=== PATIENT | male | born 1965 | race Caucasian/White ===

== ENCOUNTER → 2020-06-17 10:00 | Outpatient (BNVA) | payer OTHER, SELFPAY | PROVIDERS: PCP Internal Medicine; Referring Provider Internal Medicine; Visit Provider Dietitian, Registered | DX: Z76.89 Persons encountering health services in other specified circumstances (principal) ==

== ENCOUNTER → 2020-06-25 09:22 | Outpatient (BNVA) | payer OTHER, SELFPAY | PROVIDERS: PCP Internal Medicine; Referring Provider Internal Medicine; Visit Provider Internal Medicine Endocrinology, Diabetes & Metabolism | DX: E11.21 Type 2 diabetes mellitus with diabetic nephropathy (principal); E11.42 Type 2 diabetes mellitus with diabetic polyneuropathy; Z79.4 Long term (current) use of insulin; D64.9 Anemia, unspecified; E55.9 Vitamin D deficiency, unspecified; E78.5 Hyperlipidemia, unspecified; I10 Essential (primary) hypertension; M85.89 Other specified disorders of bone density and structure, multiple sites; E29.1 Testicular hypofunction; E66.01 Morbid (severe) obesity due to excess calories; Z68.43 Body mass index [BMI] 50.0-59.9, adult | CPT/HCPCS: 82947; 99214 ==

== ENCOUNTER → 2020-07-29 11:14 | Outpatient (BNVA) | payer OTHER, SELFPAY | PROVIDERS: PCP Internal Medicine; Referring Provider Internal Medicine; Visit Provider Dietitian, Registered | DX: Z76.89 Persons encountering health services in other specified circumstances (principal) ==

== ENCOUNTER 2020-07-29 12:23 | Outpatient (REF) | payer OTHER, SELFPAY ==
[2020-07-29 13:40] LABS: MANUAL DIFF FLAG NO
[2020-07-29 13:46] LABS: Basophils Percent Auto 0.3 % (0-2); Eosinophils Absolute Auto 0.1 X10*3/uL (0.0-0.4); Eosinophils Percent Auto 1.7 % (0-4); Hematocrit 42.3 % (42-52); Imm Gran Abs Auto 0.01 X10*3/uL (0.00-0.03); Imm Gran Pct Auto 0.2 % (0.0-0.4); Lymphocytes Absolute Auto 2.1 X10*3/uL (1.2-4.9); Lymphocytes Percent Auto 35.3 % (20-40); Mean Corpuscular HGB Conc 30.7 g/dl (31.0-36.0); Mean Corpuscular Hemoglobin 26.5 pg (27.0-33.0); Mean Corpuscular Volume 86.3 fL (80-98); Mean Platelet Volume 9.5 fL (9.4-12.4); Monocytes Absolute Auto 0.3 X10*3/uL (0.1-1.2); Monocytes Percent Auto 4.5 % (2-11); Neutrophils Absolute Auto 3.5 X10*3/uL (2.0-8.3); Platelet Count 211 X10*3/uL (160-400); Red Cell Distribution Width 15.8 % (11.0-16.0); White Blood Count 6.1 X10*3/uL (4.8-10.8)
[2020-07-29 14:03] LABS: Estimated Average Glucose 186 mg/dL; Hemoglobin A1c % 8.1 %
[2020-07-29 14:15] LABS: Anion Gap 11 (12-20); Blood Urea Nitrogen 15 mg/dL (9-16); Calcium 9.1 mg/dL (8.4-10.2); Carbon Dioxide 33 mmol/L (22-29); Chloride 99 mmol/L (96-108); Cholesterol 187 mg/dL; Estimated Glomerular Filt Rate > 60; Glucose Fasting 108 mg/dL (60-99); HDL Cholesterol 32 mg/dL; LDL Cholesterol Calculated 131 mg/dl; Potassium 3.8 mmol/l (3.3-5.1); Sodium 139 mmol/L (135-145); Triglycerides 124 mg/dL
[2020-07-29 14:55] LABS: Vitamin B12 692 pg/mL (200-900)
[2020-07-29 17:17] LABS: Alanine Aminotransferase 20 U/L (0-40); Albumin Level 4.3 g/dL (3.5-5.0); Alkaline Phosphatase 77 U/L (39-117); Anion Gap 12 (12-20); Aspartate Amino Transferase 17 U/L (5-37); Bilirubin Total 0.6 mg/dL (0.0-1.0); Blood Urea Nitrogen 15 mg/dL (9-16); Calcium 8.9 mg/dL (8.4-10.2); Carbon Dioxide 32 mmol/L (22-29); Chloride 99 mmol/L (96-108); Estimated Glomerular Filt Rate > 60; Glucose Random 105 mg/dL (60-115); Potassium 3.8 mmol/l (3.3-5.1); Sodium 139 mmol/L (135-145); Total Protein 7.6 g/dL (6.5-8.0)
== END 2020-07-29 12:24 | disposition home or self-care (01) ==
LOC: HO.10HDL 12:23
PROVIDERS: Absent Provider Internal Medicine Endocrinology, Diabetes & Metabolism; Visit Provider Nurse Practitioner Family
DX: E11.29 Type 2 diabetes mellitus with other diabetic kidney complication (principal); E11.42 Type 2 diabetes mellitus with diabetic polyneuropathy; E11.21 Type 2 diabetes mellitus with diabetic nephropathy; E66.01 Morbid (severe) obesity due to excess calories; Z68.43 Body mass index [BMI] 50.0-59.9, adult
CPT/HCPCS: 36415; 80048; 80053; 80061; 82607; 83036; 85025

== ENCOUNTER → 2020-09-21 09:30 | Outpatient (BNVA) | payer OTHER, SELFPAY | PROVIDERS: PCP Internal Medicine; Visit Provider Dietitian, Registered | DX: Z76.89 Persons encountering health services in other specified circumstances (principal) ==

== ENCOUNTER 2020-09-23 09:40 | Outpatient (REF) | payer OTHER, SELFPAY ==
--- NOTE | 2020-09-23 09:46 | CT_ITS ---
EXAMINATION: CT CHEST WITHOUT CONTRAST CLINICAL INFORMATION: Lung nodule COMPARISON: August 30, 2019. December 01, 2011. TECHNIQUE: Multidetector volumetric CT imaging of the chest was done. Axial MIP volume rendering provided. Sagittal and coronal reformatted images were obtained. This CT examination was performed using dose optimization techniques as appropriate, variously including the following: *Automated exposure control *Adjustment of mA and/or kV according to patient size (this includes techniques or standardized protocols for targeted exams where dose is matched to indication/reason for exam; i.e. extremities or head) *Use of iterative reconstruction technique DLP: 362 mGy-cm FINDINGS: LUNGS: The central airways are patent. There is some central bronchial wall thickening seen most prominent in the lower lobes. There is some dependent groundglass disease seen which may be related to atelectasis. No bronchiectasis is seen. Within the right middle lobe on image 196 of 558 there is a 5 mm noncalcified nodule along the minor fissure which may represent intrafissural lymph node. This is essentially stable dating back to study of December 01, 2011. There is a 7 mm right middle lobe. Vascular noncalcified density seen on image 226 of 558. This is stable dating back to study of December 01, 2011. MEDIASTINUM: Heart normal size. Mild calcified coronary artery plaque is present. No pericardial effusion. No mediastinal or hilar lymphadenopathy appreciated. There are prominent aortopulmonic window lymph nodes but which are not pathologically enlarged. No thoracic aortic aneurysm. PLEURA: There is no pleural effusion. No pleural mass or thickening. AXILLA: No lymphadenopathy. UPPER ABDOMEN: Unremarkable. OSSEOUS STRUCTURES: No suspicious destructive bony lesions identified. CT/CT chest wo con IMPRESSION: Stable right middle lobe nodules dating back to December 01, 2011. Dependent groundglass opacity as well as some scattered regions of groundglass opacity likely related to atelectasis. No new suspicious nodules appreciated.
== END 2020-09-23 09:41 | disposition home or self-care (01) ==
LOC: HO.CT 09:40
PROVIDERS: Visit Provider Internal Medicine Pulmonary Disease
DX: R91.1 Solitary pulmonary nodule (principal)
CPT/HCPCS: 71250

== ENCOUNTER → 2020-09-28 10:52 | Outpatient (BNVA) | payer OTHER, SELFPAY | PROVIDERS: PCP Internal Medicine; Visit Provider Internal Medicine Endocrinology, Diabetes & Metabolism | DX: E11.29 Type 2 diabetes mellitus with other diabetic kidney complication (principal); E11.42 Type 2 diabetes mellitus with diabetic polyneuropathy; E11.21 Type 2 diabetes mellitus with diabetic nephropathy; Z79.4 Long term (current) use of insulin; E66.01 Morbid (severe) obesity due to excess calories; Z68.43 Body mass index [BMI] 50.0-59.9, adult; E55.9 Vitamin D deficiency, unspecified; E78.5 Hyperlipidemia, unspecified; I10 Essential (primary) hypertension; M85.89 Other specified disorders of bone density and structure, multiple sites; E29.1 Testicular hypofunction | CPT/HCPCS: 82947; 99212 ==

== ENCOUNTER 2020-09-28 11:41 | Outpatient (REF) | payer OTHER, SELFPAY | END 2020-09-28 11:42 | disposition home or self-care (01) | LOC: HO.LAB 11:41 | PROVIDERS: Visit Provider Internal Medicine | DX: Z20.822 Contact with and (suspected) exposure to COVID-19 (principal) | CPT/HCPCS: 36415; C9803; U0003 ==

== ENCOUNTER → 2020-11-03 10:45 | Outpatient (BNVA) | payer OTHER, SELFPAY | PROVIDERS: PCP Internal Medicine; Visit Provider Internal Medicine Pulmonary Disease | DX: G47.33 Obstructive sleep apnea (adult) (pediatric) (principal); R06.00 Dyspnea, unspecified; E66.01 Morbid (severe) obesity due to excess calories; Z68.43 Body mass index [BMI] 50.0-59.9, adult | CPT/HCPCS: 99212 ==

== ENCOUNTER → 2020-12-25 08:15 | Outpatient (REF) | payer OTHER, SELFPAY ==
--- NOTE | 2020-12-25 08:22 | CA_ITS ---
Transthoracic Echocardiogram Patient (Last, First, Middle): Pedro Cohen, Gender: Male Date of : 1965 Age: 55 Procedure Date: 12/25/2020 Procedure Type: Transthoracic Echocardiogram Location: OP Height: 180.34 cm Weight: 110.22 kg BSA: 2.29 m2 Heart Rate: bpm BP: 136 / 90 mmHg Dirt Supervisor: TRIP Referring MD: Daron Harrington MD Symptoms: R06.00 - Dyspnea, unspecified Study Quality: Technically Difficult/contrast Conclusions: - Normal left ventricular size and systolic function. - There is moderately increased left ventricular wall thickness. - E/E prime ratio is between 8 and 15 consistent with indeterminate filling pressures. - Mild to moderately dilated left atrium. Findings Procedure Information Contrast agent, definity, is being given per protocol without apparent complications. Left Ventricle Normal left ventricular size and systolic function. There is moderately increased left ventricular wall thickness. The visually estimated ejection fraction is between 60-65%. Abnormal diastolic function is noted. Spectral Doppler is indicative of a pseudonormal filling pattern. E/E prime ratio is between 8 and 15 consistent with indeterminate filling pressures. Right Ventricle Normal right ventricular cavity size and systolic function. Atria Mild to moderately dilated left atrium. The right atrium is normal in size. Aortic Valve Normal aortic valve structure and function. There is no aortic valve stenosis. There is no aortic valve regurgitation. Mitral Valve Normal mitral valve structure and function. There is no mitral valve regurgitation. There is no mitral valve stenosis. Pulmonic Valve The pulmonic valve is likely normal. Tricuspid Valve Normal tricuspid valve structure and function. There is trace tricuspid valve regurgitation. Indeterminate right atrial pressure. RVSP = 20 mm Hg + right atrial pressure. Great Vessels There is mild dilatation of the ascending aorta. The visualized portions of the pulmonary artery and branches are normal. Venous The inferior vena cava was not well visualized. Pericardium/Pleural There is no evidence of pericardial effusion. Prior Study Comparison No prior study available for comparison. Measurements 2D Linear Measurements IVSd: 1.48 0.6-0.9/0.6-1.0 cm LVIDd: 5.46 3.9-5.3/4.2-5.9 cm LVIDd Index: 2.38 2.4-3.2/2.2-3.1 cm/m2 LVIDs: 3.37 2.0-3.6 cm LVPWd: 1.40 0.7-1.1 cm Ao Root: 3.60 2.1-3.5 cm LA Diam: 4.40 2.7-3.8/3.0-4.0 cm LAIDs Index: 1.92 1.5-2.3 cm/m2 LV Mass: 434.02 67-162/88-224 g LV Mass Index: 189.53 43-95/49-115 g/m2 LVOT Diam: 2.30 3.0+(-)1.3 cm 2D Systolic Function EF 4C: 68.80 >55% EF 2C: 66.50 >55% EF BiP: 67.80 >55% Mitral Valve MV Pk E: 0.76 MV PK A: 0.72 MV Decel Time: 289.00 E/A: 1.10 E'Lateral: 10.50 E'Medial: 6.87 E/E' Med: 11.00 E/E' Lat: 7.20 PHT: 85.00 MVA PHT: 2.59 Decel [place]: 2.62 Aortic Valve AoV Pk Bj: 1.66 AoV Mn Bj: 1.19 AoV VTI: 0.36 AoV Pk Grad: 11.00 Aov Mn Grad: 6.00 NEVIN Cont.VTI: 2.51 LVOT LVOT Pk Bj: 1.02 LVOT Mn Bj: 0.65 LVOT VTI: 0.22 LVOT Pk Grad: 4.00 LVOT Mn Grad: 2.00 LVOT Diam: 2.30 LVOT Area: 4.15 Diastolic Function MV Pk E: 0.76 MV Pk A: 0.72 E/A: 1.10 E'Medial: 6.87 E/E' Med: 11.00 E' Laterial: 10.50 E/E' Lat: 7.20 Tricuspid Valve TR Pk Bj: 1.76 TR Pk Grad: 12.00 RA Press: 8.00 Great Vessels Aorta Ao Root-2D: 3.60 2.0-3.7 cm Ao Asc: 3.60 2.1-3.4 cm Ao Arch: 2.90 Updated in Other Vendor System with Status of Final Anton Arndt MD electronically signed on 12/26/2020 10:27:39 PM with status of Final
== END ==
LOC: HO.CARD 08:15
PROVIDERS: Visit Provider Internal Medicine Pulmonary Disease
DX: R06.00 Dyspnea, unspecified (principal)
CPT/HCPCS: 93306; Q9957

== ENCOUNTER → 2021-01-07 10:12 | Outpatient (BNVA) | payer OTHER, SELFPAY | PROVIDERS: PCP Internal Medicine; Visit Provider Internal Medicine Pulmonary Disease | DX: E11.29 Type 2 diabetes mellitus with other diabetic kidney complication (principal); E11.21 Type 2 diabetes mellitus with diabetic nephropathy; E11.42 Type 2 diabetes mellitus with diabetic polyneuropathy; Z79.4 Long term (current) use of insulin; E55.9 Vitamin D deficiency, unspecified; E78.5 Hyperlipidemia, unspecified; I10 Essential (primary) hypertension; M85.89 Other specified disorders of bone density and structure, multiple sites; E29.1 Testicular hypofunction; E66.01 Morbid (severe) obesity due to excess calories; Z68.43 Body mass index [BMI] 50.0-59.9, adult; R06.00 Dyspnea, unspecified; G47.33 Obstructive sleep apnea (adult) (pediatric) | CPT/HCPCS: 82947; 99212 ==

== ENCOUNTER → 2021-02-26 10:38 | Outpatient (BNVA) | payer OTHER, SELFPAY | PROVIDERS: PCP Internal Medicine; Referring Provider Internal Medicine; Visit Provider Internal Medicine Cardiovascular Disease | DX: I51.89 Other ill-defined heart diseases (principal); R06.00 Dyspnea, unspecified; I10 Essential (primary) hypertension | CPT/HCPCS: 93005; 99202 ==

== ENCOUNTER → 2021-03-26 09:02 | Outpatient (BNVA) | payer OTHER, SELFPAY | PROVIDERS: PCP Internal Medicine; Visit Provider Internal Medicine Endocrinology, Diabetes & Metabolism | DX: E11.29 Type 2 diabetes mellitus with other diabetic kidney complication (principal); E11.21 Type 2 diabetes mellitus with diabetic nephropathy; E11.42 Type 2 diabetes mellitus with diabetic polyneuropathy; E55.9 Vitamin D deficiency, unspecified; E78.5 Hyperlipidemia, unspecified; E29.1 Testicular hypofunction; E66.01 Morbid (severe) obesity due to excess calories; I10 Essential (primary) hypertension; M85.89 Other specified disorders of bone density and structure, multiple sites; Z79.4 Long term (current) use of insulin; Z68.43 Body mass index [BMI] 50.0-59.9, adult | CPT/HCPCS: 82947; 99212 ==

== ENCOUNTER → 2021-04-19 08:58 | Outpatient (BNVA) | payer OTHER, SELFPAY | PROVIDERS: PCP Internal Medicine; Visit Provider Internal Medicine Cardiovascular Disease | DX: I51.89 Other ill-defined heart diseases (principal); I10 Essential (primary) hypertension; R06.00 Dyspnea, unspecified | CPT/HCPCS: 99212 ==

== ENCOUNTER → 2021-06-23 10:32 | Outpatient (REF) | payer OTHER, SELFPAY ==
--- NOTE | 2021-06-23 10:37 | ECG_ITS ---
Test Reason : HTN Blood Pressure : / mmHG Vent. Rate : 075 BPM Atrial Rate : 075 BPM P-R Int : 180 ms QRS Dur : 160 ms QT Int : 446 ms P-R-T Axes : 072 -16 -16 degrees QTc Int : 498 ms Normal sinus rhythm Right bundle branch block Abnormal ECG When compared with ECG of 30-MAY-2015 22:56, Right bundle branch block is now Present Referred By: Consuelo Gallardo Electronically Signed By:ABBE CHANG MD
[2021-06-23 10:45] LABS: MANUAL DIFF FLAG NO
[2021-06-23 11:18] LABS: Basophils Percent Auto 0.1 % (0-2); Eosinophils Absolute Auto 0.1 X10*3/uL (0.0-0.4); Eosinophils Percent Auto 1.1 % (0-4); Hematocrit 39.9 % (42-52); Hemoglobin 12.8 g/dl (14.0-18.0); Imm Gran Abs Auto 0.02 X10*3/uL (0.00-0.03); Imm Gran Pct Auto 0.3 % (0.0-0.4); Lymphocytes Absolute Auto 2.4 X10*3/uL (1.2-4.9); Lymphocytes Percent Auto 31.9 % (20-40); Mean Corpuscular HGB Conc 32.1 g/dl (31.0-36.0); Mean Corpuscular Hemoglobin 28.3 pg (27.0-33.0); Mean Corpuscular Volume 88.3 fL (80-98); Mean Platelet Volume 9.6 fL (9.4-12.4); Monocytes Absolute Auto 0.4 X10*3/uL (0.1-1.2); Monocytes Percent Auto 4.9 % (2-11); Neutrophils Absolute Auto 4.7 X10*3/uL (2.0-8.3); Neutrophils Percent Auto 61.7 % (45-73); Platelet Count 206 X10*3/uL (160-400); Red Blood Count 4.52 X10*6/uL (4.60-5.80); Red Cell Distribution Width 14.5 % (11.0-16.0); White Blood Count 7.6 X10*3/uL (4.8-10.8)
[2021-06-23 12:27] LABS: Thyroid Stimulating Hormone 1.17 uIU/mL (0.32-4.0)
[2021-06-23 12:31] LABS: Alanine Aminotransferase 17 U/L (0-40); Albumin Level 4.3 g/dL (3.5-5.0); Alkaline Phosphatase 68 U/L (39-117); Anion Gap 14 (12-20); Aspartate Amino Transferase 15 U/L (5-37); Bilirubin Total 0.5 mg/dL (0.0-1.0); Blood Urea Nitrogen 24 mg/dL (9-16); Calcium 9.7 mg/dL (8.4-10.2); Carbon Dioxide 31 mmol/L (22-29); Chloride 101 mmol/L (96-108); Cholesterol 196 mg/dL; Estimated Glomerular Filt Rate > 60; Glucose Fasting 87 mg/dL (60-99); HDL Cholesterol 33 mg/dL; Iron 53 mcg/dL (45-160); LDL Cholesterol Calculated 130 mg/dl; Percent Iron Saturation 13 % (15-50); Potassium 3.6 mmol/L (3.3-5.1); Sodium 142 mmol/L (135-145); Total Iron Binding Capacity 400 mcg/dL (228-428); Total Protein 7.8 g/dL (6.5-8.0); Triglycerides 168 mg/dL; Unsaturated Iron Binding 347 ug/dL
[2021-06-23 14:45] LABS: Creatinine Urine 150.99 mg/dL; Microalbum/Creatinine Ratio Ur 57.6 ug/mg cr
[2021-06-28 12:47] LABS: Vitamin D 25-OH, D2 <4 ng/mL; Vitamin D 25-OH, D3 38 ng/mL; Vitamin D 25-OH, Total 38 ng/mL (30-100)
== END ==
LOC: HO.CARD 10:32
PROVIDERS: PCP Internal Medicine; Visit Provider Internal Medicine
DX: I10 Essential (primary) hypertension (principal); E78.5 Hyperlipidemia, unspecified; E11.9 Type 2 diabetes mellitus without complications; D64.9 Anemia, unspecified; E66.01 Morbid (severe) obesity due to excess calories; E55.9 Vitamin D deficiency, unspecified
CPT/HCPCS: 36415; 80053; 80061; 82043; 82306; 83540; 84443; 85025; 93005

== ENCOUNTER → 2021-07-30 08:59 | Outpatient (BNVA) | payer OTHER, SELFPAY | PROVIDERS: PCP Internal Medicine; Visit Provider Nurse Practitioner Gerontology | DX: E11.42 Type 2 diabetes mellitus with diabetic polyneuropathy (principal); E11.65 Type 2 diabetes mellitus with hyperglycemia; E55.9 Vitamin D deficiency, unspecified; E78.5 Hyperlipidemia, unspecified; E29.1 Testicular hypofunction; I10 Essential (primary) hypertension; M85.89 Other specified disorders of bone density and structure, multiple sites; E66.01 Morbid (severe) obesity due to excess calories; Z68.42 Body mass index [BMI] 45.0-49.9, adult; Z79.4 Long term (current) use of insulin | CPT/HCPCS: 82947; 99212 ==

== ENCOUNTER → 2021-08-02 10:57 | Outpatient (BNVA) | payer OTHER, SELFPAY | PROVIDERS: PCP Internal Medicine; Referring Provider Internal Medicine; Visit Provider Internal Medicine Cardiovascular Disease | DX: I10 Essential (primary) hypertension (principal); R60.9 Edema, unspecified | CPT/HCPCS: 99212 ==

== ENCOUNTER → 2021-10-06 10:34 | Outpatient (BNVA) | payer OTHER, SELFPAY | PROVIDERS: PCP Internal Medicine; Visit Provider Internal Medicine Pulmonary Disease | DX: G47.33 Obstructive sleep apnea (adult) (pediatric) (principal); J45.30 Mild persistent asthma, uncomplicated | CPT/HCPCS: 99212 ==

== ENCOUNTER → 2021-10-28 10:30 | Outpatient (BNVA) | payer OTHER, SELFPAY | PROVIDERS: PCP Internal Medicine; Referring Provider Internal Medicine; Visit Provider Internal Medicine Cardiovascular Disease | DX: R07.9 Chest pain, unspecified (principal) | CPT/HCPCS: 99212 ==

== ENCOUNTER 2021-11-10 11:39 | Outpatient (REF) | payer OTHER, SELFPAY ==
--- NOTE | ~2021-11-10 | XR_ITS ---
EXAMINATION: XR TIBIA AND FIBULA, RIGHT CLINICAL INFORMATION: Pain right leg. COMPARISON: None TECHNIQUE: AP and lateral views of the right tibia and fibula were obtained. FINDINGS: There is moderate lateral malleolar soft tissue swelling with multiple small bone fragments likely old injury. There is no acute fracture seen. The ankle mortise and subtalar joints are normal. Small retrocalcaneal and calcaneal heel spurs are noted The entire tibia and fibula are normal. There are scattered vascular calcifications. Suspect mild calf edema. XR/XR tibia fibula RT 2V IMPRESSION: Moderate lateral malleolar soft tissue swelling without acute fracture. There are small bone fragment seen along the tip of distal fibula likely old injury. The entire tibia and fibula visualized and otherwise unremarkable. There is mild calf edema.
[2021-11-10 11:58] LABS: MANUAL DIFF FLAG NO
[2021-11-10 12:09] LABS: Basophils Percent Auto 0.3 % (0-2); Eosinophils Absolute Auto 0.1 X10*3/uL (0.0-0.4); Eosinophils Percent Auto 1.1 % (0-4); Hematocrit 40.1 % (42.0-52.0); Hemoglobin 12.7 g/dl (14.0-18.0); Imm Gran Abs Auto 0.01 X10*3/uL (0.00-0.03); Imm Gran Pct Auto 0.2 % (0.0-0.4); Lymphocytes Absolute Auto 2.5 X10*3/uL (1.2-4.9); Lymphocytes Percent Auto 39.5 % (20-40); Mean Corpuscular HGB Conc 31.7 g/dl (31.0-36.0); Mean Corpuscular Hemoglobin 27.4 pg (27.0-33.0); Mean Corpuscular Volume 86.4 fL (80.0-98.0); Mean Platelet Volume 9.2 fL (9.4-12.4); Monocytes Absolute Auto 0.3 X10*3/uL (0.1-1.2); Monocytes Percent Auto 4.5 % (2-11); Neutrophils Absolute Auto 3.5 x10*3/uL (2.0-8.3); Neutrophils Percent Auto 54.4 % (45-73); Platelet Count 188 X10*3/uL (160-400); Red Blood Count 4.64 X10*6/uL (4.60-5.80); Red Cell Distribution Width 15.1 % (11.0-16.0); White Blood Count 6.4 X10*3/uL (4.8-10.8)
[2021-11-10 12:42] LABS: Alanine Aminotransferase 13 U/L (0-40); Albumin Level 4.1 g/dL (3.5-5.0); Alkaline Phosphatase 65 U/L (39-117); Anion Gap 11 (12-20); Aspartate Amino Transferase 14 U/L (5-37); Bilirubin Total 0.6 mg/dL (0.0-1.0); Blood Urea Nitrogen 18 mg/dL (9-16); Calcium 9.6 mg/dL (8.4-10.2); Carbon Dioxide 33 mmol/L (22-29); Chloride 103 mmol/L (96-108); Cholesterol 198 mg/dL; Estimated Glomerular Filt Rate > 60; Glucose Random 78 mg/dL (60-115); HDL Cholesterol 38 mg/dL; LDL Cholesterol Calculated 135 mg/dl; Potassium 4.3 mmol/L (3.3-5.1); Sodium 143 mmol/L (135-145); Total Protein 7.5 g/dL (6.5-8.0); Triglycerides 129 mg/dL
[2021-11-10 14:06] LABS: Creatinine Urine 93.13 mg/dL; Microalbum/Creatinine Ratio Ur 69.7 ug/mg cr
[2021-11-14 15:32] LABS: Vitamin D 25-OH, D2 <4 ng/mL; Vitamin D 25-OH, D3 28 ng/mL; Vitamin D 25-OH, Total 28 ng/mL (30-100)
== END 2021-11-10 11:40 | disposition home or self-care (01) ==
LOC: HO.XRAY 11:39
PROVIDERS: PCP Internal Medicine; Visit Provider Internal Medicine
DX: M79.604 Pain in right leg (principal); E78.5 Hyperlipidemia, unspecified; E11.42 Type 2 diabetes mellitus with diabetic polyneuropathy; D64.9 Anemia, unspecified; E55.9 Vitamin D deficiency, unspecified; Z23 Encounter for immunization
CPT/HCPCS: 36415; 73590; 80053; 80061; 82043; 82306; 85025; 86787

== ENCOUNTER → 2021-11-15 09:53 | Outpatient (BNVA) | payer OTHER, SELFPAY | PROVIDERS: PCP Internal Medicine; Visit Provider Nurse Practitioner Gerontology | DX: E11.65 Type 2 diabetes mellitus with hyperglycemia (principal); E11.42 Type 2 diabetes mellitus with diabetic polyneuropathy; E11.21 Type 2 diabetes mellitus with diabetic nephropathy; E78.5 Hyperlipidemia, unspecified; E29.1 Testicular hypofunction; E55.9 Vitamin D deficiency, unspecified; E66.01 Morbid (severe) obesity due to excess calories; I10 Essential (primary) hypertension; M85.89 Other specified disorders of bone density and structure, multiple sites; Z79.4 Long term (current) use of insulin; Z68.42 Body mass index [BMI] 45.0-49.9, adult | CPT/HCPCS: 82947; 99212 ==

== ENCOUNTER → 2021-12-01 08:45 | Outpatient (REF) | payer OTHER, SELFPAY ==
--- NOTE | ~2021-12-01 | NM_ITS ---
EXERCISE MYOCARDIAL PERFUSION STUDY INDICATION: Shortness of breath, chest pain, assess for coronary disease and ischemia TECHNIQUE: The patient was brought in for an exercise perfusion study on 12/01/2021. Patient performed exercise as per Viktor protocol and was injected 45 mCi of sestamibi once target heart rate was achieved. Images were obtained using the SPECT gamma camera interlaced with the gating device. Images were obtained in supine position. Resting perfusion study was performed on 12/02/2021. Patient was administered 45 mCi of sestamibi intravenously at rest. Images were then obtained in supine position. Total DLP 189mGy-cm. Images were processed with the software and compared side to side in short axis, horizontal long axis and vertical long axis views. Findings: Raw acquisition was reviewed. The stress perfusion study showed slightly reduced tracer uptake in the distal part of anteroseptal and inferolateral edgar. There is also minimally reduced tracer uptake in the basal inferior wall. With CT attenuation correction, there is no significant changes. The gated study shows normal LV systolic function with calculated LVEF of 57%. LV cavity is normal in size. The gated study shows normal wall thickening and contraction of segments. Resting study shows no significant perfusion abnormality. Gating at rest reveals normal wall motion with ejection fraction at 64%. The findings are consistent with mild reversible defects in the distal part of anterior septum, inferolateral wall; basal inferior wall; however likely artifactual. AR/NM cardiolite stress test Impression: 1. Myocardial perfusion imaging study shows no clear evidence of any ischemia or infarction. Mild reversible defect seen in the distal part of anterior septum, inferolateral wall as well as basal inferior wall are likely artifactual as the contractility is normal. 2. Gated LVEF is 57% during stress and 64% during rest. 3. Transient ischemic dilatation not present. EKG component of the test reported normal.
--- NOTE | 2021-12-01 08:48 | CA_ITS ---
Acquisition Time: 2021-12-01 09:14:14 Total Exercise Time: 00:05:31 Test Indications: SOB Medications: SEE CHART Protocol: VIKTOR Max HR: 162 BPM 98% of Pred: 165 BPM Max BP: 178/072 mmHG Max Work Load: 5.7 METS Exercise stress test with exercise 5 min 31 sec of Viktor protocol ( stage 2 slowed to 2.0 then 1.8 MPH due to fatigue and foot pain), without anginal symptoms, without noted arrythmia, with normotensive response to exercise, with significant artifact during stage 2 of exercise and early recovery, with nondiagnostic EKG for ischemia due to baseline ST/ T wave abnormalities. Nuclear images pending. Test reviewed eleazar Arndt. Referred By: Anton Arndt Overread By: SHERIDAN EMERSON
== END ==
LOC: HO.CARD 08:45
PROVIDERS: PCP Internal Medicine; Visit Provider Internal Medicine Cardiovascular Disease
DX: R07.9 Chest pain, unspecified (principal)
CPT/HCPCS: 78452; 93017; A9500; J0280; J2785

== ENCOUNTER → 2021-12-09 13:57 | Outpatient (BNVA) | payer OTHER, SELFPAY | PROVIDERS: PCP Internal Medicine; Referring Provider Internal Medicine; Visit Provider Nurse Practitioner Family | DX: R07.9 Chest pain, unspecified (principal); I10 Essential (primary) hypertension; E11.29 Type 2 diabetes mellitus with other diabetic kidney complication; E66.01 Morbid (severe) obesity due to excess calories; Z68.41 Body mass index [BMI] 40.0-44.9, adult; Z79.4 Long term (current) use of insulin; Z79.84 Long term (current) use of oral hypoglycemic drugs | CPT/HCPCS: 99212 ==

== ENCOUNTER 2022-02-16 12:33 | Outpatient (REF) | payer OTHER, SELFPAY ==
[2022-02-16 14:38] LABS: Anion Gap 13 (12-20); Blood Urea Nitrogen 22 mg/dL (9-16); Calcium 9.1 mg/dL (8.4-10.2); Carbon Dioxide 29 mmol/L (22-29); Chloride 104 mmol/L (96-108); Estimated Glomerular Filt Rate > 60; Glucose Random 191 mg/dL (60-115); Potassium 3.8 mmol/L (3.3-5.1); Sodium 142 mmol/L (135-145)
== END 2022-02-16 12:34 | disposition home or self-care (01) ==
LOC: HO.LAB 12:33
PROVIDERS: Nurse Practitioner Family; PCP Internal Medicine; Visit Provider Internal Medicine
DX: I10 Essential (primary) hypertension (principal)
CPT/HCPCS: 36415; 80048

== ENCOUNTER → 2022-04-04 11:24 | Outpatient (BNVA) | payer OTHER, SELFPAY | PROVIDERS: PCP Internal Medicine; Referring Provider Internal Medicine; Visit Provider Internal Medicine Cardiovascular Disease | DX: R07.9 Chest pain, unspecified (principal); I10 Essential (primary) hypertension; R40.20 Unspecified coma; Z79.899 Other long term (current) drug therapy | CPT/HCPCS: 93005; 99212 ==

== ENCOUNTER 2022-04-28 12:35 | Outpatient (REF) | payer OTHER, SELFPAY ==
--- NOTE | 2022-04-28 12:39 | EEG_ITS ---
This is a 16-channel EEG with an EKG lead. The patient is reported awake during the tracing. Background EEG rhythm at times is 10-12 hertz, 5-30 microvolt posteriorly and lower amplitude fast anteriorly. The patient transitioned into light sleep with no significant abnormality. Some lead and muscle artifacts are noted. Photic stimulation does not produce any significant abnormality. Hyperventilation is not performed. Cardiac lead does not reveal any significant abnormality. No sharp wave spikes or paroxysmal tendency noted. IMPRESSION: No significant abnormality noted on this EEG. MD SENTHIL Brunson/JADYN / [id number]
== END 2022-04-28 12:36 | disposition home or self-care (01) ==
LOC: HO.NEURO 12:35
PROVIDERS: Visit Provider Internal Medicine Cardiovascular Disease
DX: R40.20 Unspecified coma (principal)
CPT/HCPCS: 95816

== ENCOUNTER → 2022-05-02 10:44 | Outpatient (REF) | payer OTHER, SELFPAY ==
--- NOTE | 2022-05-02 10:48 | HM_ITS ---
REQUESTING PROVIDER: Dr. Arndt. REASON FOR TEST: Syncope and collapse. INTERPRETATION: Patient hooked up to cardiac event monitor from 05/03/2022 to 05/29/2022 for a total period of 28 days. FINDINGS: Baseline rhythm was normal sinus rhythm with heart rate varying from 61 beats per minute to 103 beats per minute. Rare isolated PVCs noted. Underlying IVCD noted. The patient reported multiple symptoms of dizziness and chest pain, which are correlated with sinus rhythm. There were no arrhythmias noted. CONCLUSION: Event monitor is remarkable. 1. Baseline normal sinus rhythm. 2. Rare isolated PVCs. 3. Patient reported symptoms correlated with sinus rhythm. Derick Boswell MD NRS/MODL / [id number]
[2022-05-02 12:19] LABS: Alanine Aminotransferase 19 U/L (0-40); Albumin Level 4.2 g/dL (3.5-5.0); Alkaline Phosphatase 69 U/L (39-117); Anion Gap 15 (12-20); Aspartate Amino Transferase 14 U/L (5-37); Bilirubin Total 0.6 mg/dL (0.0-1.0); Blood Urea Nitrogen 25 mg/dL (9-16); Calcium 9.7 mg/dL (8.4-10.2); Carbon Dioxide 28 mmol/L (22-29); Chloride 102 mmol/L (96-108); Cholesterol 226 mg/dL; Estimated Glomerular Filt Rate > 60; Glucose Fasting 135 mg/dL (60-99); HDL Cholesterol 40 mg/dL; LDL Cholesterol Calculated 158 mg/dl; Potassium 4.4 mmol/L (3.3-5.1); Sodium 141 mmol/L (135-145); Total Protein 7.6 g/dL (6.5-8.0); Triglycerides 143 mg/dL
[2022-05-02 12:24] LABS: Vitamin D 25-OH Total 26.9 ng/mL (>30)
[2022-05-02 14:36] LABS: Creatinine Urine 273.45 mg/dL; Microalbum/Creatinine Ratio Ur 25.9 ug/mg cr
== END ==
LOC: HO.CARD 10:44
PROVIDERS: Absent Provider Internal Medicine; PCP Internal Medicine; Visit Provider Internal Medicine Cardiovascular Disease
DX: R40.20 Unspecified coma (principal); E11.9 Type 2 diabetes mellitus without complications; E78.5 Hyperlipidemia, unspecified; E55.9 Vitamin D deficiency, unspecified; Z79.4 Long term (current) use of insulin
CPT/HCPCS: 36415; 80053; 80061; 82043; 82306; 93270

== ENCOUNTER → 2022-05-09 10:35 | Outpatient (BNVA) | payer OTHER, SELFPAY | PROVIDERS: PCP Internal Medicine; Visit Provider Internal Medicine Pulmonary Disease | DX: G47.33 Obstructive sleep apnea (adult) (pediatric) (principal); J45.30 Mild persistent asthma, uncomplicated | CPT/HCPCS: 99212 ==

== ENCOUNTER 2022-06-29 12:31 | Outpatient (REF) | payer OTHER, SELFPAY ==
[2022-06-29 14:42] LABS: Hematocrit 38.1 % (42.0-52.0); Hemoglobin 12.4 g/dl (14.0-18.0); Mean Corpuscular HGB Conc 32.5 g/dl (31.0-36.0); Mean Corpuscular Hemoglobin 28.2 pg (27.0-33.0); Mean Corpuscular Volume 86.8 fL (80.0-98.0); Platelet Count 200 X10*3/uL (160-400); Red Blood Count 4.39 X10*6/uL (4.60-5.80); Red Cell Distribution Width 13.8 % (11.0-16.0); White Blood Count 6.4 X10*3/uL (4.8-10.8)
[2022-06-29 15:18] LABS: Alanine Aminotransferase 19 U/L (0-40); Albumin Level 4.2 g/dL (3.5-5.0); Alkaline Phosphatase 68 U/L (39-117); Anion Gap 16 (12-20); Aspartate Amino Transferase 17 U/L (5-37); Bilirubin Total 0.7 mg/dL (0.0-1.0); Blood Urea Nitrogen 16 mg/dL (9-16); Calcium 9.4 mg/dL (8.4-10.2); Carbon Dioxide 27 mmol/L (22-29); Chloride 103 mmol/L (96-108); Estimated Glomerular Filt Rate > 60; Glucose Random 90 mg/dL (60-115); Potassium 4.2 mmol/L (3.3-5.1); Sodium 142 mmol/L (135-145); Total Protein 7.5 g/dL (6.5-8.0)
== END 2022-06-29 12:32 | disposition home or self-care (01) ==
LOC: HO.LAB 12:31
PROVIDERS: Visit Provider Nurse Practitioner Family
DX: Z13.9 Encounter for screening, unspecified (principal); M54.50 Low back pain, unspecified
CPT/HCPCS: 36415; 80053; 85027; 87086

== ENCOUNTER → 2022-06-29 12:51 | Outpatient (REF) | payer OTHER, SELFPAY ==
--- NOTE | ~2022-06-29 | XR_ITS ---
EXAMINATION: XR ABDOMEN KUB CLINICAL INDICATION: Left flank pain. COMPARISON: CT abdomen/pelvis 05/30/2015. TECHNIQUE: AP view of the abdomen. FINDINGS: Evaluation is limited secondary to patient body habitus. There is a nonobstructive bowel gas pattern with moderate colonic stool burden. Suspect hepatosplenomegaly. Right upper quadrant cholecystectomy clips are noted. XR/XR KUB IMPRESSION: 1. Nonobstructive bowel gas pattern. Moderate colonic stool burden. 2. Suspect hepatosplenomegaly.
== END ==
LOC: HO.SL 12:51
PROVIDERS: Absent Provider Nurse Practitioner Family; PCP Internal Medicine; Visit Provider Internal Medicine Pulmonary Disease
DX: G47.33 Obstructive sleep apnea (adult) (pediatric) (principal); M54.50 Low back pain, unspecified
CPT/HCPCS: 74018; 95806

== ENCOUNTER → 2022-06-30 08:44 | Outpatient (BNVA) | payer OTHER, SELFPAY | PROVIDERS: PCP Internal Medicine; Visit Provider Internal Medicine Endocrinology, Diabetes & Metabolism | DX: E11.29 Type 2 diabetes mellitus with other diabetic kidney complication (principal); Z79.4 Long term (current) use of insulin | CPT/HCPCS: 82947; 83036; 99212 ==

== ENCOUNTER → 2022-07-11 11:05 | Outpatient (BNVA) | payer OTHER, SELFPAY | PROVIDERS: PCP Internal Medicine; Visit Provider Internal Medicine Pulmonary Disease | DX: G47.33 Obstructive sleep apnea (adult) (pediatric) (principal); J45.30 Mild persistent asthma, uncomplicated | CPT/HCPCS: 99212 ==

== ENCOUNTER 2022-07-22 13:29 | Outpatient (REF) | payer OTHER, SELFPAY ==
[2022-07-22 14:54] LABS: Anion Gap 15 (12-20); Blood Urea Nitrogen 20 mg/dL (9-16); Calcium 9.5 mg/dL (8.4-10.2); Carbon Dioxide 28 mmol/L (22-29); Chloride 102 mmol/L (96-108); Estimated Glomerular Filt Rate > 60; Glucose Random 164 mg/dL (60-115); Potassium 4.2 mmol/L (3.3-5.1); Sodium 141 mmol/L (135-145)
== END 2022-07-22 13:30 | disposition home or self-care (01) ==
LOC: HO.LAB 13:29
PROVIDERS: Visit Provider Internal Medicine Pulmonary Disease
DX: R07.9 Chest pain, unspecified (principal); G47.33 Obstructive sleep apnea (adult) (pediatric); J45.30 Mild persistent asthma, uncomplicated; R91.8 Other nonspecific abnormal finding of lung field; E66.01 Morbid (severe) obesity due to excess calories; Z68.41 Body mass index [BMI] 40.0-44.9, adult
CPT/HCPCS: 36415; 80048; 99212

== ENCOUNTER 2022-07-26 15:23 | Outpatient (REF) | payer OTHER, SELFPAY ==
--- NOTE | ~2022-07-26 | XR_ITS ---
EXAMINATION: XR CHEST 2 VIEWS CLINICAL INFORMATION: Chest pain. COMPARISON: CT chest dated 08/02/2022; chest radiographs dated 05/30/2015. TECHNIQUE: Frontal and lateral views of the chest were obtained. FINDINGS: The heart, great vessels, pulmonary vasculature and mediastinum are normal. Lung volumes are somewhat diminished, generalized crowding of bronchovascular and pulmonary parenchymal markings. The lungs show no focal infiltrate, effusion or pneumothorax. There is no acute osseous abnormality. XR/XR chest 2V IMPRESSION: No active cardiopulmonary disease. Lung volumes are diminished.
== END 2022-07-26 15:24 | disposition home or self-care (01) ==
LOC: HO.CT 15:23
PROVIDERS: Absent Provider Internal Medicine; PCP Internal Medicine; Visit Provider Internal Medicine Pulmonary Disease
DX: R07.9 Chest pain, unspecified (principal)
CPT/HCPCS: 71046

== ENCOUNTER 2022-08-02 08:18 | Outpatient (REF) | payer OTHER, SELFPAY ==
--- NOTE | ~2022-08-02 | CT_ITS ---
EXAMINATION: CT CHEST WITH CONTRAST CLINICAL INFORMATION: Chest pain COMPARISON: Previous chest CT September 2020 TECHNIQUE: Multidetector volumetric CT imaging of the chest was obtained after the administration of 65 mL of Omnipaque 350 intravenous contrast without immediate adverse reactions. Axial MIP volume rendering provided. Sagittal and coronal reformatted images were obtained. This CT examination was performed using dose optimization techniques as appropriate, variously including the following: *Automated exposure control *Adjustment of mA and/or kV according to patient size (this includes techniques or standardized protocols for targeted exams where dose is matched to indication/reason for exam; i.e. extremities or head) *Use of iterative reconstruction technique DLP: 314 mGy-cm FINDINGS: ELECTROPLATER: Low lung volumes LUNGS: The lung volumes are low. There is heterogeneous mosaic attenuation in the lungs probably representing areas of air-trapping. No evidence of pneumonia. MEDIASTINUM: Slightly enlarged heart. Mild coronary artery calcification. No pericardial effusion. Normal Caliber thoracic aorta. Shotty mediastinal lymphadenopathy. No enlarged hilar or mediastinal lymph nodes. PLEURA: There is no pleural effusion. No pleural mass or thickening. AXILLA: No lymphadenopathy. UPPER ABDOMEN: Probable enlarged fatty liver. The gallbladder has been removed. OSSEOUS STRUCTURES: Degenerative changes of the spine. CT/CT chest w IV con IMPRESSION: Low lung volumes. Heterogeneous attenuation in the lungs probably representing hypoventilatory changes or areas of air-trapping. Fleischner guidelines were followed.
[2022-08-02] MEDS: iohexoL 350 MG/ML 100 ML INFUS..BTL IV (08:53)
== END 2022-08-02 08:19 | disposition home or self-care (01) ==
LOC: HO.CT 08:18
PROVIDERS: PCP Internal Medicine; Visit Provider Internal Medicine Pulmonary Disease
DX: R07.9 Chest pain, unspecified (principal)
CPT/HCPCS: 71260; Q9967

== ENCOUNTER 2022-08-29 09:06 | Outpatient (REF) | payer OTHER, SELFPAY ==
[2022-08-29 10:26] LABS: Microalbum/Creatinine Ratio Ur 38.3 ug/mg cr
[2022-08-29 11:04] LABS: Alanine Aminotransferase 16 U/L (0-40); Albumin Level 4.1 g/dL (3.5-5.0); Alkaline Phosphatase 68 U/L (39-117); Anion Gap 13 (12-20); Aspartate Amino Transferase 13 U/L (5-37); Bilirubin Total 0.5 mg/dL (0.0-1.0); Blood Urea Nitrogen 24 mg/dL (9-16); Calcium 9.4 mg/dL (8.4-10.2); Carbon Dioxide 27 mmol/L (22-29); Chloride 105 mmol/L (96-108); Cholesterol 192 mg/dL; Estimated Glomerular Filt Rate > 60; Glucose Fasting 113 mg/dL (60-99); HDL Cholesterol 32 mg/dL; LDL Cholesterol Calculated 136 mg/dl; Potassium 4.2 mmol/L (3.3-5.1); Sodium 141 mmol/L (135-145); Total Protein 7.1 g/dL (6.5-8.0); Triglycerides 121 mg/dL; Vitamin D 25-OH Total 27.1 ng/mL (>30)
== END 2022-08-29 09:07 | disposition home or self-care (01) ==
LOC: HO.LAB 09:06
PROVIDERS: PCP Internal Medicine; Visit Provider Internal Medicine
DX: M54.12 Radiculopathy, cervical region (principal); E78.5 Hyperlipidemia, unspecified; E55.9 Vitamin D deficiency, unspecified; E11.9 Type 2 diabetes mellitus without complications; Z79.4 Long term (current) use of insulin
CPT/HCPCS: 36415; 72040; 80053; 80061; 82043; 82306

== ENCOUNTER 2022-10-25 11:38 | Outpatient (REF) | payer OTHER, SELFPAY ==
[2022-10-25 15:30] LABS: Iron 62 mcg/dL (45-160); Percent Iron Saturation 19 % (15-50); Total Iron Binding Capacity 328 mcg/dL (228-428); Unsaturated Iron Binding 266 ug/dL
[2022-10-25 15:43] LABS: Ferritin 108 ng/mL (20-250)
== END 2022-10-25 11:39 | disposition home or self-care (01) ==
LOC: HO.LAB 11:38
PROVIDERS: PCP Internal Medicine; Visit Provider Internal Medicine
DX: R13.10 Dysphagia, unspecified (principal); D64.9 Anemia, unspecified; Z86.010 Personal history of colon polyps
CPT/HCPCS: 36415; 82728; 83540; 99202

== ENCOUNTER 2022-12-08 09:58 | Outpatient (REF) | payer OTHER, SELFPAY ==
--- NOTE | ~2022-12-08 | FL_ITS ---
EXAMINATION: FL BARIUM SWALLOW CLINICAL INFORMATION: Dysphagia. Previous history of gastric lap band which was removed. COMPARISON: None available. TECHNIQUE: Barium swallow examination is performed using fluoroscopic evaluation in addition to multiple fluoroscopic spot views. The patient is imaged both upright and prone and using both thick and thin sulfate along with effervescent granules. Fluoroscopy time: 1.4 minutes DAP: 106.201 mGy. Total: 18.377 Gy-cm2. Images: 33. FINDINGS: On oral administration of thick barium in upright view, there is normal propagation of bolus from the oral cavity through the pharynx and esophagus and into the stomach without any evidence of obstruction, narrowing or stricture. No extrinsic compression seen. On administration of thick barium in AP and lateral views, of similar findings are seen. On oral administration of barium-coated turkey, there is normal propagation of bolus from the oral cavity through the pharynx and esophagus and into the stomach. No obstruction seen. FL/FL barium swallow IMPRESSION: Normal barium swallow with thick barium and barium-coated turkey in upright view.
== END 2022-12-08 09:59 | disposition home or self-care (01) ==
LOC: HO.XRAY 09:58
PROVIDERS: PCP Internal Medicine; Visit Provider Internal Medicine
DX: R13.10 Dysphagia, unspecified (principal)
CPT/HCPCS: 74220

== ENCOUNTER 2023-02-23 11:20 | Day surgery (SDC) | payer OTHER, SELFPAY ==
--- NOTE | 2023-02-22 12:01 | HO.ANESPROP2 ---
HPI - Anesthesia Eval Consult details Narrative: 58yo M for Upper Endoscopy with Balloon Dilitation, Colonoscopy 2021 cardiac w/u. Stress suboptimal. Cardiac CTA suboptimal but mild disease PMFSH Active Problems Active Problems: All Active Problems (Updated 12/28/22 @ 10:58 by Consuelo Gallardo MD) Personal history of colonic polyps (Acute) Anemia (Acute) Dysphagia (Acute) Diabetes mellitus (Acute) Physical exam (Acute) Cervical radiculopathy (Acute) Loss of consciousness (Acute) Hyperlipidemia LDL goal <70 (Acute) Abnormal nuclear stress test (Acute) Chronic GERD (Acute) Abdominal pain (Acute) Epigastric pain (Acute) Type 2 diabetes mellitus, with long-term current use of insulin (Acute) Right leg pain (Acute) Immunization due (Acute) Chest pain (Acute) Peripheral edema (Acute) Obesity due to excess calories (Acute) Diabetes type 2, uncontrolled (Acute) Morbid obesity due to excess calories (Acute) Asthma (Acute) Diastolic dysfunction (Acute) Dyspnea on exertion (Acute) Microalbuminuria (Acute) Left shoulder pain (Acute) Lower back pain (Acute) Diabetic polyneuropathy associated with type 2 diabetes mellitus (Acute) Anemia (Acute) ELO (obstructive sleep apnea) (Acute) Diabetic nephropathy associated with type 2 diabetes mellitus (Acute) Klinefelter syndrome (Acute) Vitamin D deficiency (Acute) Dyslipidemia (Acute) Hypertension (Acute) Osteopenia (Acute) Hypogonadism male (Acute) Type 2 diabetes mellitus with other diabetic kidney complication (Acute) Past Medical History Medical History (Updated 12/28/22 @ 10:58 by Consuelo Gallardo MD) Abdominal pain Anemia Asthma Chronic GERD Diabetes type 2, uncontrolled Diabetic nephropathy associated with type 2 diabetes mellitus Diabetic polyneuropathy associated with type 2 diabetes mellitus Dyslipidemia Epigastric pain Hypertension Hypogonadism male Immunization due Klinefelter syndrome Left shoulder pain [facility] (current) use of insulin Lower back pain Microalbuminuria Morbid obesity due to excess calories Obesity due to excess calories ELO (obstructive sleep apnea) Osteopenia Right leg pain Type 2 diabetes mellitus, with long-term current use of insulin Vitamin D deficiency Family History Family History Father No problems noted. Mother Diabetes Osteoporosis Surgical History Surgical History History of removal of laparoscopic gastric banding device Hx of cholecystectomy Hx of colonoscopy Hx of esophagogastroduodenoscopy Hx of foot surgery Hx of laparoscopic gastric banding Social History Social History Household Members: None Housing: Apartment Alcohol intake: former Patient Tobacco Use Status: Former Tobacco user Tobacco use type: Cigarette e-Cigarette/Vaping Use: Never Used Second Hand Smoke Exposure: No service: No Current occupational status: disabled Cognitive needs: No Hearing needs: No Vision needs: Yes (glasses ) Meds Allergies Allergy/AdvReac Type Severity Reaction Status Date / Time aspirin [Aspirin] Allergy Severe RASH,THROAT Verified 02/23/23 10:17 CLOSES, Swollen throat Peanut Butter Allergy Severe Anaphylaxis Verified 02/23/23 10:17 dicyclomine [From BENTYL] Allergy Intermediate PALPITATION Verified 02/23/23 10:17 S insulin lispro Allergy Intermediate dizziness Verified 02/23/23 10:17 [Admelog SoloStar U-100 Insulin] methylprednisolone Allergy Intermediate SWELLING Verified 02/23/23 10:17 [METHYLPREDNISOLONE] furosemide AdvReac Severe Headache Verified 02/23/23 10:17 nuts Allergy Severe swelling Uncoded 12/28/22 10:45 Exam Exam Date and Time: February 22, 2023 1201 Pertinent Lab Results Pertinent Lab Results: Laboratory Tests 06/29/22 08/29/22 13:26 09:17 WBC 6.4 Hgb 12.4 L Hct 38.1 L Plt Count 200 Sodium 141 Potassium 4.2 Chloride 105 Carbon Dioxide 27 BUN 24 H Creatinine 0.80 Narrative Narrative: Holter 04/2022 CONCLUSION:? Event monitor is remarkable. 1. Baseline normal sinus rhythm. 2. Rare isolated PVCs. 3. Patient reported symptoms correlated with sinus rhythm. EEG 2021 (after syncopal episode vs seizure) IMPRESSION:? No significant abnormality noted on this EEG. Assessment and Plan Assessment Anesthesia Assessment: Chart Reviewed
[2023-02-23 12:56] VITALS: BMI 40.4
[2023-02-23] MEDS: Lactated Ringers 1,000 ML 100 ML IVCONT (13:05)
[2023-02-23 13:08] LABS: Glucose, Whole Blood 107 mg/dL (60-115)
--- NOTE | 2023-02-23 13:21 | MHC.SHP ---
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 Lower back pain Microalbuminuria Morbid obesity due to excess calories Obesity due to excess calories ELO (obstructive sleep apnea) Osteopenia Right leg pain Type 2 diabetes mellitus, with long-term current use of insulin Vitamin D deficiency Surgical History History of removal of laparoscopic gastric banding device Hx of cholecystectomy Hx of colonoscopy Hx of esophagogastroduodenoscopy Hx of foot surgery Hx of laparoscopic gastric banding Relevant Social History: None Present Medications: see Short Stay Collaborative assessment Allergies: Allergies Allergy/AdvReac Type Severity Reaction Status Date / Time aspirin [Aspirin] Allergy Severe RASH,THROAT Verified 02/23/23 10:17 CLOSES, Swollen throat Peanut Butter Allergy Severe Anaphylaxis Verified 02/23/23 10:17 dicyclomine [From BENTYL] Allergy Intermediate PALPITATION Verified 02/23/23 10:17 S insulin lispro Allergy Intermediate dizziness Verified 02/23/23 10:17 [Admelog SoloStar U-100 Insulin] methylprednisolone Allergy Intermediate SWELLING Verified 02/23/23 10:17 [METHYLPREDNISOLONE] furosemide AdvReac Severe Headache Verified 02/23/23 10:17 nuts Allergy Severe swelling Uncoded 12/28/22 10:45 Review of Systems Review of Systems Comment: Ten point ROS negative Exam Exam Comment: Gen appear: No acute distress HEENT: no icterus Chest: No overt resp distress Abd: soft, nontender, nondistended Psych: Stable affect, answering questions appropriately Neuro: A/Ox3 noted to move all extremities spontaneously Ext: no peripheral edema Plan Diagnosis/Plan: Unchanged I have reviewed the history and physical and performed a pertinent physical examination on my patient. No changes have occurred unless specified. Time Spent With Patient Time: Total time managing care of this patient today ____ minutes.
[2023-02-23 13:44] VITALS: BP 167/54; PULSE 65; RESP 18; TEMP 36.6; O2SAT 96
--- NOTE | 2023-02-23 15:07 | P.OP_ITS ---
Operative Note Operative Note Date of Service: 02/23/23 Narrative: Procedure:?Esophagogastroduodenoscopy and colonoscopy Endoscopist:?Gloria Verduzco MD Indication:?Dysphagia, hx of polyps ?? Anesthesia Provider:?Dr Cailin Sanchez Anesthesia Type:?MAC Instrument:?Olympus GIF-H190, PCF-190L EGD Procedure:?? The procedure, indications, preparation and potential complications were reviewed with the patient, who indicated understanding and gave written informed consent to proceed. A physical exam was performed. The endoscope was introduced through the mouth, and advanced to the second part of duodenum. The mucosa was carefully examined on slow withdrawal of the endoscope. The patient tolerated the procedure well. There were no immediate complications.? EGD Findings:? * Esophagus:? Normal mucosa noted in the entire esophagus. The Z line was at 40 cm.? No obvious narrowing or stenosis was noted with gastroscope. * Stomach:? Normal gastric mucosa. ? * Duodenum:? Normal mucosa was noted in the duodenum to the extent examined. Additional intervention:? Soft tip Savary wire was advanced through the biopsy channel in left in the antrum.? The gastroscope was then backed out.? A Savary Douglas bougie was advanced over the wire and the esophagus was intimately dilated to 19 mm.? On relook, a small tear with heme was noted at 18 cm post dilation confirming successful dilation. Colonoscopy Procedure:? The patient was then turned for the colonoscopy. A digital rectal exam was performed which was abnormal for external hemorrhoids.? A distal attachment cap was affixed to the tip of the scope and the colonoscope was then inserted through the anus and advanced through the colon and advanced to the cecum at 100 cm.? Appendiceal orifice and ileocecal valve were identified.? Mucosa was carefully examined under high definition white light as the instrument was slowly withdrawn in a retrograde panoramic fashion. Retroflexion was performed in rectum. The procedure was difficult due to redundant colon. There were no immediate obvious complications. The quality of the prep was BBPS: 2+2+2 = adequate Withdrawal time 14 minutes. Limitations: No limitations.? Findings: Mucosa: Copious liquid stool was noted in the colon which was extensively flushed and suctioned. Normal mucosa to cecum Protruding lesions: * Large internal hemorrhoids without stigmata of recent bleeding. Impression: 1. Upper esophageal sphincter (dilation) 2. Normal stomach 3. Normal duodenum 4. Fair prep 5. Normal colon 6. Internal and external hemorrhoids Recommendations:?? * Repeat EGD with dilation as needed for return of symptoms. * Repeat colonoscopy in 5 years due to prep. * Anemia is NON-iron deficiency i.e argues against occult GI losses. Recommend hematology evaluation. Findings were reviewed with the patient.
[2023-02-23 15:15] VITALS: BP 149/88; PULSE 76; RESP 16; TEMP 36.2; O2SAT 98
[2023-02-23 15:30] VITALS: BP 151/86; PULSE 71; RESP 16; TEMP 36.9; O2SAT 99
== END 2023-02-23 15:53 | disposition home or self-care (01) ==
PROVIDERS: PCP Internal Medicine; Visit Provider Internal Medicine
PROC: (CPT 45378; principal; 2023-02-23 13:40)
PROC: 0DJD8ZZ Inspection of Lower Intestinal Tract, Via Natural or Artificial Opening Endoscopic (ICD-10-PCS; CPT 45378; 2023-02-23 13:40)
DX: Z12.11 Encounter for screening for malignant neoplasm of colon (principal); D64.9 Anemia, unspecified; K64.8 Other hemorrhoids; K64.4 Residual hemorrhoidal skin tags; Q43.8 Other specified congenital malformations of intestine; R13.10 Dysphagia, unspecified; Z86.010 Personal history of colon polyps; G47.33 Obstructive sleep apnea (adult) (pediatric); E66.01 Morbid (severe) obesity due to excess calories; Z68.41 Body mass index [BMI] 40.0-44.9, adult; J45.909 Unspecified asthma, uncomplicated; R91.8 Other nonspecific abnormal finding of lung field; I50.30 Unspecified diastolic (congestive) heart failure; Q98.4 Klinefelter syndrome, unspecified; I10 Essential (primary) hypertension; E78.5 Hyperlipidemia, unspecified; J45.30 Mild persistent asthma, uncomplicated; E55.9 Vitamin D deficiency, unspecified; E11.21 Type 2 diabetes mellitus with diabetic nephropathy; E11.42 Type 2 diabetes mellitus with diabetic polyneuropathy; Z79.4 Long term (current) use of insulin; Z99.89 Dependence on other enabling machines and devices; Z79.84 Long term (current) use of oral hypoglycemic drugs; Z79.899 Other long term (current) drug therapy; Z88.8 Allergy status to other drugs, medicaments and biological substances; Z91.018 Allergy to other foods; Z91.010 Allergy to peanuts; Z98.84 Bariatric surgery status; Z90.49 Acquired absence of other specified parts of digestive tract; Z87.891 Personal history of nicotine dependence
CPT/HCPCS: 45378; 43248; 82947; 99212; C1769

== ENCOUNTER → 2023-03-15 09:03 | Outpatient (BNVA) | payer OTHER, SELFPAY | PROVIDERS: PCP Internal Medicine; Visit Provider Internal Medicine | DX: D64.9 Anemia, unspecified (principal); E11.65 Type 2 diabetes mellitus with hyperglycemia; E11.42 Type 2 diabetes mellitus with diabetic polyneuropathy; E66.9 Obesity, unspecified; E78.5 Hyperlipidemia, unspecified; Q98.4 Klinefelter syndrome, unspecified; Z68.41 Body mass index [BMI] 40.0-44.9, adult; Z86.010 Personal history of colon polyps; Z98.84 Bariatric surgery status; Z79.4 Long term (current) use of insulin | CPT/HCPCS: 99212 ==

== ENCOUNTER 2023-04-05 12:54 | Outpatient (REF) | payer OTHER, SELFPAY ==
[2023-04-05 13:06] LABS: MANUAL DIFF FLAG NO
[2023-04-05 14:26] LABS: Basophils Percent Auto 0.5 % (0-2); Eosinophils Absolute Auto 0.1 X10*3/uL (0.0-0.4); Eosinophils Percent Auto 1.3 % (0-4); Hematocrit 38.3 % (42.0-52.0); Hemoglobin 12.4 g/dl (14.0-18.0); Imm Gran Abs Auto 0.01 X10*3/uL (0.00-0.03); Imm Gran Pct Auto 0.2 % (0.0-0.4); Lymphocytes Absolute Auto 2.6 X10*3/uL (1.2-4.9); Lymphocytes Percent Auto 41.6 % (20-40); Mean Corpuscular HGB Conc 32.4 g/dl (31.0-36.0); Mean Corpuscular Hemoglobin 27.7 pg (27.0-33.0); Mean Corpuscular Volume 85.5 fL (80.0-98.0); Mean Platelet Volume 9.9 fL (9.4-12.4); Monocytes Absolute Auto 0.3 X10*3/uL (0.1-1.2); Monocytes Percent Auto 5.2 % (2-11); Neutrophils Absolute Auto 3.2 x10*3/uL (2.0-8.3); Neutrophils Percent Auto 51.2 % (45-73); Platelet Count 207 X10*3/uL (160-400); Red Blood Count 4.48 X10*6/uL (4.60-5.80); Red Cell Distribution Width 14.2 % (11.0-16.0); White Blood Count 6.2 X10*3/uL (4.8-10.8)
[2023-04-05 15:19] LABS: Alanine Aminotransferase 16 U/L (0-40); Albumin Level 4.1 g/dL (3.5-5.0); Alkaline Phosphatase 64 U/L (39-117); Anion Gap 11 (12-20); Aspartate Amino Transferase 11 U/L (5-37); Bilirubin Total 0.5 mg/dL (0.0-1.0); Blood Urea Nitrogen 18 mg/dL (9-16); Calcium 9.7 mg/dL (8.4-10.2); Carbon Dioxide 32 mmol/L (22-29); Chloride 102 mmol/L (96-108); Cholesterol 220 mg/dL; Estimated Glomerular Filt Rate > 60; Glucose Fasting 158 mg/dL (60-99); HDL Cholesterol 44 mg/dL; LDL Cholesterol Calculated 157 mg/dl; Potassium 3.9 mmol/L (3.3-5.1); Sodium 141 mmol/L (135-145); Total Protein 7.7 g/dL (6.5-8.0); Triglycerides 95 mg/dL
[2023-04-05 15:27] LABS: Vitamin D 25-OH Total 31.7 ng/mL (>30)
[2023-04-05 17:00] LABS: Microalbum/Creatinine Ratio Ur 125.5 ug/mg cr
== END 2023-04-05 12:55 | disposition home or self-care (01) ==
LOC: HO.LAB 12:54
PROVIDERS: PCP Internal Medicine; Visit Provider Internal Medicine
DX: J45.30 Mild persistent asthma, uncomplicated (principal); D64.9 Anemia, unspecified; E11.9 Type 2 diabetes mellitus without complications; E78.5 Hyperlipidemia, unspecified; E55.9 Vitamin D deficiency, unspecified; Z79.899 Other long term (current) drug therapy
CPT/HCPCS: 36415; 80053; 80061; 82043; 82306; 85025

== ENCOUNTER 2023-05-03 09:56 | Outpatient (AMB) | payer OTHER, SELFPAY ==
--- NOTE | 2023-05-03 10:00 | A.OFFPC_ITS ---
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 Accompanied by: Self / Same As Patient Allergies aspirin [Aspirin] Allergy (Severe, Verified 05/03/23 10:11) RASH,THROAT CLOSES, Swollen throat Peanut Butter Allergy (Severe, Verified 05/03/23 10:11) Anaphylaxis dicyclomine [From BENTYL] Allergy (Intermediate, Verified 05/03/23 10:11) PALPITATIONS insulin lispro [Admelog SoloStar U-100 Insulin] Allergy (Intermediate, Verified 05/03/23 10:11) dizziness methylprednisolone [METHYLPREDNISOLONE] Allergy (Intermediate, Verified 05/03/23 10:11) SWELLING furosemide Adverse Reaction (Severe, Verified 05/03/23 10:11) Headache nuts Allergy (Severe, Uncoded 05/03/23 10:11) swelling Medication List - Last Reconciled 05/03/23 by Consuelo Gallardo MD amlodipine 2.5 mg PO DAILY 90 days atorvastatin 20 mg PO BEDTIME 90 days blood pressure monitor (Blood Pressure Kit) As directed dulaglutide (Trulicity) 4.5 mg (0.5 mL) subcut QWEEK 30 days lisinopril 40 mg PO DAILY 90 days metformin ER 1,000 mg (2 x 500 mg) PO BID omeprazole 20 mg PO DAILY 90 days ProAir HFA 90 mcg/actuation (albuterol sulfate) 2 puffs inhalation Q4-6H PRN NS [Skin Tac Wipes 1 unit topical .use as directed 90 days NS] Tobacco use date assessed: 12/28/22 Dental Screening Dental Screen Date: 05/03/23 Did you have a dental visit in the last 12 months?: No Did you have a dental problem in the last 6 months where you did not have access to dental care?: No Was dental information given to patient?: Patient has dentist HPI HPI Comments History of Present Illness Details This is a 58-year-old male with hypertension, diabetes mellitus type 2, hyperlipidemia and morbid obesity that comes today for follow-up on his conditions. Blood pressure stable. A1c has worsened and dietary changes were advised. LDL within goal. He is morbidly obese with a BMI of 42.4 and declines weight loss surgery. Was advised to try to do diet and exercise as tolerated to reach BMI goal less than 30. Denies any chest pain or shortness of breath. 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 Mother Diabetes Osteoporosis Social History Household Members: None Housing: Apartment Alcohol intake: former Patient Tobacco Use Status: Former Tobacco user Tobacco use type: Cigarette e-Cigarette/Vaping Use: Never Used Second Hand Smoke Exposure: No service: No Current occupational status: disabled Cognitive needs: No Hearing needs: No Vision needs: Yes (glasses ) Questionnaire Thrive Questionnaire Date Thrive assessed: 12/28/22 KRISTOFER-7 AMB Questionnaire KRISTOFER-7 Date KRISTOFER - 7 assessed: 12/28/22 Source: Developed by Drs. Dwight Amaya, Rosaline Armando, Mat Calderon and colleagues, with an educational anamaria from [employer]. Review of Systems Const All systems reviewed & are unremarkable except as noted in HPI and below Eyes Reports no additional complaints, Denies change in vision and Denies other visual disturbances Card Denies chest pain at rest, Denies chest pain with activity, Denies edema, Denies irregular heart rhythm, Denies claudication, Denies dyspnea, Denies dyspnea on exertion, Denies orthopnea, Denies paroxysmal nocturnal dyspnea and Denies slow heart rate Resp Denies cough, Denies dyspnea and Denies dyspnea on exertion GI Denies abdominal pain, Denies change in bowel habits, Denies excessive flatus, Denies nausea and Denies vomiting Denies urinary hesitancy, Denies urinary incontinence and Denies urinary urgency Musc Denies abnormal gait, Denies atrophy, Denies deformity and Denies limited range of motion Skin/Breast Denies bleeding lesions, Denies changing lesions and Denies rash Neuro Denies abnormal gait and Denies lack of coordination Physical exam (Primary Care) Vital Signs: Last Vital Signs BP 136/80 05/03/23 10:04 BMI result Body Mass Index 42.4 Tobacco/Smoking Status: Tobacco use Status Tobacco use date assessed 12/28/22 05/03/23 10:03 Patient Tobacco Use Status Former Tobacco user 05/03/23 10:03 Tobacco use type Cigarette 05/03/23 10:03 e-Cigarette/Vaping Use Never Used 05/03/23 10:03 Thrive Assessment: Date of Thrive Assessment Date Thrive assessed 12/28/22 05/03/23 10:03 Eyes General: appearance normal, both eyes and all related structures Eyelids: Yes eyelids normal Conjunctivae: conjunctivae normal Neck Neck: Yes normal visual inspection and Yes supple Resp Effort & Inspection: normal respiratory effort Auscultation: clear to auscultation bilaterally Cardio Jugular venous distension: no JVD Rate: regular rate Rhythm: regular rhythm Heart sounds: S1 normal heart sound present and S2 normal heart sound present Extrem General: Yes full ROM Results AMB Hemoglobin A1c AMB Hemoglobin A1c 7.8 % Last Edit by MARTINA Wheatley on 05/03/23 10:1 1 Results Reviewed Results Reviewed: Laboratory Last Values Hgb A1c (Clinic) 7.8 % (4.0-6.0) H 05/03/23 09:59 Assessment and Plan Assessment & Plan (1) Diabetes mellitus: Code(s): E11.9 - Type 2 diabetes mellitus without complications Plan: Continue Trulicity and metformin. A1c goal is equal or less than 7%. (2) Hyperlipidemia LDL goal <70: Code(s): E78.5 - Hyperlipidemia, unspecified Plan: Continue statins. Repeat lipid panel. LDL goal is less than 70. (3) Hypertension: Code(s): I10 - Essential (primary) hypertension Qualifiers: Hypertension type: essential hypertension Qualified Code(s): I10 - Essential (primary) hypertension Plan: Continue lisinopril and amlodipine. Blood pressure goal is equal or less than 130/80. (4) Morbid obesity with BMI of 40.0-44.9, adult: Code(s): E66.01 - Morbid (severe) obesity due to excess calories; Z68.41 - Body mass index [BMI] 40.0-44.9, adult Plan: Start diet and exercise. BMI goal is less than 30. Orders: Orders Vitamin B12 and Folate 4 Months E53.8 - Deficiency of other specified B group vitamins Comprehensive [place]. Panel Fast 4 Months E11.9 - Type 2 diabetes mellitus without complications Lipid Panel 4 Months E78.5 - Hyperlipidemia, unspecified Vitamin D 25-OH Total 4 Months E55.9 - Vitamin D deficiency, unspecified Microalbumin, Random (w Creat) 4 Months E11.9 - Type 2 diabetes mellitus without complications Rast Allergen Today T78.40XA - Allergy, unspecified, initial encounter AMB Hemoglobin A1c Today E11.9 - Type 2 diabetes mellitus without complications Medications: New cetirizine (All Day Allergy (cetirizine)) 10 mg PO DAILY 7 days PRN 7 tabs 0RF allergy symptoms Coding Level of Care Code Est Pt Level 4 (29371) Diagnoses Diabetes mellitus E11.9 Hyperlipidemia LDL goal <70 E78.5 Hypertension I10 Hypertension type: essential hypertension Morbid obesity with BMI of 40.0-44.9, adult E66.01; Z68.41 Time Spent (min) 23
[2023-05-03 10:04] VITALS: BP 136/80; BMI 42.4
== END 2023-05-03 10:22 | disposition home or self-care (01) ==
PROVIDERS: PCP Internal Medicine; Visit Provider Internal Medicine
DX: E11.9 Type 2 diabetes mellitus without complications (principal); I10 Essential (primary) hypertension; E66.01 Morbid (severe) obesity due to excess calories; Z68.41 Body mass index [BMI] 40.0-44.9, adult; E78.5 Hyperlipidemia, unspecified
CPT/HCPCS: 83036; 99214

== ENCOUNTER 2023-05-03 10:33 | Outpatient (REF) | payer OTHER, SELFPAY | END 2023-05-03 10:34 | disposition home or self-care (01) | LOC: HO.LAB 10:33 | PROVIDERS: PCP Internal Medicine; Visit Provider Internal Medicine | DX: T78.40XA Allergy, unspecified, initial encounter (principal) | CPT/HCPCS: 36415; 86003 ==

== ENCOUNTER 2023-07-21 15:09 | Outpatient (AMB) | payer OTHER, SELFPAY ==
--- NOTE | 2023-07-21 15:12 | A.OFFPC_ITS ---
Vital Signs 07/21/23 15:14 Height 5 ft 11 in Weight 298 lb BMI 41.6 BP 130/72 Blood Pressure Location Lt brachial Position Sitting Pulse 87 Pulse Source Pulse Oximeter Pulse Oximetry (%) 93 Oxygen Delivery Method Room Air Intake Visit Reasons: right sided back pain Intake Note: Patient is here today for left shoulder pain radiating up the side of neck and down left arm, ongoing for two weeks. Sports Coordinator Required: No Rate And Cost Analyst: Not Required per policy Accompanied by: Self / Same As Patient Allergies aspirin [Aspirin] Allergy (Severe, Verified 07/21/23 15:27) RASH,THROAT CLOSES, Swollen throat Peanut Butter Allergy (Severe, Verified 07/21/23 15:27) Anaphylaxis dicyclomine [From BENTYL] Allergy (Intermediate, Verified 07/21/23 15:27) PALPITATIONS insulin lispro [Admelog SoloStar U-100 Insulin] Allergy (Intermediate, Verified 07/21/23 15:27) dizziness methylprednisolone [METHYLPREDNISOLONE] Allergy (Intermediate, Verified 07/21/23 15:27) SWELLING furosemide Adverse Reaction (Severe, Verified 07/21/23 15:27) Headache nuts Allergy (Severe, Uncoded 07/21/23 15:27) swelling Medication List - Last Reconciled 07/21/23 by SHEA Eduardo amlodipine 2.5 mg PO DAILY 90 days atorvastatin 20 mg PO BEDTIME 90 days blood pressure monitor (Blood Pressure Kit) As directed cetirizine (All Day Allergy (cetirizine)) 10 mg PO DAILY PRN 7 days dulaglutide (Trulicity) 4.5 mg (0.5 mL) subcut QWEEK 30 days lisinopril 40 mg PO DAILY 90 days metformin ER 1,000 mg (2 x 500 mg) PO BID omeprazole 20 mg PO DAILY 90 days ProAir HFA 90 mcg/actuation (albuterol sulfate) 2 puffs inhalation Q4-6H PRN NS [Skin Tac Wipes 1 unit topical .use as directed 90 days NS] Tobacco use date assessed: 07/21/23 Dental Screening Dental Screen Date: 07/21/23 Did you have a dental visit in the last 12 months?: Yes Did you have a dental problem in the last 6 months where you did not have access to dental care?: No Was dental information given to patient?: Patient has dentist HPI right sided back pain HPI Details Patient is a 58-year-old male who presents today for the same day visit due to left shoulder pain that radiates up to his neck and down to left arm for the past 2 weeks. He reports similar pain in the past. Denies injury. Reports that left shoulder gives out sometimes. Currently pain 9/10 scale. No numbness or tingling. Reports taking ibuprofen 600 mg with mild help. Reports he went to [facility] yesterday and had normal blood work and EKG, although he left without seeing a provider. No shortness of breath or chest pain. Patient is a Divehi-speaking and Devika GUY was helping with interpretation. 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 Mother Diabetes Osteoporosis Social History Household Members: None Housing: Apartment Alcohol intake: former Patient Tobacco Use Status: Former Tobacco user Tobacco use type: Cigarette e-Cigarette/Vaping Use: Never Used Second Hand Smoke Exposure: No service: No Current occupational status: disabled Cognitive needs: No Hearing needs: No Vision needs: Yes (glasses ) Questionnaire Thrive Questionnaire Date Thrive assessed: 12/28/22 KRISTOFER-7 AMB Questionnaire KRISTOFER-7 Date RKISTOFER - 7 assessed: 12/28/22 Source: Developed by Drs. Dwight Amaya, Rosaline Armando, Mat Calderon and colleagues, with an educational anamaria from [employer]. Review of Systems Const Denies body aches, Denies chills, Denies fever(s) and Denies headache(s) ENT Denies dizziness, Denies otalgia, Denies headache(s), Denies nasal discharge, Denies sinus pain and Denies sore throat Card Denies chest pain, Denies edema, Denies lightheadedness and Denies dyspnea Resp Denies cough, Denies dyspnea and Denies wheezing GI Denies abdominal pain Denies dysuria Musc Reports as per HPI, Denies myalgias and Reports arthralgias Skin/Breast Denies rash Neuro Denies dizziness and Denies headache(s) Aller/Immun Denies wheezing Physical exam (Primary Care) Vital Signs: Last Vital Signs Pulse 87 07/21/23 15:14 BP 130/72 07/21/23 15:14 Pulse Ox 93 07/21/23 15:14 Oxygen Delivery Method Room Air 07/21/23 15:14 BMI result Body Mass Index 41.6 Tobacco/Smoking Status: Tobacco use Status Tobacco use date assessed 07/21/23 07/21/23 15:20 Patient Tobacco Use Status Former Tobacco user 07/21/23 15:20 Tobacco use type Cigarette 07/21/23 15:20 e-Cigarette/Vaping Use Never Used 07/21/23 15:20 Thrive Assessment: Date of Thrive Assessment Date Thrive assessed 12/28/22 07/21/23 15:20 Const General: cooperative and no acute distress Orientation/consciousness: patient oriented x3 HENMT Head: Yes normocephalic and Yes atraumatic Throat: Yes posterior oropharynx normal Eyes General: appearance normal, both eyes and all related structures Neck Neck: Yes normal visual inspection and Yes full ROM Resp Effort & Inspection: normal respiratory effort and able to speak in complete sentences Auscultation: clear to auscultation bilaterally, no crackles, no rales, no rhonchi and no wheezes Cardio Rate: regular rate Rhythm: regular rhythm Heart sounds: S1 normal heart sound present, S2 normal heart sound present and no murmurs Peripheral pulses: radial pulses present GI Auscultation: normal bowel sounds Back/Spine/Pelvis Thoracic/Lumbar Spine: thoraco-lumbar ROM normal, paraspinal muscle tenderness (Left thoracic aspect), No thoracic spinal tenderness and No lumbar spinal tenderness Skin General skin exam: no rashes or lesions noted Neuro General: patient oriented x3 Gait exam (Neuro): Normal gait present Motor exam (neuro): 5/5 motor strength present throughout Extrem General: Yes full ROM and No edema Left upper extremity: shoulder/upper arm Details: inspection abnormal and abnormal ROM (Pain with range of motion); no tenderness, no swelling and no crepitus Assessment and Plan Assessment & Plan (1) Left shoulder pain: Code(s): M25.512 - Pain in left shoulder Plan: Will obtain x-ray - patient reports similar pain in the past Patient is to continue ibuprofen 600 mg every 8 hours as needed PT referral Start cyclobenzaprine p.r.n.-educated about drowsiness Start diclofenac cream p.r.n. Follow-up if no improvement after finishing PT (2) Thoracic back pain: Code(s): M54.6 - Pain in thoracic spine Plan: Same as above Orders: Orders PT Evaluation and Treatment 07/21/23 M25.512 - Pain in left shoulder, M54.6 - Pain in thoracic spine XR shoulder LT min 2V 07/21/23 M25.512 - Pain in left shoulder Medications: New cyclobenzaprine 5 mg PO TID PRN 15 tabs 0RF muscle spasm M25.512 - Pain in left shoulder, M54.6 - Pain in thoracic spine diclofenac sodium 1% (Arthritis Pain (diclofenac)) 2 grams topical QID PRN 100 grams 0RF pain M54.6 - Pain in thoracic spine Coding Level of Care Code Est Pt Level 3 (38706) Diagnoses Left shoulder pain M25.512 Thoracic back pain M54.6
[2023-07-21 15:14] VITALS: BP 130/72; PULSE 87; O2SAT 93; BMI 41.6
== END 2023-07-21 15:44 | disposition home or self-care (01) ==
PROVIDERS: PCP Internal Medicine; Visit Provider Nurse Practitioner Family
DX: M25.512 Pain in left shoulder (principal); M54.6 Pain in thoracic spine
CPT/HCPCS: 99213

== ENCOUNTER 2023-07-21 15:47 | Outpatient (REF) | payer OTHER, SELFPAY ==
--- NOTE | ~2023-07-21 | XR_ITS ---
EXAMINATION: XR SHOULDER, LEFT CLINICAL INFORMATION: Pain in left shoulder COMPARISON: None available. TECHNIQUE: AP external rotation, Grashey, scapular Y, and axillary views of the left shoulder. FINDINGS: The bones are intact. No fracture. Glenohumeral and acromioclavicular alignment is anatomic with normal acromioclavicular joint space. There is marked narrowing of the glenohumeral joint with large marginal osteophyte extending off the inferior aspect of the humeral head. No abnormal soft tissue calcifications. XR/XR shoulder LT min 2V IMPRESSION: Marked osteoarthritis of the glenohumeral joint.
== END 2023-07-21 15:48 | disposition home or self-care (01) ==
LOC: HO.XRAY 15:47
PROVIDERS: PCP Internal Medicine; Visit Provider Nurse Practitioner Family
DX: M25.512 Pain in left shoulder (principal)
CPT/HCPCS: 73030

== ENCOUNTER 2023-08-30 14:00 | Outpatient (AMB) | payer OTHER, SELFPAY ==
[2023-08-30 14:03] VITALS: BP 144/87; PULSE 70; O2SAT 96; BMI 41.4
--- NOTE | 2023-08-30 14:03 | MHC.OFFVIS ---
Intake Vital Signs 08/30/23 14:03 Height 5 ft 11 in Weight 296 lb 8.348 oz BMI 41.4 BP 144/87 H Blood Pressure Location Rt brachial Position Sitting Pulse 70 Pulse Source Doppler Pulse Oximetry (%) 96 Oxygen Delivery Method Room Air Intake Visit Reasons: elo Supervisor Cook Room Required: Yes Supervisor Cook Room Name: Yeni jones C.LZiggyM Allergies aspirin [Aspirin] Allergy (Severe, Verified 08/30/23 14:05) RASH,THROAT CLOSES, Swollen throat Peanut Butter Allergy (Severe, Verified 08/30/23 14:05) Anaphylaxis dicyclomine [From BENTYL] Allergy (Intermediate, Verified 08/30/23 14:05) PALPITATIONS insulin lispro [Admelog SoloStar U-100 Insulin] Allergy (Intermediate, Verified 08/30/23 14:05) dizziness methylprednisolone [METHYLPREDNISOLONE] Allergy (Intermediate, Verified 08/30/23 14:05) SWELLING furosemide Adverse Reaction (Severe, Verified 08/30/23 14:05) Headache nuts Allergy (Severe, Uncoded 07/21/23 15:27) swelling HPI elo HPI Details 58-year-old gentleman with underlying history of morbid obesity followed severe obstructive sleep apnea, mild asthma, and pulmonary nodules. His pulmonary nodules have been stable since 2011 on 09/20[address] scan and do not require further imaging follow-up. He continues to follow-up with Cardiology for underlying diastolic dysfunction. He has tried using CPAP machine, however he was not able to get use to it. He continues to use supplemental oxygen. 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 Mother Diabetes Osteoporosis Social History Household Members: None Housing: Apartment Alcohol intake: former Patient Tobacco Use Status: Former Tobacco user Tobacco use type: Cigarette e-Cigarette/Vaping Use: Never Used Second Hand Smoke Exposure: No service: No Current occupational status: disabled Cognitive needs: No Hearing needs: No Vision needs: Yes (glasses ) Review of Systems Const Denies daytime sleepiness, Denies excessive sweating, Denies fatigue, Denies fever(s), Denies lethargy, Denies malaise, Denies night sweats, Denies snoring and Denies weight loss Eyes Denies blurry vision and Denies itchy eyes ENT Denies nasal congestion, Denies post nasal drip, Denies sinus pain, Denies sinus pressure and Denies other ( Thrush) Card Denies chest pain, Denies pedal edema, Denies dyspnea, Denies orthopnea and Denies paroxysmal nocturnal dyspnea Resp Denies cough, Denies hemoptysis, Denies excessive phlegm production, Denies dyspnea, Denies snoring and Denies wheezing GI Denies abdominal pain and Denies heartburn Musc Denies myalgias, Denies arthralgias and Denies joint swelling Skin/Breast Denies rash Neuro Denies memory loss and Denies seizure-like activity Psych Denies abnormal sleep pattern, Denies anxiety and Denies memory loss Endo Denies excessive sweating, Denies fatigue and Denies heat intolerance Danny/Lymph Denies easy bruising Aller/Immun Denies itchy eyes, Denies seasonal rhinorrhea and Denies wheezing Physical Exam Vital Signs: Last Vital Signs Pulse 70 08/30/23 14:03 BP 144/87 H 08/30/23 14:03 Pulse Ox 96 08/30/23 14:03 Oxygen Delivery Method Room Air 08/30/23 14:03 BMI result Body Mass Index 41.4 Const General: no acute distress and alert Nutritional Appearance: obese Orientation/consciousness: Other orientation findings ( oriented) HEENT Head: Yes atraumatic Eyes General: appearance normal, both eyes and all related structures Sclerae: sclerae normal EOM: EOMs intact bilaterally Neck Neck: Yes supple Lymphatic: no lymphadenopathy noted Resp Effort & Inspection: normal respiratory effort and no use of accessory muscles Auscultation: clear to auscultation bilaterally Cardio Rate: regular rate Rhythm: regular rhythm Heart sounds: no gallops, no murmurs and no rubs Skin General skin exam: other ( warm) Extrem General: No clubbing, No cyanosis and No edema Assessment & Plan Assessment & Plan (1) ELO (obstructive sleep apnea): Code(s): G47.33 - Obstructive sleep apnea (adult) (pediatric) Plan: Unable to tolerate CPAP. Continues on nocturnal supplemental oxygen. (2) On supplemental oxygen therapy: Code(s): Z99.81 - Dependence on supplemental oxygen Plan: Continue overnight oxygen for nocturnal hypoxemia. Coding Level of Care Code Est Pt Level 3 (29681) Diagnoses ELO (obstructive sleep apnea) G47.33 On supplemental oxygen therapy Z99.81
== END 2023-08-30 14:25 | disposition home or self-care (01) ==
PROVIDERS: PCP Internal Medicine; Visit Provider Internal Medicine Pulmonary Disease
DX: G47.33 Obstructive sleep apnea (adult) (pediatric) (principal); Z99.81 Dependence on supplemental oxygen
CPT/HCPCS: 99213

== ENCOUNTER → 2023-08-30 14:00 | Outpatient (BNVA) | payer OTHER, SELFPAY | PROVIDERS: PCP Internal Medicine; Visit Provider Internal Medicine Pulmonary Disease | DX: G47.33 Obstructive sleep apnea (adult) (pediatric) (principal); Z99.81 Dependence on supplemental oxygen | CPT/HCPCS: 99212 ==

== ENCOUNTER 2023-09-06 12:52 | Outpatient (AMB) | payer OTHER, SELFPAY ==
--- NOTE | 2023-09-06 12:56 | MHC.PC.OV ---
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 Accompanied by: Self / Same As Patient Allergies aspirin [Aspirin] Allergy (Severe, Verified 09/06/23 13:09) RASH,THROAT CLOSES, Swollen throat Peanut Butter Allergy (Severe, Verified 09/06/23 13:09) Anaphylaxis dicyclomine [From BENTYL] Allergy (Intermediate, Verified 09/06/23 13:09) PALPITATIONS insulin lispro [Admelog SoloStar U-100 Insulin] Allergy (Intermediate, Verified 09/06/23 13:09) dizziness methylprednisolone [METHYLPREDNISOLONE] Allergy (Intermediate, Verified 09/06/23 13:09) SWELLING furosemide Adverse Reaction (Severe, Verified 09/06/23 13:09) Headache nuts Allergy (Severe, Uncoded 09/06/23 13:09) swelling Medication List - Last Reconciled 09/06/23 by Consuelo Gallardo MD amlodipine 2.5 mg PO DAILY 90 days blood pressure monitor (Blood Pressure Kit) As directed cetirizine (All Day Allergy (cetirizine)) 10 mg PO DAILY PRN 7 days diclofenac sodium 1% (Arthritis Pain (diclofenac)) 2 grams topical QID PRN dulaglutide (Trulicity) 4.5 mg (0.5 mL) subcut QWEEK 30 days lisinopril 40 mg PO DAILY 90 days metformin ER 1,000 mg (2 x 500 mg) PO BID omeprazole 20 mg PO DAILY 90 days ProAir HFA 90 mcg/actuation (albuterol sulfate) 2 puffs inhalation Q4-6H PRN NS [Skin Tac Wipes 1 unit topical .use as directed 90 days NS] Tobacco use date assessed: 07/21/23 Dental Screening Dental Screen Date: 09/06/23 Did you have a dental visit in the last 12 months?: No Did you have a dental problem in the last 6 months where you did not have access to dental care?: No Was dental information given to patient?: Patient has dentist HPI HPI Comments History of Present Illness Details This is a 58-year-old man with morbid obesity and diabetes mellitus type 2 that comes for his physical exam. Colonoscopy done February 2023. A1c not on goal and he has been out of metformin for a while but did not let me know for refill. Blood pressure elevated and I will increase amlodipine. Last diabetic eye exam was 2022. No chest pain or shortness of breath. He is morbidly obese with a BMI of 40.3 and declines weight loss surgery. [facility] Medical History (Updated 09/06/23 @ 13:25 by Consuelo Gallardo MD) Chronic GERD Abdominal pain Epigastric pain Type 2 diabetes mellitus, with long-term current use of insulin Right leg pain Immunization due Obesity due to excess calories Diabetes type 2, uncontrolled Morbid obesity due to excess calories Asthma Microalbuminuria Left shoulder pain Lower back pain Diabetic polyneuropathy associated with type 2 diabetes mellitus Anemia ELO (obstructive sleep apnea) Diabetic nephropathy associated with type 2 diabetes mellitus Klinefelter syndrome Vitamin D deficiency Dyslipidemia Hypertension half-way (current) use of insulin Osteopenia Hypogonadism male Surgical History Hx of esophagogastroduodenoscopy Hx of colonoscopy History of removal of laparoscopic gastric banding device Hx of laparoscopic gastric banding Hx of foot surgery Hx of cholecystectomy Family History Father No problems noted. Mother Diabetes Osteoporosis Social History Household Members: None Housing: Apartment Alcohol intake: former Patient Tobacco Use Status: Former Tobacco user Tobacco use type: Cigarette e-Cigarette/Vaping Use: Never Used Second Hand Smoke Exposure: No service: No Current occupational status: disabled Cognitive needs: No Hearing needs: No Vision needs: Yes (glasses ) Questionnaire Thrive Questionnaire Date Thrive assessed: 12/28/22 KRISTOFER-7 AMB Questionnaire KRISTOFER-7 Date KRISTOFER - 7 assessed: 12/28/22 Source: Developed by Drs. Dwight Amaya, Rosaline Armando, Mat Calderon and colleagues, with an educational anamaria from [employer]. Review of Systems Const All systems reviewed & are unremarkable except as noted in HPI and below Eyes Reports no additional complaints, Denies change in vision and Denies other visual disturbances Card Denies chest pain at rest, Denies chest pain with activity, Denies edema, Denies irregular heart rhythm, Denies claudication, Denies dyspnea, Denies dyspnea on exertion, Denies orthopnea, Denies paroxysmal nocturnal dyspnea and Denies slow heart rate Resp Denies cough, Denies dyspnea and Denies dyspnea on exertion GI Denies abdominal pain, Denies change in bowel habits, Denies excessive flatus, Denies nausea and Denies vomiting Denies urinary hesitancy, Denies urinary incontinence and Denies urinary urgency Musc Denies abnormal gait, Denies atrophy, Denies deformity and Denies limited range of motion Skin/Breast Denies bleeding lesions, Denies changing lesions and Denies rash Neuro Denies abnormal gait, Denies behavioral changes, Denies confusion and Denies lack of coordination Psych Denies behavioral changes and Denies confusion Physical exam (Primary Care) Vital Signs: Last Vital Signs BP 152/92 H 09/06/23 13:00 BMI result Body Mass Index 40.3 Tobacco/Smoking Status: Tobacco use Status Tobacco use date assessed 07/21/23 09/06/23 12:59 Patient Tobacco Use Status Former Tobacco user 09/06/23 12:59 Tobacco use type Cigarette 09/06/23 12:59 e-Cigarette/Vaping Use Never Used 09/06/23 12:59 Thrive Assessment: Date of Thrive Assessment Date Thrive assessed 12/28/22 09/06/23 12:59 Const General: No confusion Orientation/consciousness: patient oriented x3 and No confusion HENMT Head: Yes normal to inspection, Yes normocephalic and Yes atraumatic Ears: external ears normal Eyes General: appearance normal, both eyes and all related structures Eyelids: Yes eyelids normal Conjunctivae: conjunctivae normal Neck Neck: Yes normal visual inspection and Yes supple Resp Effort & Inspection: normal respiratory effort Auscultation: clear to auscultation bilaterally Cardio Jugular venous distension: no JVD Rate: regular rate Rhythm: regular rhythm Heart sounds: S1 normal heart sound present and S2 normal heart sound present GI Inspection: Yes normal to inspection Palpation (GI): Soft to palpation and nontender Auscultation: normal bowel sounds Skin General skin exam: no rashes or lesions noted Neuro General: patient oriented x3, no focal motor deficits and No confusion Extrem General: Yes full ROM Psych Appearance: grossly normal Office Procedures Flu Questionnaire Does the patient have a severe egg allergy?: No Results AMB Hemoglobin A1c AMB Hemoglobin A1c 7.7 % Last Edit by MARTINA Wheatley on 09/06/23 13:07 Immunizations flu vacc [id number] 6mos up(PF) 60 mcg(15 mcgx4)/0.5 mL IM syringe Performing Provider: Consuelo Gallardo MD Performing [facility] [place] Documented (not given) by: MARTINA Wheatley on 09/06/23 13:04 Reason Not Given: Patient Refused Results Reviewed Results Reviewed: Laboratory Last Values Hgb A1c (Clinic) 7.7 % (4.0-6.0) H 09/06/23 12:56 Assessment and Plan Assessment & Plan (1) Physical exam: Code(s): Z00.00 - Encounter for general adult medical examination without abnormal findings Plan: Repeat in a year. (2) Morbid obesity with BMI of 40.0-44.9, adult: Code(s): E66.01 - Morbid (severe) obesity due to excess calories; Z68.41 - Body mass index [BMI] 40.0-44.9, adult Plan: Declines weight loss surgery. Start diet and exercise. BMI goal is less than 30. (3) Diabetes mellitus: Code(s): E11.9 - Type 2 diabetes mellitus without complications Qualifiers: Diabetes mellitus type: type 2 Diabetes mellitus intermediate insulin use: without terminal make up operator use Diabetes mellitus complication status: with hyperglycemia Qualified Code(s): E11.65 - Type 2 diabetes mellitus with hyperglycemia Plan: Continue Trulicity. Restart metformin. A1c goal is equal or less than 7%. Orders: Orders Influenza [id number] Immunization Today Z23 - Encounter for immunization Microalbumin, Random (w Creat) Today E11.9 - Type 2 diabetes mellitus without complications Vitamin D 25-OH Total Today E55.9 - Vitamin D deficiency, unspecified AMB Hemoglobin A1c Today E11.9 - Type 2 diabetes mellitus without complications Lipid Panel Today E78.5 - Hyperlipidemia, unspecified Vitamin B12 and Folate Today E53.8 - Deficiency of other specified B group vitamins Comprehensive Charlo. Panel Fast Today E11.9 - Type 2 diabetes mellitus without complications Complete Blood Count Auto Diff Today D64.9 - Anemia, unspecified Referrals Hematology & Oncology Referral D64.9 - Anemia, unspecified Medications: New amlodipine 5 mg PO DAILY 90 days 90 tabs 1RF Refilled metformin ER 1,000 mg (2 x 500 mg) PO BID 120 tabs 6RF E11.29 - Type 2 diabetes mellitus with other diabetic kidney complication Discontinued amlodipine Discontinued Reason: Patient Completed Course 2.5 mg PO DAILY 90 days 90 tabs 1RF I10 - Essential (primary) hypertension Coding Level of Care Code Est Pt Prev Care 40-64y(62128) Diagnoses Physical exam Z00.00 Morbid obesity with BMI of 40.0-44.9, adult E66.01; Z68.41 Type 2 diabetes mellitus with hyperglycemia, without long-term current use of insulin E11.65 Diabetes mellitus type: type 2 Diabetes mellitus intermediate insulin use: without intermediate use Diabetes mellitus complication status: with hyperglycemia Time Spent (min) 33
[2023-09-06 13:00] VITALS: BP 152/92; BMI 40.3
[2023-09-06 13:24] VITALS: BP 150/90
== END 2023-09-06 13:26 | disposition home or self-care (01) ==
PROVIDERS: Visit Provider Internal Medicine
DX: Z00.00 Encounter for general adult medical examination without abnormal findings (principal); E66.01 Morbid (severe) obesity due to excess calories; Z68.41 Body mass index [BMI] 40.0-44.9, adult; E11.65 Type 2 diabetes mellitus with hyperglycemia
CPT/HCPCS: 83036; 99396

== ENCOUNTER 2023-10-02 10:58 | Outpatient (REF) | payer OTHER, SELFPAY ==
[2023-10-02 12:12] LABS: Estimated Average Glucose 140 mg/dL; Hemoglobin A1c % 6.5 % (<6.0)
[2023-10-02 12:18] LABS: Syphilis Screen Nonreactive (Nonreactive)
[2023-10-02 12:22] LABS: HBsAGNum1 0.29 S/CO (0.00-0.99); HIV AB/AG Nonreactive (Nonreactive); HIV Num 1 0.06 S/CO (0.00-0.99); Hepatitis B Surface Antigen Negative (Negative); ~Hepatitis B Surface Antibody NONREACTIVE (Nonreactive)
[2023-10-02 12:28] LABS: Alanine Aminotransferase 12 U/L (0-40); Aspartate Amino Transferase 13 U/L (5-37); Cholesterol 190 mg/dL (<200); Estimated Glomerular Filt Rate > 60; HDL Cholesterol 34 mg/dL (>40); LDL Cholesterol Calculated 136 mg/dL (<100); Triglycerides 100 mg/dL (<150)
[2023-10-02 12:54] LABS: Thyroid Stimulating Hormone 0.49 uIU/mL (0.32-4.0)
[2023-10-02 14:39] LABS: CT PCR NOT DETECTED (Not Detect.); NG PCR NOT DETECTED (Not Detect.)
[2023-10-04 20:24] LABS: TS Negative Control Passed; TS Panel A 3; TS Panel B 0; TS Positive Control Passed; TSpotTB Negative (Negative)
[2023-10-05 14:13] LABS: HCV Log PCR <1.18 NOT DETECTED Log IU/mL (NOT DETECTED); HepC Viral Load <15 NOT DETECTED IU/mL (NOT DETECTED)
== END 2023-10-02 10:59 | disposition home or self-care (01) ==
LOC: HO.LAB 10:58
PROVIDERS: Absent Provider Internal Medicine Infectious Disease; PCP Internal Medicine; Visit Provider Internal Medicine
DX: Z11.4 Encounter for screening for human immunodeficiency virus [HIV] (principal); Z20.2 Contact with and (suspected) exposure to infections with a predominantly sexual mode of transmission
CPT/HCPCS: 0353U; 36415; 80061; 82565; 83036; 84443; 84450; 84460; 86481; 86706; 86780; 87340; 87389; 87522

== ENCOUNTER → 2023-10-09 07:56 | Outpatient (BNV) | payer OTHER, SELFPAY | PROVIDERS: PCP Internal Medicine; Visit Provider Internal Medicine | DX: D64.9 Anemia, unspecified (principal) | CPT/HCPCS: 99204; 99214 ==

== ENCOUNTER 2023-11-06 10:06 | Outpatient (REF) | payer OTHER, SELFPAY | END 2023-11-06 10:07 | disposition home or self-care (01) | LOC: HO.XRAY 10:06 | PROVIDERS: PCP Internal Medicine; Visit Provider Internal Medicine Infectious Disease | DX: Z13.89 Encounter for screening for other disorder (principal) ==

== ENCOUNTER 2023-11-30 07:58 | Outpatient (REF) | payer OTHER, SELFPAY ==
--- NOTE | ~2023-11-30 | FL_ITS ---
EXAMINATION: XR FLUOROSCOPY UPPER GI WITH AIR CLINICAL INFORMATION: Dysphagia. Dyspepsia. Reflux COMPARISON: None TECHNIQUE: Fluoroscopic air contrast upper GI examination was performed utilizing standard techniques with thin and thick barium and effervescent granules. Numerous spot images were obtained. FINDINGS: Lateral cine images of the oropharynx and hypopharynx demonstrate normal swallow mechanism with normal epiglottic inversion and soft palate elevation. No tracheal penetration, glottic or subglottic aspiration identified. No nasopharyngeal reflux present. Hypopharyngeal structures appear normal without evidence of mass or diverticulum. There was no significant cricopharyngeal achalasia. Dual and single contrast images of the esophagus demonstrate a normal caliber, and contour. There is a subtle irregular and thickened appearance of the posterior esophageal mucosal wall (RF1-5, 23/78). No mass is seen. Esophageal peristalsis was normal. Suspect a small hiatus hernia. A small amount of gastroesophageal reflux is seen up to the midesophagus. Dual contrast and single contrast images of the stomach demonstrated a normal contour. There are multiple tiny areas of contrast pooling in the body the stomach that may represent small superficial ulcers. No masses are seen. No definite rugal fold thickening. Contrast freely passed into the gastric antrum and duodenal bulb without delay. Single and air-contrast images of the duodenal bulb demonstrate no abnormality. The duodenal sweep has a normal appearance, course, and mucosal fold appearance. No malrotation. The imaged proximal jejunum has a normal fold pattern and caliber. FLUOROSCOPY TIME: 3 minutes 40 seconds Number of Spot Images: 12 Number of Cine: 9 DOSE AREA PRODUCT: 4184 uGy-m2 (microgray-meter squared) FL/FL barium swallow with air IMPRESSION: 1. Minimally irregular appearance and coarsening of the esophageal mucosa that may represent subtle erosive esophagitis. Recommend correlation with EGD. 2. Mild to moderate gastroesophageal reflux. 3. Multiple tiny areas of contrast pooling in the body the stomach that may represent small superficial aphthous ulcers. No definite rugal fold thickening. Recommend correlation with EGD. 4. Suspect a small hiatus hernia. This procedure was performed by Moshe Ferrer PA-C, and supervised by Dr. Scott
== END 2023-11-30 07:59 | disposition home or self-care (01) ==
LOC: HO.XRAY 07:58
PROVIDERS: PCP Internal Medicine; Visit Provider Internal Medicine Infectious Disease
DX: K30 Functional dyspepsia (principal)
CPT/HCPCS: 74221

== ENCOUNTER → 2023-11-30 08:00 | Outpatient (BNV) | payer OTHER, SELFPAY | PROVIDERS: PCP Internal Medicine; Visit Provider Physician Assistant Surgical | DX: R13.10 Dysphagia, unspecified (principal); K21.9 Gastro-esophageal reflux disease without esophagitis | CPT/HCPCS: 74221 ==

== ENCOUNTER 2023-11-30 09:11 | Emergency (ER) | payer OTHER, SELFPAY ==
[2023-11-30 09:26] VITALS: BP 173/92; PULSE 63; RESP 16; TEMP 36.6; O2SAT 93; BMI 45.8
[2023-11-30 09:55] LABS: MANUAL DIFF FLAG NO
[2023-11-30 10:03] LABS: Appearance Urine Clear; Color Urine Yellow; Glucose Urine UA 250 mg/dL (Negative); Leukocyte Esterase Urine Negative (Negative); Nitrite Urine Negative (Negative); UMIC TRIGGER UACC YES; Urine Blood Negative (Negative); Urine Ketones Negative (Negative); Urine Protein 30 (1+) mg/dL (Neg-Trace)
[2023-11-30 10:04] LABS: Basophils Percent Auto 0.3 % (0-2); Eosinophils Absolute Auto 0.1 X10*3/uL (0.0-0.4); Eosinophils Percent Auto 1.5 % (0-4); Hematocrit 36.9 % (42.0-52.0); Hemoglobin 12.2 g/dl (14.0-18.0); Imm Gran Abs Auto 0.01 X10*3/uL (0.00-0.03); Imm Gran Pct Auto 0.2 % (0.0-0.4); Lymphocytes Absolute Auto 2.3 X10*3/uL (1.2-4.9); Lymphocytes Percent Auto 38.9 % (20-40); Mean Corpuscular HGB Conc 33.1 g/dl (31.0-36.0); Mean Corpuscular Hemoglobin 27.8 pg (27.0-33.0); Mean Corpuscular Volume 84.1 fL (80.0-98.0); Mean Platelet Volume 9.6 fL (9.4-12.4); Monocytes Absolute Auto 0.3 X10*3/uL (0.1-1.2); Monocytes Percent Auto 4.9 % (2-11); Neutrophils Absolute Auto 3.2 x10*3/uL (2.0-8.3); Neutrophils Percent Auto 54.2 % (45-73); Platelet Count 187 X10*3/uL (160-400); Red Blood Count 4.39 X10*6/uL (4.60-5.80); Red Cell Distribution Width 14.2 % (11.0-16.0); White Blood Count 5.9 X10*3/uL (4.8-10.8)
[2023-11-30 10:08] LABS: Bacteria Urine None Seen (None Seen); Hyaline Casts Urine 0-2 /LPF (0-2); RBC Urine 0-2 /HPF (0-2); Squamous Epithelial Cell Urine 0-2 /HPF (0-2); WBC Urine 0-5 /HPF (0-5)
[2023-11-30 10:14] LABS: Anion Gap 12 (12-20); Blood Urea Nitrogen 18 mg/dL (9-16); Calcium 9.5 mg/dL (8.4-10.2); Carbon Dioxide 29 mmol/L (22-29); Chloride 103 mmol/L (96-108); Creatinine Clr Calc Pharmacy 131.3; Estimated Glomerular Filt Rate > 60; Glucose Random 252 mg/dL (60-115); Potassium 3.7 mmol/L (3.3-5.1); Sodium 140 mmol/L (135-145)
--- NOTE | 2023-11-30 10:50 | ED_ITS ---
HPI - Back Pain/Injury General Chief Complaint: Back Pain/Injury Stated Complaint: back pain Time Seen by Provider: 11/30/23 10:25 Source: patient and full time staff interpreter Mode of arrival: ambulatory Limitations: no limitations History of Present Illness HPI Narrative: 58 yo male with history of morbid obesity (BMI 45), anemia, chronic back pain, DM, cervical radiculopathy, ELO, HTN, HLD, kidney stones, Kleinfelter syndrome, who presents to the ER for evaluation of right lower back pain for the last 1 week that started when he was in the shower. He states the pain has been constant for the week, worse with movement, ambulation and standing for a long time. He states the pain wraps around to his right groin intermittently. He has been trying hot water on it with no improvement. He denies hematuria, dysuria, N/V/D, abdominal pain, numbness, tingling. MD elicited complaint: back pain Pertinent past history: prior back pain and kidney stones Onset (ago): week(s) (1) Timing: constant Severity: severe Pain scale (0-10): 8 Similar Symptoms Previously: Yes Quality: stabbing and aching Location: right lower back Radiation: groin Exacerbating factors: movement and walking Relieving factors: immobilization Context: unknown Associated symptoms: denies other symptoms Work related injury: No Related Data Previous Rx's Medication Instructions Recorded Skin Tac Wipes 1 unit topical .use as directed 09/25/20 for use with Kyron azeem 90 days #50 packets blood pressure monitor (Blood #1 ea 10/24/22 Pressure Kit) cetirizine 10 mg tablet (All Day 10 mg PO DAILY PRN allergy 05/03/23 Allergy (cetirizine)) symptoms 7 days #7 tabs diclofenac sodium 1 % topical gel 2 g topical QID PRN pain #100 grams 07/26/23 (Arthritis Pain (diclofenac)) amlodipine 5 mg tablet 5 mg PO DAILY 90 days #90 tabs 09/06/23 metformin 500 mg tablet,extended 1,000 mg (2 x 500 mg) PO BID #120 09/06/23 release 24 hr tabs Shower Chair #1 ea 09/20/23 walker #1 ea 09/20/23 atorvastatin 20 mg tablet 20 mg PO BEDTIME 90 days #90 tabs 10/14/23 lisinopril 40 mg tablet 40 mg PO DAILY 90 days #90 tabs 10/14/23 omeprazole 20 mg capsule,delayed 20 mg PO DAILY 90 days #90 caps 10/14/23 release semaglutide 0.25 mg or 0.5 mg (2 0.25 mg (0.368 mL) subcut QWEEK 28 10/24/23 mg/3 mL) subcutaneous pen injector days #1.472 mL (Ozempic) albuterol sulfate 90 mcg/actuation 2 puff inhalation Q4-6H PRN 11/09/23 aerosol inhaler shortness of breath or wheezing #1 ea Allergies Allergy/AdvReac Type Severity Reaction Status Date / Time aspirin [Aspirin] Allergy Severe RASH,THROAT Verified 11/30/23 09:26 CLOSES, Swollen throat Peanut Butter Allergy Severe Anaphylaxis Verified 11/30/23 09:26 dicyclomine [From BENTYL] Allergy Intermediate PALPITATION Verified 11/30/23 09:26 S insulin lispro Allergy Intermediate dizziness Verified 11/30/23 09:26 [Admelog SoloStar U-100 Insulin] methylprednisolone Allergy Intermediate SWELLING Verified 11/30/23 09:26 [METHYLPREDNISOLONE] furosemide AdvReac Severe Headache Verified 11/30/23 09:26 nuts Allergy Severe swelling Uncoded 10/09/23 10:14 Review of Systems 2 Review of Systems: Yes all other systems are reviewed and are negative PMF Past Medical History Medical History Chronic GERD Abdominal pain Epigastric pain Type 2 diabetes mellitus, with long-term current use of insulin Right leg pain Immunization due Obesity due to excess calories Diabetes type 2, uncontrolled Morbid obesity due to excess calories Asthma Microalbuminuria Left shoulder pain Lower back pain Diabetic polyneuropathy associated with type 2 diabetes mellitus Anemia ELO (obstructive sleep apnea) Diabetic nephropathy associated with type 2 diabetes mellitus Klinefelter syndrome Vitamin D deficiency Dyslipidemia Hypertension custodial (current) use of insulin Osteopenia Hypogonadism male Surgical History Hx of esophagogastroduodenoscopy Hx of colonoscopy History of removal of laparoscopic gastric banding device Hx of laparoscopic gastric banding Hx of foot surgery Hx of cholecystectomy Family History Family History Father No problems noted. Mother Diabetes Osteoporosis Social History Social History (Updated 10/09/23 @ 10:13 by Kandice Gustafson MA) Household Members: None Housing: Apartment Alcohol intake: former Patient Tobacco Use Status: Former Tobacco user Tobacco use type: Cigarette e-Cigarette/Vaping Use: Never Used Second Hand Smoke Exposure: No Advance Directives: No service: No Current occupational status: disabled Cognitive needs: No Hearing needs: No Vision needs: Yes (glasses ) Physical Exam 2 Vital Signs: Vital Signs: Last Vital Signs Temp 97.9 F 11/30/23 09:26 Pulse 63 11/30/23 09:26 Resp 16 11/30/23 09:26 BP 173/92 H 11/30/23 09:26 Pulse Ox 93 11/30/23 09:26 O2 Del Method Room Air 11/30/23 09:26 BMI result Body Mass Index 45.8 Appearance: Alert. Oriented X3. No acute distress. HEENT: normal external inspection Neck: Normal inspection. Neck supple. No midline tenderness Respiratory: No respiratory distress. Abdomen: Obese, soft and nontender. +BS x4 Back: normal inspection. nontender midline. soft tissue tenderness of the right upper and middle lumbar areas w/ palpable spasm. +straight leg raise test. Skin: Skin warm and dry. Normal skin color. Normal skin turgor. No rashes. Extremities: No lower extremity edema. No joint swelling. Neuro/psych: Oriented X 3. No motor deficit. No sensory deficit. CN II-XII intact. Normal speech and cognition. Steady gait. Normal DTRs. Medical Decision Making Medical Decision Making MDM Narrative: 58 yo male with history of morbid obesity (BMI 45), anemia, chronic back pain, DM, cervical radiculopathy, ELO, HTN, HLD, kidney stones, Kleinfelter syndrome, who presents to the ER for evaluation of right lower back pain for the last 1 week that started when he was in the shower. No trauma. No red flag symptoms of low back pain. No CVA tenderness on exam. UA and labs done. No bacteria or blood. Low clinical suspicion for kidney stone, UTI or pyelo. Pain most c/w muscular pain. Exam is reassuring. Will start tylenol, short course of flexeril and encourage close f/u with PCP. Discussed ice/heat/rest as well as lifting mechanics. Stable for d/c home. Return precautions discussed court interpreter used to discuss exam findings, lab results, diagnosis, plan. Differential Diagnosis Differential Diagnoses: The differential diagnosis associated with the presentation includes Inflammatory disorders, malignancy, trauma, osteoporosis, nerve root compression, radiculopathy, plexopathy, degenerative disc disease, disc herniation, spinal stenosis, sacroiliac joint dysfunction, facet joint injury, and less likely infection?like abscess or diskitis Lab Data MDM Lab Attestation statement: I reviewed the patient's lab results. stable anemia, normal renal function, hyperglycemia 11/30/23 09:49 11/30/23 09:49 Labs: Lab Results 11/30/23 Range/Units 09:49 WBC 5.9 (4.8-10.8) X10*3/uL RBC 4.39 L (4.60-5.80) X10*6/uL Hgb 12.2 L (14.0-18.0) g/dl Hct 36.9 L (42.0-52.0) % MCV 84.1 (80.0-98.0) fL MCH 27.8 (27.0-33.0) pg MCHC 33.1 (31.0-36.0) g/dl RDW 14.2 (11.0-16.0) % Plt Count 187 (160-400) X10*3/uL MPV 9.6 (9.4-12.4) fL Immature Gran % (Auto) 0.2 (0.0-0.4) % Neut % (Auto) 54.2 (45-73) % Lymph % (Auto) 38.9 (20-40) % [place] % (Auto) 4.9 (2-11) % Eos % (Auto) 1.5 (0-4) % Baso % (Auto) 0.3 (0-2) % Lymph # (Auto) 2.3 (1.2-4.9) X10*3/uL [place] # (Auto) 0.3 (0.1-1.2) X10*3/uL Eos # (Auto) 0.1 (0.0-0.4) X10*3/uL Baso # (Auto) 0.0 (0.0-0.2) X10*3/uL Abs Immat Gran (auto) 0.01 (0.00-0.03) X10*3/uL Absolute Neuts (auto) 3.2 (2.0-8.3) x10*3/uL Absolute Nucleated RBC 0.000 (0.0-0.012) X10*3/uL Nucleated RBC % (auto) 0.0 (0.0-0.2) /100WBC Sodium 140 (135-145) mmol/L Potassium 3.7 (3.3-5.1) mmol/L Chloride 103 (96-108) mmol/L Carbon Dioxide 29 (22-29) mmol/L Anion Gap 12 (12-20) BUN 18 H (9-16) mg/dL Creatinine 0.84 (0.5-1.4) mg/dL Estim Creat Clear Calc 131.3 Estimated GFR > 60 Random Glucose 252 H (60-115) mg/dL Calcium 9.5 (8.4-10.2) mg/dL Urine Color Yellow Urine Appearance Clear Urine pH 6.0 (5.0-9.0) Ur Specific [place] 1.020 (1.005-1.025) Urine Protein 30 (1+) H (Neg-Trace) mg/dL Urine Glucose (UA) 250 H (Negative) mg/dL Urine Ketones Negative (Negative) mg/dL Urine Blood Negative (Negative) Urine Nitrite Negative (Negative) Ur Leukocyte Esterase Negative (Negative) Urine RBC 0-2 (0-2) /HPF Urine WBC 0-5 (0-5) /HPF Ur Squamous Epith Cells 0-2 (0-2) /HPF Urine Bacteria None Seen (None Seen) Hyaline Casts 0-2 (0-2) /LPF External Record Review External record reviewed: Office record, Outpatient record and Prior outpatient labs Tests considered The following testing was considered but not selected: XR spine considered, no trauma. CT scan abd/pelvis considered but abd exam benign and UA negative Prescription Management I considered prescription management with: Pain Medication Chronic Conditions Patient?s care impacted by: Diabetes, Hypertension and Other (morbid obesity) Critical Care Time Critical Care Time Critical Care Time: No Discharge Plan Discharge Clinical Impression: Low back pain Qualifiers: Chronicity: acute Back pain laterality: right Sciatica presence: without sciatica Qualified Code(s): M54.50 - Low back pain, unspecified Patient Disposition: Home, Self-Care Instructions: Acute Low Back Pain (ED), Lower Back Exercises (ED) Additional Instructions: Your pain is most likely due to muscle strain and spasm. No bending, lifting or twisting. Use ice several times per day for 20 minutes at a time for the next 48 hours and then change to heat. Take medications as prescribed to help with pain and discomfort. Follow up with your Primary Care Doctor this week. If your pain worsens, if you develop new numbness, tingling, weakness, loss of function or incontinence call 911 or come back to the ER right away for evaluation. Prescriptions: No Action Skin Tac Wipes packet 1 unit topical .use as directed 90 Days Qty: 50 1RF (DME) blood pressure monitor [Blood Pressure Kit] Kit See Rx Instructions .Route Qty: 1 0RF Rx Instructions: As directed diclofenac sodium [Arthritis Pain (diclofenac)] 1 % gel 2 g topical QID PRN (Reason: pain) Qty: 100 0RF (DME) Shower Chair Misc See Rx Instructions .Route Qty: 1 0RF Rx Instructions: As directed (DME) walker Misc See Rx Instructions .Route Qty: 1 0RF Rx Instructions: As directed omeprazole 20 mg capsule,delayed release(DR/EC) 20 mg PO DAILY 90 Days Qty: 90 1RF lisinopril 40 mg tablet 40 mg PO DAILY 90 Days Qty: 90 1RF atorvastatin 20 mg tablet 20 mg PO BEDTIME 90 Days Qty: 90 1RF Ozempic 0.25 mg or 0.5 mg (2 mg/3 mL) pen injector 0.25 mg subcut QWEEK 28 Days Qty: 1.472 0RF Rx Instructions: for 4 weeks albuterol sulfate 90 mcg/actuation HFA aerosol inhaler 2 puff inhalation Q4-6H PRN (Reason: shortness of breath or wheezing) Qty: 1 6RF cetirizine [All Day Allergy (cetirizine)] 10 mg tablet 10 mg PO DAILY PRN (Reason: allergy symptoms) 7 Days Qty: 7 0RF metformin 500 mg tablet extended release 24 hr 1,000 mg PO BID Qty: 120 6RF amlodipine 5 mg tablet 5 mg PO DAILY 90 Days Qty: 90 1RF Referrals: Consuelo Coles MD [Primary Care Provider] - Print Language: Salvadorean
[2023-11-30] MEDS: Cyclobenzaprine HCl 10 MG TABLET PO (11:14)
[2023-11-30] MEDS: Acetaminophen 325 MG TABLET 975 MG PO (11:14)
--- NOTE | 2023-11-30 11:15 | PC.NURSE ---
pt medicated per order for 10/10 lower back pain
[2023-11-30 11:44] VITALS: BP 181/90; PULSE 66; RESP 16; TEMP 36.7; O2SAT 94
== END 2023-11-30 11:45 | disposition home or self-care (01) ==
PROVIDERS: Emergency Provider Emergency Medicine; PCP Internal Medicine
DX: M54.50 Low back pain, unspecified (principal); Z79.899 Other long term (current) drug therapy
CPT/HCPCS: 36415; 80048; 81001; 81003; 85025; 99283

== ENCOUNTER 2024-02-21 10:02 | Outpatient (AMB) | payer OTHER, SELFPAY ==
[2024-02-21 10:07] VITALS: BP 138/82; PULSE 61; O2SAT 97; BMI 46.2
--- NOTE | 2024-02-21 10:07 | MHC.OFFVIS ---
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: Yes Computer Networking Instructor Adjunct Name: Yeni Brunner Barbra Allergies aspirin [Aspirin] Allergy (Severe, Verified 12/27/23 09:19) RASH,THROAT CLOSES, Swollen throat Peanut Butter Allergy (Severe, Verified 12/27/23 09:19) Anaphylaxis dicyclomine [From BENTYL] Allergy (Intermediate, Verified 12/27/23 09:19) PALPITATIONS insulin lispro [Admelog SoloStar U-100 Insulin] Allergy (Intermediate, Verified 12/27/23 09:19) dizziness methylprednisolone [METHYLPREDNISOLONE] Allergy (Intermediate, Verified 12/27/23 09:19) SWELLING furosemide Adverse Reaction (Severe, Verified 12/27/23 09:19) Headache nuts Allergy (Severe, Uncoded 12/27/23 09:19) swelling HPI HPI Obstructive sleep apnea: Details: 59-year-old gentleman with underlying history of morbid obesity followed severe obstructive sleep apnea, mild asthma, and pulmonary nodules. His pulmonary nodules have been stable since 2011 on 09/2021 CT scan and do not require further imaging follow-up. He continues to follow-up with Cardiology for underlying diastolic dysfunction. He has tried using CPAP machine, however he was not able to get use to it. He continues to use supplemental oxygen. His asthma symptoms are controlled on as needed albuterol MDI. 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 Mother Diabetes Osteoporosis Social History Household Members: None Housing: Apartment Alcohol intake: former Patient Tobacco Use Status: Former Tobacco user Tobacco use type: Cigarette e-Cigarette/Vaping Use: Never Used Second Hand Smoke Exposure: No service: No Current occupational status: disabled Cognitive needs: No Hearing needs: No Vision needs: Yes (glasses ) Review of Systems Const Denies daytime sleepiness, Denies excessive sweating, Denies fatigue, Denies fever(s), Denies lethargy, Denies malaise, Denies night sweats, Denies snoring and Denies weight loss Eyes Denies blurry vision and Denies itchy eyes ENT Denies nasal congestion, Denies post nasal drip, Denies sinus pain, Denies sinus pressure and Denies other ( Thrush) Card Denies chest pain, Denies pedal edema, Denies dyspnea, Denies orthopnea and Denies paroxysmal nocturnal dyspnea Resp Denies cough, Denies hemoptysis, Denies excessive phlegm production, Denies dyspnea, Denies snoring and Denies wheezing GI Denies abdominal pain and Denies heartburn Musc Denies myalgias, Denies arthralgias and Denies joint swelling Skin/Breast Denies rash Neuro Denies memory loss and Denies seizure-like activity Psych Denies abnormal sleep pattern, Denies anxiety and Denies memory loss Endo Denies excessive sweating, Denies fatigue and Denies heat intolerance Danny/Lymph Denies easy bruising Aller/Immun Denies itchy eyes, Denies seasonal rhinorrhea and Denies wheezing Physical Exam Vital Signs: Last Vital Signs Pulse 61 02/21/24 10:07 BP 138/82 02/21/24 10:07 Pulse Ox 97 02/21/24 10:07 Oxygen Delivery Method Room Air 02/21/24 10:07 BMI result Body Mass Index 46.2 Const General: no acute distress and alert Nutritional Appearance: obese Orientation/consciousness: Other orientation findings ( oriented) HEENT Head: Yes atraumatic Eyes General: appearance normal, both eyes and all related structures Sclerae: sclerae normal EOM: EOMs intact bilaterally Neck Neck: Yes supple Lymphatic: no lymphadenopathy noted Resp Effort & Inspection: normal respiratory effort and no use of accessory muscles Auscultation: clear to auscultation bilaterally Cardio Rate: regular rate Rhythm: regular rhythm Heart sounds: no gallops, no murmurs and no rubs Skin General skin exam: other ( warm) Extrem General: No clubbing, No cyanosis and No edema Assessment & Plan Assessment & Plan (1) Asthma: Code(s): J45.909 - Unspecified asthma, uncomplicated Category: Medical Qualifiers: Asthma severity: mild Asthma persistence: persistent Asthma complication type: uncomplicated Qualified Code(s): J45.30 - Mild persistent asthma, uncomplicated (2) ELO (obstructive sleep apnea): Code(s): G47.33 - Obstructive sleep apnea (adult) (pediatric) Category: Medical (3) On supplemental oxygen therapy: Code(s): Z99.81 - Dependence on supplemental oxygen Category: Medical Plan Asthma well controlled on as needed albuterol MDI. Continue current regimen. Patient has underlying severe ELO, however he is intolerant of CPAP. Continue on nocturnal oxygen. Coding Level of Care Code Est Pt Level 4 (07740) Diagnoses Mild persistent asthma without complication J45.30 Asthma severity: mild Asthma persistence: persistent Asthma complication type: uncomplicated ELO (obstructive sleep apnea) G47.33 On supplemental oxygen therapy Z99.81
== END 2024-02-21 10:31 | disposition home or self-care (01) ==
PROVIDERS: PCP Internal Medicine; Visit Provider Internal Medicine Pulmonary Disease
DX: J45.30 Mild persistent asthma, uncomplicated (principal); G47.33 Obstructive sleep apnea (adult) (pediatric); Z99.81 Dependence on supplemental oxygen
CPT/HCPCS: 99214

== ENCOUNTER → 2024-02-21 10:02 | Outpatient (BNVA) | payer OTHER, SELFPAY | PROVIDERS: PCP Internal Medicine; Visit Provider Internal Medicine Pulmonary Disease | DX: J45.30 Mild persistent asthma, uncomplicated (principal); G47.33 Obstructive sleep apnea (adult) (pediatric); Z99.81 Dependence on supplemental oxygen | CPT/HCPCS: 99212 ==

== ENCOUNTER 2024-05-18 08:05 | Emergency (ER) | payer OTHER, SELFPAY ==
--- NOTE | 2024-05-18 | ECG_ITS ---
Test Reason : LEFT ARM PAIN Blood Pressure : / mmHG Vent. Rate : 075 BPM Atrial Rate : 075 BPM P-R Int : 174 ms QRS Dur : 154 ms QT Int : 442 ms P-R-T Axes : 064 -23 -16 degrees QTc Int : 493 ms Normal sinus rhythm Right bundle branch block Abnormal ECG When compared with ECG of 23-JUN-2021 10:40, No significant change was found Referred By: Generic ED Physician Electronically Signed By:TAWANA DANIELSON
[2024-05-18 08:11] VITALS: BP 190/112; PULSE 78; PULSE 90; RESP 18; TEMP 36.9; O2SAT 96; BMI 44.7
[2024-05-18 08:16] VITALS: BP 207/92
--- NOTE | 2024-05-18 08:57 | PC.NURSE ---
Patient from home with complaints of left sided neck and arm pain that started around 5am. Patient denies falls or trauma or heavy lifting. States may have slept funny on neck but he is unsure. Reports hx of similar pain in past. Bp elevated, patient states has htn and did not take his BP meds today. EKG obtained and reviewed by provider. Patient sitting on edge of bed
--- NOTE | 2024-05-18 09:23 | ED.GENADULT ---
HPI - General Adult General Chief complaint: General Medical Stated complaint: NO INJURY/WOKE UP WITH R ARM PAIN PER EMS Time Seen by Provider: 05/18/24 09:22 History of Present Illness ED Provider: Dr. Jeff Harrison HPI narrative: 58 yo male with history of morbid obesity (BMI 45), anemia, chronic back pain, DM, cervical radiculopathy, ELO, HTN, HLD, kidney stones, Kleinfelter syndrome, who presents to the ER for evaluation severe neck pain and left arm pain and left shoulder pain. Patient states that the pain started at 05:00 hours. The pain has been constant since onset. The pain is worse with movement. He states he has had similar pain in the past. He states the pain is 10/10. He had chills but no fever. He denied rhinorrhea, sore throat, cough, nausea, vomiting, diarrhea, numbness or weakness. Related Data Previous Rx's ?Medication ?Instructions ?Recorded Skin Tac Wipes 1 unit topical .use as directed 09/25/20 for use with [employer]e 90 days #50 packets blood pressure monitor (Blood #1 ea 10/24/22 Pressure Kit) diclofenac sodium 1 % topical gel 2 g topical QID PRN pain #100 grams 07/26/23 (Arthritis Pain (diclofenac)) walker #1 ea 09/20/23 atorvastatin 20 mg tablet 20 mg PO BEDTIME 90 days #90 tabs 10/14/23 lisinopril 40 mg tablet 40 mg PO DAILY 90 days #90 tabs 10/14/23 omeprazole 20 mg capsule,delayed 20 mg PO DAILY 90 days #90 caps 10/14/23 release semaglutide 0.25 mg or 0.5 mg (2 0.25 mg (0.368 mL) subcut QWEEK 28 10/24/23 mg/3 mL) subcutaneous pen injector days #1.472 mL (Ozempic) albuterol sulfate 90 mcg/actuation 2 puff inhalation Q4-6H PRN 11/09/23 aerosol inhaler shortness of breath or wheezing #1 ea acetaminophen 500 mg tablet 1,000 mg (2 x 500 mg) PO Q8H PRN 11/30/23 (Tylenol Extra Strength) pain #20 tabs cyclobenzaprine 10 mg tablet 10 mg PO TID PRN muscle spasm #10 11/30/23 tabs lidocaine 5 % topical patch 1 patch topical DAILY #15 ea 11/30/23 emergency urine bag #60 ea 01/30/24 Shower Chair #1 ea 01/30/24 cetirizine 10 mg tablet (All Day 10 mg PO DAILY PRN allergy 02/22/24 Allergy (cetirizine)) symptoms 7 days #7 tabs amlodipine 5 mg tablet 5 mg PO DAILY 90 days #90 tabs 03/03/24 metformin 500 mg tablet,extended 1,000 mg (2 x 500 mg) PO BID #120 03/03/24 release 24 hr tabs acetaminophen 500 mg tablet 1,000 mg (2 x 500 mg) PO Q6H PRN 05/18/24 (Tylenol Extra Strength) fever or pain #20 tabs cyclobenzaprine 10 mg tablet 10 mg PO TID PRN pain, muscle 05/18/24 spasm #15 tabs ibuprofen 400 mg tablet 400 mg PO TID PRN fever or pain 05/18/24 #30 tabs morphine 15 mg immediate release 15 mg PO Q6H PRN pain #10 tabs 05/18/24 tablet Allergies Allergy/AdvReac Type Severity Reaction Status Date / Time aspirin [Aspirin] Allergy Severe RASH,THROAT Verified 05/18/24 08:13 CLOSES, Swollen throat Peanut Butter Allergy Severe Anaphylaxis Verified 05/18/24 08:13 dicyclomine [From BENTYL] Allergy Intermediate PALPITATION Verified 05/18/24 08:13 S insulin lispro Allergy Intermediate dizziness Verified 05/18/24 08:13 [Admelog SoloStar U-100 Insulin] methylprednisolone Allergy Intermediate SWELLING Verified 05/18/24 08:13 [METHYLPREDNISOLONE] furosemide AdvReac Severe Headache Verified 05/18/24 08:13 nuts Allergy Severe swelling Uncoded 05/18/24 08:13 Review of Systems Review of Systems: Yes all other systems are reviewed and are negative PMFSH Past Medical History Medical History Chronic GERD Abdominal pain Epigastric pain Type 2 diabetes mellitus, with long-term current use of insulin Right leg pain Immunization due Obesity due to excess calories Diabetes type 2, uncontrolled Morbid obesity due to excess calories Asthma Microalbuminuria Left shoulder pain Lower back pain Diabetic polyneuropathy associated with type 2 diabetes mellitus Anemia ELO (obstructive sleep apnea) Diabetic nephropathy associated with type 2 diabetes mellitus Klinefelter syndrome Vitamin D deficiency Dyslipidemia Hypertension 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 Mother Diabetes Osteoporosis Social History Social History Household Members: None Housing: Apartment Alcohol intake: former Patient Tobacco Use Status: Former Tobacco user Tobacco use type: Cigarette Smoked in Last 30 Days: No e-Cigarette/Vaping Use: Never Used Second Hand Smoke Exposure: No Use of substances other than those prescribed or required for medical reasons: No Advance Directives: No Advance Directives Information Provided: No service: No Current occupational status: disabled Cognitive needs: No Hearing needs: No Vision needs: Yes (glasses ) Physical Exam ED Vital Signs: Vital Signs - 24 hr 05/18/24 08:11 05/18/24 08:16 05/18/24 10:18 Temperature 98.4 F 97.9 F Pulse Rate 78 74 Respiratory Rate 18 11 L Blood Pressure 207/92 H 168/102 H Pulse Oximetry 96 95 Oxygen Delivery Method Room Air Room Air BMI result Body Mass Index 44.7 Vital signs were normal Exam: General: Awake, alert in no distress Head: Normocephalic, atraumatic EENT: PERRL, Lids normal, sclera normal, conjunctiva normal, nose normal , ears normal, throat without erythema or exudates Neck: Supple, tender left trapezius muscle with spasm, no posterior cervical spine tenderness, limited range of motion secondary to pain Lung: breath sounds symmetric, no wheezing, rales or rhonchi Chest: symmetric movement, nontender Heart: regular rate and rhythm, normal S1, S2 no murmurs or rubs Abdomen: soft, non-tender, nondistended, normal bowel sounds Back: no vertebral tenderness, no CVAT Extremities: no deformities, moves all extremities symmetrically, tenderness palpation of the left shoulder Neuro: Awake, alert, oriented, normal speech, cranial nerves intact, moves all extremities symmetrically Psych: Pleasant, cooperative Medications Administered Discontinued Medications Generic Name Dose Route Start Last Admin Trade Name Hunter PRN Reason Stop Dose Admin Acetaminophen 650 mg 05/18/24 09:19 05/18/24 09:25 Acetaminophen 325 Mg Tablet PO 05/18/24 09:20 650 mg ONCE ONE Administration Cyclobenzaprine HCl 10 mg 05/18/24 09:47 05/18/24 10:03 Cyclobenzaprine Hcl 10 Mg Tablet PO 05/18/24 09:48 10 mg ONCE ONE Administration Morphine Sulfate 10 mg 05/18/24 09:47 05/18/24 10:04 Morphine Sulfate 10 Mg/Ml Cartridge IM 05/18/24 09:48 10 mg ONCE ONE Administration Protocol Medical Decision Making Medical Decision Making MDM Narrative: 58 yo male with history of morbid obesity (BMI 45), anemia, chronic back pain, DM, cervical radiculopathy, ELO, HTN, HLD, kidney stones, Kleinfelter syndrome, who presents to the ER for evaluation severe neck pain and left arm pain and left shoulder pain which started at 05:00 hours, constant, worse with movement, no concerning systemic symptoms, no numbness or weakness Differential diagnosis: ?Includes but is not limited to musculoskeletal strain, musculoskeletal spasm, disc disease, radiculopathy, myocardial infarction Following evaluation was ordered: 12 EKG, Patient was initially treated with the following: Morphine 10 mg IM, cyclobenzaprine 10 mg orally and acetaminophen 650 mg orally Course: Patient's physical examination did reveal tenderness since spasm he was left trapezius muscle with a nonfocal neurologic exam. Patient's 12 EKG was unremarkable. Patient had significant improvement in his pain with the above treatment. Patient was discharged home and advised to take ibuprofen and Tylenol for pain and for pain not relieved by these medications he was prescribed morphine 15 mg every 6 hours as needed. Patient was also prescribed Flexeril 10 mg 3 times a day as needed for spasm and pain. He was given printed and verbal instructions discharged home. Admission/Observation Consideration of admission/observation: Escalation of care including admission/observation considered Independent Interpretation I performed an independent interpretation of an: EKG Interpretation: My independent interpretation patient's 12 EKG done at 08:06 hours is as follows: Normal sinus rhythm rate of 75, normal TN interval, prolonged QRS duration of 154 milliseconds, prolonged QTC interval 493 milliseconds, right bundle-branch block, no ST segment elevation, no ST segment depression, no significant T-wave abnormalities, no PACs no PVCs External Record Review External record reviewed: Inpatient record Prescription Management I considered prescription management with: Pain Medication (Morphine) and Other (Antispasmodics-Flexeril) Chronic Conditions Patient?s care impacted by: Diabetes Discharge Plan Discharge Clinical Impression: Acute neck sprain, Cervical radiculopathy Patient Disposition: Home, Self-Care Instructions: Cervical Radiculopathy (ED) Additional Instructions: Your physical exam is consistent with inflammation of your neck muscles and the nerves of your neck go and down your left arm. Take ibuprofen 400 mg pills, 1 pills every 6 hours as needed for pain. Take Tylenol (acetaminophen) 2 pills every 6 hours as needed for pain. For pain not relieved by ibuprofen or Tylenol take morphine 15 mg pills, 1 pill every 6 hours as needed for pain. This medication will make you sleepy, do not drive or work while taking this medication. Morphine is a narcotic medication and can be addicting. If you are concerned about addiction you can ask the pharmacist for less pills or do not get this prescription filled. Take Flexeril (cyclobenzaprine) 10 mg pills, 1 pill every 6-8 hours as needed for pain or spasm. ?This medication will make you sleepy. ?Do not drive or work while taking this medication. Wear the sling for your comfort, you should take the arm out of the sling at least 3 to 4 times a day in try to move the arm. Follow-up with your doctor in 2 days. Please return to the emergency department if your symptoms get worse or if you develop any symptoms that are concerning to you. Prescriptions: New cyclobenzaprine 10 mg tablet 10 mg PO TID PRN (Reason: pain, muscle spasm) Qty: 15 0RF acetaminophen [Tylenol Extra Strength] 500 mg tablet 1,000 mg PO Q6H PRN (Reason: fever or pain) Qty: 20 0RF ibuprofen 400 mg tablet 400 mg PO TID PRN (Reason: fever or pain) Qty: 30 0RF morphine 15 mg tablet 15 mg PO Q6H PRN (Reason: pain) Qty: 10 0RF Rx Instructions: Patient may request partial fill; Partial Fill upon patient request. No Action Skin Tac Wipes packet 1 unit topical .use as directed 90 Days Qty: 50 1RF (DME) blood pressure monitor [Blood Pressure Kit] Kit See Rx Instructions .Route Qty: 1 0RF Rx Instructions: As directed diclofenac sodium [Arthritis Pain (diclofenac)] 1 % gel 2 g topical QID PRN (Reason: pain) Qty: 100 0RF (DME) walker Misc See Rx Instructions .Route Qty: 1 0RF Rx Instructions: As directed omeprazole 20 mg capsule,delayed release(DR/EC) 20 mg PO DAILY 90 Days Qty: 90 1RF lisinopril 40 mg tablet 40 mg PO DAILY 90 Days Qty: 90 1RF atorvastatin 20 mg tablet 20 mg PO BEDTIME 90 Days Qty: 90 1RF Ozempic 0.25 mg or 0.5 mg (2 mg/3 mL) pen injector 0.25 mg subcut QWEEK 28 Days Qty: 1.472 0RF Rx Instructions: for 4 weeks albuterol sulfate 90 mcg/actuation HFA aerosol inhaler 2 puff inhalation Q4-6H PRN (Reason: shortness of breath or wheezing) Qty: 1 6RF (DME) emergency urine bag See Rx Instructions .Route .MEDSUPPLY Qty: 60 11RF Rx Instructions: As directed (DME) Shower Chair Misc See Rx Instructions .Route Qty: 1 0RF Rx Instructions: As directed cetirizine [All Day Allergy (cetirizine)] 10 mg tablet 10 mg PO DAILY PRN (Reason: allergy symptoms) 7 Days Qty: 7 0RF metformin 500 mg tablet extended release 24 hr 1,000 mg PO BID Qty: 120 2RF amlodipine 5 mg tablet 5 mg PO DAILY 90 Days Qty: 90 1RF cyclobenzaprine 10 mg tablet 10 mg PO TID PRN (Reason: muscle spasm) Qty: 10 0RF lidocaine 5 % adhesive patch,medicated 1 patch topical DAILY Qty: 15 0RF Rx Instructions: leave on most painful area for up to 12 hrs acetaminophen [Tylenol Extra Strength] 500 mg tablet 1,000 mg PO Q8H PRN (Reason: pain) Qty: 20 0RF Interventions: ED Discharge Assessment Last Done: 05/18/24 11:01 Discharge Date/Time: 05/18/24 11:04 Print Language: Panamanian
[2024-05-18] MEDS: Acetaminophen 325 MG TABLET 650 MG PO (09:25)
[2024-05-18] MEDS: Cyclobenzaprine HCl 10 MG TABLET PO (10:03)
[2024-05-18] MEDS: Morphine Sulfate 10 MG/ML CARTRIDGE IM (10:04)
[2024-05-18 10:18] VITALS: BP 168/102; PULSE 74; RESP 11; TEMP 36.6; O2SAT 95
[2024-05-18 11:01] VITALS: BP 168/102; PULSE 77; RESP 18; TEMP 36.6; O2SAT 95
== END 2024-05-18 11:04 | disposition home or self-care (01) ==
PROVIDERS: Emergency Provider Emergency Medicine Emergency Medical Services; PCP Internal Medicine
DX: S13.9XXA Sprain of joints and ligaments of unspecified parts of neck, initial encounter (principal); X58.XXXA Exposure to other specified factors, initial encounter; M54.12 Radiculopathy, cervical region; E11.9 Type 2 diabetes mellitus without complications; I10 Essential (primary) hypertension; E78.5 Hyperlipidemia, unspecified; Z87.891 Personal history of nicotine dependence; Y93.9 Activity, unspecified; Y92.9 Unspecified place or not applicable; Y99.9 Unspecified external cause status
CPT/HCPCS: 93005; 96372; 99284; J2270

== ENCOUNTER 2024-05-20 09:18 | Outpatient (AMB) | payer OTHER, SELFPAY ==
[2024-05-20 09:20] VITALS: BP 132/84; PULSE 60; BMI 43.5
--- NOTE | 2024-05-20 09:20 | MHC.OFFVIS ---
Vital Signs 05/20/24 09:20 Height 5 ft 11 in Weight 311 lb 15.265 oz BMI 43.5 BP 132/84 Blood Pressure Location Lt brachial Position Sitting Pulse 60 Pulse Source Pulse Oximeter Intake Visit Reasons: DM2/CONFIRMED Intake Note: Patient presents today for D2MT follow up visit. 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 Railroad Services: Turnaround Planner Present Turnaround Planner Name: Valentin Information Interpreted: non-clinical & clinical Accompanied by: Self / Same As Patient Allergies aspirin [Aspirin] Allergy (Severe, Verified 05/20/24 09:27) RASH,THROAT CLOSES, Swollen throat Peanut Butter Allergy (Severe, Verified 05/20/24 09:27) Anaphylaxis dicyclomine [From BENTYL] Allergy (Intermediate, Verified 05/20/24 09:27) PALPITATIONS insulin lispro [Admelog SoloStar U-100 Insulin] Allergy (Intermediate, Verified 05/20/24 09:27) dizziness methylprednisolone [METHYLPREDNISOLONE] Allergy (Intermediate, Verified 05/20/24 09:27) SWELLING furosemide Adverse Reaction (Severe, Verified 05/20/24 09:27) Headache nuts Allergy (Severe, Uncoded 05/20/24 09:27) swelling Medication List - Last Reconciled 05/20/24 by Sudha Isaac PA-C [emergency urine bag As directed] acetaminophen (Tylenol Extra Strength) 1,000 mg (2 x 500 mg) PO Q6H PRN acetaminophen (Tylenol Extra Strength) 1,000 mg (2 x 500 mg) PO Q8H PRN albuterol sulfate 90 mcg/actuation 2 puffs inhalation Q4-6H PRN NS amlodipine 5 mg PO DAILY 90 days atorvastatin 20 mg PO BEDTIME 90 days blood pressure monitor (Blood Pressure Kit) As directed cetirizine (All Day Allergy (cetirizine)) 10 mg PO DAILY PRN 7 days cyclobenzaprine 10 mg PO TID PRN cyclobenzaprine 10 mg PO TID PRN diclofenac sodium 1% (Arthritis Pain (diclofenac)) 2 grams topical QID PRN ibuprofen 400 mg PO TID PRN lidocaine 5% 1 patch topical DAILY lisinopril 40 mg PO DAILY 90 days morphine 15 mg PO Q6H PRN omeprazole 20 mg PO DAILY 90 days Shower Chair As directed [Skin Tac Wipes 1 unit topical .use as directed 90 days NS] walker As directed HPI HPI DM2/CONFIRMED: Details: Patient is a 59 y/o male who presents today for a diabetic follow up. He last saw Dr. Estevez in June 2022. applications administrator Valentin is here today to help with translation Endo: DM- Last a1c was 6.5 but today it is 11. He was dx with diabetes in 2014. His chart says that he is currently on metformin 1000 mg twice a day and Ozempic 0.25 mg weekly but he tells me that he is not taking any of these medications. He was on Humulin U 500 in the past but this was stopped about a year ago because he was told he no longer needed it. He states he is not really sure why it was discontinued but he has some at home and has intermittently been using it when he feels that his blood sugars are too high. He we will give himself between 30 and 40 units. He has caused himself to become very hypoglycemic with this as well but does not have a glucometer or a sensor to check his blood sugars. He states that his machine is broken and he no longer has any sensors. He can just tell that he goes low because he will feel shaky. He gives himself insulin a couple times a week. He gave himself some last night because he had a bunch of sweets. -he is not on metformin because it upsets his stomach and causes muscle aches. He is not on Ozempic because he does not trust the government and that everyone wants to take this medication for weight loss. He used to be on Trulicity and tolerated this very well. He states he thinks it was stopped because his doctor wanted him to lose more weight with the Ozempic. He never asked to get the Trulicity refilled. -he has had diabetic Education in the past and has met with a driller helper but does not feel that he has a great understanding of diabetes. cgm- out of sensors and reader. CV: bp today is 132/84. He is on lisinopril 40 mg, amlodipine 5 mg. Cholesterol controlled with atorvastatin 20 mg. [facility] Medical History Chronic GERD Abdominal pain Epigastric pain Type 2 diabetes mellitus, with long-term current use of insulin Right leg pain Immunization due Obesity due to excess calories Diabetes type 2, uncontrolled Morbid obesity due to excess calories Asthma Microalbuminuria Left shoulder pain Lower back pain Diabetic polyneuropathy associated with type 2 diabetes mellitus Anemia ELO (obstructive sleep apnea) Diabetic nephropathy associated with type 2 diabetes mellitus Klinefelter syndrome Vitamin D deficiency Dyslipidemia Hypertension [facility] (current) use of insulin Osteopenia Hypogonadism male Surgical History Hx of esophagogastroduodenoscopy Hx of colonoscopy History of removal of laparoscopic gastric banding device Hx of laparoscopic gastric banding Hx of foot surgery Hx of cholecystectomy Family History Father No problems noted. Mother Diabetes Osteoporosis Social History Household Members: None Housing: Apartment Alcohol intake: former Patient Tobacco Use Status: Former Tobacco user Tobacco use type: Cigarette e-Cigarette/Vaping Use: Never Used Second Hand Smoke Exposure: No service: No Current occupational status: disabled Cognitive needs: No Hearing needs: No Vision needs: Yes (glasses ) Physical Exam Vital Signs: Last Vital Signs Pulse 60 05/20/24 09:20 BP 132/84 05/20/24 09:20 BMI result Body Mass Index 43.5 Const Orientation/consciousness: patient oriented x3 Neck Neck: Yes no lymphadenopathy Thyroid: Thyroid normal Carotids: no bruits Resp Auscultation: clear to auscultation bilaterally Cardio Rate: regular rate Rhythm: regular rhythm Heart sounds: S1 normal heart sound present and S2 normal heart sound present Peripheral pulses: dorsalis pedis present Skin General skin exam: no rashes or lesions noted Neuro General: patient oriented x3, gait normal and no focal motor deficits Extrem Other: Monofilament sensation intact bilaterally. Vibratory sensation intact bilaterally but decreased on the left. Skin intact. General: Yes normal to inspection Results AMB Hemoglobin A1c AMB Hemoglobin A1c 11.0 % Last Edit by MARTINA Cain on 05/20/24 09:39 Results Reviewed Results Reviewed: Laboratory Last Values Glucose (Clinic) 255 mg/dL (60-115) H 05/20/24 09:29 Hgb A1c (Clinic) 11.0 % (4.0-6.0) H 05/20/24 09:32 Laboratory Tests 09/06/23 10/02/23 11/30/23 12:56 11:26 09:49 Sodium 140 Potassium 3.7 Chloride 103 Carbon Dioxide 29 Anion Gap 12 BUN 18 H Creatinine 0.84 Estim Creat Clear Calc 131.3 Estimated GFR > 60 Random Glucose 252 H Hgb A1c (Clinic) 7.7 H Hemoglobin A1c % 6.5 H Calcium 9.5 Triglycerides 100 Cholesterol 190 LDL Cholesterol, Calc 136 H HDL Cholesterol 34 L Assessment & Plan Assessment & Plan (1) Uncontrolled type 2 diabetes mellitus with hyperglycemia, with long-term current use of insulin: Code(s): E11.65 - Type 2 diabetes mellitus with hyperglycemia; Z79.4 - 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 We reviewed the increased risk of kidney disease, blindness, amputations, infections, neuropathy, stroke, heart attack, gastroparesis etc.. We spent time also discussing diet and reducing carbohydrates, processed foods and increasing exercise as tolerated. We reviewed signs and symptoms of hyper and hypoglycemia that would require emergent medical treatment. Glucose tabs order to use as needed for hypoglycemia. We have reviewed the rules of 15. I have ordered a glucometer and testing supplies. Powered by [employer] Asa 3 reader ordered along with sensors (states he does not have a smart phone). He will contact us when he gets this to help him set this up. He states that he has experience with the Asa 2 and does not think he will need much help but he will let me know. I have referred him to diabetic Education. We will restart Trulicity. Reviewed risks and benefits and adverse effects of this medication including nausea, vomiting, pancreatitis. I will restart his Humulin we will start with 10 units. Discussed that he needs a short term follow up to have his insulin evaluated and likely medication adjustment. Advised him to bring in his reader to that appointment. He will call me sooner if he has any questions or concerns but otherwise we will follow up in 2 weeks. Orders: Orders AMB Hemoglobin A1c Today E11.9 - Type 2 diabetes mellitus without complications, Z13.9 - Encounter for screening, unspecified, Z79.4 - termite inspector (current) use of insulin Referrals Diabetes Education Referral E11.65 - Type 2 diabetes mellitus with hyperglycemia, Z79.4 - termite inspector (current) use of insulin Medications: New dulaglutide (Trulicity) 0.75 mg (0.5 mL) subcut QWEEK 2 mL 2RF blood-glucose sensor (FreeStyle Asa 3 Sensor device) Apply every 14 days As directed to monitor blood glucose 2 ea 11RF E11.9 - Type 2 diabetes mellitus without complications, Z79.4 - termite inspector (current) use of insulin glucose (Dex4 Glucose) until symptoms of low blood sugar are controlled 16 grams (4 x 4 gram) PO Q15M PRN 100 tabs 0RF hypoglycemia blood-glucose meter (FreeStyle Lite Meter kit) Use daily As directed to check blood sugars 1 ea 0RF E11.9 - Type 2 diabetes mellitus without complications, Z79.4 - [facility] (current) use of insulin blood-glucose meter,continuous (FreeStyle Asa 3 [place]) Use daily As directed to monitor blood glucose 1 ea 0RF E11.65 - Type 2 diabetes mellitus with hyperglycemia, Z79.4 - termite inspector (current) use of insulin insulin regular hum U-500 conc (Humulin R U-500 (Conc) Insulin Kwikpen) 10 units (0.02 mL) subcut BEDTIME 30 days 6 mL 1RF lancets (FreeStyle Lancets) use daily as directed to check blood glucose 100 ea 3RF E11.65 - Type 2 diabetes mellitus with hyperglycemia, Z79.4 - termite inspector (current) use of insulin blood sugar diagnostic (FreeStyle Lite Strips) Use daily As directed to check blood glucose 100 ea 3RF E11.65 - Type 2 diabetes mellitus with hyperglycemia, Z79.4 - [facility] (current) use of insulin Coding Level of Care Code Est Pt Level 5 (06599) Diagnoses Uncontrolled type 2 diabetes mellitus with hyperglycemia, with long-term current use of insulin E11.65; Z79.4
[2024-05-20 09:33] LABS: Glucose, Whole Blood 255 mg/dL (60-115)
== END 2024-05-20 10:10 | disposition home or self-care (01) ==
PROVIDERS: PCP Internal Medicine; Visit Provider Physician Assistant
DX: Z13.9 Encounter for screening, unspecified (principal); E11.9 Type 2 diabetes mellitus without complications; Z79.4 Long term (current) use of insulin; E11.65 Type 2 diabetes mellitus with hyperglycemia
CPT/HCPCS: 99215; 99417

== ENCOUNTER → 2024-05-20 09:18 | Outpatient (BNVA) | payer OTHER, SELFPAY | PROVIDERS: PCP Internal Medicine; Visit Provider Physician Assistant | DX: Z79.4 Long term (current) use of insulin (principal) | CPT/HCPCS: 82947; 83036; 99212 ==

== ENCOUNTER 2024-05-28 08:05 | Outpatient (AMB) | payer OTHER, SELFPAY ==
--- NOTE | 2024-05-28 08:15 | A.OFFPC_ITS ---
Vital Signs 05/28/24 08:16 05/28/24 08:38 Height 5 ft 11 in Weight 305 lb BMI 42.5 BP 178/102 H 170/95 H Blood Pressure Location Lt brachial Lt brachial Position Sitting Sitting Intake Visit Reasons: Rsched from 04/18/24 Intake Note: Patient here for a follow up Phlebotomy Supervisor Required: No Accompanied by: Self / Same As Patient Allergies aspirin [Aspirin] Allergy (Severe, Verified 05/28/24 08:25) RASH,THROAT CLOSES, Swollen throat Peanut Butter Allergy (Severe, Verified 05/28/24 08:25) Anaphylaxis dicyclomine [From BENTYL] Allergy (Intermediate, Verified 05/28/24 08:25) PALPITATIONS insulin lispro [Admelog SoloStar U-100 Insulin] Allergy (Intermediate, Verified 05/28/24 08:25) dizziness methylprednisolone [METHYLPREDNISOLONE] Allergy (Intermediate, Verified 05/28/24 08:25) SWELLING furosemide Adverse Reaction (Severe, Verified 05/28/24 08:25) Headache nuts Allergy (Severe, Uncoded 05/28/24 08:25) swelling Medication List - Last Reconciled 05/28/24 by Consuelo Gallardo MD [emergency urine bag As directed] acetaminophen (Tylenol Extra Strength) 1,000 mg (2 x 500 mg) PO Q6H PRN albuterol sulfate 90 mcg/actuation 2 puffs inhalation Q4-6H PRN NS amlodipine 5 mg PO DAILY 90 days atorvastatin 20 mg PO BEDTIME 90 days blood pressure monitor (Blood Pressure Kit) As directed blood sugar diagnostic (FreeStyle Lite Strips) Use daily As directed to check blood glucose blood-glucose meter (FreeStyle Lite Meter kit) Use daily As directed to check b lood sugars blood-glucose meter,continuous (FreeStyle Asa 3 [place]) Use daily As directed to monitor blood glucose blood-glucose sensor (FreeStyle Asa 3 Sensor device) Apply every 14 days As directed to monitor blood glucose cetirizine (All Day Allergy (cetirizine)) 10 mg PO DAILY PRN 7 days cyclobenzaprine 10 mg PO TID PRN diclofenac sodium 1% (Arthritis Pain (diclofenac)) 2 grams topical QID PRN dulaglutide (Trulicity) 0.75 mg (0.5 mL) subcut QWEEK glucose (Dex4 Glucose) 16 grams (4 x 4 gram) PO Q15M PRN ibuprofen 400 mg PO TID PRN insulin regular hum U-500 conc (Humulin R U-500 (Conc) Insulin Kwikpen) 10 units (0.02 mL) subcut BEDTIME 30 days lancets (FreeStyle Lancets) use daily as directed to check blood glucose lidocaine 5% 1 patch topical DAILY lisinopril 40 mg PO DAILY 90 days morphine 15 mg PO Q6H PRN omeprazole 20 mg PO DAILY 90 days Shower Chair As directed [Skin Tac Wipes 1 unit topical .use as directed 90 days NS] walker As directed Tobacco use date assessed: 05/28/24 Dental Screening Dental Screen Date: 05/28/24 Did you have a dental visit in the last 12 months?: No Did you have a dental problem in the last 6 months where you did not have access to dental care?: No Was dental information given to patient?: Patient has dentist HPI HPI Comments History of Present Illness Details This is a 59-year-old male with diabetes mellitus type 2 on long-term current use of insulin, hypertension, hyperlipidemia and morbid obesity that comes today complaining of left shoulder pain that restarted few days ago. Has limited elevation and abduction. Denies any previous trauma. Will order x-ray and send him to physical therapy. Last A1c not on goal and personnel research scientist just restart him on Trulicity. Blood pressure elevated today and he said he was walking and this will be recheck in 3 weeks by nurse navigator. Lipid panel will be order and his LDL goal should be less than 70. He is morbidly obese with a BMI of 42.5 and declines weight loss surgery. Willing to do diet and exercise to reach BMI goal less than 30. [facility] Medical History (Updated 05/28/24 @ 08:43 by Consuelo Gallardo MD) Type 2 diabetes mellitus with other diabetic kidney complication Loss of consciousness Diabetes mellitus Chronic GERD Abdominal pain Epigastric pain Type 2 diabetes mellitus, with long-term current use of insulin Right leg pain Immunization due Obesity due to excess calories Diabetes type 2, uncontrolled Morbid obesity due to excess calories Asthma Microalbuminuria Left shoulder pain Lower back pain Diabetic polyneuropathy associated with type 2 diabetes mellitus Anemia ELO (obstructive sleep apnea) Diabetic nephropathy associated with type 2 diabetes mellitus Klinefelter syndrome Vitamin D deficiency Dyslipidemia Hypertension 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 Mother Diabetes Osteoporosis Social History Household Members: None Housing: Apartment Alcohol intake: former Patient Tobacco Use Status: Former Tobacco user Tobacco use type: Cigarette e-Cigarette/Vaping Use: Never Used Second Hand Smoke Exposure: No service: No Current occupational status: disabled Cognitive needs: No Hearing needs: No Vision needs: Yes (glasses ) Questionnaire PHQ-9 Over the last 2 weeks, how often have you been bothered by any of the following problems? 1. Little interest or pleasure in doing things: not at all 2. Feeling down, depressed, or hopeless: not at all 3. Trouble falling or staying asleep, or sleeping too much: not at all 4. Feeling tired or having little energy: not at all 5. Poor appetite or overeating: not at all 6. Feeling bad about yourself - or that you are a failure or have let yourself or your family down: not at all 7. Trouble concentrating on things, such as reading the newspaper or watching television: not at all 8. Moving or speaking so slowly that other people could have noticed. Or the opposite - being so fidgety or restless that you have been moving around a lot more than usual: not at all 9. Thoughts that you would be better off or of hurting yourself in some way: not at all Total score: 0 Depression Screening Interpretation: Negative Depression Screening Done: Yes 87374 - PHQ-9 Billing: Yes Source: Developed by Drs. Dwight Amaya, Rosaline Armando, Mat Calderon and colleagues, with an educational anamaria from [employer]. Thrive Questionnaire Date Thrive assessed: 05/28/24 I am a: Patient What is your living situation today?: I have a steady place to live Within the past 12 months, did the food you bought not last and you didn't have the money to get more?: Never true Within the past 12 months, did you worry whether your food would run out before you got money to buy more?: Never true Do you have trouble paying for medicines?: No Do you have trouble getting transportation to medical appointments?: No Do you have trouble paying your heating and electricity bill?: No Do you have trouble taking care of your child, family member or friend?: No Do you have trouble with day-to-day activities such as bathing, preparing meals, shopping, managing finances, etc.?: No Are you currently unemployed and looking for a job?: No Are you interested in more education?: No Please select the resources that you would like help with: None Currently or been in a relationship where the following occur: No concerns reported THRIVE Score: 0 AUDIT C Alcohol Use Questionnaire (AUDIT-C) 1. How often do you have a drink containing alcohol?: Never Total Score: 0 Score Reviewed/Action Taken: No KRISTOFER-7 AMB Questionnaire KRISTOFER-7 Date KRISTOFER - 7 assessed: 05/28/24 Feeling nervous, anxious, or on edge: 0 = Not at all Not being able to stop or control worryin = Not at all Worrying too much about different things: 0 = Not at all Trouble relaxin = Not at all Being so restless that it is hard to sit still: 0 = Not at all Becoming easily annoyed or irritable: 0 = Not at all Feeling afraid as if something awful might happen: 0 = Not at all Total KRISTOFER-7 score (0-4 normal; 5-9 mild; 10-14 moderate; 15-21 severe): 0 Source: Developed by Drs. Dwight Amaya, Rosaline Armando, Mat Calderon and colleagues, with an educational anamaria from [employer]. KRISTOFER-7 Assessment Billing KRISTOFER-7 Assessment Tool: KRISTOFER-7 Assessment 43520 Review of Systems Const All systems reviewed & are unremarkable except as noted in HPI and below Card Denies chest pain at rest, Denies chest pain with activity, Denies edema, Denies irregular heart rhythm, Denies claudication, Denies dyspnea, Denies dyspnea on exertion, Denies orthopnea, Denies paroxysmal nocturnal dyspnea and Denies slow heart rate Resp Denies cough, Denies dyspnea and Denies dyspnea on exertion GI Denies abdominal pain, Denies change in bowel habits, Denies excessive flatus, Denies nausea and Denies vomiting Denies urinary hesitancy, Denies urinary incontinence and Denies urinary urgency Musc Denies abnormal gait, Denies atrophy, Denies deformity and Denies limited range of motion Skin/Breast Denies bleeding lesions, Denies changing lesions and Denies rash Neuro Denies abnormal gait, Denies behavioral changes and Denies lack of coordination Psych Denies behavioral changes Physical exam (Primary Care) Vital Signs: Last Vital Signs BP 178/102 H 05/28/24 08:16 BMI result Body Mass Index 42.5 BMI Assessment/Plan discussion: High BMI High, discussed plan: lifestyle, weight reduction, dietary and physical activity Tobacco/Smoking Status: Tobacco use Status Tobacco use date assessed 05/28/24 05/28/24 08:22 Patient Tobacco Use Status Former Tobacco user 05/28/24 08:22 Tobacco use type Cigarette 05/28/24 08:22 e-Cigarette/Vaping Use Never Used 05/28/24 08:22 PHQ-9: PHQ-9 Score PHQ-9: Total score 0 05/28/24 08:23 Depression Screening Interpretation: Negative Thrive Assessment: Date of Thrive Assessment Date Thrive assessed 05/28/24 05/28/24 08:22 Currently or been in a relationship where the following occur: No concerns reported Resp Effort & Inspection: normal respiratory effort Auscultation: clear to auscultation bilaterally Cardio Jugular venous distension: no JVD Rate: regular rate Rhythm: regular rhythm Heart sounds: S1 normal heart sound present and S2 normal heart sound present Extrem General: Yes full ROM Assessment and Plan Assessment & Plan (1) Uncontrolled type 2 diabetes mellitus with hyperglycemia, with long-term current use of insulin: Code(s): E11.65 - Type 2 diabetes mellitus with hyperglycemia; Z79.4 - 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 A1c goal is equal or less than 7%. Follow-up with endocrinology. (2) Morbid obesity with BMI of 40.0-44.9, adult: Code(s): E66.01 - Morbid (severe) obesity due to excess calories; Z68.41 - Body mass index [BMI] 40.0-44.9, adult Plan: Start diet and exercise. BMI goal is less than 30. Declines weight loss surgery. (3) Left shoulder pain: Code(s): M25.512 - Pain in left shoulder Qualifiers: Chronicity: acute Qualified Code(s): M25.512 - Pain in left shoulder Plan: X-ray ordered. Start physical therapy. (4) Hyperlipidemia LDL goal <70: Code(s): E78.5 - Hyperlipidemia, unspecified Plan: Continue statins. Repeat lipid panel. LDL goal is less than 70. (5) Essential hypertension: Code(s): I10 - Essential (primary) hypertension Plan: Continue lisinopril and amlodipine. Blood pressure goal is equal or less than 130/80. Recheck blood pressure with nurse navigator in 3 weeks. Orders: Orders Lipid Panel Today E78.5 - Hyperlipidemia, unspecified Comprehensive [place]. Panel Fast Today E11.65 - Type 2 diabetes mellitus with hyperglycemia, Z79.4 - skilled nursing (current) use of insulin XR shoulder LT min 2V Today M25.512 - Pain in left shoulder PT Evaluation and Treatment Today M25.512 - Pain in left shoulder Microalbumin, Random (w Creat) Today R80.9 - Proteinuria, unspecified Coding Level of Care Code Est Pt Level 4 (60452) Complex EM visit Add On G2211 Diagnoses Uncontrolled type 2 diabetes mellitus with hyperglycemia, with long-term current use of insulin E11.65; Z79.4 Morbid obesity with BMI of 40.0-44.9, adult E66.01; Z68.41 Acute pain of left shoulder M25.512 Chronicity: acute Hyperlipidemia LDL goal <70 E78.5 Essential hypertension I10 Additional Codes KRISTOFER-7 Assessment Billing - KRISTOFER-7 Assessment Tool: KRISTOFER-7 Assessment 31126 ([id number]) Time Spent (min) 24
[2024-05-28 08:16] VITALS: BP 178/102; BMI 42.5
[2024-05-28 08:38] VITALS: BP 170/95
== END 2024-05-28 08:41 | disposition home or self-care (01) ==
PROVIDERS: PCP Internal Medicine; Visit Provider Internal Medicine
DX: E11.65 Type 2 diabetes mellitus with hyperglycemia (principal); Z79.4 Long term (current) use of insulin; E66.01 Morbid (severe) obesity due to excess calories; Z68.41 Body mass index [BMI] 40.0-44.9, adult; M25.512 Pain in left shoulder; E78.5 Hyperlipidemia, unspecified; I10 Essential (primary) hypertension

== ENCOUNTER 2024-05-28 08:05 | Outpatient (REF) | payer OTHER, SELFPAY ==
--- NOTE | ~2024-05-28 | XR_ITS ---
EXAMINATION: XR SHOULDER, LEFT CLINICAL INFORMATION: Left shoulder pain COMPARISON: Radiographs 07/21/2023 TECHNIQUE: AP external rotation, Grashey, scapular Y, and axillary views of the left shoulder. FINDINGS: Moderate-severe glenohumeral osteoarthritis with joint space narrowing and prominent marginal osteophytes along the humeral head and neck junction. This has slightly progressed. No fracture. The acromioclavicular joint is unremarkable. XR/XR shoulder LT min 2V IMPRESSION: Moderate-severe glenohumeral osteoarthritis, slightly progressed. No fracture. Electronically signed by: Edwar Alicea MD 06/03/2024 08:57 AM EDT
[2024-05-28 10:32] LABS: Alanine Aminotransferase 21 U/L (0-40); Alkaline Phosphatase 75 U/L (39-117); Anion Gap 14 (12-20); Aspartate Amino Transferase 16 U/L (5-37); Bilirubin Total 0.6 mg/dL (0.0-1.0); Blood Urea Nitrogen 20 mg/dL (9-16); Calcium 9.5 mg/dL (8.4-10.2); Carbon Dioxide 29 mmol/L (22-29); Chloride 102 mmol/L (96-108); Cholesterol 225 mg/dL (<200); Estimated Glomerular Filt Rate > 60; Glucose Fasting 287 mg/dL (60-99); HDL Cholesterol 39 mg/dL (>40); LDL Cholesterol Calculated 151 mg/dL (<100); Potassium 3.6 mmol/L (3.3-5.1); Sodium 141 mmol/L (135-145); Total Protein 7.7 g/dL (6.5-8.0); Triglycerides 175 mg/dL (<150)
[2024-05-28 10:49] LABS: Vitamin D 25-OH Total 26.2 ng/mL (>30)
[2024-05-28 11:05] LABS: Folate 10.3 ng/mL (> or = 4.0); Vitamin B12 674 pg/mL (200-900)
[2024-05-28 11:07] LABS: Creatinine Urine 124.32 mg/dL
== END 2024-05-28 08:06 | disposition home or self-care (01) ==
LOC: HO.XRAY 08:05
PROVIDERS: PCP Internal Medicine; Visit Provider Internal Medicine
DX: E11.65 Type 2 diabetes mellitus with hyperglycemia (principal); E55.9 Vitamin D deficiency, unspecified; E53.8 Deficiency of other specified B group vitamins; I10 Essential (primary) hypertension; E78.5 Hyperlipidemia, unspecified; M25.512 Pain in left shoulder; R80.9 Proteinuria, unspecified; E66.01 Morbid (severe) obesity due to excess calories; Z68.41 Body mass index [BMI] 40.0-44.9, adult; Z79.4 Long term (current) use of insulin
CPT/HCPCS: 36415; 73030; 80053; 80061; 82043; 82306; 82570; 82607; 82746; 96127; 99212

== ENCOUNTER 2024-06-07 09:04 | Outpatient (AMB) | payer OTHER, SELFPAY ==
--- NOTE | 2024-06-07 09:15 | A.OFFVIS_ITS ---
Vital Signs 06/07/24 09:16 Height 5 ft 11 in Weight 308 lb 10.354 oz BMI 43.0 BP 160/100 H Blood Pressure Location Rt brachial Position Sitting Pulse 89 Pulse Source Pulse Oximeter Intake Visit Reasons: DM/CONFIRMED Intake Note: Patient presents today for [facility] follow up visit. Last Diabetic Eye exam: 11/2023 Last Podiatry Visit: Doesn't see a Agribusiness Professor Most Recent HgA1c: 11.0%, 05/20/2024 Random Glucose: 343mg/dL, Today Business Solutions Consultant Required: Yes Business Solutions Consultant Language: Editorial Intern Services: Business Solutions Consultant Present Business Solutions Consultant Name: [facility] Information Interpreted: non-clinical & clinical Accompanied by: Self / Same As Patient Allergies aspirin [Aspirin] Allergy (Severe, Verified 06/07/24 09:20) RASH,THROAT CLOSES, Swollen throat Peanut Butter Allergy (Severe, Verified 06/07/24 09:20) Anaphylaxis dicyclomine [From BENTYL] Allergy (Intermediate, Verified 06/07/24 09:20) PALPITATIONS insulin lispro [Admelog SoloStar U-100 Insulin] Allergy (Intermediate, Verified 06/07/24 09:20) dizziness methylprednisolone [METHYLPREDNISOLONE] Allergy (Intermediate, Verified 06/07/24 09:20) SWELLING furosemide Adverse Reaction (Severe, Verified 06/07/24 09:20) Headache nuts Allergy (Severe, Uncoded 06/07/24 09:20) swelling HPI Comments Details: Patient is 59-year-old male with DM type 2 diagnosed in 2012 who presents for management of diabetes. Patient was last seen by Sudha GONSALES 2 weeks ago after a several year hiatus. He had stopped all of his diabetes medications. At his visit 2 weeks ago U500 insulin 10 units was re-started at bedtime and he was restarted on Trulicity 0.75mg. He previously had been on 90 units of u500 for breakfast and 20 unit for dinner. Metformin 1000 mg bid and Trulicity 4.5mg weekly. He is requesting change to Mounjaro. His most recent A1C was 11.1% up from 7.7% last year. 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 Hypoglycemia: No +Nephropathy:05/2024 eGFR >60 microalbumin 787 Exercise: has indoor bicycle and does 15 minutes 2-3 times a day. Walks throughout the day at stores Housing Project Manager - CDE education: saw film loader in the past Agribusiness Professor: self care Ophthalmology evaluation: not addressed today [facility] Medical History (Updated 05/28/24 @ 09:50 by Consuelo Gallardo MD) Type 2 diabetes mellitus with other diabetic kidney complication Loss of consciousness Diabetes mellitus Chronic GERD Abdominal pain Epigastric pain Type 2 diabetes mellitus, with long-term current use of insulin Right leg pain Immunization due Obesity due to excess calories Diabetes type 2, uncontrolled Morbid obesity due to excess calories Asthma Microalbuminuria Left shoulder pain Lower back pain Diabetic polyneuropathy associated with type 2 diabetes mellitus Anemia ELO (obstructive sleep apnea) Diabetic nephropathy associated with type 2 diabetes mellitus Klinefelter syndrome Vitamin D deficiency Dyslipidemia Hypertension FDC (current) use of insulin Osteopenia Hypogonadism male Surgical History Hx of esophagogastroduodenoscopy Hx of colonoscopy History of removal of laparoscopic gastric banding device Hx of laparoscopic gastric banding Hx of foot surgery Hx of cholecystectomy Family History Father No problems noted. Mother Diabetes Osteoporosis Social History Household Members: None Housing: Apartment Alcohol intake: former Patient Tobacco Use Status: Former Tobacco user Tobacco use type: Cigarette e-Cigarette/Vaping Use: Never Used Second Hand Smoke Exposure: No service: No Current occupational status: disabled Cognitive needs: No Hearing needs: No Vision needs: Yes (glasses ) Physical Exam Vital Signs: Last Vital Signs Pulse 89 06/07/24 09:16 BP 160/100 H 06/07/24 09:16 BMI result Body Mass Index 43.0 Const Other: Absence of Cushingoid features. Absence of acromegalic features. Neck exam reveals nl size thyroid about 15 gms. No thyroid nodules palpable. Heart S1 S2, Reg R/R. No M/R G. Skin exam reveals absence of vitiligo or acanthosis nigricans. + edema Results Reviewed Results Reviewed: Laboratory Last Values Glucose (Clinic) 343 mg/dL (60-115) H 06/07/24 09:20 Laboratory Tests 05/03/23 09/06/23 05/20/24 09:59 12:56 09:32 Potassium Creatinine Estimated GFR Hgb A1c (Clinic) 7.8 H 7.7 H 11.0 H LDL Cholesterol, Calc Urine Microalbumin 05/28/24 05/28/24 08:55 09:20 Potassium 3.6 Creatinine 0.90 Estimated GFR > 60 Hgb A1c (Clinic) LDL Cholesterol, Calc 151 H Urine Microalbumin 787.0 Assessment & Plan Assessment & Plan (1) Uncontrolled type 2 diabetes mellitus with hyperglycemia, with long-term current use of insulin: Code(s): E11.65 - Type 2 diabetes mellitus with hyperglycemia; Z79.4 - termite helper (current) use of insulin Category: Medical Plan: 59-year-old type 2 diabetic with nephropathy with recent decline in glycemic control. His most recent A1c was 11.1% up from 7.7% in August of 2023. He had stopped all of his medications. His most recent average is over 200 and we will make adjustments to his medications as follows: Humulin U500 20 units for breakfast and 20 units for supper Change Trulicity to Mounjaro 0.5 mg weekly Restart metformin 500 mg and use extended release formula as patient has been intolerant to metformin in the past. (2) Hypertension: Code(s): I10 - Essential (primary) hypertension Category: Medical Qualifiers: Hypertension type: essential hypertension Qualified Code(s): I10 - Essential (primary) hypertension Plan: Continue current medications and add hydrochlorothiazide. We will check BNP with blood work in 3 weeks along with BMP. Orders: Orders Basic Metabolic Panel 3 Weeks I10 - Essential (primary) hypertension B Type Natriuretic Peptide 3 Weeks I10 - Essential (primary) hypertension Medications: New tirzepatide (Mounjaro) 5 mg (0.5 mL) subcut QWEEK 28 days 2 mL 6RF hydrochlorothiazide 12.5 mg PO DAILY 30 days 30 caps 6RF I10 - Essential (primary) hypertension Changed From insulin regular hum U-500 conc (Humulin R U-500 (Conc) Insulin Kwikpen) 10 units (0.02 mL) subcut BEDTIME 30 days 6 mL 1RF To insulin regular hum U-500 conc (Humulin R U-500 (Conc) Insulin Kwikpen) with breakfast or lunch and dinner 20 units (0.04 mL) subcut BID 30 days 6 mL 6RF Discontinued blood-glucose meter,continuous (Dexcom G7 Prop Worker) Discontinued Reason: Doctor's Order use daily As directed to monitor blood glucose 1 ea 0RF blood-glucose sensor (Dexcom G7 Sensor device) Discontinued Reason: Doctor's Order Use daily As directed to monitor glucose. change q 10 days 3 ea 5RF E11.65 - Type 2 diabetes mellitus with hyperglycemia, Z79.4 - FDC (current) use of insulin Patient Instructions: The patient was counseled to achieve a target A1C of 7% (154 avg). Fasting blood sugars should be 90-130 in the morning and less than 180 two hours after meals. Reviewed the relationship between poor diabetic control and the developement of complications. Coding Level of Care Code Est Pt Level 4 (26626) Diagnoses Uncontrolled type 2 diabetes mellitus with hyperglycemia, with long-term current use of insulin E11.65; Z79.4 Essential hypertension I10 Hypertension type: essential hypertension Time Spent (min) 35 Comment Time spent reviewing labs/provider notes, face to face, chart doc
[2024-06-07 09:16] VITALS: BP 160/100; PULSE 89; BMI 43.0
[2024-06-07 09:30] LABS: Glucose, Whole Blood 343 mg/dL (60-115)
== END 2024-06-07 09:56 | disposition home or self-care (01) ==
PROVIDERS: PCP Internal Medicine; Visit Provider Nurse Practitioner Adult Health
DX: E11.65 Type 2 diabetes mellitus with hyperglycemia (principal); Z79.4 Long term (current) use of insulin; I10 Essential (primary) hypertension
CPT/HCPCS: 99214

== ENCOUNTER → 2024-06-07 09:04 | Outpatient (BNVA) | payer OTHER, SELFPAY | PROVIDERS: PCP Internal Medicine; Visit Provider Nurse Practitioner Adult Health | DX: E11.65 Type 2 diabetes mellitus with hyperglycemia (principal); I10 Essential (primary) hypertension; Z79.4 Long term (current) use of insulin | CPT/HCPCS: 82947; 99212 ==

== ENCOUNTER 2024-06-12 08:59 | Outpatient (AMB) | payer OTHER, SELFPAY ==
--- NOTE | 2024-06-12 10:06 | MHC.AMDMED ---
Intake Intake Visit Reasons: DM-conf Mortgage Or Loan Underwriter Required: Yes Mortgage Or Loan Underwriter Language: Medical Staff Director Name: Aga [facility] Accompanied by: Self / Same As Patient Allergies aspirin [Aspirin] Allergy (Severe, Verified 06/07/24 09:20) RASH,THROAT CLOSES, Swollen throat Peanut Butter Allergy (Severe, Verified 06/07/24 09:20) Anaphylaxis dicyclomine [From BENTYL] Allergy (Intermediate, Verified 06/07/24 09:20) PALPITATIONS insulin lispro [Admelog SoloStar U-100 Insulin] Allergy (Intermediate, Verified 06/07/24 09:20) dizziness methylprednisolone [METHYLPREDNISOLONE] Allergy (Intermediate, Verified 06/07/24 09:20) SWELLING furosemide Adverse Reaction (Severe, Verified 06/07/24 09:20) Headache nuts Allergy (Severe, Uncoded 06/07/24 09:20) swelling HPI Comprehensive Diabetes Asmnt Most Recent Diabetes Results: Microalb/Creat Ratio 633.0 ug/mg cr (<30) H 05/28/24 Cholesterol 225 mg/dL (<200) H 05/28/24 HDL Cholesterol 39 mg/dL (>40) L 05/28/24 Triglycerides 175 mg/dL (<150) H 05/28/24 Creatinine 0.90 mg/dL (0.5-1.4) 05/28/24 Blood Urea Nitrogen 20 mg/dL (9-16) H 05/28/24 Sodium 141 mmol/L (135-145) 05/28/24 Potassium 3.6 mmol/L (3.3-5.1) 05/28/24 Chloride 102 mmol/L (96-108) 05/28/24 Carbon Dioxide 29 mmol/L (22-29) 05/28/24 Calcium 9.5 mg/dL (8.4-10.2) 05/28/24 AST 16 U/L (5-37) 05/28/24 ALT 21 U/L (0-40) 05/28/24 Total Protein 7.7 g/dL (6.5-8.0) 05/28/24 Albumin 4.0 g/dL (3.5-5.0) 05/28/24 [facility] Medical History (Updated 05/28/24 @ 09:50 by Consuelo Gallardo MD) Type 2 diabetes mellitus with other diabetic kidney complication Loss of consciousness Diabetes mellitus Chronic GERD Abdominal pain Epigastric pain Type 2 diabetes mellitus, with long-term current use of insulin Right leg pain Immunization due Obesity due to excess calories Diabetes type 2, uncontrolled Morbid obesity due to excess calories Asthma Microalbuminuria Left shoulder pain Lower back pain Diabetic polyneuropathy associated with type 2 diabetes mellitus Anemia ELO (obstructive sleep apnea) Diabetic nephropathy associated with type 2 diabetes mellitus Klinefelter syndrome Vitamin D deficiency Dyslipidemia Hypertension parts counterman (current) use of insulin Osteopenia Hypogonadism male Surgical History Hx of esophagogastroduodenoscopy Hx of colonoscopy History of removal of laparoscopic gastric banding device Hx of laparoscopic gastric banding Hx of foot surgery Hx of cholecystectomy Family History Father No problems noted. Mother Diabetes Osteoporosis Social History Household Members: None Housing: Apartment Alcohol intake: former Patient Tobacco Use Status: Former Tobacco user Tobacco use type: Cigarette e-Cigarette/Vaping Use: Never Used Second Hand Smoke Exposure: No service: No Current occupational status: disabled Cognitive needs: No Hearing needs: No Vision needs: Yes (glasses ) Assessment & Plan Assessment & Plan (1) Uncontrolled type 2 diabetes mellitus with hyperglycemia, with long-term current use of insulin: Code(s): E11.65 - Type 2 diabetes mellitus with hyperglycemia; Z79.4 - parts counterman (current) use of insulin Plan: Learning objectives: The patient was provided with verbal and written education on the following topics as outlined below. The patient met all learning objectives and was able to verbalize understanding and provide teach back of education topics discussed . The patient was provided with the opportunity to ask questions and all questions were answered. Patient Assessment Patient reports he has an issue with medication compliance. He has been prescribed Humulin U 500 20 units before breakfast and before supper. Patient has not restarted insulin. Patient stated he is afraid of having hypoglycemia, as he has in the past with U 500. Patient was prescribed Asa 3 sensors but he is currently wearing Asa 2 sensor, patient did not bring Asa reader to today's visit. Patient testing glucose 2 times daily Fasting glucose range 237-335 mg/dL Second test sporadic throughout the day the ranges of those glucose are 196 to 343 mg/dL Patient questions/concerns What is Diabetes? Pathophysiology How the body produces and uses insulin Identify type of DM Risk factors Signs of Diabetes Brief overview of Diabetes Management Monitoring blood sugar Following a meal plan Regular exercise Maintaining a healthy weight Taking medication as needed Members of the care team (PCP, RN, MA, RD, CDE, lithographic artist) Blood glucose monitoring When/how often to test Target blood sugar ranges Introduction to Nutrition Importance of healthy diet in managing DM Diet is personalized to individual preference Review patient?s regular diet/food preferences Who prepares meals/does food shopping/ Dining out?/ Barriers? How diet effects glucose Eating 3 balanced meals a day with small, healthy snacks between meals Review food groups Carbohydrates: What is a carbohydrate/Which food/food groups are considered carbohydrates Effect of carbohydrates on blood glucose Portion sizes Reading food labels Basic carb counting (if applicable per nursing assessment) Plate method Meal planning Recommendations: Follow plate method, consistent carbs and read nutritional labels. Smart Goal: Educational Materials: The patient was provided with the following written educational materials: Planning Healthy Meals Handout Patient Response to instructions: Comprehension of Instructions: Fair Readiness to make changes: Contemplation How confident they feel about making changes: fair Portions of this note were created using voice recognition software, please excuse any words or phrases that may have been misinterpreted. Patient Instructions: Incluir actividad diaria regular. ADA recomienda 30 minutos de ejercicio 5 d?as a la semana. P?rdida de peso, hable con el PCP o el cardi?logo antes de comenzar un nuevo plan. Mida el nivel de az?car en la elvis seg?n las indicaciones; Ayuno y comida m?s keven de 2hpp. Observe las tendencias en los resultados. Utilice los resultados y eval?e c?mo los alimentos, la actividad f?katlyn y los medicamentos afectan los resultados de az?car en la elvis. Lleve el gluc?metro o CGM a la pr?xima visita. Conocer los medicamentos para la diabetes, mix acci?n, los efectos secundarios, la eficacia, la toxicidad, la dosis prescrita, el momento y la frecuencia de administraci?n apropiados, el efecto de las dosis olvidadas y retrasadas y las instrucciones de almacenamiento, viaje y seguridad. T?cnicas de resoluci?n de problemas para el seguimiento de episodios de hipo/hiperglucemia y tratamientos. Reducir los comportamientos de reducci?n de riesgos, dejar de fumar, ex?menes regulares de ojos, pies y dentales. Coding Level of Care Code Est Pt Level 1 (76570) Diagnoses Uncontrolled type 2 diabetes mellitus with hyperglycemia, with long-term current use of insulin E11.65; Z79.4
== END 2024-06-12 10:08 | disposition home or self-care (01) ==
PROVIDERS: PCP Internal Medicine; Visit Provider Registered Nurse Diabetes Educator
DX: E11.65 Type 2 diabetes mellitus with hyperglycemia (principal); Z79.4 Long term (current) use of insulin

== ENCOUNTER → 2024-06-12 08:59 | Outpatient (BNVA) | payer OTHER, SELFPAY | PROVIDERS: PCP Internal Medicine; Visit Provider Registered Nurse Diabetes Educator | DX: E11.65 Type 2 diabetes mellitus with hyperglycemia (principal); Z79.4 Long term (current) use of insulin | CPT/HCPCS: 99211 ==

== ENCOUNTER 2024-06-28 09:56 | Outpatient (REF) | payer OTHER, SELFPAY ==
[2024-06-28 11:59] LABS: B Type Natriuretic Peptide 10 pg/mL (<100)
[2024-06-28 12:01] LABS: Anion Gap 13 (12-20); Blood Urea Nitrogen 15 mg/dL (9-16); Calcium 9.4 mg/dL (8.4-10.2); Carbon Dioxide 28 mmol/L (22-29); Chloride 104 mmol/L (96-108); Estimated Glomerular Filt Rate > 60; Glucose Random 152 mg/dL (60-115); Potassium 3.6 mmol/L (3.3-5.1); Sodium 141 mmol/L (135-145)
== END 2024-06-28 09:57 | disposition home or self-care (01) ==
LOC: HO.10HDL 09:56
PROVIDERS: Visit Provider Nurse Practitioner Adult Health
DX: I10 Essential (primary) hypertension (principal); E11.65 Type 2 diabetes mellitus with hyperglycemia; Z79.4 Long term (current) use of insulin
CPT/HCPCS: 36415; 80048; 82947; 83880; 99212

== ENCOUNTER 2024-06-28 10:06 | Outpatient (AMB) | payer OTHER, SELFPAY ==
--- NOTE | 2024-06-28 09:20 | A.OFFVIS_ITS ---
Vital Signs 06/28/24 10:13 Height 5 ft 11 in Weight 302 lb 0.533 oz BMI 42.1 BP 142/88 H Blood Pressure Location Rt brachial Position Sitting Pulse 95 Pulse Source Pulse Oximeter Intake Visit Reasons: DM/CONFIRMED Intake Note: Patient presents today for D2MI follow up visit. Last Diabetic Eye exam: 11/2023 Last Podiatry Visit: Doesn't see a Swimming Pool Installer And Servicer Most Recent HgA1c: 11.0%, 05/20/2024 Random Glucose: 154 mg/dL, Today Fisheries Biologist Required: Yes Fisheries Biologist Language: Forging Die Finisher Services: Fisheries Biologist Present Fisheries Biologist Name: MARTINA Mott/DYLAN ZIMMERMAN Information Interpreted: non-clinical & clinical Accompanied by: Self / Same As Patient Allergies aspirin [Aspirin] Allergy (Severe, Verified 06/07/24 09:20) RASH,THROAT CLOSES, Swollen throat Peanut Butter Allergy (Severe, Verified 06/07/24 09:20) Anaphylaxis dicyclomine [From BENTYL] Allergy (Intermediate, Verified 06/07/24 09:20) PALPITATIONS insulin lispro [Admelog SoloStar U-100 Insulin] Allergy (Intermediate, Verified 06/07/24 09:20) dizziness methylprednisolone [METHYLPREDNISOLONE] Allergy (Intermediate, Verified 06/07/24 09:20) SWELLING furosemide Adverse Reaction (Severe, Verified 06/07/24 09:20) Headache nuts Allergy (Severe, Uncoded 06/07/24 09:20) swelling HPI Comments Details: Patient is 59-year-old male with DM type 2 diagnosed in 2012 who presents for management of diabetes. Patient was last seen by myself 3 weeks ago at which time he was advised to increase his U500 insulin and was previously seen by Sudha GONSALES early May after a several year hiatus from [facility]. He had stopped all of his diabetes medications before his 1st follow up visit in endocrine and it was recommended he restart U500 insulin 10 units at bedtime and he was restarted on Trulicity 0.75mg. He previously had been on 90 units of u500 for breakfast and 20 unit for dinner. Metformin 1000 mg bid and Trulicity 4.5mg weekly. He requested a change to Mounjaro. His most recent A1C was 11.1% up from 7.7% last year. He was seen by the public health educator and did not have the freestyle 3 sensor for training and had not taken his U500 as he was fearful he would have a drop. 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 Symptoms reported: occasional tingling, Denies numbness, cramping in lower extremities. He does not see a submarine advisory team watch officer. Has Nephropathy:05/2024 eGFR >60 microalbumin 787 Exercise: has indoor bicycle and does 15 minutes 2-3 times a day. Walks throughout the day at stores Applications Analyst - CDE education: saw multiple coil winder in the past Swimming Pool Installer And Servicer: self care Ophthalmology evaluation: not addressed today [facility] Medical History (Updated 05/28/24 @ 09:50 by Consuelo Gallardo MD) Type 2 diabetes mellitus with other diabetic kidney complication Loss of consciousness Diabetes mellitus Chronic GERD Abdominal pain Epigastric pain Type 2 diabetes mellitus, with long-term current use of insulin Right leg pain Immunization due Obesity due to excess calories Diabetes type 2, uncontrolled Morbid obesity due to excess calories Asthma Microalbuminuria Left shoulder pain Lower back pain Diabetic polyneuropathy associated with type 2 diabetes mellitus Anemia ELO (obstructive sleep apnea) Diabetic nephropathy associated with type 2 diabetes mellitus Klinefelter syndrome Vitamin D deficiency Dyslipidemia Hypertension 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 Mother Diabetes Osteoporosis Social History Household Members: None Housing: Apartment Alcohol intake: former Patient Tobacco Use Status: Former Tobacco user Tobacco use type: Cigarette e-Cigarette/Vaping Use: Never Used Second Hand Smoke Exposure: No service: No Current occupational status: disabled Cognitive needs: No Hearing needs: No Vision needs: Yes (glasses ) Physical Exam Vital Signs: Last Vital Signs Pulse 95 06/28/24 10:13 BP 142/88 H 06/28/24 10:13 BMI result Body Mass Index 42.1 Const Other: Absence of Cushingoid features. Absence of acromegalic features. Neck exam reveals nl size thyroid about 15 gms. No thyroid nodules palpable. No carotid bruits present. Lungs CTA. Heart S1 S2, Reg R/R. No M/R G. Skin exam reveals absence of vitiligo or acanthosis nigricans. No edema Results Reviewed Results Reviewed: Laboratory Last Values Glucose (Clinic) 154 mg/dL (60-115) H 06/28/24 10:17 Assessment & Plan Assessment & Plan (1) Uncontrolled type 2 diabetes mellitus with hyperglycemia, with long-term current use of insulin: Code(s): E11.65 - Type 2 diabetes mellitus with hyperglycemia; Z79.4 - exterminator termite (current) use of insulin Category: Medical Plan: 59-year-old type 2 diabetic with nephropathy and neuropathy who had recent increase in A1c due to stopping insulin. He is due fearful of starting U500 in a prescription for Tresiba 20 units was sent along with Mounjaro 2.5 mg. Side effects of GLP-1 agonist discussed with patient. He will come in for training on [place] Asa The patient had an opportunity to ask questions regarding treatment plan. The patient expressed understanding and agreement with the above treatment plan. The patient is aware they should contact our office by phone for worsening glucose readings or for any low blood sugars which may warrant a change in diabetes medication. Compliance is encouraged with medications and any followup testing/consults which may have been ordered. Patient Instructions: The patient was counseled to achieve a target A1C of 7% (154 avg). Fasting blood sugars should be 90-130 in the morning and less than 180 two hours after meals. Reviewed the relationship between poor diabetic control and the development of complications. The patient was counseled to always carry a source of sugar and on the rule of 15's: Take 3 glucose tablets and repeat again in 15 minutes if blood sugar is not in normal range. Continue to repeat every 15 minutes until blood sugar is normal. Wear closed toe shoes, never walk barefooted and inspect the feet daily. For any signs of infection or open wound patient you should notify your PCP or go to urgent care/ER. Coding Level of Care Code Est Pt Level 4 (72144) Complex EM visit Add On G2211 Diagnoses Uncontrolled type 2 diabetes mellitus with hyperglycemia, with long-term current use of insulin E11.65; Z79.4 Time Spent (min) 45 Comment Time spent reviewing labs/provider notes, face to face, chart doc
[2024-06-28 10:13] VITALS: BP 142/88; PULSE 95; BMI 42.1
[2024-06-28 10:22] LABS: Glucose, Whole Blood 154 mg/dL (60-115)
== END 2024-06-28 10:58 | disposition home or self-care (01) ==
PROVIDERS: PCP Internal Medicine; Visit Provider Nurse Practitioner Adult Health
DX: E11.65 Type 2 diabetes mellitus with hyperglycemia (principal); Z79.4 Long term (current) use of insulin
CPT/HCPCS: 99214; G2211

== ENCOUNTER 2024-07-22 10:57 | Outpatient (AMB) | payer OTHER, SELFPAY ==
--- NOTE | 2024-07-22 11:11 | A.OFFVIS_ITS ---
Intake Intake Visit Reasons: 60 Min-confirmed Auditing Clerk Required: Yes Auditing Clerk Language: Annual Campaign Manager Name: Reinier [phone] Accompanied by: Self / Same As Patient Allergies aspirin [Aspirin] Allergy (Severe, Verified 06/07/24 09:20) RASH,THROAT CLOSES, Swollen throat Peanut Butter Allergy (Severe, Verified 06/07/24 09:20) Anaphylaxis dicyclomine [From BENTYL] Allergy (Intermediate, Verified 06/07/24 09:20) PALPITATIONS insulin lispro [Admelog SoloStar U-100 Insulin] Allergy (Intermediate, Verified 06/07/24 09:20) dizziness methylprednisolone [METHYLPREDNISOLONE] Allergy (Intermediate, Verified 06/07/24 09:20) SWELLING furosemide Adverse Reaction (Severe, Verified 06/07/24 09:20) Headache nuts Allergy (Severe, Uncoded 06/07/24 09:20) swelling HPI Comprehensive Diabetes Asmnt Most Recent Diabetes Results: Microalb/Creat Ratio 633.0 ug/mg cr (<30) H 05/28/24 Cholesterol 225 mg/dL (<200) H 05/28/24 HDL Cholesterol 39 mg/dL (>40) L 05/28/24 Triglycerides 175 mg/dL (<150) H 05/28/24 Creatinine 0.86 mg/dL (0.5-1.4) 06/28/24 Blood Urea Nitrogen 15 mg/dL (9-16) 06/28/24 Sodium 141 mmol/L (135-145) 06/28/24 Potassium 3.6 mmol/L (3.3-5.1) 06/28/24 Chloride 104 mmol/L (96-108) 06/28/24 Carbon Dioxide 28 mmol/L (22-29) 06/28/24 Calcium 9.4 mg/dL (8.4-10.2) 06/28/24 AST 16 U/L (5-37) 05/28/24 ALT 21 U/L (0-40) 05/28/24 Total Protein 7.7 g/dL (6.5-8.0) 05/28/24 Albumin 4.0 g/dL (3.5-5.0) 05/28/24 [facility] Medical History (Updated 05/28/24 @ 09:50 by Consuelo Gallardo MD) Type 2 diabetes mellitus with other diabetic kidney complication Loss of consciousness Diabetes mellitus Chronic GERD Abdominal pain Epigastric pain Type 2 diabetes mellitus, with long-term current use of insulin Right leg pain Immunization due Obesity due to excess calories Diabetes type 2, uncontrolled Morbid obesity due to excess calories Asthma Microalbuminuria Left shoulder pain Lower back pain Diabetic polyneuropathy associated with type 2 diabetes mellitus Anemia ELO (obstructive sleep apnea) Diabetic nephropathy associated with type 2 diabetes mellitus Klinefelter syndrome Vitamin D deficiency Dyslipidemia Hypertension 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 Mother Diabetes Osteoporosis Social History Household Members: None Housing: Apartment Alcohol intake: former Patient Tobacco Use Status: Former Tobacco user Tobacco use type: Cigarette e-Cigarette/Vaping Use: Never Used Second Hand Smoke Exposure: No service: No Current occupational status: disabled Cognitive needs: No Hearing needs: No Vision needs: Yes (glasses ) Assessment & Plan Assessment & Plan (1) Uncontrolled type 2 diabetes mellitus with hyperglycemia, with long-term current use of insulin: Code(s): E11.65 - Type 2 diabetes mellitus with hyperglycemia; Z79.4 - termination clerk (current) use of insulin Plan: Learning objectives: The patient was provided with verbal and written education on the following topics as outlined below. Patient questions/concerns, patient still has not received Asa 3 sensor. Called pharmacy pharmacy reports they need a PA for Asa 3 sensors Requested pharmacy fax [facility] Patient is using glucometer once a day Fasting glucose range 86 to 129 mg/dL for the last 7 days Patient reports he is taking Mounjaro 2.5 mg weekly Tresiba 24 mg daily Metformin 500 mg daily, metformin is not on patient's current med list the patient reports he was instructed by CIVIL ENGINEERING PROFESSIONAL to restart metformin that he had at home The patient met all learning objectives and was able to verbalize understanding and provide teach back of education topics discussed . The patient was provided with the opportunity to ask questions and all questions were answered. Topics covered in today?s session included: Medications (If applicable) * Name of medication? * Dosing/administration instructions? * Mechanism of action? * Potential side effects? * Potential adverse reaction and appropriate treatment? * Review onset, peak, duration Assess for concerns re: insurance coverage, cost, barriers to compliance Insulin/Injectables (If applicable) * Storage/care of insulin?? * Injection sites? * Site rotation? * Onset, peak, duration * Drawing up insulin? * Injecting insulin/other injectables? * Sharps disposal Continuous blood glucose monitoring (if applicable) Hypoglycemia and Hyperglycemia * Signs and symptoms? * Causes?? * Treatment? * Preventing hypoglycemia? * When to seek medical attention Target Goals: * Blood glucose targets and how you feel when your blood glucose is in and out of your target ranges. * Monitoring and knowing your A1C. * What can make blood glucose go up and down and preventing high and low blood glucose. * Review of blood sugar targets in expected goal range and outside of expected goal range. * Problem solving and preventing hyper/hypoglycemia. * Sick day management of diabetes. * Using blood sugar results in decision making process in managing diabetes. ?Patient was receptive to information provided and participated in the discussion. Asked?appropriate questions and demonstrated good understanding of the topics discussed.? ? Educational Materials: The patient was provided with the following written educational materials: Target Goal, hypoglycemia handouts given in [place] Smart Goal:? Will use rule of 15s to treat hypoglycemia New Smart Goal: Patient Response to instructions: Comprehension of Instructions: Fair Readiness to make changes:? Contemplation How confident they feel about making changes: Fair Portions of this note were created using voice recognition software, please excuse any words or phrases that may have been misinterpreted. Patient Instructions: Contact [facility] pharmacy every few days until he receives Asa 3 sensors Follow-up with nurses educator in 3 months Coding Level of Care Code Est Pt Level 1 (20757) Diagnoses Uncontrolled type 2 diabetes mellitus with hyperglycemia, with long-term current use of insulin E11.65; Z79.4
== END 2024-07-22 11:42 | disposition home or self-care (01) ==
PROVIDERS: PCP Internal Medicine; Visit Provider Registered Nurse Diabetes Educator
DX: E11.65 Type 2 diabetes mellitus with hyperglycemia (principal); Z79.4 Long term (current) use of insulin

== ENCOUNTER → 2024-07-22 10:57 | Outpatient (BNVA) | payer OTHER, SELFPAY | PROVIDERS: PCP Internal Medicine; Visit Provider Registered Nurse Diabetes Educator | DX: E11.65 Type 2 diabetes mellitus with hyperglycemia (principal); E11.22 Type 2 diabetes mellitus with diabetic chronic kidney disease; E11.42 Type 2 diabetes mellitus with diabetic polyneuropathy; E11.21 Type 2 diabetes mellitus with diabetic nephropathy; Z79.4 Long term (current) use of insulin | CPT/HCPCS: 99211 ==

== ENCOUNTER 2024-08-26 14:26 | Outpatient (AMB) | payer OTHER, SELFPAY ==
--- NOTE | 2024-08-26 14:56 | A.OFFPC_ITS ---
Vital Signs 08/26/24 14:57 Height 5 ft 11 in Weight 288 lb BMI 40.2 BP 166/102 H Blood Pressure Location Lt brachial Position Sitting Intake Visit Reasons: sore throat Biogeographer Required: No Accompanied by: Self / Same As Patient Allergies aspirin [Aspirin] Allergy (Severe, Verified 08/26/24 15:27) RASH,THROAT CLOSES, Swollen throat Peanut Butter Allergy (Severe, Verified 08/26/24 15:27) Anaphylaxis dicyclomine [From BENTYL] Allergy (Intermediate, Verified 08/26/24 15:27) PALPITATIONS insulin lispro [Admelog SoloStar U-100 Insulin] Allergy (Intermediate, Verified 08/26/24 15:27) dizziness methylprednisolone [METHYLPREDNISOLONE] Allergy (Intermediate, Verified 08/26/24 15:27) SWELLING furosemide Adverse Reaction (Severe, Verified 08/26/24 15:27) Headache nuts Allergy (Severe, Uncoded 08/26/24 15:27) swelling Medication List - Last Reconciled 08/26/24 by Consuelo Gallardo MD [emergency urine bag As directed] acetaminophen (Tylenol Extra Strength) 1,000 mg (2 x 500 mg) PO Q6H PRN albuterol sulfate 90 mcg/actuation 2 puffs inhalation Q4-6H PRN NS amlodipine 5 mg PO DAILY 90 days atorvastatin 20 mg PO BEDTIME 90 days blood pressure monitor (Blood Pressure Kit) As directed blood sugar diagnostic (FreeStyle Lite Strips) Use daily As directed to check blood glucose blood-glucose meter (FreeStyle Lite Meter kit) Use daily As directed to check blood sugars blood-glucose meter,continuous (FreeStyle Asa 3 Paxton) Use daily As directed to monitor blood glucose blood-glucose sensor (FreeStyle Asa 3 Sensor device) Apply every 14 days As directed to monitor blood glucose cetirizine (All Day Allergy (cetirizine)) 10 mg PO DAILY PRN 7 days cyclobenzaprine 10 mg PO TID PRN diclofenac sodium 1% (Arthritis Pain (diclofenac)) 2 grams topical QID PRN glucose (Dex4 Glucose) 16 grams (4 x 4 gram) PO Q15M PRN hydrochlorothiazide 12.5 mg PO DAILY 30 days ibuprofen 400 mg PO TID PRN insulin degludec (Tresiba FlexTouch U-200 insulin) 20 units (0.1 mL) subcut DAILY 30 days lancets (FreeStyle Lancets) use daily as directed to check blood glucose lidocaine 5% 1 patch topical DAILY lisinopril 40 mg PO DAILY 90 days morphine 15 mg PO Q6H PRN omeprazole 40 mg PO DAILY pen needle, diabetic (BD Sonja 2nd Gen Pen Needle) As directed once daily Shower Chair As directed [Skin Tac Wipes 1 unit topical .use as directed 90 days NS] tirzepatide (Mounjaro) 2.5 mg (0.5 mL) subcut QWEEK 4 weeks walker As directed Tobacco use date assessed: 05/28/24 Dental Screening Dental Screen Date: 05/28/24 HPI HPI Comments History of Present Illness Details The patient is a 59-year-old male presenting with a sore throat. The sore throat began approximately two weeks ago, coinciding with a painful sensation in the left shoulder. The patient reported that the sore throat intensifies when consuming a particular medication. Initially, he experienced difficulty swallowing and persistent coughing, especially at night. The use of topical chest ointment exacerbated the cough, producing phlegm. Despite these symptoms, no fever was noted. The patient has a history of gastritis and was evaluated in June, where no significant issues were discovered, and he was advised to continue omeprazole. He has diabetes mellitus type 2 that A1c has improved. Blood pressure elevated and he did not took his medications today. Blood pressure will be recheck in 3 weeks by nurse navigator. Lipid panel will be order because his LDL goal should be less than 70. He is morbidly obese with a BMI of 40.2 and was advised to do diet and exercise to reach BMI goal less than 30. [facility], [facility] Medical History (Updated 08/26/24 @ 19:02 by Consuelo Gallardo MD) Diabetes mellitus Type 2 diabetes mellitus with other diabetic kidney complication Loss of consciousness Chronic GERD Abdominal pain Epigastric pain Type 2 diabetes mellitus, with long-term current use of insulin Right leg pain Immunization due Obesity due to excess calories Diabetes type 2, uncontrolled Morbid obesity due to excess calories Asthma Microalbuminuria Left shoulder pain Lower back pain Diabetic polyneuropathy associated with type 2 diabetes mellitus Anemia ELO (obstructive sleep apnea) Diabetic nephropathy associated with type 2 diabetes mellitus Klinefelter syndrome Vitamin D deficiency Dyslipidemia 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 Mother Diabetes Osteoporosis Social History Household Members: None Housing: Apartment Alcohol intake: former Patient Tobacco Use Status: Former Tobacco user Tobacco use type: Cigarette e-Cigarette/Vaping Use: Never Used Second Hand Smoke Exposure: No service: No Current occupational status: disabled Cognitive needs: No Hearing needs: No Vision needs: Yes (glasses ) Questionnaire Thrive Questionnaire Date Thrive assessed: 05/28/24 KRISTOFER-7 AMB Questionnaire KRISTOFER-7 Date KRISTOFER - 7 assessed: 05/28/24 Source: Developed by Drs. Dwight Amaya, Rosaline Armando, Mat Calderon and colleagues, with an educational aanmaria from [employer]. Review of Systems Const Details: - Respiratory: Reports coughing and phlegm production. - Gastrointestinal: Denies nausea, vomiting, or fever. - Dermatological: Reports a rash or itchiness at night. Physical exam (Primary Care) Vital Signs: Last Vital Signs BP 166/102 H 08/26/24 14:57 BMI result Body Mass Index 40.2 BMI Assessment/Plan discussion: High BMI High, discussed plan: lifestyle, weight reduction, dietary and physical activity Tobacco/Smoking Status: Tobacco use Status Tobacco use date assessed 05/28/24 08/26/24 14:56 Patient Tobacco Use Status Former Tobacco user 08/26/24 14:56 Tobacco use type Cigarette 08/26/24 14:56 e-Cigarette/Vaping Use Never Used 08/26/24 14:56 Thrive Assessment: Date of Thrive Assessment Date Thrive assessed 05/28/24 08/26/24 14:56 Const Other: General: No confusion Throat: Irritated Respiratory: Normal respiratory effort, clear to auscultation bilaterally Cardiovascular: No jugular venous distension, regular rate, regular rhythm, S1 normal heart sound present and S2 normal heart sound present Office Procedures Flu Questionnaire Does the patient have a severe egg allergy?: No Results AMB Hemoglobin A1c AMB Hemoglobin A1c 7.1 % Last Edit by MARTINA Wheatley on 08/26/24 15:0 7 AMB Rapid Strep AMB Rapid Strep Negative Last Edit by MARTINA Wheatley on 08/26/24 15: 53 Immunizations Fluarix Triv [id number] (PF) 45 mcg (15 mcg x 3)/0.5 mL IM syringe Performing Provider: Consuelo Gallardo MD [place] [facility] Documented (not given) by: MARTINA Wheatley on 08/26/24 14:56 Reason Not Given: Patient Refused Results Reviewed Results Reviewed: Laboratory Last Values Hgb A1c (Clinic) 7.1 % (4.0-6.0) H 08/26/24 14:55 Strep Scn Rapid Clinic Negative 08/26/24 15:51 Coding Level of Care Code Est Pt Level 4 (48193) Complex EM visit Add On G2211 Diagnoses URI (upper respiratory infection) J06.9 Essential hypertension I10 Type 2 diabetes mellitus with hyperglycemia, without long-term current use of insulin E11.65 Diabetes mellitus type: type 2 Diabetes mellitus mcc insulin use: without termite treater use Diabetes mellitus complication status: with hyperglycemia Morbid obesity with BMI of 40.0-44.9, adult E66.01; Z68.41 Hyperlipidemia LDL goal <70 E78.5 Time Spent (min) 21 Assessment & Plan Assessment & Plan (1) URI (upper respiratory infection): Code(s): J06.9 - Acute upper respiratory infection, unspecified Category: Medical (2) Essential hypertension: Code(s): I10 - Essential (primary) hypertension Category: Medical (3) Diabetes mellitus: Code(s): E11.9 - Type 2 diabetes mellitus without complications Category: Medical Qualifiers: Diabetes mellitus type: type 2 Diabetes mellitus mcc insulin use: without mcc use Diabetes mellitus complication status: with hyperglycemia Qualified Code(s): E11.65 - Type 2 diabetes mellitus with hyperglycemia (4) Morbid obesity with BMI of 40.0-44.9, adult: Code(s): E66.01 - Morbid (severe) obesity due to excess calories; Z68.41 - Body mass index [BMI] 40.0-44.9, adult Category: Medical (5) Hyperlipidemia LDL goal <70: Code(s): E78.5 - Hyperlipidemia, unspecified Category: Medical Plan - Perform a strep test to determine if a bacterial infection is present. - Consider initiating antibiotics pending the strep test results. - Continue current hypertension and diabetes management regimen. - Discussed allergies and observed for any adverse medication effects. Patient was informed and verbally consented to the use of an ambient scribe for clinic note documentation during this visit. I discussed with the patient the likely cause of his sore throat and the possibility of a bacterial infection which necessitates a strep test. I explained potential medication interactions and advised continuing the current regimen for hypertension and diabetes, with a review of allergies to avoid adverse effects. I emphasized keeping an eye on the development of any new symptoms and reassured the patient about the normal findings from the gastric evaluation in June. Follow-up in three weeks was planned to reassess blood pressure and medication tolerance. Orders: Orders Influenza [id number] Immunization Today Z23 - Encounter for immunization Lipid Panel Today E78.5 - Hyperlipidemia, unspecified Microalbumin, Random (w Creat) Today R80.9 - Proteinuria, unspecified Vitamin D 25-OH Total Today E55.9 - Vitamin D deficiency, unspecified Comprehensive [place]. 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 IRON PROFILE Today D64.9 - Anemia, unspecified AMB Hemoglobin A1c Today E11.65 - Type 2 diabetes mellitus with hyperglycemia, Z79.4 - skilled nursing (current) use of insulin Complete Blood Count Auto Diff Today D64.9 - Anemia, unspecified Vitamin B12 and Folate Today E53.8 - Deficiency of other specified B group vitamins AMB Rapid Strep Screen Today J02.9 - Acute pharyngitis, unspecified, Z13.9 - Encounter for screening, unspecified Medications: New amoxicillin 500 mg PO BID 10 tabs 0RF 5 days Refilled acetaminophen (Tylenol Extra Strength) 1,000 mg (2 x 500 mg) PO Q6H PRN 20 tabs 0RF fever or pain Patient Instructions: - Follow up to check blood pressure in three weeks. - Continue prescribed diabetes and hypertension medications. - Use chest ointment with caution to avoid excessive coughing. - Take prescribed medication for cholesterol at night. - Seek immediate attention if symptoms worsen or new symptoms develop.
[2024-08-26 14:57] VITALS: BP 166/102; BMI 40.2
== END 2024-08-26 15:50 | disposition home or self-care (01) ==
PROVIDERS: PCP Internal Medicine; Visit Provider Internal Medicine
DX: E11.65 Type 2 diabetes mellitus with hyperglycemia (principal); E66.01 Morbid (severe) obesity due to excess calories; Z68.41 Body mass index [BMI] 40.0-44.9, adult; Z79.4 Long term (current) use of insulin; J06.9 Acute upper respiratory infection, unspecified; I10 Essential (primary) hypertension; E78.5 Hyperlipidemia, unspecified; J02.9 Acute pharyngitis, unspecified

== ENCOUNTER → 2024-08-26 14:26 | Outpatient (BNVA) | payer OTHER, SELFPAY | PROVIDERS: PCP Internal Medicine; Visit Provider Internal Medicine | DX: J06.9 Acute upper respiratory infection, unspecified (principal); I10 Essential (primary) hypertension; E11.65 Type 2 diabetes mellitus with hyperglycemia; E66.01 Morbid (severe) obesity due to excess calories; E78.5 Hyperlipidemia, unspecified; R80.9 Proteinuria, unspecified; E55.9 Vitamin D deficiency, unspecified; D64.9 Anemia, unspecified; E53.8 Deficiency of other specified B group vitamins; Z79.4 Long term (current) use of insulin; Z28.21 Immunization not carried out because of patient refusal; Z68.41 Body mass index [BMI] 40.0-44.9, adult | CPT/HCPCS: 83036; 87880; 99212 ==

== ENCOUNTER 2024-08-29 09:55 | Outpatient (AMB) | payer OTHER, SELFPAY ==
[2024-08-29 09:56] VITALS: BP 138/84; PULSE 68; O2SAT 97; BMI 40.9
--- NOTE | 2024-08-29 09:56 | A.OFFVIS_ITS ---
Vital Signs 08/29/24 09:56 Height 5 ft 11 in Weight 293 lb BMI 40.9 BP 138/84 Blood Pressure Location Rt brachial Position Sitting Pulse 68 Pulse Source Doppler Pulse Oximetry (%) 97 Oxygen Delivery Method Room Air Intake Visit Reasons: Obstructive sleep apnea Ammonia Technician Required: Yes Ammonia Technician Name: Yeni Brunner Barbra Allergies aspirin [Aspirin] Allergy (Severe, Verified 08/26/24 15:27) RASH,THROAT CLOSES, Swollen throat Peanut Butter Allergy (Severe, Verified 08/26/24 15:27) Anaphylaxis dicyclomine [From BENTYL] Allergy (Intermediate, Verified 08/26/24 15:27) PALPITATIONS insulin lispro [Admelog SoloStar U-100 Insulin] Allergy (Intermediate, Verified 08/26/24 15:27) dizziness methylprednisolone [METHYLPREDNISOLONE] Allergy (Intermediate, Verified 08/26/24 15:27) SWELLING furosemide Adverse Reaction (Severe, Verified 08/26/24 15:27) Headache nuts Allergy (Severe, Uncoded 08/26/24 15:27) swelling HPI HPI Obstructive sleep apnea: Details: 59-year-old gentleman with underlying history of morbid obesity followed severe obstructive sleep apnea, mild asthma, and pulmonary nodules. His pulmonary nodules have been stable since 2011 on 09/2021 CT scan and do not require further imaging follow-up. He continues to follow-up with Cardiology for underlying diastolic dysfunction. He has tried using CPAP machine, however he was not able to get used to it. He continues to use nocturnal supplemental oxygen. His asthma symptoms for previously controlled on albuterol MDI, however recently he started having worsening symptoms. Today he is also complain of a cough productive of yellowish sputum. [facility] Medical History (Updated 08/26/24 @ 19:02 by Consuelo Gallardo MD) Diabetes mellitus Type 2 diabetes mellitus with other diabetic kidney complication Loss of consciousness Chronic GERD Abdominal pain Epigastric pain Type 2 diabetes mellitus, with long-term current use of insulin Right leg pain Immunization due Obesity due to excess calories Diabetes type 2, uncontrolled Morbid obesity due to excess calories Asthma Microalbuminuria Left shoulder pain Lower back pain Diabetic polyneuropathy associated with type 2 diabetes mellitus Anemia ELO (obstructive sleep apnea) Diabetic nephropathy associated with type 2 diabetes mellitus Klinefelter syndrome Vitamin D deficiency Dyslipidemia Hypertension halfway (current) use of insulin Osteopenia Hypogonadism male Surgical History Hx of esophagogastroduodenoscopy Hx of colonoscopy History of removal of laparoscopic gastric banding device Hx of laparoscopic gastric banding Hx of foot surgery Hx of cholecystectomy Family History Father No problems noted. Mother Diabetes Osteoporosis Social History Household Members: None Housing: Apartment Alcohol intake: former Patient Tobacco Use Status: Former Tobacco user Tobacco use type: Cigarette e-Cigarette/Vaping Use: Never Used Second Hand Smoke Exposure: No service: No Current occupational status: disabled Cognitive needs: No Hearing needs: No Vision needs: Yes (glasses ) Review of Systems Const Denies daytime sleepiness, Denies excessive sweating, Denies fatigue, Denies fever(s), Denies lethargy, Denies malaise, Denies night sweats, Denies snoring and Denies weight loss Eyes Denies blurry vision and Denies itchy eyes ENT Denies nasal congestion, Denies post nasal drip, Denies sinus pain, Denies sinus pressure and Denies other ( Thrush) Card Denies chest pain, Denies pedal edema, Denies dyspnea, Denies orthopnea and Denies paroxysmal nocturnal dyspnea Resp Reports cough, Denies hemoptysis, Reports excessive phlegm production, Denies dyspnea, Denies snoring and Denies wheezing GI Denies abdominal pain and Denies heartburn Musc Denies myalgias, Denies arthralgias and Denies joint swelling Skin/Breast Denies rash Neuro Denies memory loss and Denies seizure-like activity Psych Denies abnormal sleep pattern, Denies anxiety and Denies memory loss Endo Denies excessive sweating, Denies fatigue and Denies heat intolerance Danny/Lymph Denies easy bruising Aller/Immun Denies itchy eyes, Denies seasonal rhinorrhea and Denies wheezing Physical Exam Vital Signs: Last Vital Signs Pulse 68 08/29/24 09:56 BP 138/84 08/29/24 09:56 Pulse Ox 97 08/29/24 09:56 Oxygen Delivery Method Room Air 08/29/24 09:56 BMI result Body Mass Index 40.9 Const General: no acute distress and alert Nutritional Appearance: not obese Orientation/consciousness: Other orientation findings ( oriented) HEENT Head: Yes atraumatic Eyes General: appearance normal, both eyes and all related structures Sclerae: sclerae normal EOM: EOMs intact bilaterally Neck Neck: Yes supple Lymphatic: no lymphadenopathy noted Resp Effort & Inspection: normal respiratory effort and no use of accessory muscles Auscultation: clear to auscultation bilaterally Cardio Rate: regular rate Rhythm: regular rhythm Heart sounds: no gallops, no murmurs and no rubs Skin General skin exam: other ( warm) Extrem General: No clubbing, No cyanosis and No edema Assessment & Plan Assessment & Plan (1) Asthma: Code(s): J45.909 - Unspecified asthma, uncomplicated Category: Medical Qualifiers: Asthma severity: mild Asthma persistence: persistent Asthma complica tion type: uncomplicated Qualified Code(s): J45.30 - Mild persistent asthma, uncomplicated Plan: Suboptimal control on albuterol MDI. Will add Breo. Will treat acute exacerbation with a course of azithromycin. (2) ELO (obstructive sleep apnea): Code(s): G47.33 - Obstructive sleep apnea (adult) (pediatric) Category: Medical Plan: Previously unable to tolerate CPAP. Now continues on nocturnal oxygen. Coding Level of Care Code Est Pt Level 4 (24318) Diagnoses Mild persistent asthma without complication J45.30 Asthma severity: mild Asthma persistence: persistent Asthma complication type: uncomplicated ELO (obstructive sleep apnea) G47.33
== END 2024-08-29 10:14 | disposition home or self-care (01) ==
PROVIDERS: PCP Internal Medicine; Visit Provider Internal Medicine Pulmonary Disease
DX: J45.30 Mild persistent asthma, uncomplicated (principal); G47.33 Obstructive sleep apnea (adult) (pediatric)
CPT/HCPCS: 99214

== ENCOUNTER → 2024-08-29 09:55 | Outpatient (BNVA) | payer OTHER, SELFPAY | PROVIDERS: PCP Internal Medicine; Visit Provider Internal Medicine Pulmonary Disease | DX: G47.33 Obstructive sleep apnea (adult) (pediatric) (principal); J45.30 Mild persistent asthma, uncomplicated; R91.8 Other nonspecific abnormal finding of lung field; E66.01 Morbid (severe) obesity due to excess calories; Z68.41 Body mass index [BMI] 40.0-44.9, adult | CPT/HCPCS: 99212 ==

== ENCOUNTER 2024-09-23 08:59 | Outpatient (AMB) | payer OTHER, SELFPAY ==
--- NOTE | 2024-09-23 09:10 | MHC.OFFVIS ---
Vital Signs 09/23/24 09:11 Height 5 ft 11 in Weight 293 lb BMI 40.9 BP 122/70 Blood Pressure Location Lt brachial Position Sitting Pulse 68 Pulse Source Doppler Pulse Oximetry (%) 94 Oxygen Delivery Method Room Air Intake Visit Reasons: Obstructive sleep apnea Coding Coordinator Required: Yes Coding Coordinator Name: Yeni Brunner Barbra Allergies aspirin [Aspirin] Allergy (Severe, Verified 08/26/24 15:27) RASH,THROAT CLOSES, Swollen throat Peanut Butter Allergy (Severe, Verified 08/26/24 15:27) Anaphylaxis dicyclomine [From BENTYL] Allergy (Intermediate, Verified 08/26/24 15:27) PALPITATIONS insulin lispro [Admelog SoloStar U-100 Insulin] Allergy (Intermediate, Verified 08/26/24 15:27) dizziness methylprednisolone [METHYLPREDNISOLONE] Allergy (Intermediate, Verified 08/26/24 15:27) SWELLING furosemide Adverse Reaction (Severe, Verified 08/26/24 15:27) Headache nuts Allergy (Severe, Uncoded 08/26/24 15:27) swelling HPI HPI Obstructive sleep apnea: Details: 59-year-old gentleman with underlying history of morbid obesity followed severe obstructive sleep apnea, mild asthma, and pulmonary nodules. His pulmonary nodules have been stable since 2011 on 09/2021 CT scan and do not require further imaging follow-up. He continues to follow-up with Cardiology for underlying diastolic dysfunction. He has restarted using CPAP machine now with improving control of his sleep apnea symptoms. He continues to use nocturnal supplemental oxygen. After the last office visit he also was started on Breo with significantly improved control of his asthma symptoms. His cough has resolved after a course of azithromycin. [facility] Medical History (Updated 08/26/24 @ 19:02 by Consuelo Gallardo MD) Diabetes mellitus Type 2 diabetes mellitus with other diabetic kidney complication Loss of consciousness Chronic GERD Abdominal pain Epigastric pain Type 2 diabetes mellitus, with long-term current use of insulin Right leg pain Immunization due Obesity due to excess calories Diabetes type 2, uncontrolled Morbid obesity due to excess calories Asthma Microalbuminuria Left shoulder pain Lower back pain Diabetic polyneuropathy associated with type 2 diabetes mellitus Anemia ELO (obstructive sleep apnea) Diabetic nephropathy associated with type 2 diabetes mellitus Klinefelter syndrome Vitamin D deficiency Dyslipidemia Hypertension halfway (current) use of insulin Osteopenia Hypogonadism male Surgical History Hx of esophagogastroduodenoscopy Hx of colonoscopy History of removal of laparoscopic gastric banding device Hx of laparoscopic gastric banding Hx of foot surgery Hx of cholecystectomy Family History Father No problems noted. Mother Diabetes Osteoporosis Social History Household Members: None Housing: Apartment Alcohol intake: former Patient Tobacco Use Status: Former Tobacco user Tobacco use type: Cigarette e-Cigarette/Vaping Use: Never Used Second Hand Smoke Exposure: No service: No Current occupational status: disabled Cognitive needs: No Hearing needs: No Vision needs: Yes (glasses ) Review of Systems Const Denies daytime sleepiness, Denies excessive sweating, Denies fatigue, Denies fever(s), Denies lethargy, Denies malaise, Denies night sweats, Denies snoring and Denies weight loss Eyes Denies blurry vision and Denies itchy eyes ENT Denies nasal congestion, Denies post nasal drip, Denies sinus pain, Denies sinus pressure and Denies other ( Thrush) Card Denies chest pain, Denies pedal edema, Denies dyspnea, Denies orthopnea and Denies paroxysmal nocturnal dyspnea Resp Denies cough, Denies hemoptysis, Denies excessive phlegm production, Denies dyspnea, Denies snoring and Denies wheezing GI Denies abdominal pain and Denies heartburn Musc Denies myalgias, Denies arthralgias and Denies joint swelling Skin/Breast Denies rash Neuro Denies memory loss and Denies seizure-like activity Psych Denies abnormal sleep pattern, Denies anxiety and Denies memory loss Endo Denies excessive sweating, Denies fatigue and Denies heat intolerance Danny/Lymph Denies easy bruising Aller/Immun Denies itchy eyes, Denies seasonal rhinorrhea and Denies wheezing Physical Exam Vital Signs: Last Vital Signs Pulse 68 09/23/24 09:11 BP 122/70 09/23/24 09:11 Pulse Ox 94 09/23/24 09:11 Oxygen Delivery Method Room Air 09/23/24 09:11 BMI result Body Mass Index 40.9 Const General: no acute distress and alert Nutritional Appearance: not obese Orientation/consciousness: Other orientation findings ( oriented) HEENT Head: Yes atraumatic Eyes General: appearance normal, both eyes and all related structures Sclerae: sclerae normal EOM: EOMs intact bilaterally Neck Neck: Yes supple Lymphatic: no lymphadenopathy noted Resp Effort & Inspection: normal respiratory effort and no use of accessory muscles Auscultation: clear to auscultation bilaterally Cardio Rate: regular rate Rhythm: regular rhythm Heart sounds: no gallops, no murmurs and no rubs Skin General skin exam: other ( warm) Extrem General: No clubbing, No cyanosis and No edema Assessment & Plan Assessment & Plan (1) Asthma: Code(s): J45.909 - Unspecified asthma, uncomplicated Category: Medical Qualifiers: Asthma severity: mild Asthma persistence: persistent Asthma complication type: uncomplicated Qualified Code(s): J45.30 - Mild persistent asthma, uncomplicated Plan: Well controlled on current regimen of Breo and albuterol MDI. Continue current regimen. (2) ELO (obstructive sleep apnea): Code(s): G47.33 - Obstructive sleep apnea (adult) (pediatric) Category: Medical Plan: Improving control as patient is now able to restart using his CPAP. Continue CPAP therapy. (3) On supplemental oxygen therapy: Code(s): Z99.81 - Dependence on supplemental oxygen Category: Medical Plan: On nocturnal oxygen. Continue nocturnal oxygen. Coding Level of Care Code Est Pt Level 4 (93782) Diagnoses Mild persistent asthma without complication J45.30 Asthma severity: mild Asthma persistence: persistent Asthma complication type: uncomplicated ELO (obstructive sleep apnea) G47.33 On supplemental oxygen therapy Z99.81
[2024-09-23 09:11] VITALS: BP 122/70; PULSE 68; O2SAT 94; BMI 40.9
== END 2024-09-23 09:31 | disposition home or self-care (01) ==
PROVIDERS: PCP Internal Medicine; Visit Provider Internal Medicine Pulmonary Disease
DX: J45.30 Mild persistent asthma, uncomplicated (principal); G47.33 Obstructive sleep apnea (adult) (pediatric); Z99.81 Dependence on supplemental oxygen
CPT/HCPCS: 99214

== ENCOUNTER → 2024-09-23 08:59 | Outpatient (BNVA) | payer OTHER, SELFPAY | PROVIDERS: PCP Internal Medicine; Visit Provider Internal Medicine Pulmonary Disease | DX: G47.33 Obstructive sleep apnea (adult) (pediatric) (principal); J45.30 Mild persistent asthma, uncomplicated; Z99.81 Dependence on supplemental oxygen | CPT/HCPCS: 99212 ==

== ENCOUNTER 2024-09-27 09:59 | Outpatient (AMB) | payer OTHER, SELFPAY ==
--- NOTE | 2024-09-27 07:34 | A.OFFVIS_ITS ---
Vital Signs 09/27/24 10:12 Height 5 ft 11 in Weight 297 lb 9.985 oz BMI 41.5 BP 136/90 H Blood Pressure Location Rt brachial Position Sitting Pulse 62 Pulse Source Pulse Oximeter Intake Visit Reasons: Type II DM Intake Note: Patient presents today for D2MT follow up visit. Last Diabetic Eye exam: 11/2023 Last Podiatry Visit: Doesn't see a Newspaper Carrier Most Recent HgA1c: 7.0%, 08/26/2024 Random Glucose: 126 mg/dL, Today Beauty Culturist Required: Yes Beauty Culturist Language: Narcotics And Vice Detective Services: Beauty Culturist Present Beauty Culturist Name: MARTINA Mott/DYLAN ZIMMERMAN Information Interpreted: non-clinical & clinical Accompanied by: Self / Same As Patient Allergies aspirin [Aspirin] Allergy (Severe, Verified 09/27/24 10:11) RASH,THROAT CLOSES, Swollen throat Peanut Butter Allergy (Severe, Verified 09/27/24 10:11) Anaphylaxis dicyclomine [From BENTYL] Allergy (Intermediate, Verified 09/27/24 10:11) PALPITATIONS insulin lispro [Admelog SoloStar U-100 Insulin] Allergy (Intermediate, Verified 09/27/24 10:11) dizziness methylprednisolone [METHYLPREDNISOLONE] Allergy (Intermediate, Verified 09/27/24 10:11) SWELLING furosemide Adverse Reaction (Severe, Verified 09/27/24 10:11) Headache nuts Allergy (Severe, Uncoded 09/27/24 10:11) swelling jardiance Adverse Reaction (Mild, Uncoded 10/01/24 09:59) Drowsy Medication List - Last Reconciled 09/27/24 by Stacey Lux NP [emergency urine bag As directed] acetaminophen (Tylenol Extra Strength) 1,000 mg (2 x 500 mg) PO Q6H PRN albuterol sulfate 90 mcg/actuation 2 puffs inhalation Q4-6H PRN NS amlodipine 5 mg PO DAILY 90 days atorvastatin 20 mg PO BEDTIME 90 days blood pressure monitor (Blood Pressure Kit) As directed blood sugar diagnostic (FreeStyle Lite Strips) Use daily As directed to check blood glucose blood-glucose meter (FreeStyle Lite Meter kit) Use daily As directed to check blood sugars blood-glucose meter,continuous (FreeStyle Asa 3 Creola) Use daily As directed to monitor blood glucose blood-glucose sensor (FreeStyle Asa 3 Sensor device) Apply every 14 days As directed to monitor blood glucose cetirizine (All Day Allergy (cetirizine)) 10 mg PO DAILY PRN 7 days diclofenac sodium 1% (Arthritis Pain (diclofenac)) 2 grams topical QID PRN fluticasone furoate-vilanterol 200-25 mcg/dose (Breo Ellipta) 1 inh inhalation DAILY glucose (Dex4 Glucose) 16 grams (4 x 4 gram) PO Q15M PRN hydrochlorothiazide 12.5 mg PO DAILY 30 days ibuprofen 400 mg PO TID PRN insulin degludec (Tresiba FlexTouch U-200 insulin) 20 units (0.1 mL) subcut DAILY 30 days lancets (FreeStyle Lancets) use daily as directed to check blood glucose lidocaine 5% 1 patch topical DAILY lisinopril 40 mg PO DAILY 90 days omeprazole 40 mg PO DAILY pen needle, diabetic (BD Sonja 2nd Gen Pen Needle) As directed once daily Shower Chair As directed [Skin Tac Wipes 1 unit topical .use as directed 90 days NS] tirzepatide (Mounjaro) 2.5 mg (0.5 mL) subcut QWEEK 4 weeks walker As directed HPI Comments Details: Patient is 59-year-old male with DM type 2 diagnosed in 2012 who presents for management of diabetes. Patient was last seen 06/28/24. 08/26/25 7.1%. 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 Jardiance had side effects Diabetes medications: Tresiba 20 units Mounjaro 2.5mg weekly Meter download shows an average of 113 he is testing 1-2 times per day A.m. readings 97-145, most readings less than 130 Later in the day 82-117 Has neuropathy. Symptoms reported: occasional tingling, Denies numbness, cramping in lower extremities. He does not see a mainspring former arbor end. He has prior amputation of 4th/5th toe and lateral aspect of foot secondary to cancer, Has Nephropathy:on cecil-I 05/2024 eGFR >60 microalbumin 787 Exercise: has indoor bicycle/foot pedals and does 15 minutes 2-3 times a day. 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 He has a history of Klinefelter and previously had been on testosterone many years ago. He was evaluated by Endocrine at his initial visit which is not available in EMR (e clinical works no access to labs). Patient did confirm the diagnosis was made by at [facility] and declined going back on testosterone at subsequent visits. despite osteopenia. DEXA scan 01/19/2018 AP SPINE L1-L4: BMD 1.045 g/cm2, Z-score -2.0, T-score -1.5, osteopenia. LEFT FEMUR, NECK: BMD 0.816 g/cm2, Z-score -1.8, T-score -2.0, osteopenia. LEFT FEMUR, TOTAL: BMD 0.962 g/cm2, Z-score -1.1, T-score -1.0, normal. [facility] Medical History Diabetes mellitus Type 2 diabetes mellitus with other diabetic kidney complication Loss of consciousness Chronic GERD Abdominal pain Epigastric pain Type 2 diabetes mellitus, with long-term current use of insulin Right leg pain Immunization due Obesity due to excess calories Diabetes type 2, uncontrolled Morbid obesity due to excess calories Asthma Microalbuminuria Left shoulder pain Lower back pain Diabetic polyneuropathy associated with type 2 diabetes mellitus Anemia ELO (obstructive sleep apnea) Diabetic nephropathy associated with type 2 diabetes mellitus Klinefelter syndrome Vitamin D deficiency Dyslipidemia Hypertension director process (current) use of insulin Osteopenia Hypogonadism male Surgical History Hx of esophagogastroduodenoscopy Hx of colonoscopy History of removal of laparoscopic gastric banding device Hx of laparoscopic gastric banding Hx of foot surgery Hx of cholecystectomy Family History Father No problems noted. Mother Diabetes Osteoporosis Social History Household Members: None Housing: Apartment Alcohol intake: former Patient Tobacco Use Status: Former Tobacco user Tobacco use type: Cigarette e-Cigarette/Vaping Use: Never Used Second Hand Smoke Exposure: No service: No Current occupational status: disabled Cognitive needs: No Hearing needs: No Vision needs: Yes (glasses ) Physical Exam Vital Signs: Last Vital Signs Pulse 62 09/27/24 10:12 BP 136/90 H 09/27/24 10:12 BMI result Body Mass Index 41.5 Const Other: + trunchal obeisty Absence of acromegalic features. Neck exam reveals nl size thyroid about 15 gms. No thyroid nodules palpable. No carotid bruits present. Lungs CTA. Heart S1 S2, Reg R/R. No M/R G. Skin exam reveals absence of vitiligo. NO edema Visual exam of foot performed. No ulcerations or open lesions. No inter digit maceration or fissuring. No onychomycosis, no callouses. Sensation intact to monofilament exam. Vibratory sensation is slight diminishedwith 128 Hz tuning fork. amputation of right 4th,5th metatarsal, tarsal bone Results Reviewed Results Reviewed: Laboratory Last Values Glucose (Clinic) 126 mg/dL (60-115) H 09/27/24 10:17 Laboratory Tests Laboratory Tests 05/28/24 08:55 AST 16 ALT 21 10/23/18 10/09/23 11:25 10:33 Ferritin 120 Total Testosterone 12 L Assessment & Plan Assessment & Plan (1) Diabetes mellitus: Code(s): E11.9 - Type 2 diabetes mellitus without complications Category: Medical Qualifiers: Diabetes mellitus complication status: with hyperglycemia Diabetes mellitus fci insulin use: without inspector structural bonding use Diabetes mellitus type: type 2 Qualified Code(s): E11.65 - Type 2 diabetes mellitus with hyperglycemia Plan: 59-year-old type 2 diabetic with nephropathy and neuropathy with most recent A1c 7.1% on 08/26/2024. Increase Mounjaro to 5 mg and reduce insulin to 16 units. If he has any lows once he starts Mounjaro 5 he can cut his insulin in half to 8 units. He is doing well with his weight in his down 11 lb New dosing testosterone total and free fsh lh prolactin chromosomal test to confirm kleinfelter Obtain microalbumin and lipid profile had ferritin in past Patiient has Kleinfelter syndrome: He previously declined testosterone therapy in the past. Today we reviewed the negative effects of low testosterone both cardiovascular and on bone health. He has agreed to have his blood work done in a new bone density test done and we will discuss possible treatment afterwards. May be good candidate for pellets in arm through Dr. Mensah in urology. The patient had an opportunity to ask questions regarding treatment plan. The patient expressed understanding and agreement with the above treatment plan. The patient is aware they should contact our office by phone for worsening glucose readings or for any low blood sugars which may warrant a change in diabetes medication. Compliance is encouraged with medications and any followup testing/consults which may have been ordered. Orders: Orders Lutenizing Hormone Today E29.1 - Testicular hypofunction Testosterone, Free/Total Today E29.1 - Testicular hypofunction PSA,Total (Free>4and<10) Today E29.1 - Testicular hypofunction XR DEXA axial skeleton Today E29.1 - Testicular hypofunction, M85.89 - Other specified disorders of bone density and structure, multiple sites Ferritin Today E29.1 - Testicular hypofunction Follicle Stimulating Hormone Today E29.1 - Testicular hypofunction Prolactin Today E29.1 - Testicular hypofunction Chromosome Anal. Blood Genetic Today E29.1 - Testicular hypofunction Medications: Changed From insulin degludec (Tresiba FlexTouch U-200 insulin) 20 units (0.1 mL) subcut DAILY 30 days 3 mL 6RF To insulin degludec (Tresiba FlexTouch U-200 insulin) 16 units (0.08 mL) subcut DAILY 30 days 3 mL 6RF From tirzepatide (Mounjaro) 2.5 mg (0.5 mL) subcut QWEEK 4 weeks 2 mL 6RF To tirzepatide (Mounjaro) 5 mg subcut QWEEK 4 weeks 4 mL 6RF Patient Instructions: Check your feet daily looking for any signs of infection, ulceration and seek medical attention if this occurs. Break in shoes gradually and do not wear open-toed shoes or walk barefooted. The patient was counseled to always carry a source of sugar and on the rule of 15's: Take 3 glucose tablets and repeat again in 15 minutes if blood sugar is not in normal range. Continue to repeat every 15 minutes until blood sugar is normal. The patient was counseled to achieve a target A1C of 7% (154 avg). Fasting blood sugars should be 90-130 in the morning and less than 180 two hours after meals. Reviewed the relationship between poor diabetic control and the development of complications. Coding Level of Care Code Est Pt Level 4 (20464) Diagnoses Type 2 diabetes mellitus with hyperglycemia, without long-term current use of insulin E11.65 Diabetes mellitus complication status: with hyperglycemia Diabetes mellitus fci insulin use: without inspector structural bonding use Diabetes mellitus type: type 2 Time Spent (min) 30 Comment Time spent reviewing labs/provider notes, face to face, chart doc
[2024-09-27 10:12] VITALS: BP 136/90; PULSE 62; BMI 41.5
[2024-09-27 10:21] LABS: Glucose, Whole Blood 126 mg/dL (60-115)
== END 2024-09-27 10:44 | disposition home or self-care (01) ==
PROVIDERS: PCP Internal Medicine; Visit Provider Nurse Practitioner Adult Health
DX: E11.65 Type 2 diabetes mellitus with hyperglycemia (principal)
CPT/HCPCS: 99214

== ENCOUNTER → 2024-09-27 09:59 | Outpatient (BNVA) | payer OTHER, SELFPAY | PROVIDERS: PCP Internal Medicine; Visit Provider Nurse Practitioner Adult Health | DX: E11.65 Type 2 diabetes mellitus with hyperglycemia (principal) | CPT/HCPCS: 82947; 99212 ==

== ENCOUNTER 2024-10-23 09:02 | Outpatient (REF) | payer OTHER, SELFPAY ==
[2024-10-23 09:38] LABS: MANUAL DIFF FLAG NO
--- OUTSIDE RECORDS SUMMARY | 2024-10-23 10:04 | XMS_ITS | Encounter Summary ---
Author Organization [facility] Address [address] [place] [address] Support Name Relationship Address Phone Daija Ferrari Emergency Contact [address] [place] [address] Care Team Providers Care Equipment Validation Specialist Name Role Phone Cornelio Wallace MD Primary Care Provider Un available Yola Man MD Primary Care Provider Unavail able Encounter Details Date Type Department Care Team Description 03/29/2018 Customer Support Consultant Report Medical Records [address] [place] [address] Macy Traore MD Social History Tobacco Use Types Packs/Day Years Used Date Smoking Tobacco: Former Smokeless Tobacco: Never Comments:.25 ppd for 7 years Alcohol Use Standard Drinks/Week Comments No 0 (1 standard drink = 0.6 oz pur e alcohol) Sex Assigned at Date Recorded Not on file documented as of this encounter Plan of Treatment Not on file documented as of this encounter Visit Diagnoses Not on filedocumented in this encounter Care Teams Equipment Validation Specialist Relationship Specialty Start Date End Date Cornelio Wallace MD PCP - General Internal Medicine 02/26/16 0 Yola Man MD PCP - General Internal Medicine 09/17/19 documented as of this encounter
--- OUTSIDE RECORDS SUMMARY | 2024-10-23 10:04 | XMS_ITS | Encounter Summary ---
Author Organization [facility] Address [address] [place] [address] Support Name Relationship Address Phone Daija Ferrari Emergency Contact [address] [place] [address] Care Team Providers Care Chainstitch Pants Outseamer Name Role Phone Cornelio Wallace MD Primary Care Provider Un available Yola Man MD Primary Care Provider Unavail able Encounter Details Date Type Department Care Team Description 10/13/2016 Underwriting Support Specialist Report Medical Records [address] [place] [address] Debi Mcgrath [address] [place] [address] Social History Tobacco Use Types Packs/Day Years Used Date Smoking Tobacco: Former Comments:.25 ppd for 7 years Alcohol Use Standard Drinks/Week Comments No 0 (1 standard drink = 0.6 oz pur e alcohol) Sex Assigned at Date Recorded Not on file documented as of this encounter Plan of Treatment Not on file documented as of this encounter Visit Diagnoses Not on filedocumented in this encounter Care Teams Chainstitch Pants Outseamer Relationship Specialty Start Date End Date Cornelio Wallace MD PCP - General Internal Medicine 02/26/16 0 Yola Man MD PCP - General Internal Medicine 09/17/19 documented as of this encounter
--- OUTSIDE RECORDS SUMMARY | 2024-10-23 10:04 | XMS_ITS | Encounter Summary ---
Author Organization [facility] Address [address] [place] [address] Support Name Relationship Address Phone Daija Ferrari Emergency Contact [address] [place] [address] Care Team Providers Care Coremaker Helper Name Role Phone Yola Man MD Primary Care Provider Unavail able Encounter Details Date Type Department Care Team Description 12/17/2019 Hat And Cap Drying Room Attendant Report Medical Records [address] [place], [place] [id number] [place] [address] Social History Tobacco Use Types Packs/Day Years [...] on filedocumented in this encounter Care Teams Coremaker Helper Relationship Specialty Start Date End Date Yola Man MD PCP - General Internal Medicine 09/17/19 documented as of this encounter
--- OUTSIDE RECORDS SUMMARY | 2024-10-23 10:04 | XMS_ITS | Encounter Summary ---
Author Organization [facility] Address [address] [place] [address] Support Name Relationship Address Phone Daija Ferrari Emergency Contact [address] [place] [address] Care Team Providers Care Pastry Cook Apprentice Name Role Phone Yola Man MD Primary Care Provider Unavail able Encounter Details Date Type Department Care Team Description 12/31/2019 Machine Stuffer Automatic Report Medical Records [address] [place] [address] Daron Harrington MD Social History Tobacco Use Types Packs/Day [...] on filedocumented in this encounter Care Teams Pastry Cook Apprentice Relationship Specialty Start Date End Date Yola Man MD PCP - General Internal Medicine 09/17/19 documented as of this encounter
--- OUTSIDE RECORDS SUMMARY | 2024-10-23 10:04 | XMS_ITS | Encounter Summary ---
Author Organization [facility] Address [address] [place] [address] Support Name Relationship Address Phone Daija Ferrari Emergency Contact [address] [place] [address] Care Team Providers Care Aquatic Ecologist Name Role Phone Yola Man MD Primary Care Provider Unavail able Encounter Details Date Type Department Care Team Description 10/29/2020 Old Medical Records Medical Records [address] [place] [address] Abstract, Provider Social History Tobacco Use Types Packs/Day Years [...] on filedocumented in this encounter Care Teams Aquatic Ecologist Relationship Specialty Start Date End Date Yola Man MD PCP - General Internal Medicine 09/17/19 documented as of this encounter
--- OUTSIDE RECORDS SUMMARY | 2024-10-23 10:04 | XMS_ITS | Encounter Summary ---
Author Organization [facility] Address [address] [place] [address] Support Name Relationship Address Phone Daija Ferrari Emergency Contact [address] [place] [address] Care Team Providers Care Spring Salvage Worker Name Role Phone Cornelio Wallace MD Primary Care Provider Un available Yola Man MD Primary Care Provider Unavail able Encounter Details Date Type Department Care Team Description 03/07/2018 Emergency Services Director Report Medical Records [address] [place] [address] Sumaya Mata [address] [place] [address] Social History Tobacco Use Types Packs/Day Years [...] on filedocumented in this encounter Care Teams Spring Salvage Worker Relationship Specialty Start Date End Date Cornelio Wallace MD PCP - General Internal Medicine 02/26/16 0 Yola Man MD PCP - General Internal Medicine 09/17/19 documented as of this encounter
--- OUTSIDE RECORDS SUMMARY | 2024-10-23 10:04 | XMS_ITS | Clinical Summary ---
Author Organization [facility] Address [address] [place] [address] Care Team Providers Care Ventilation Equipment Tender Name Role Phone Yola Man MD Primary Care Provider Surgical History Surgery Date Site/Laterality Comments FOOT SURGERY PROCEDURE: HISTORICAL FOOT SURGERY; COMMENT: 2 toes amputated for tumor. CHOLECYSTECTOMY PROCEDURE: HISTORICAL CHOLECYSTECTOMY OTHER SURGICAL HISTORY PROCEDURE: ---- OTHER ----; COMMENT: gastric band/removed COLONOSCOPY 12/28/2017 PROCEDURE: HISTORICAL COLONOSCOPY; COMMENT: Diminutive polyps ? 2 , these were lymphoid aggregates and not precancerous polyps. UPPER GASTROINTESTINAL ENDOSCOPY 12/28/2017 PROCEDURE: GA UPPER GI ENDOSCOPY PERFORMED; COMMENT: Dr. Ko, [facility]: Visually normal, dilation with 60 Fr Savary dilator performed. Medical History Medical History Date Comments DM (diabetes mellitus), type 2, uncontrolled 05/17/2016 DX:DM (diabetes mellitus), t ype 2, uncontrolled DM (diabetes mellitus), type 2 with neurological complications (CMS/HCC) 05/17/2016 DX:DM (diabetes m ellitus), type 2 with neurological complications (HCC) H/O amputation of lesser toe , right (CMS/HCC) 11/22/2017 DX:H/O amputation of lesser toe, right (HCC); COMMENT: 4th and 5th toes in 2000, removal of tumor Osteopenia 07/04/2018 DX:Osteopenia Klinefelter syndrome 07/04/2018 DX:Klinefel ter syndrome Hypogonadotropic hypogonadism (CMS/HCC) 07/04/20 DX:Hypogonadotropic hypogonadism (HCC) Family History Relation Name Status Comments Father (Age 75) ? Mother (Age 82) cad,htn,dm Social History Tobacco Use Types Packs/Day Years Used Date Smoking Tobacco: Former Smokeless Tobacco: Never Alcohol Use Standard Drinks/Week Comments No 0 (1 standard drink = 0.6 oz pur e alcohol) Sex and Gender Information Value Date Recorded Sex Assigned at Not on file Legal Sex Male 3:10 PM EST Gender Identity Not on file Sexual Orientation Not on file Obstetrics History Plan of Treatment Health Maintenance Due Date Last Done Comments Diabetes: Annual GFR (Glomer ular Filtration Rate) 1966 Diabetes: Annual Foot Exam 01/23/1976 Diabetes: Annual Retina Eye Exam 01/23/1976 Hepatitis B Vaccines (1 of 3 - 19+ 3-dose series) 1985 Zoster Vaccines (1 of 2) 01/23/2016 Pneumococcal Vaccine: 50+ Ye ars (2 of 2 - PPSV23) 09/30/2017 09/30/2016 Cholesterol Screening (Lipid Panel) 10/10/2023 Colorectal Cancer Screening: Colonoscopy 10/10/2023 Depression Screening 10/10/2023 Diabetes: Annual Urine Albumin-Creatinine Ratio (uACR) 10/10/2023 Diabetes: Blood Sugar Contro l Test (HGBA1C) 10/10/2023 HIV Screening 10/10/2023 Hepatitis C Screening 10/10/2023 Hypertension/CHF/CAD Annual BMP Blood Test 10/10/2023 Social Influencers of Health Screening 10/10/2023 COVID-19 Vaccine (1 - 2023-2 5 season) 2024 Influenza Vaccine (#1) 2024 DTaP,Tdap,and Td Vaccines (2 - Td or Tdap) 07/17/2027 07/17/2017 Pneumococcal Vaccine: Pediat rics (0 to 5 Years) and At-Risk Patients (6 to 64 Years) Aged Out 09/30/2016 No longer eligi ble based on patient's age to complete this topic HIB Vaccines Aged Out No longer eligi ble based on patient's age to complete this topic HPV Vaccines Aged Out No longer eligi ble based on patient's age to complete this topic Hepatitis A Vaccines Aged Out No long er eligible based on patient's age to complete this topic IPV Vaccines Aged Out No longer eligi ble based on patient's age to complete this topic MMR Vaccines Aged Out No longer eligi ble based on patient's age to complete this topic Meningococcal ACWY Vaccine Aged Out N o longer eligible based on patient's age to complete this topic Meningococcal B Vacine Aged Out No lo nger eligible based on patient's age to complete this topic RSV Immunization Patients Un keerthi 20 months Aged Out No longer eligible b ased on patient's age to complete this topic Varicella Vaccines Aged Out No longer eligible based on patient's age to complete this topic Care Teams Ventilation Equipment Tender Relationship Specialty Start Date End Date Yola Man MD PCP - General Internal Medicine 09/17/19
--- OUTSIDE RECORDS SUMMARY | 2024-10-23 10:04 | XMS_ITS | Encounter Summary ---
Author Organization [facility] Address [address] [place] [address] Support Name Relationship Address Phone Daija Ferrari Emergency Contact [address] [place] [address] Care Team Providers Care Belt Fixer Name Role Phone Cornelio Wallace MD Primary Care Provider Un available Yola Man MD Primary Care Provider Unavail able Encounter Details Date Type Department Care Team Description 09/26/2018 Merchandise Appraiser Report Medical Records [address] [place] [address] Yvette Ahuja Social History Tobacco Use Types Packs/Day Years [...] on filedocumented in this encounter Care Teams Belt Fixer Relationship Specialty Start Date End Date Cornelio Wallace MD PCP - General Internal Medicine 02/26/16 0 Yola Man MD PCP - General Internal Medicine 09/17/19 documented as of this encounter
--- OUTSIDE RECORDS SUMMARY | 2024-10-23 10:04 | XMS_ITS | Encounter Summary ---
Author Organization [facility] Address [address] [place] [address] Support Name Relationship Address Phone Daija Ferrari Emergency Contact [address] [place] [address] Care Team Providers Care Volleyball Player Name Role Phone Cornelio Wallace MD Primary Care Provider Un available Yola Man MD Primary Care Provider Unavail able Encounter Details Date Type Department Care Team Description 10/26/2018 Netsuite Developer Report Medical Records [address] [place] [address] Yvette Ahuja Social History Tobacco Use Types [...] on filedocumented in this encounter Care Teams Volleyball Player Relationship Specialty Start Date End Date Cornelio Wallace MD PCP - General Internal Medicine 02/26/16 0 Yola Man MD PCP - General Internal Medicine 09/17/19 documented as of this encounter
--- OUTSIDE RECORDS SUMMARY | 2024-10-23 10:04 | XMS_ITS | Encounter Summary ---
Author Organization [facility] Address [address] [place] [address] Support Name Relationship Address Phone Daija Ferrari Emergency Contact [address] [place] [address] Care Team Providers Care Risk Control Representative Name Role Phone Cornelio Wallace MD Primary Care Provider Un available Yola Man MD Primary Care Provider Unavail able Encounter Details Date Type Department Care Team Description 11/14/2016 Cattle Care Worker Report Medical Records [address] [place] [address] Debi Mcgrath [address] [place] [address] Social History Tobacco Use Types Packs/Day Years [...] on filedocumented in this encounter Care Teams Risk Control Representative Relationship Specialty Start Date End Date Cornelio Wallace MD PCP - General Internal Medicine 02/26/16 0 Yola Man MD PCP - General Internal Medicine 09/17/19 documented as of this encounter
--- OUTSIDE RECORDS SUMMARY | 2024-10-23 10:04 | XMS_ITS | Encounter Summary ---
Author Organization [facility] Address [address] [place] [address] Support Name Relationship Address Phone Daija Ferrari Emergency Contact [address] [place] [address] Care Team Providers Care Plant Operator Name Role Phone Cornelio Wallace MD Primary Care Provider Un available Yola Man MD Primary Care Provider Unavail able Encounter Details Date Type Department Care Team Description 12/28/2017 Hospital Medical Records [address] [place] [address] Ramy Ko MD [address] [place] [address] Social History Tobacco Use Types Packs/Day Years [...] on filedocumented in this encounter Care Teams Plant Operator Relationship Specialty Start Date End Date Cornelio Wallace MD PCP - General Internal Medicine 02/26/16 0 Yola Man MD PCP - General Internal Medicine 09/17/19 documented as of this encounter
--- OUTSIDE RECORDS SUMMARY | 2024-10-23 10:04 | XMS_ITS | Encounter Summary ---
Author Organization [facility] Address [address] [place] [address] Support Name Relationship Address Phone Daija Ferrari Emergency Contact [address] [place] [address] Care Team Providers Care Geoscience Technician Name Role Phone Cornelio Wallace MD Primary Care Provider Un available Yola Man MD Primary Care Provider Unavail able Encounter Details Date Type Department Care Team Description 04/24/2018 Orders Only Medical Records [address] [place] [address] Cornelio Wallace MD Social History Tobacco Use Types Packs/Day Years Used Date Smoking Tobacco: Former Smokeless Tobacco: Never Comments:.25 ppd for 7 years Alcohol Use Standard Drinks/Week Comments No 0 (1 standard drink = 0.6 oz pur e alcohol) Sex Assigned at Date Recorded Not on file documented as of this encounter Plan of Treatment Not on file documented as of this encounter Procedures Procedure Name Priority Date/Time Associated Diagnosis Comments OUTSIDE VASCULAR STUDY Routine 04/17/2018 documented in this encounter Results * OUTSIDE VASCULAR STUDY (04/17/2018) Cornelio Wallace MD CARDIOLOGY documented in this encounter Visit Diagnoses Not on filedocumented in this encounter Care Teams Geoscience Technician Relationship Specialty Start Date End Date Cornelio Wallace MD PCP - General Internal Medicine 02/26/16 0 Yola Man MD PCP - General Internal Medicine 09/17/19 documented as of this encounter
--- OUTSIDE RECORDS SUMMARY | 2024-10-23 10:04 | XMS_ITS | Encounter Summary ---
Author Organization [facility] Address [address] [place] [address] Support Name Relationship Address Phone Daija Ferrari Emergency Contact [address] [place] [address] Care Team Providers Care Natural Remedy Consultant Name Role Phone Cornelio Wallace MD Primary Care Provider Un available Yola Man MD Primary Care Provider Unavail able Encounter Details Date Type Department Care Team Description 07/23/2018 Clinical Rehabilitation Liaison Report Medical Records [address] [place] [address] Sumaya Mata [address] [place] [address] Social History Tobacco Use Types Packs/Day Years [...] on filedocumented in this encounter Care Teams Natural Remedy Consultant Relationship Specialty Start Date End Date Cornelio Wallace MD PCP - General Internal Medicine 02/26/16 0 Yola Man MD PCP - General Internal Medicine 09/17/19 documented as of this encounter
--- OUTSIDE RECORDS SUMMARY | 2024-10-23 10:04 | XMS_ITS | Encounter Summary ---
Author Organization [facility] Address [address] [place] [address] Support Name Relationship Address Phone Daija Ferrari Emergency Contact [address] [place] [address] Care Team Providers Care Vessel Scrapper Name Role Phone Cornelio Wallace MD Primary Care Provider Un available Yola Man MD Primary Care Provider Unavail able Encounter Details Date Type Department Care Team Description 11/15/2016 Orders Only Adult Medicine [address] [address] Cornelio Wallace MD Social History Tobacco Use [...] on filedocumented in this encounter Care Teams Vessel Scrapper Relationship Specialty Start Date End Date Cornelio Wallace MD PCP - General Internal Medicine 02/26/16 0 Yola Man MD PCP - General Internal Medicine 09/17/19 documented as of this encounter
--- OUTSIDE RECORDS SUMMARY | 2024-10-23 10:04 | XMS_ITS | Encounter Summary ---
Author Organization [facility] Address [address] [place] [address] Support Name Relationship Address Phone Daija Ferrari Emergency Contact [address] [place] [address] Care Team Providers Care Butadiene Converter Utility Operator Name Role Phone Yola Man MD Primary Care Provider Unavail able Encounter Details Date Type Department Care Team Description 11/21/2019 Enrollment Nurse Report Medical Records [address] [place] [address] Daron Harrington MD Social History Tobacco Use [...] on filedocumented in this encounter Care Teams Butadiene Converter Utility Operator Relationship Specialty Start Date End Date Yola Man MD PCP - General Internal Medicine 09/17/19 documented as of this encounter
--- OUTSIDE RECORDS SUMMARY | 2024-10-23 10:04 | XMS_ITS | Encounter Summary ---
Author Organization [facility] Address [address] [place] [address] Support Name Relationship Address Phone Daija Ferrari Emergency Contact [address] [place] [address] Care Team Providers Care Sectional Belt Mold Assembler Name Role Phone Cornelio Wallace MD Primary Care Provider Un available Yola Man MD Primary Care Provider Unavail able Encounter Details Date Type Department Care Team Description 09/21/2016 Orders Only Adult Medicine [address] [address] Cornelio Wallace MD Social History Tobacco Use [...] on filedocumented in this encounter Care Teams Sectional Belt Mold Assembler Relationship Specialty Start Date End Date Cornelio Wallace MD PCP - General Internal Medicine 02/26/16 0 Yola Man MD PCP - General Internal Medicine 09/17/19 documented as of this encounter
--- OUTSIDE RECORDS SUMMARY | 2024-10-23 10:04 | XMS_ITS | Encounter Summary ---
Author Organization [facility] Address [address] [place] [address] Support Name Relationship Address Phone Daija Ferrari Emergency Contact [address] [place] [address] Care Team Providers Care Marine Photographer Name Role Phone Cornelio Wallace MD Primary Care Provider Un available Yola Man MD Primary Care Provider Unavail able Encounter Details Date Type Department Care Team Description 05/01/2018 Ferryboat Deckhand Report Medical Records [address] [place] [address] Sumaya Mata [address] [place] [address] Social History Tobacco Use Types Packs/Day Years [...] on filedocumented in this encounter Care Teams Marine Photographer Relationship Specialty Start Date End Date Cornelio Wallace MD PCP - General Internal Medicine 02/26/16 0 Yola Man MD PCP - General Internal Medicine 09/17/19 documented as of this encounter
--- OUTSIDE RECORDS SUMMARY | 2024-10-23 10:05 | XMS_ITS | Encounter Summary ---
Author Organization [facility] Address [address] [place] [address] Support Name Relationship Address Phone Daija Ferrari Emergency Contact [address] [place] [address] Care Team Providers Care Head Porter Baggage Name Role Phone Cornelio Wallace MD Primary Care Provider Un available Yola Man MD Primary Care Provider Unavail able Encounter Details Date Type Department Care Team Description 05/21/2018 Business Loan Processor Report Medical Records [address] [place] [address] Yvette Ahuja Social History Tobacco Use Types [...] on filedocumented in this encounter Care Teams Head Porter Baggage Relationship Specialty Start Date End Date Cornelio Wallace MD PCP - General Internal Medicine 02/26/16 0 Yola Man MD PCP - General Internal Medicine 09/17/19 documented as of this encounter
--- OUTSIDE RECORDS SUMMARY | 2024-10-23 10:05 | XMS_ITS | Encounter Summary ---
Author Organization [facility] Address [address] [place] [address] Support Name Relationship Address Phone Daija Ferrari Emergency Contact [address] [place] [address] Care Team Providers Care Mud Jack Operator Name Role Phone Cornelio Wallace MD Primary Care Provider Un available Yola Man MD Primary Care Provider Unavail able Encounter Details Date Type Department Care Team Description 05/16/2018 Sound Technician Supervisor Report Medical Records [address] [place] [address] Sumaya Mata [address] [place] [address] Social History Tobacco Use Types Packs/Day Years [...] on filedocumented in this encounter Care Teams Mud Jack Operator Relationship Specialty Start Date End Date Cornelio Wallace MD PCP - General Internal Medicine 02/26/16 0 Yola Man MD PCP - General Internal Medicine 09/17/19 documented as of this encounter
--- OUTSIDE RECORDS SUMMARY | 2024-10-23 10:05 | XMS_ITS | Encounter Summary ---
Author Organization [facility] Address [address] [place] [address] Support Name Relationship Address Phone Daija Ferrari Emergency Contact [address] [facility] [address] [place] [address] Care Team Providers Care Apron Cleaner Name Role Phone Cornelio Wallace MD Primary Care Provider Un available Yola Man MD Primary Care Provider Unavail able Reason for Referral * Non GISELL (Routine) - Authorized/Booked Specialty Diagnoses / Procedures Referred By Contac t Referred To Contact Physiatry Procedures REFERRAL TO PHYSIATRY Cornelio Wallace MD [address] [place] [address] Physi/[place] [address] [place] [id number] Referral ID Status Reason Start Date Expiration Date V isits Requested Visits Authorized [id number] Authorized/B ooked 05/22/2018 05/22/2019 1 1 Encounter Details Date Type Department Care Team Description 05/22/2018 Orders Only Adult Medicine [address] [address] Cornelio Wallace MD Social History Tobacco Use [...] on filedocumented in this encounter Care Teams Apron Cleaner Relationship Specialty Start Date End Date Cornelio Wallace MD PCP - General Internal Medicine 6/17/16 1/6/2 0 Yola Man MD PCP - General Internal Medicine 09/17/19 documented as of this encounter
[2024-10-23 10:56] LABS: Basophils Percent Auto 0.4 % (0-2); Eosinophils Absolute Auto 0.1 X10*3/uL (0.0-0.4); Eosinophils Percent Auto 2.2 % (0-4); Hematocrit 34.6 % (42.0-52.0); Hemoglobin 11.6 g/dl (14.0-18.0); Imm Gran Abs Auto 0.01 X10*3/uL (0.00-0.03); Imm Gran Pct Auto 0.2 % (0.0-0.4); Lymphocytes Absolute Auto 2.1 X10*3/uL (1.2-4.9); Lymphocytes Percent Auto 38.4 % (20-40); Mean Corpuscular HGB Conc 33.5 g/dl (31.0-36.0); Mean Corpuscular Hemoglobin 28.6 pg (27.0-33.0); Mean Corpuscular Volume 85.4 fL (80.0-98.0); Mean Platelet Volume 9.8 fL (9.4-12.4); Monocytes Absolute Auto 0.3 X10*3/uL (0.1-1.2); Monocytes Percent Auto 5.2 % (2-11); Neutrophils Absolute Auto 2.9 x10*3/uL (2.0-8.3); Neutrophils Percent Auto 53.6 % (45-73); Platelet Count 181 X10*3/uL (160-400); Red Blood Count 4.05 X10*6/uL (4.60-5.80); Red Cell Distribution Width 14.3 % (11.0-16.0); White Blood Count 5.4 X10*3/uL (4.8-10.8)
[2024-10-23 11:25] LABS: Alanine Aminotransferase 14 U/L (0-40); Albumin Level 3.9 g/dL (3.5-5.0); Alkaline Phosphatase 68 U/L (39-117); Anion Gap 11 (12-20); Aspartate Amino Transferase 16 U/L (5-37); Bilirubin Total 0.5 mg/dL (0.0-1.0); Blood Urea Nitrogen 24 mg/dL (9-16); Carbon Dioxide 28 mmol/L (22-29); Chloride 108 mmol/L (96-108); Cholesterol 174 mg/dL (<200); Estimated Glomerular Filt Rate > 60; Glucose Fasting 96 mg/dL (60-99); HDL Cholesterol 33 mg/dL (>40); Iron 51 mcg/dL (45-160); LDL Cholesterol Calculated 123 mg/dL (<100); Percent Iron Saturation 18 % (15-50); Potassium 3.5 mmol/L (3.3-5.1); Sodium 143 mmol/L (135-145); Total Iron Binding Capacity 291 mcg/dL (228-428); Total Protein 7.8 g/dL (6.5-8.0); Triglycerides 90 mg/dL (<150); Unsaturated Iron Binding 240 ug/dL
[2024-10-23 11:44] LABS: Folate 9.4 ng/mL (> or = 4.0); Vitamin B12 607 pg/mL (200-900)
[2024-10-23 11:53] LABS: Vitamin D 25-OH Total 28.4 ng/mL (>30)
[2024-10-23 11:58] LABS: Creatinine Urine 245.87 mg/dL; Microalbum/Creatinine Ratio Ur 26.4 ug/mg cr (<30)
[2024-10-23 11:59] LABS: Ferritin 197 ng/mL (20-250)
[2024-10-23 12:00] LABS: PSA,Total (Free>4and<10) < 0.10 ng/mL (0.00-4.00)
[2024-10-24 07:33] LABS: Follicle Stimulating Hormone 24.3 mIU/mL (1.4-12.8); Lutenizing Hormone 12.7 mIU/mL (1.5-9.3); Prolactin 5.1 ng/mL (2.0-18.0)
[2024-10-29 15:08] LABS: Testosterone, Total 17 ng/dL (250-1100)
== END 2024-10-23 09:03 | disposition home or self-care (01) ==
LOC: HO.LAB 09:02
PROVIDERS: PCP Internal Medicine; Visit Provider Nurse Practitioner Adult Health
DX: Z12.5 Encounter for screening for malignant neoplasm of prostate (principal); E66.01 Morbid (severe) obesity due to excess calories; Z68.41 Body mass index [BMI] 40.0-44.9, adult; E11.65 Type 2 diabetes mellitus with hyperglycemia; R80.9 Proteinuria, unspecified; E55.9 Vitamin D deficiency, unspecified; E53.8 Deficiency of other specified B group vitamins; D64.9 Anemia, unspecified; E29.1 Testicular hypofunction; M25.512 Pain in left shoulder; K21.9 Gastro-esophageal reflux disease without esophagitis; I10 Essential (primary) hypertension; R00.0 Tachycardia, unspecified; Z79.4 Long term (current) use of insulin; Z71.3 Dietary counseling and surveillance
CPT/HCPCS: 36415; 80053; 80061; 82043; 82306; 82570; 82607; 82728; 82746; 83001; 83002; 83540; 84146; 84153; 84402; 84403; 85025; 88230; 88262; 96127; 99212

== ENCOUNTER 2024-10-23 09:45 | Outpatient (AMB) | payer OTHER, SELFPAY ==
--- NOTE | 2024-10-23 10:05 | A.OFFPC_ITS ---
Vital Signs 10/23/24 10:06 Height 5 ft 11 in Weight 289 lb BMI 40.3 BP 150/98 H Blood Pressure Location Lt brachial Position Sitting Intake Visit Reasons: dm Intake Note: Patient here for a follow up DM Welding Pantograph Machine Operator Required: Yes Welding Pantograph Machine Operator Language: Decal Transferrer Name: Consuelo Garcia MD Information Interpreted: non-clinical & clinical Accompanied by: Self / Same As Patient Allergies aspirin [Aspirin] Allergy (Severe, Verified 10/23/24 10:19) RASH,THROAT CLOSES, Swollen throat Peanut Butter Allergy (Severe, Verified 10/23/24 10:19) Anaphylaxis dicyclomine [From BENTYL] Allergy (Intermediate, Verified 10/23/24 10:19) PALPITATIONS insulin lispro [Admelog SoloStar U-100 Insulin] Allergy (Intermediate, Verified 10/23/24 10:19) dizziness methylprednisolone [METHYLPREDNISOLONE] Allergy (Intermediate, Verified 10/23/24 10:19) SWELLING furosemide Adverse Reaction (Severe, Verified 10/23/24 10:19) Headache nuts Allergy (Severe, Uncoded 10/23/24 10:19) swelling jardiance Adverse Reaction (Mild, Uncoded 10/23/24 10:19) Drowsy Medication List - Last Reconciled 10/23/24 by Consuelo Garcia MD [emergency urine bag As directed] acetaminophen (Tylenol Extra Strength) 1,000 mg (2 x 500 mg) PO Q6H PRN albuterol sulfate 90 mcg/actuation 2 puffs inhalation Q4-6H PRN NS amlodipine 5 mg PO DAILY 90 days atorvastatin 20 mg PO BEDTIME 90 days blood pressure monitor (Blood Pressure Kit) As directed blood sugar diagnostic (FreeStyle Lite Strips) Use daily As directed to check blood glucose blood-glucose meter (FreeStyle Lite Meter kit) Use daily As directed to check blood sugars blood-glucose meter,continuous (FreeStyle Asa 3 Grandy) Use daily As directed to monitor blood glucose blood-glucose sensor (FreeStyle Asa 3 Sensor device) Apply every 14 days As directed to monitor blood glucose cetirizine (All Day Allergy (cetirizine)) 10 mg PO DAILY PRN 7 days diclofenac sodium 1% (Arthritis Pain (diclofenac)) 2 grams topical QID PRN fluticasone furoate-vilanterol 200-25 mcg/dose (Breo Ellipta) 1 inh inhalation DAILY glucose (Dex4 Glucose) 16 grams (4 x 4 gram) PO Q15M PRN hydrochlorothiazide 12.5 mg PO DAILY 30 days ibuprofen 400 mg PO TID PRN insulin degludec (Tresiba FlexTouch U-200 insulin) 16 units (0.08 mL) subcut DAILY 30 days lancets (FreeStyle Lancets) use daily as directed to check blood glucose lidocaine 5% 1 patch topical DAILY lisinopril 40 mg PO DAILY 90 days omeprazole 40 mg PO DAILY pen needle, diabetic (BD Sonja 2nd Gen Pen Needle) As directed once daily Shower Chair As directed [Skin Tac Wipes 1 unit topical .use as directed 90 days NS] tirzepatide (Mounjaro) 5 mg subcut QWEEK 4 weeks walker As directed Tobacco use date assessed: 10/23/24 Dental Screening Dental Screen Date: 10/23/24 Did you have a dental visit in the last 12 months?: No Did you have a dental problem in the last 6 months where you did not have access to dental care?: No Was dental information given to patient?: Patient declined HPI HPI Comments History of Present Illness Details The patient is a 59-year-old male presenting with essential hypertension, diabetes mellitus type 2, chronic shoulder pain, and constipation. The hypertension was noted to be elevated today at 150/90, and the patient admit andrés to missing a dose of amlodipine, which he usually takes at 5 mg. His last A1c was recorded as 7.1% on August 26, with an optimal goal of less than or equal to 7. He has experienced improved weight management, reporting a weight loss from 297 lbs in September to 289 lbs currently, although he remains clinically diagnosed with morbid obesity. The constipation started subsequent to the initiation of Mounjaro, and the patient attributes it to this medication. Additionally, the patient reports chronic pain and decreased strength in the left shoulder extending from the shoulder to the hand, impacting his daily activities. He denies previous physical therapy for this condition, expressing reluctance, and will be evaluated by an orthopedist. [facility] Medical History (Updated 10/23/24 @ 22:01 by Consuelo Garcia MD) Uncontrolled type 2 diabetes mellitus with hyperglycemia, with long-term current use of insulin Diabetes mellitus Type 2 diabetes mellitus with other diabetic kidney complication Loss of consciousness Chronic GERD Abdominal pain Epigastric pain Type 2 diabetes mellitus, with long-term current use of insulin Right leg pain Immunization due Obesity due to excess calories Diabetes type 2, uncontrolled Morbid obesity due to excess calories Asthma Microalbuminuria Left shoulder pain Lower back pain Diabetic polyneuropathy associated with type 2 diabetes mellitus Anemia ELO (obstructive sleep apnea) Diabetic nephropathy associated with type 2 diabetes mellitus Klinefelter syndrome Vitamin D deficiency Dyslipidemia Hypertension [facility] (current) use of insulin Osteopenia Hypogonadism male Surgical History Hx of esophagogastroduodenoscopy Hx of colonoscopy History of removal of laparoscopic gastric banding device Hx of laparoscopic gastric banding Hx of foot surgery Hx of cholecystectomy Family History Father No problems noted. Mother Diabetes Osteoporosis Social History Household Members: None Housing: Apartment Alcohol intake: former Patient Tobacco Use Status: Former Tobacco user Tobacco use type: Cigarette e-Cigarette/Vaping Use: Never Used Second Hand Smoke Exposure: No service: No Current occupational status: disabled Cognitive needs: No Hearing needs: No Vision needs: Yes (glasses ) Questionnaire PHQ-9 Over the last 2 weeks, how often have you been bothered by any of the following problems? 1. Little interest or pleasure in doing things: not at all 2. Feeling down, depressed, or hopeless: not at all 3. Trouble falling or staying asleep, or sleeping too much: not at all 4. Feeling tired or having little energy: not at all 5. Poor appetite or overeating: not at all 6. Feeling bad about yourself - or that you are a failure or have let yourself or your family down: not at all 7. Trouble concentrating on things, such as reading the newspaper or watching television: not at all 8. Moving or speaking so slowly that other people could have noticed. Or the opposite - being so fidgety or restless that you have been moving around a lot more than usual: not at all 9. Thoughts that you would be better off or of hurting yourself in some way: not at all Total score: 0 Depression Screening Interpretation: Negative Depression Screening Done: Yes 58454 - PHQ-9 Billing: Yes Source: Developed by Drs. Dwight Amaya, Rosaline Armando, Mat Calderon and colleagues, with an educational anamaria from [employer] by [employer]. Thrive Questionnaire Date Thrive assessed: 10/23/24 I am a: Patient What is your living situation today?: I have a steady place to live Within the past 12 months, did the food you bought not last and you didn't have the money to get more?: Never true Within the past 12 months, did you worry whether your food would run out before you got money to buy more?: Never true Do you have trouble paying for medicines?: No Do you have trouble getting transportation to medical appointments?: No Do you have trouble paying your heating and electricity bill?: No Do you have trouble taking care of your child, family member or friend?: No Do you have trouble with day-to-day activities such as bathing, preparing meals, shopping, managing finances, etc.?: No Are you currently unemployed and looking for a job?: No Are you interested in more education?: No Please select the resources that you would like help with: None Currently or been in a relationship where the following occur: No concerns reported THRIVE Score: 0 AUDIT C Alcohol Use Questionnaire (AUDIT-C) 1. How often do you have a drink containing alcohol?: Never Total Score: 0 Score Reviewed/Action Taken: No KRISTOFER-7 AMB Questionnaire KRISTOFER-7 Date KRISTOFER - 7 assessed: 10/23/24 Feeling nervous, anxious, or on edge: 0 = Not at all Not being able to stop or control worryin = Not at all Worrying too much about different things: 0 = Not at all Trouble relaxin = Not at all Being so restless that it is hard to sit still: 0 = Not at all Becoming easily annoyed or irritable: 0 = Not at all Feeling afraid as if something awful might happen: 0 = Not at all Total KRISTOFER-7 score (0-4 normal; 5-9 mild; 10-14 moderate; 15-21 severe): 0 Source: Developed by Rosaline Galvez Kurt Kroenke and colleagues, with an educational anamaria from [employer] by [employer]. KRISTOFER-7 Assessment Billing KRISTOFER-7 Assessment Tool: KRISTOFER-7 Assessment 41043 Review of Systems Const All systems reviewed & are unremarkable except as noted in HPI and below Card Denies chest pain at rest, Denies chest pain with activity, Denies edema, Denies irregular heart rhythm, Denies claudication, Denies dyspnea, Denies dyspnea on exertion, Denies orthopnea, Denies paroxysmal nocturnal dyspnea and Denies slow heart rate Resp Denies cough, Denies dyspnea and Denies dyspnea on exertion GI Denies abdominal pain, Denies change in bowel habits, Denies excessive flatus, Denies nausea and Denies vomiting Physical exam (Primary Care) Vital Signs: Last Vital Signs BP 150/98 H 10/23/24 10:06 BMI result Body Mass Index 40.3 BMI Assessment/Plan discussion: High BMI High, discussed plan: lifestyle, weight reduction, dietary and physical activity Tobacco/Smoking Status: Tobacco use Status Tobacco use date assessed 10/23/24 10/23/24 10:11 Patient Tobacco Use Status Former Tobacco user 10/23/24 10:11 Tobacco use type Cigarette 10/23/24 10:11 e-Cigarette/Vaping Use Never Used 10/23/24 10:11 PHQ-9: PHQ-9 Score PHQ-9: Total score 0 10/23/24 10:21 Depression Screening Interpretation: Negative Thrive Assessment: Date of Thrive Assessment Date Thrive assessed 10/23/24 10/23/24 10:11 Currently or been in a relationship where the following occur: No concerns reported Resp Effort & Inspection: normal respiratory effort Auscultation: clear to auscultation bilaterally Cardio Jugular venous distension: no JVD Rate: regular rate Rhythm: regular rhythm Heart sounds: S1 normal heart sound present and S2 normal heart sound present Extrem General: Yes full ROM Coding Level of Care Code Est Pt Level 4 (61278) Complex EM visit Add On G2211 Diagnoses Type 2 diabetes mellitus with hyperglycemia, without long-term current use of insulin E11.65 Diabetes mellitus type: type 2 Diabetes mellitus technical communicator insulin use: without usp use Diabetes mellitus complication status: with hyperglycemia Left shoulder pain M25.512 Morbid obesity with BMI of 40.0-44.9, adult E66.01; Z68.41 Hyperlipidemia LDL goal <70 E78.5 Chronic GERD K21.9 Essential hypertension I10 Hypertension type: essential hypertension Sinus tachycardia R00.0 Additional Codes KRISTOFER-7 Assessment Billing - KRISTOFER-7 Assessment Tool: KRISTOFER-7 Assessment 82052 ([id number]) PHQ-9 - 34054 - PHQ-9 Billing: Yes ([id number]) Time Spent (min) 22 Assessment & Plan Assessment & Plan (1) Diabetes mellitus: Code(s): E11.9 - Type 2 diabetes mellitus without complications Category: Medical Qualifiers: Diabetes mellitus type: type 2 Diabetes mellitus usp insulin use: without usp use Diabetes mellitus complication status: with hyperglycemia Qualified Code(s): E11.65 - Type 2 diabetes mellitus with hyperglycemia (2) Left shoulder pain: Code(s): M25.512 - Pain in left shoulder Category: Medical (3) Morbid obesity with BMI of 40.0-44.9, adult: Code(s): E66.01 - Morbid (severe) obesity due to excess calories; Z68.41 - Body mass index [BMI] 40.0-44.9, adult Category: Medical (4) Hyperlipidemia LDL goal <70: Code(s): E78.5 - Hyperlipidemia, unspecified Category: Medical (5) Chronic GERD: Code(s): K21.9 - Gastro-esophageal reflux disease without esophagitis Category: Medical (6) Hypertension: Code(s): I10 - Essential (primary) hypertension Category: Medical Qualifiers: Hypertension type: essential hypertension Qualified Code(s): I10 - Essential (primary) hypertension (7) Sinus tachycardia: Code(s): R00.0 - Tachycardia, unspecified Category: Medical Plan - Re-evaluate blood pressure control; ensure amlodipine adherence, repeat checks in three weeks. - Continue current diabetes management, with future A1c check planned after completion of pending labs. - Address constipation potentially linked to Mounjaro; assess possible adjustment in medication. - Referral to orthopedist for chronic shoulder pain and weakness in left arm. - Arrange for EKG and Holter monitor due to reported palpitations and tachycardia. Patient was informed and verbally consented to the use of an ambient scribe for clinic note documentation during this visit. I discussed with the patient the importance of adhering to their hypertension medication regimen and monitored blood pressure. We focused on managing diabetes and noted that his A1c is close to the desired control goal of under 7. The patient acknowledged weight loss as a positive sign of health improvement. We thoroughly went over the need for an orthopedist assessment for his chronic shoulder problem, given the severe pain and weakness affecting his activities. Additionally, we addressed gastrointestinal symptoms associated with Mounjaro and will observe for any necessary changes. I recommended the use of an EKG and Holter to investigate reported palpitations. Consent was obtained for all karime mmended interventions. Orders: Orders ECG 12 lead EKG Today R00.0 - Tachycardia, unspecified ECG holter monitor 24 hour Today R00.0 - Tachycardia, unspecified Referrals Orthopedics Referral M25.512 - Pain in left shoulder Patient Instructions: - Continue current medication regimen, ensuring no missed doses. - Follow dietary guidelines and monitor weight. - Await results of pending laboratory tests. - Schedule an appointment with orthopedics and follow up on shoulder discomfort. - Report any exacerbation of symptoms or new concerns immediately. - Schedule follow-up visit in three weeks for hypertension and any interim appointments as necessary. - Maintain an active lifestyle within tolerable limits.
[2024-10-23 10:06] VITALS: BP 150/98; BMI 40.3
--- OUTSIDE RECORDS SUMMARY | 2024-10-23 11:14 | XMS_ITS | Clinical Summary ---
Author Organization [facility] Address [address] [place] [address] Care Team Providers Care Food Preparer Name Role Phone Yola Man MD Primary [...] precancerous polyps. UPPER GASTROINTESTINAL ENDOSCOPY 12/28/2017 PROCEDURE: [place] UPPER GI ENDOSCOPY PERFORMED; COMMENT: Dr. Ko, [facility]: Visually normal, dilation with 60 Fr Savary [...] age to complete this topic Care Teams Food Preparer Relationship Specialty Start Date End Date Yola Man MD PCP - General Internal Medicine 09/17/19
--- OUTSIDE RECORDS SUMMARY | 2024-10-23 11:14 | XMS_ITS | Encounter Summary ---
Author Organization [facility] Address [address] [place] [address] Support Name Relationship Address Phone Daija Ferrari Emergency Contact [address] [place] [address] Care Team Providers Care Journalism Intern Name Role Phone Yola Man MD Primary Care Provider Unavail able Encounter Details Date Type Department Care Team Description 10/29/2020 Old Medical Records Medical Records [address] [place] [address] Abstract, Provider Social History Tobacco Use Types [...] on filedocumented in this encounter Care Teams Journalism Intern Relationship Specialty Start Date End Date Yola Man MD PCP - General Internal Medicine 09/17/19 documented as of this encounter
--- OUTSIDE RECORDS SUMMARY | 2024-10-23 11:14 | XMS_ITS | Encounter Summary ---
Author Organization [facility] Address [address] [place] [address] Support Name Relationship Address Phone Daija Ferrari Emergency Contact [address] [place] [address] Care Team Providers Care Casualty Underwriter Name Role Phone Cornelio Wallace MD Primary Care Provider Un available Yola Man MD Primary Care Provider Unavail able Encounter Details Date Type Department Care Team Description 02/01/2019 Tobacco Wrapping Machine Tender Report Medical Records [address] [place] [address] Yvette Ahuja Social History Tobacco Use Types [...] on filedocumented in this encounter Care Teams Casualty Underwriter Relationship Specialty Start Date End Date Cornelio Wallace MD PCP - General Internal Medicine 02/26/16 0 Yola Man MD PCP - General Internal Medicine 09/17/19 documented as of this encounter
--- OUTSIDE RECORDS SUMMARY | 2024-10-23 11:14 | XMS_ITS | Clinical Summary ---
Author Organization [facility] Address [address] [place] [address] Support Name Relationship Address Phone Daija Ferrari Emergency Contact [address] [place] [address] Care Team Providers Care Plumbing Assembler Name Role Phone Yola Man MD Primary Care Provider Unavail able Allergies Active Allergy Reactions Severity Noted Date Comments Aspirin 06/09/2016 Lisinopril 05/30/2019 intolerance Losartan 05/30/2019 intolerance Insulin Aspart Prot & Aspart Rash/Dermatitis,OTHER 07/04/2018 Medications Medication Sig Dispensed Refills Start Date End Date Status BD PEN NEEDLE NATI U/F 32G X 4 MM Misc USE FOUR TIMES DAILY DIRECTED 200 Each 3 10/18/2016 Active FREESTYLE LANCETS Misc USE TO CHECK BLOOD SUGAR TWICE DAILY 200 Each 1 10/13/2017 Active atorvastatin (LIPITOR) 40 MG tablet TAKE 1 TABLET BY MOUTH DAILY 90 Tab 1 11/20/2017 Active Cholecalciferol (VITAMIN D3) 2000 UNITS Cap Take by mouth daily. 0 Active Glucose Blood (FREESTYLE LITE) Strip TEST TWICE DAILY 300 Strip 3 07/04/2018 Active metformin (GLUCOPHAGE-XR) 500 MG 24 hr tablet Take 2 Tabs by mouth 2 times daily. 11 05/21/2018 Active TRULICITY 1.5 MG/0.5ML Solution Pen-injector Take 1.5 mg by mouth every 7 days. 11 05/21/2018 Active amlodipine (NORVASC) 5 MG tablet Take 1 Tab by mouth daily. 30 Tab 5 11/14/2018 Active psyllium (METAMUCIL) 58.6 % powder 1 tbsp diluted in 8oz of water or juice daily. 283 g 2 05/30/2019 Active HUMULIN R U-500 KWIKPEN 500 UNIT/ML Solution Pen-injector INJECT 60 UNITS TWICE A DAY BEFORE BREAKFAST AND DINNER 0 08/16/2019 Active omeprazole (PRILOSEC) 20 MG capsule Take 1 Cap by mouth daily. 90 Cap 0 12/16/2019 Active hydrochlorothiazide (HYDRODIURIL) 25 MG tablet Take 1 Tab by mouth daily. 30 Tab 0 05/11/2020 Active Active Problems Problem Noted Date Pulmonary nodule 09/19/2019 Overview: Follows with [facility] pulmonary Dr. Harrington Type 2 diabetes with nephropathy 019 Microalbuminuria 09/06/2019 Venous insufficiency of both lower extre mities 03/27/2019 Osteopenia 07/04/2018 Klinefelter syndrome 07/04/2018 Hypogonadotropic hypogonadism 07/04/2018 H/O amputation of lesser toe, right 11/09 Overview: 4th and 5th toes in 2000, removal of tumor Essential hypertension 06/09/2016 Gastroesophageal reflux disease without esophagitis 06/09/2016 Mixed hyperlipidemia 06/09/2016 Sleep apnea 06/09/2016 Overview: [facility] Polysomnogram treatment study. Date 06/23/2019. Wt 336#; BMI 51; SE 59 % SM 63 %; spent 15 % of the study in REM. On CPAP RDI 20 (AHI 20), Central apneas 1; Obstructive apneas 0; Mixed apneas 0; hypopneas 35; RERAs 0; and, average oxygen saturation was 90%. For the entire study, PLMs ~0. Prestudy ESS 17; 1/4 RLS symptoms. Morbid obesity 06/09/2016 DM (diabetes mellitus), type 2 with neur ological complications 05/17/2016 Overview: Follows with endocrinology Immunizations Name Administration Dates Next Due PPD-RBMG 06/09/2016 Pneumococcal Conjugate PCV-13 09/30/2016 Tdap 07/17/2017 Family History Relation Name Status Comments Father (Age 75) ? Mother (Age 82) cad,htn,dm Social History Tobacco Use Types Packs/Day Years Used Date Smoking Tobacco: Former Smokeless Tobacco: Never Comments:.25 ppd for 7 years Alcohol Use Standard Drinks/Week Comments No 0 (1 standard drink = 0.6 oz pur e alcohol) Sex Assigned at Date Recorded Not on file Last Filed Vital Signs Vital Sign Reading Time Taken Comments Blood Pressure 128/80 09/06/2019 10:07 AM EST Pulse 66 09/06/2019 10:07 AM EST Temperature 36.7 ??C (98 ??F) 09/06/2019 10:07 AM EST Respiratory Rate 14 09/06/2019 10:07 AM EST Oxygen Saturation - - Inhaled Oxygen Concentration - - Weight 153.3 kg (338 lb) 09/06/2019 10:07 AM EST Height 172.7 cm (5' 8 ) 09/06/2019 10:07 AM EST Body Mass Index 51.39 09/06/2019 10:07 AM EST Plan of Treatment Health Maintenance Due Date Last Done Comments Covid-19 Vaccine (#1) 1965 SHINGLES VACCINE (1 of 2) 01/23/2016 BASELINE HEALTH EXAM 40-64 07/17/2019 07/17/2017, DIABETES: ANNUAL EYE EXAM 05/17/20202018, 06/13/2018 (External Completion of test per patient (Patient reports normal results)), 06/12/2017, Additional history exists DIABETES: BLOOD SUGAR CONTRO L TEST (HGBA1C) 06/26/2020 03/26/2020 (External Completion), 09/06/2019, 08/26/2019, Additional history exists DIABETES/HEART DISEASE: MAYCO AL CHOLESTEROL (LDL) 09/06/2020 09/06/2019, 05/17/2019, 03/20/2018, Additional history exists DIABETES: ANNUAL URINE PROTE IN TEST (MICROALBUMIN) 09/06/2020 09/06/2019, 05/17/2019, 03/20/2018, Additional history exists DIABETES: ANNUAL FOOT EXAM 03/25/202103/25 (External Completion), 12/19/2018, 11/22/2017, Additional history exists INFLUENZA (#1) 2024 08/26/2019 (Refu sed), 07/04/2018 (Refused), 06/30/2017 (Refused), Additional history exists BMI CHECK/ADVISE 09/11/2024 09/06/2019, , 05/30/2019, Additional history exists DEPRESSION SCREENING/FOLLOWUP 09/11/2024 08/26/2019 (Completed) SOCIAL NEEDS SCREENING 09/11/2024 08/26/2019 (Comple andrés) DTAP/TDAP/TD (2 - Td or Tdap) 07/17/2027 07/17/2017 COLON CANCER SCREENING 12/29/2027 8 (External Completion), 12/28/2017 PNEUMOCOCCAL VACCINE FOR HIG H RISK PATIENTS (#2) 2031 09/30/2016 HEPATITIS C SCREENING Completed 07/17/2017 Care Teams Plumbing Assembler Relationship Specialty Start Date End Date Yola Man MD PCP - General Internal Medicine 09/17/19
--- OUTSIDE RECORDS SUMMARY | 2024-10-23 11:14 | XMS_ITS | Encounter Summary ---
Author Organization [facility] Address [address] [place] [address] Support Name Relationship Address Phone Daija Ferrari Emergency Contact [address] [place] [address] Care Team Providers Care Day Care Aide Name Role Phone Yola Man MD Primary Care Provider Unavail able Encounter Details Date Type Department Care Team Description 11/12/2020 Old Medical Records Medical Records [address] [place] [address] Abstract, Provider Social History Tobacco Use Types [...] on filedocumented in this encounter Care Teams Day Care Aide Relationship Specialty Start Date End Date Yola Man MD PCP - General Internal Medicine 09/17/19 documented as of this encounter
--- OUTSIDE RECORDS SUMMARY | 2024-10-23 11:14 | XMS_ITS | Encounter Summary ---
Author Organization [facility] Address [address] [place] [address] Support Name Relationship Address Phone Daija Ferrari Emergency Contact [address] [place] [address] Care Team Providers Care Media Relations Coordinator Name Role Phone Cornelio Wallace MD Primary Care Provider Un available Yola Man MD Primary Care Provider Unavail able Encounter Details Date Type Department Care Team Description 09/30/2016 X Ray Developing Machine Operator Report Medical Records [address] [place] [address] Norberto Dixon Social History Tobacco Use Types Packs/Day Years [...] on filedocumented in this encounter Care Teams Media Relations Coordinator Relationship Specialty Start Date End Date Cornelio Wallace MD PCP - General Internal Medicine 02/26/16 0 Yola Man MD PCP - General Internal Medicine 09/17/19 documented as of this encounter
--- OUTSIDE RECORDS SUMMARY | 2024-10-23 11:14 | XMS_ITS | Encounter Summary ---
Author Organization [facility] Address [address] [place] [address] Support Name Relationship Address Phone Daija Ferrari Emergency Contact [address] [place] [address] Care Team Providers Care Electric Power Line Examiner Name Role Phone Cornelio Wallace MD Primary Care Provider Un available Yola Man MD Primary Care Provider Unavail able Encounter Details Date Type Department Care Team Description 11/15/2016 Orders Only Adult Medicine [address] [address] Cornelio Wallace MD Social History Tobacco Use [...] on filedocumented in this encounter Care Teams Electric Power Line Examiner Relationship Specialty Start Date End Date Cornelio Wallace MD PCP - General Internal Medicine 02/26/16 0 Yola Man MD PCP - General Internal Medicine 09/17/19 documented as of this encounter
--- OUTSIDE RECORDS SUMMARY | 2024-10-23 11:15 | XMS_ITS | Encounter Summary ---
Author Organization [facility] Address [address] [place] [address] Support Name Relationship Address Phone Daija Ferrari Emergency Contact [address] [facility] [address] [place] [address] Care Team Providers Care Family Services Manager Name Role Phone Yola Man MD Primary Care Provider Unavail able Encounter Details Date Type Department Care Team Description 03/25/2020 Dryer Operator Report Medical Records [address] [place] [address] Yvette Ahuja Social History Tobacco Use Types [...] on filedocumented in this encounter Care Teams Family Services Manager Relationship Specialty Start Date End Date Yola Man MD PCP - General Internal Medicine 09/17/19 documented as of this encounter
--- OUTSIDE RECORDS SUMMARY | 2024-10-23 11:15 | XMS_ITS | Encounter Summary ---
Author Organization [facility] Address [address] [place] [address] Support Name Relationship Address Phone Daija Ferrari Emergency Contact [address] [facility] [address] [place] [address] Care Team Providers Care Auto Electrician Name Role Phone Cornelio Wallace MD Primary Care Provider Un available Yola Man MD Primary Care Provider Unavail able Reason for Visit * Reason Onset Date Comments Medication 05/01/2017 Encounter Details Date Type Department Care Team Description 05/01/2017 Telephone Adult Medicine [address] [address] Cornelio Wallace MD Medication Social History Tobacco Use Types Packs/Day Years Used Date Smoking Tobacco: Former Comments:.25 ppd for 7 years Alcohol Use Standard Drinks/Week Comments No 0 (1 standard drink = 0.6 oz pur e alcohol) Sex Assigned at Date Recorded Not on file documented as of this encounter Miscellaneous Notes * Telephone Encounter - Cornelio Wallace MD - 05/01/2017 1:10 PM EDT Please inform patient to switch to coreg 12.5mg PO BID, thanks. * Telephone Encounter - Nasima Diaz M.A. - 05/01/2017 1:05 PM EDT Atenolol unavailable. Please prescribe something else * Telephone Encounter - Nannette Manzano - 05/01/2017 12:58 PM EDT Who is calling? A pharmacist: Pharmacy: [facility]ist Name: [facility] Name of the medication Atenolol 50 MG What is the specific problem or interaction? Medication is not available any more , prescription need to me change to something else If the patient is having a problem with taking the med - how long has the problem been going on? N/A documented in this encounter Plan of Treatment Not on file documented as of this encounter Visit Diagnoses Not on filedocumented in this encounter Care Teams Auto Electrician Relationship Specialty Start Date End Date Cornelio Wallace MD PCP - General Internal Medicine 02/26/16 0 Yola Man MD PCP - General Internal Medicine 09/17/19 documented as of this encounter
--- OUTSIDE RECORDS SUMMARY | 2024-10-23 11:15 | XMS_ITS | Encounter Summary ---
Author Organization [facility] Address [address] [place] [address] Support Name Relationship Address Phone Daija Ferrari Emergency Contact [address] [place] [address] Care Team Providers Care Planer Off Bearer Name Role Phone Cornelio Wallace MD Primary Care Provider Un available Yola Man MD Primary Care Provider Unavail able Encounter Details Date Type Department Care Team Description 04/10/2017 Loading Checker Report Medical Records [address] [place] [address] Sumaya Mata [address] [place] [address] Social History Tobacco Use Types Packs/Day Years [...] on filedocumented in this encounter Care Teams Planer Off Bearer Relationship Specialty Start Date End Date Cornelio Wallace MD PCP - General Internal Medicine 02/26/16 0 Yola Man MD PCP - General Internal Medicine 09/17/19 documented as of this encounter
--- OUTSIDE RECORDS SUMMARY | 2024-10-23 11:15 | XMS_ITS | Encounter Summary ---
Author Organization [facility] Address [address] [place] [address] Support Name Relationship Address Phone Daija Ferrari Emergency Contact [address] [place] [address] Care Team Providers Care Tax Accountant Name Role Phone Yola Man MD Primary Care Provider Unavail able Encounter Details Date Type Department Care Team Description 12/17/2019 Automation Qa Tester Report Medical Records [address] [place], [place] [id number] [place] [address] Social History Tobacco Use Types Packs/Day Years [...] on filedocumented in this encounter Care Teams Tax Accountant Relationship Specialty Start Date End Date Yola Man MD PCP - General Internal Medicine 09/17/19 documented as of this encounter
--- OUTSIDE RECORDS SUMMARY | 2024-10-23 11:15 | XMS_ITS | Encounter Summary ---
Author Organization [facility] [place] [facility] Address [address] [place] [address] Support Name Relationship Address Phone Daija Ferrari Emergency Contact [address] [place] [address] Care Team Providers Care Student Accounts Manager Name Role Phone Cornelio Wallace MD Primary Care Provider Un available Yola Man MD Primary Care Provider Unavail able Encounter Details Date Type Department Care Team Description 03/07/2018 Data Processing Clerk Report Medical Records [address] [place] [address] Sumaya Mata [address] [place] [address] Social History Tobacco Use Types Packs/Day Years [...] on filedocumented in this encounter Care Teams Student Accounts Manager Relationship Specialty Start Date End Date Cornelio Wallace MD PCP - General Internal Medicine 02/26/16 0 Yola Man MD PCP - General Internal Medicine 09/17/19 documented as of this encounter
--- OUTSIDE RECORDS SUMMARY | 2024-10-23 11:15 | XMS_ITS | Encounter Summary ---
Author Organization [facility] Address [address] [place] [address] Support Name Relationship Address Phone Daija Ferrari Emergency Contact [address] [place] [address] Care Team Providers Care Heading And Priming Tool Setter Name Role Phone Yola Man MD Primary Care Provider Unavail able Encounter Details Date Type Department Care Team Description 11/21/2019 Tire Inspector Report Medical Records [address] [place] [address] Daron Harrington MD Social History Tobacco Use [...] on filedocumented in this encounter Care Teams Heading And Priming Tool Setter Relationship Specialty Start Date End Date Yola Man MD PCP - General Internal Medicine 09/17/19 documented as of this encounter
--- OUTSIDE RECORDS SUMMARY | 2024-10-23 11:15 | XMS_ITS | Encounter Summary ---
Author Organization [facility] Address [address] [place] [address] Support Name Relationship Address Phone Daija Ferrari Emergency Contact [address] [place] [address] Care Team Providers Care Hand Coremaker Name Role Phone Cornelio Wallace MD Primary Care Provider Un available Yola Man MD Primary Care Provider Unavail able Encounter Details Date Type Department Care Team Description 12/28/2017 Hospital Medical Records [address] [place] [address] Ramy Ko MD [address] [place] [address] Social History Tobacco Use Types Packs/Day Years [...] on filedocumented in this encounter Care Teams Hand Coremaker Relationship Specialty Start Date End Date Cornelio Wallace MD PCP - General Internal Medicine 02/26/16 0 Yola Man MD PCP - General Internal Medicine 09/17/19 documented as of this encounter
--- OUTSIDE RECORDS SUMMARY | 2024-10-23 11:15 | XMS_ITS | Encounter Summary ---
Author Organization [facility] Address [address] [place] [address] Support Name Relationship Address Phone Daija Ferrari Emergency Contact [address] [place] [address] Care Team Providers Care Center Medical Specialist Name Role Phone Cornelio Wallace MD Primary Care Provider Un available Yola Man MD Primary Care Provider Unavail able Encounter Details Date Type Department Care Team Description 03/29/2018 Computational Chemist Report Medical Records [address] [place] [address] Macy Traore MD Social History Tobacco Use [...] on filedocumented in this encounter Care Teams Center Medical Specialist Relationship Specialty Start Date End Date Cornelio Wallace MD PCP - General Internal Medicine 02/26/16 0 Yola Man MD PCP - General Internal Medicine 09/17/19 documented as of this encounter
--- OUTSIDE RECORDS SUMMARY | 2024-10-23 11:15 | XMS_ITS | Encounter Summary ---
Author Organization [facility] Address [address] [place] [address] Support Name Relationship Address Phone Daija Ferarri Emergency Contact [address] [place] [address] Care Team Providers Care Home Lending Officer Name Role Phone Cornelio Wallace MD Primary Care Provider Un available Yloa Man MD Primary Care Provider Unavail able Encounter Details Date Type Department Care Team Description 09/21/2016 Orders Only Adult Medicine [address] [address] Cornelio Wallace MD Social History Tobacco Use [...] on filedocumented in this encounter Care Teams Home Lending Officer Relationship Specialty Start Date End Date Cornelio Wallace MD PCP - General Internal Medicine 02/26/16 0 Yola Man MD PCP - General Internal Medicine 09/17/19 documented as of this encounter
--- OUTSIDE RECORDS SUMMARY | 2024-10-23 11:15 | XMS_ITS | Encounter Summary ---
Author Organization [facility] Address [address] [place] [address] Support Name Relationship Address Phone Daija Ferrari Emergency Contact [address] [place] [address] Care Team Providers Care Implementation Project Coordinator Name Role Phone Cornelio Wallace MD Primary Care Provider Un available Yola Man MD Primary Care Provider Unavail able Encounter Details Date Type Department Care Team Description 01/10/2018 Shift Manager Report Medical Records [address] [place] [address] Sumaya Mata [address] [place] [address] Social History Tobacco Use Types Packs/Day Years [...] on filedocumented in this encounter Care Teams Implementation Project Coordinator Relationship Specialty Start Date End Date Cornelio Wallace MD PCP - General Internal Medicine 02/26/16 0 Yola Man MD PCP - General Internal Medicine 09/17/19 documented as of this encounter
--- OUTSIDE RECORDS SUMMARY | 2024-10-23 11:16 | XMS_ITS | Encounter Summary ---
Author Organization [facility] Address [address] [place] [address] Support Name Relationship Address Phone Daija Ferrari Emergency Contact [address] [place] [address] Care Team Providers Care Stockroom Worker Name Role Phone Cornelio Wallace MD Primary Care Provider Un available Yola Man MD Primary Care Provider Unavail able Encounter Details Date Type Department Care Team Description 11/28/2018 Gunstock Spray Unit Feeder Report Medical Records [address] [place] [address] Abstract, Provider Social History Tobacco Use Types [...] on filedocumented in this encounter Care Teams Stockroom Worker Relationship Specialty Start Date End Date Cornelio Wallace MD PCP - General Internal Medicine 02/26/16 0 Yola Man MD PCP - General Internal Medicine 09/17/19 documented as of this encounter
--- OUTSIDE RECORDS SUMMARY | 2024-10-23 11:16 | XMS_ITS | Encounter Summary ---
Author Organization [facility] Address [address] [place] [address] Support Name Relationship Address Phone Daija Ferrari Emergency Contact [address] [place] [address] Care Team Providers Care Rn Occupational Name Role Phone Cornelio Wallace MD Primary Care Provider Un available Yola Man MD Primary Care Provider Unavail able Encounter Details Date Type Department Care Team Description 08/13/2018 Garment Manufacturing Supervisor Report Medical Records [address] [place] [address] Abstract, Provider Social History Tobacco Use Types [...] on filedocumented in this encounter Care Teams Rn Occupational Relationship Specialty Start Date End Date Cornelio Wallace MD PCP - General Internal Medicine 02/26/16 0 Yola Man MD PCP - General Internal Medicine 09/17/19 documented as of this encounter
--- OUTSIDE RECORDS SUMMARY | 2024-10-23 11:16 | XMS_ITS | Encounter Summary ---
Author Organization [facility] Address [address] [place] [address] Support Name Relationship Address Phone Daija Ferrari Emergency Contact [address] [place] [address] Care Team Providers Care Marketing Pr Intern Name Role Phone Cornelio Wallace MD Primary Care Provider Un available Yola Man MD Primary Care Provider Unavail able Encounter Details Date Type Department Care Team Description 05/16/2018 Smt Machine Operator Report Medical Records [address] [place] [address] Sumaya Mata [address] [place] [address] Social History Tobacco Use Types Packs/Day Years [...] on filedocumented in this encounter Care Teams Marketing Pr Intern Relationship Specialty Start Date End Date Cornelio Wallace MD PCP - General Internal Medicine 02/26/16 0 Yola Man MD PCP - General Internal Medicine 09/17/19 documented as of this encounter
--- OUTSIDE RECORDS SUMMARY | 2024-10-23 11:16 | XMS_ITS | Encounter Summary ---
Author Organization [facility] Address [address] [place] [address] Support Name Relationship Address Phone Daija Ferrari Emergency Contact [address] [place] [address] Care Team Providers Care Beautician Apprentice Name Role Phone Cornelio Wallace MD Primary Care Provider Un available Yola Man MD Primary Care Provider Unavail able Encounter Details Date Type Department Care Team Description 05/21/2018 Server Administrator Report Medical Records [address] [place] [address] Yvette Ahuja Social History Tobacco Use Types [...] on filedocumented in this encounter Care Teams Beautician Apprentice Relationship Specialty Start Date End Date Cornelio Wallace MD PCP - General Internal Medicine 02/26/16 0 Yola Man MD PCP - General Internal Medicine 09/17/19 documented as of this encounter
--- OUTSIDE RECORDS SUMMARY | 2024-10-23 11:16 | XMS_ITS | Encounter Summary ---
Author Organization [facility] Address [address] [place] [address] Support Name Relationship Address Phone Daija Ferrari Emergency Contact [address] [facility] [address] [place] [address] Care Team Providers Care Change Control Manager Name Role Phone Cornelio Wallace MD Primary Care Provider Un available Yola Man MD Primary Care Provider Unavail able Reason for Referral * Non GISELL (Routine) - Authorized/Booked Specialty Diagnoses / Procedures Referred By Contac t Referred To Contact Physiatry Procedures REFERRAL TO PHYSIATRY Cornelio Wallace MD [address] [place] [address] Physi/[place] [address] [place] [address] Referral ID Status Reason Start Date Expiration Date V isits Requested Visits Authorized [id number] Authorized/B ooked 05/22/2018 05/22/2019 1 1 Encounter Details Date Type Department Care Team Description 05/22/2018 Orders Only Adult Medicine [address] [address] Cornelio Wallace MD Social History Tobacco Use [...] on filedocumented in this encounter Care Teams Change Control Manager Relationship Specialty Start Date End Date Cornelio Wallace MD PCP - General Internal Medicine 6/17/16 1/6/2 0 Yola Man MD PCP - General Internal Medicine 09/17/19 documented as of this encounter
--- OUTSIDE RECORDS SUMMARY | 2024-10-23 11:16 | XMS_ITS | Encounter Summary ---
Author Organization [facility] Address [address] [place] [address] Support Name Relationship Address Phone Daija Ferrari Emergency Contact [address] [place] [address] Care Team Providers Care Senior Sales Consultant Name Role Phone Cornelio Wallace MD Primary Care Provider Un available Yola Man MD Primary Care Provider Unavail able Encounter Details Date Type Department Care Team Description 01/04/2018 Stem Setter Report Medical Records [address] [place] [address] Dept., [facility] Occupational & Pt Social History Tobacco Use Types Packs/Day Years [...] on filedocumented in this encounter Care Teams Senior Sales Consultant Relationship Specialty Start Date End Date Cornelio Wallace MD PCP - General Internal Medicine 02/26/16 0 Yola Man MD PCP - General Internal Medicine 09/17/19 documented as of this encounter
== END 2024-10-23 10:33 | disposition home or self-care (01) ==
PROVIDERS: PCP Internal Medicine; Visit Provider Internal Medicine
DX: E11.65 Type 2 diabetes mellitus with hyperglycemia (principal); M25.512 Pain in left shoulder; E66.01 Morbid (severe) obesity due to excess calories; Z68.41 Body mass index [BMI] 40.0-44.9, adult; E78.5 Hyperlipidemia, unspecified; K21.9 Gastro-esophageal reflux disease without esophagitis; I10 Essential (primary) hypertension; R00.0 Tachycardia, unspecified

== ENCOUNTER → 2024-11-01 09:56 | Outpatient (REF) | payer OTHER, SELFPAY ==
--- NOTE | 2024-11-01 09:58 | ECG_ITS ---
Test Reason : R00.0 - Tachycardia, unspecified Blood Pressure : */* mmHG Vent. Rate : 55 BPM Atrial Rate : 55 BPM P-R Int : 192 ms QRS Dur : 160 ms QT Int : 480 ms P-R-T Axes : 33 -23 -15 degrees QTcB Int : 459 ms Sinus bradycardia Right bundle branch block Abnormal ECG When compared with ECG of 18-May-2024 08:06, T wave inversion no longer evident in Anterior leads Referred By: Consuelo Gallardo Electronically Signed By: PRIYA ELIZALDE
--- OUTSIDE RECORDS SUMMARY | 2024-11-01 10:36 | XMS_ITS | Clinical Summary ---
Author Organization [facility] Address [address] [place] [address] Care Team Providers Care Outside Machinist Name Role Phone Yola Man MD Primary [...] precancerous polyps. UPPER GASTROINTESTINAL ENDOSCOPY 12/28/2017 PROCEDURE: [place] UPPER GI ENDOSCOPY PERFORMED; COMMENT: Dr. Ko, [facility]: Visually normal, dilation with 60 Fr [...] age to complete this topic Care Teams Outside Machinist Relationship Specialty Start Date End Date Yola Man MD PCP - General Internal Medicine 09/17/19
== END ==
LOC: HO.CARD 09:56
PROVIDERS: PCP Internal Medicine; Visit Provider Internal Medicine
DX: R00.0 Tachycardia, unspecified (principal)
CPT/HCPCS: 93005; 93225

== ENCOUNTER → 2024-11-01 09:58 | Outpatient (BNV) | payer OTHER, SELFPAY | PROVIDERS: PCP Internal Medicine; Visit Provider Internal Medicine | DX: R00.0 Tachycardia, unspecified (principal); R00.1 Bradycardia, unspecified; I45.10 Unspecified right bundle-branch block; R94.31 Abnormal electrocardiogram [ECG] [EKG] | CPT/HCPCS: 93010 ==

== ENCOUNTER 2024-12-04 10:03 | Outpatient (AMB) | payer OTHER, SELFPAY ==
--- NOTE | 2024-12-04 10:04 | MHC.OFFVIS ---
Vital Signs 12/04/24 10:05 Height 5 ft 11 in Weight 289 lb BMI 40.3 Intake Visit Reasons: Left shoulder pain and weakness Intake Note: Pedro is a 59 year old right hand dominant male who presents with complaints of progressively worsening left shoulder pain and weakness. The patient states that he injured his shoulder several years ago while lifting a heavy object. Since that time he has had difficulty lifting his left hand above shoulder height. He has failed the last 6 weeks of conservative treatment which has included physical therapy exercises, a home exercise program, Tylenol and anti-inflammatory medicines. Glove Factory Sewer Required: Yes Glove Factory Sewer Language: Associate Broker Services: Glove Factory Sewer Present Glove Factory Sewer Name: LidiaMARTINA/ANGEL Allergies aspirin [Aspirin] Allergy (Severe, Verified 12/04/24 10:11) RASH,THROAT CLOSES, Swollen throat Peanut Butter Allergy (Severe, Verified 12/04/24 10:11) Anaphylaxis dicyclomine [From BENTYL] Allergy (Intermediate, Verified 12/04/24 10:11) PALPITATIONS insulin lispro [Admelog SoloStar U-100 Insulin] Allergy (Intermediate, Verified 12/04/24 10:11) dizziness methylprednisolone [METHYLPREDNISOLONE] Allergy (Intermediate, Verified 12/04/24 10:11) SWELLING furosemide Adverse Reaction (Severe, Verified 12/04/24 10:11) Headache nuts Allergy (Severe, Uncoded 12/04/24 10:11) swelling testosterone Allergy (Intermediate, Uncoded 12/04/24 10:11) Rash jardiance Adverse Reaction (Mild, Uncoded 12/04/24 10:11) Drowsy Medication List - Last Reconciled 12/04/24 by Rajan Bunch MD [emergency urine bag As directed] acetaminophen (Tylenol Extra Strength) 1,000 mg (2 x 500 mg) PO Q6H PRN albuterol sulfate 90 mcg/actuation 2 puffs inhalation Q4-6H PRN NS amlodipine 5 mg PO DAILY 90 days blood pressure monitor (Blood Pressure Kit) As directed blood sugar diagnostic (FreeStyle Lite Strips) Use daily As directed to check blood glucose blood-glucose meter (FreeStyle Lite Meter kit) Use daily As directed to check blood sugars blood-glucose meter,continuous (FreeStyle Asa 3 [place]) Use daily As directed to monitor blood glucose blood-glucose sensor (FreeStyle Asa 3 Sensor device) Apply every 14 days As directed to monitor blood glucose cetirizine (All Day Allergy (cetirizine)) 10 mg PO DAILY PRN 7 days diclofenac sodium 1% (Arthritis Pain (diclofenac)) 2 grams topical QID PRN fluticasone furoate-vilanterol 200-25 mcg/dose (Breo Ellipta) 1 inh inhalation DAILY glucose (Dex4 Glucose) 16 grams (4 x 4 gram) PO Q15M PRN hydrochlorothiazide 12.5 mg PO DAILY 30 days ibuprofen 400 mg PO TID PRN insulin degludec (Tresiba FlexTouch U-200 insulin) 16 units (0.08 mL) subcut DAILY 30 days lancets (FreeStyle Lancets) use daily as directed to check blood glucose lidocaine 5% 1 patch topical DAILY lisinopril 40 mg PO DAILY 90 days omeprazole 40 mg PO DAILY pen needle, diabetic (BD Sonja 2nd Gen Pen Needle) As directed once daily rosuvastatin 10 mg PO DAILY 30 days Shower Chair As directed [Skin Tac Wipes 1 unit topical .use as directed 90 days NS] tirzepatide (Mounjaro) 5 mg subcut QWEEK 4 weeks walker As directed [facility] Medical History (Updated 12/04/24 @ 10:16 by Rajan Bunch MD) Uncontrolled type 2 diabetes mellitus with hyperglycemia, with long-term current use of insulin Diabetes mellitus Type 2 diabetes mellitus with other diabetic kidney complication Loss of consciousness Chronic GERD Abdominal pain Epigastric pain Type 2 diabetes mellitus, with long-term current use of insulin Right leg pain Immunization due Obesity due to excess calories Diabetes type 2, uncontrolled Morbid obesity due to excess calories Asthma Microalbuminuria Left shoulder pain Lower back pain Diabetic polyneuropathy associated with type 2 diabetes mellitus Anemia ELO (obstructive sleep apnea) Diabetic nephropathy associated with type 2 diabetes mellitus Klinefelter syndrome Vitamin D deficiency Dyslipidemia 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 Mother Diabetes Osteoporosis Social History Household Members: None Housing: Apartment Alcohol intake: former Patient Tobacco Use Status: Former Tobacco user Tobacco use type: Cigarette e-Cigarette/Vaping Use: Never Used Second Hand Smoke Exposure: No service: No Current occupational status: disabled Cognitive needs: No Hearing needs: No Vision needs: Yes (glasses ) Physical Exam Vital Signs: BMI result Body Mass Index 40.3 Const Other: Well-nourished well-developed very friendly male awake alert and oriented x3 in no acute distress Extrem Other: Bilateral upper extremity examination shows good capillary refill, no skin lesions noted, normal sensation light touch Left shoulder examination shows decreased range of motion when compared to his right shoulder, 4+ out of 5 strength with supraspinatus testing, positive impingement signs, tenderness over his acromioclavicular joint, no instability Results Reviewed Results Reviewed: X-rays of the patient's left shoulder show moderate glenohumeral joint degenerative changes as well as severe acromioclavicular joint narrowing, a type 2 acromion, no acute bony abnormalities Assessment & Plan Assessment & Plan (1) Rotator cuff insufficiency of left shoulder: Code(s): M25.312 - Other instability, left shoulder Category: Medical Plan Mr. Noel Rodrigues presents with progressively worsening left shoulder pain and weakness due to impingement syndrome and possible rotator cuff tearing. Thus, I will send the patient for an MRI of his left shoulder for further evaluation. I will see him back once the MRI is completed to discuss the findings and treatment options. Feel free to call me at any time should questions regarding his orthopedic management arise. Thank you very much for asking me to see this very friendly gentleman. I spent 20 minutes in reviewing the patient's records and imaging studies, seeing the patient and documenting in the medical record. Orders: Orders MR shoulder LT wo con 12/04/24 M25.312 - Other instability, left shoulder Coding Level of Care Code New Pt Level 3 (24249) Complex EM visit Add On G2211 Diagnoses Rotator cuff insufficiency of left shoulder M25.312
[2024-12-04 10:05] VITALS: BMI 40.3
== END 2024-12-04 10:15 | disposition home or self-care (01) ==
LOC: HO.HOS 10:03
PROVIDERS: PCP Internal Medicine; Visit Provider Orthopaedic Surgery
DX: M25.312 Other instability, left shoulder (principal); M75.42 Impingement syndrome of left shoulder
CPT/HCPCS: 99203; G2211

== ENCOUNTER → 2024-12-04 10:03 | Outpatient (BNVA) | payer OTHER, SELFPAY | PROVIDERS: PCP Internal Medicine; Visit Provider Orthopaedic Surgery | DX: M25.312 Other instability, left shoulder (principal) | CPT/HCPCS: 99202 ==

== ENCOUNTER → 2024-12-16 07:58 | Outpatient (BNV) | payer OTHER, SELFPAY | PROVIDERS: Absent Provider Internal Medicine Infectious Disease; PCP Internal Medicine; Visit Provider Radiology Diagnostic Radiology | DX: M67.814 Other specified disorders of tendon, left shoulder (principal); M75.112 Incomplete rotator cuff tear or rupture of left shoulder, not specified as traumatic; M19.012 Primary osteoarthritis, left shoulder | CPT/HCPCS: 73221 ==

== ENCOUNTER 2024-12-16 08:03 | Outpatient (REF) | payer OTHER, SELFPAY ==
--- NOTE | ~2024-12-16 | MR_ITS ---
EXAMINATION: MR SHOULDER, LEFT CLINICAL INFORMATION: Instability left shoulder; left shoulder pain x2-3 years. COMPARISON: None Correlation made with plain films of the left shoulder 05/28/2024. TECHNIQUE: Multiplanar multisequence MR imaging of the left shoulder was done without IV contrast. Examination performed on a 1.5 Bettina Siemens unit utilizing standard sequences. FINDINGS: Study is significantly limited due to patient habitus, and motion artifact on multiple pulsing sequences. This limits sensitivity of the examination. Rotator Cuff and Biceps Tendon: Supraspinatus: Appears grossly intact. Increased signal throughout the distal tendon is noted, system with tendinopathy. There is no full-thickness tear or tendinous retraction. The muscle belly is normal in appearance. Infraspinatus: There is a partial insertional tear of the medial footplate attachment (series 13, image 19), encompassing approximately 40% of the tendinous width, measuring approximately 3 mm in diameter. There is associated increased signal of the distal tendon consistent with tendinopathy. There is no full-thickness tear or tendinous retraction. The muscle belly is normal in appearance. Subscapularis: There is partial irregular insertional tearing identified of the mid and superior fibers (series 9, images 10-11; series 16, images 11-13). There is mild subluxation of the bicipital tendon medially out of the groove. Mildly increased signal of the tendon is consistent with tendinopathy. There is no atrophy of the muscle belly. Teres Minor: No definite tear. Muscle belly is normal. Biceps Long Head: Normal morphology. There is increased fluid signal around the tendon sheath. The tendon has normal morphology in the groove. In the rotator interval the tendon appears thickened and hyperintense, consistent with tendinopathy (series 16, image 13).. [place] appears intact. AC Joint and Acromiohumeral Arch: The AC joint demonstrates moderate osteoarthrosis with joint capsular distention, periarticular edema, and both superior and undersurface spurring. No definite supraspinatus outlet stenosis. Glenohumeral Joint and Labrum: Severe osteoarthrosis of the glenohumeral joint with [id number] appearance, subchondral bone plate edema and diffuse cartilage loss of both the glenoid and humeral head, and prominent collar type osteophytes of the humeral head. There is diffuse remodeling of the glenoid. There is a small to moderate size joint effusion. There is diffuse degenerative type tearing of the glenoid labrum. There are 2 para labral cysts abutting the superior labrum. Osseous Structures: Aside from subchondral bone plate edema of the humeral head and glenoid, and periarticular edema the AC joint, no additional abnormal bone marrow signal. Spino-glenoid Notch: Normal. Quadrilateral Space: Normal. Other: There is moderate fluid within the subcoracoid bursa. There is mild hyperintensity with minimal fluid in the subacromial/subdeltoid bursa. MR/MR shoulder LT wo con IMPRESSION: Limited study due to habitus and motion on multiple pulsing sequences. 1. No definite supraspinatus tear. There is diffuse mild to moderate tendinopathy. 2. Partial undersurface insertional tear focally. No full-thickness tear or tendinous retraction. Associated [id number] tendinopathy. 3. Partial insertional tear of the subscapularis tendon, involving the mid and superior fibers. There is mild subluxation of the bicipital tendon out of the groove. 4. Long head of the biceps tendon is thickened and hyperintense within the rotator interval consistent with tendinopathy. 5. Severe osteoarthrosis of the glenohumeral joint with [id number] appearance, and prominent collar type osteophytes of the humeral head. There is remodeling of the glenoid. There is subchondral bone plate edema. There is complete cartilage loss. There is a small to moderate size joint effusion. 6. Diffuse degenerative type labral tearing present with 2 para labral cysts abutting the superior labrum. 7. Moderate degenerative arthritis of the AC joint with both superior and undersurface spurring. 8. Additional ancillary findings as discussed. Electronically signed by: Trav Scott MD 12/16/2024 03:36 PM EDT
--- OUTSIDE RECORDS SUMMARY | 2024-12-16 08:12 | XMS_ITS | Encounter Summary ---
Author Organization [facility] Address [address] [place] [address] Support Name Relationship Address Phone Daija Ferrari Emergency Contact [address] [place] [address] Care Team Providers Care Conventional Underwriter Name Role Phone Yola Man MD Primary Care Provider Unavail able Encounter Details Date Type Department Care Team Description 11/12/2020 Old Medical Records Medical Records [address] [place] [address] Abstract, Provider Social History Tobacco Use Types [...] on filedocumented in this encounter Care Teams Conventional Underwriter Relationship Specialty Start Date End Date Yola Man MD PCP - General Internal Medicine 09/17/19 documented as of this encounter
--- OUTSIDE RECORDS SUMMARY | 2024-12-16 08:12 | XMS_ITS | Encounter Summary ---
Author Organization [facility] Address [address] [place] [address] Support Name Relationship Address Phone Daija Ferrari Emergency Contact [address] [place] [address] Care Team Providers Care Watch Hairspring Assembler Name Role Phone Cornelio Wallace MD Primary Care Provider Un available Yola Man MD Primary Care Provider Unavail able Encounter Details Date Type Department Care Team Description 09/30/2016 Chef Teacher Report Medical Records [address] [place] [address] Norberto Dixon Social History Tobacco Use Types [...] on filedocumented in this encounter Care Teams Watch Hairspring Assembler Relationship Specialty Start Date End Date Cornelio Wallace MD PCP - General Internal Medicine 02/26/16 0 Yola Man MD PCP - General Internal Medicine 09/17/19 documented as of this encounter
--- OUTSIDE RECORDS SUMMARY | 2024-12-16 08:12 | XMS_ITS | Clinical Summary ---
Author Organization [employer] [facility] Address [address] [place] [address] Care Team Providers Care Flight/Transport Nurse Name Role Phone Yola Man MD Primary [...] precancerous polyps. UPPER GASTROINTESTINAL ENDOSCOPY 12/28/2017 PROCEDURE: [place] UPPER GI ENDOSCOPY PERFORMED; COMMENT: Dr. Ko, [facility]: Visually normal, dilation with 60 Fr [...] age to complete this topic Care Teams Flight/Transport Nurse Relationship Specialty Start Date End Date Yola Man MD PCP - General Internal Medicine 09/17/19
--- OUTSIDE RECORDS SUMMARY | 2024-12-16 08:12 | XMS_ITS | Encounter Summary ---
Author Organization [facility] Address [address] [place] [address] Support Name Relationship Address Phone Daija Ferrari Emergency Contact [address] [place] [address] Care Team Providers Care Guzzler Builder Name Role Phone Yola Man MD Primary Care Provider Unavail able Encounter Details Date Type Department Care Team Description 10/29/2020 Old Medical Records Medical Records [address] [place] [address] Abstract, Provider Social History Tobacco Use Types [...] on filedocumented in this encounter Care Teams Guzzler Builder Relationship Specialty Start Date End Date Yola Man MD PCP - General Internal Medicine 09/17/19 documented as of this encounter
--- OUTSIDE RECORDS SUMMARY | 2024-12-16 08:12 | XMS_ITS | Encounter Summary ---
Author Organization [facility] Address [address] [place] [address] Support Name Relationship Address Phone Daija Ferrari Emergency Contact [address] [place] [address] Care Team Providers Care Fish Dressing Machine Feeder Name Role Phone Cornelio Wallace MD Primary Care Provider Un available Yola Man MD Primary Care Provider Unavail able Encounter Details Date Type Department Care Team Description 02/01/2019 Nondestructive Tester Report Medical Records [address] [place] [address] Yvette Ahuja Social History Tobacco Use Types [...] on filedocumented in this encounter Care Teams Fish Dressing Machine Feeder Relationship Specialty Start Date End Date Cornelio Wallace MD PCP - General Internal Medicine 02/26/16 0 Yola Man MD PCP - General Internal Medicine 09/17/19 documented as of this encounter
--- OUTSIDE RECORDS SUMMARY | 2024-12-16 08:12 | XMS_ITS | Clinical Summary ---
Author Organization [facility] Address [address] [place] [address] Support Name Relationship Address Phone Daija Ferrari Emergency Contact [address] [place] [address] Care Team Providers Care It Quality Assurance Analyst Name Role Phone Yola Man MD Primary [...] Date Pulmonary nodule 09/19/2019 Overview: Follows with [facility] pulmonary Dr. Harrington Type 2 diabetes with nephropathy 019 Microalbuminuria 09/06/2019 Venous insufficiency of both lower extre mities 03/27/2019 Osteopenia 07/04/2018 Klinefelter syndrome 07/04/2018 Hypogonadotropic hypogonadism 07/04/2018 H/O amputation of lesser toe, right 11/09 Overview: 4th and 5th toes in 2000, removal of tumor Essential hypertension 06/09/2016 Gastroesophageal reflux disease without esophagitis 06/09/2016 Mixed hyperlipidemia 06/09/2016 Sleep apnea 06/09/2016 Overview: [facility] Polysomnogram treatment study. Date 06/23/2019. Wt 336#; [...] (External Completion), 12/19/2018, 11/22/2017, Additional history exists BMI CHECK/ADVISE 09/11/2024 09/06/2019, , 05/30/2019, Additional history exists DEPRESSION SCREENING/FOLLOWUP 09/11/2024 08/26/2019 (Completed) SOCIAL NEEDS SCREENING 09/11/2024 08/26/2019 (Comple andrés) INFLUENZA (Season Ended) 2025 019 (Refused), 07/04/2018 (Refused), 06/30/2017 (Refused), Additional history exists DTAP/TDAP/TD (2 - Td or Tdap) 07/17/2027 07/17/2017 COLON CANCER SCREENING 12/29/2027 8 (External Completion), 12/28/2017 PNEUMOCOCCAL VACCINE FOR HIG H RISK PATIENTS (#2) 2031 09/30/2016 HEPATITIS C SCREENING Completed 07/17/2017 Care Teams It Quality Assurance Analyst Relationship Specialty Start Date End Date Yola Man MD PCP - General Internal Medicine 1/7/20
--- OUTSIDE RECORDS SUMMARY | 2024-12-16 08:12 | XMS_ITS | Encounter Summary ---
Author Organization [facility] Address [address] [place] [address] Support Name Relationship Address Phone Daija Ferrari Emergency Contact [address] [place] [address] Care Team Providers Care Railroad Signal And Switch Operator Name Role Phone Cornelio Wallace MD Primary Care Provider Un available Yola Man MD Primary Care Provider Unavail able Encounter Details Date Type Department Care Team Description 05/17/2019 Orders Only Medical Records [address] [place] [address] Cornelio Wallace MD Social History Tobacco Use [...] Associated Diagnosis Comments OUTSIDE VASCULAR STUDY Routine 05/14/2019 documented in this encounter Results * OUTSIDE VASCULAR STUDY (05/14/2019) Cornelio Wallace MD CARDIOLOGY documented in this encounter Visit Diagnoses Not on filedocumented in this encounter Care Teams Railroad Signal And Switch Operator Relationship Specialty Start Date End Date Cornelio Wallace MD PCP - General Internal Medicine 02/26/16 0 Yola Man MD PCP - General Internal Medicine 09/17/19 documented as of this encounter
--- OUTSIDE RECORDS SUMMARY | 2024-12-16 08:12 | XMS_ITS | Encounter Summary ---
Author Organization [facility] Address [address] [place] [address] Support Name Relationship Address Phone Daija Ferrari Emergency Contact [address] [place] [address] Care Team Providers Care Shaker Out Name Role Phone Cornelio Wallace MD Primary Care Provider Un available Yola Man MD Primary Care Provider Unavail able Encounter Details Date Type Department Care Team Description 08/16/2019 Saxophone Assembler Report Medical Records [address] [place] [address] Yvette Ahuja Social History Tobacco Use Types [...] on filedocumented in this encounter Care Teams Shaker Out Relationship Specialty Start Date End Date Cornelio Wallace MD PCP - General Internal Medicine 02/26/16 0 Yola Man MD PCP - General Internal Medicine 09/17/19 documented as of this encounter
--- OUTSIDE RECORDS SUMMARY | 2024-12-16 08:12 | XMS_ITS | Encounter Summary ---
Author Organization [facility] Address [address] [place] [address] Support Name Relationship Address Phone Daija Ferrari Emergency Contact [address] [place] [address] Care Team Providers Care Line Cook Name Role Phone Cornelio Wallace MD Primary Care Provider Un available Yola Man MD Primary Care Provider Unavail able Reason for Visit * Reason Onset Date Comments REFERRAL 09/12/2017 Encounter Details Date Type Department Care Team Description 09/12/2017 Telephone Podiatry - [place] [address] [place] [address] Eleanor Yao DPM REFERRAL Social History Tobacco Use Types Packs/Day Years Used Date Smoking Tobacco: Former Comments:.25 ppd for 7 years Alcohol Use Standard Drinks/Week Comments No 0 (1 standard drink = 0.6 oz pur e alcohol) Sex Assigned at Date Recorded Not on file documented as of this encounter Miscellaneous Notes * Telephone Encounter - [facility] [place] - 09/12/2017 10:09 AM EST Patient was referred to Podiatry re: Yearly Diabetic Must have one of the following dx code ranges on PROBLEM LIST or DO NOT BOOK with podiatry. Tried to contact patient several times by phone, sent letter as well with no response. Will remove patient from referral report--FYI documented in this encounter Plan of Treatment Not on file documented as of this encounter Visit Diagnoses Not on filedocumented in this encounter Care Teams Line Cook Relationship Specialty Start Date End Date Cornelio Wallace MD PCP - General Internal Medicine 02/26/1609/16/ 0 Yola Man MD PCP - General Internal Medicine 09/17/19 documented as of this encounter
--- OUTSIDE RECORDS SUMMARY | 2024-12-16 08:13 | XMS_ITS | Encounter Summary ---
Author Organization [facility] Address [address] [place] [address] Support Name Relationship Address Phone Daija Ferrari Emergency Contact [address] [place] [address] Care Team Providers Care Footwear Production Machine Operator Name Role Phone Yola Man MD Primary Care Provider Unavail able Encounter Details Date Type Department Care Team Description 03/25/2020 Industrial Hygenist Report Medical Records [address] [place] [address] Yvette Ahuja Social History Tobacco Use Types [...] on filedocumented in this encounter Care Teams Footwear Production Machine Operator Relationship Specialty Start Date End Date Yola Man MD PCP - General Internal Medicine 09/17/19 documented as of this encounter
--- OUTSIDE RECORDS SUMMARY | 2024-12-16 08:13 | XMS_ITS | Encounter Summary ---
Author Organization [facility] Address [address] [place] [address] Support Name Relationship Address Phone Daija Ferrari Emergency Contact [address] [place] [address] Care Team Providers Care Fashion Consultant Sales Name Role Phone Cornelio Wallace MD Primary Care Provider Un available Yola Man MD Primary Care Provider Unavail able Encounter Details Date Type Department Care Team Description 11/28/2018 Lane Attendant Report Medical Records [address] [place] [address] Abstract, Provider Social History Tobacco Use Types [...] on filedocumented in this encounter Care Teams Fashion Consultant Sales Relationship Specialty Start Date End Date Cornelio Wallace MD PCP - General Internal Medicine 02/26/16 0 Yola Man MD PCP - General Internal Medicine 09/17/19 documented as of this encounter
--- OUTSIDE RECORDS SUMMARY | 2024-12-16 08:13 | XMS_ITS | Encounter Summary ---
Author Organization [facility] Address [address] [place] [address] Support Name Relationship Address Phone Daija Ferrari Emergency Contact [address] [place] [address] Care Team Providers Care Director Of Property Management Name Role Phone Cornelio Wallace MD Primary Care Provider Un available Yola Man MD Primary Care Provider Unavail able Encounter Details Date Type Department Care Team Description 04/10/2017 Waxer Report Medical Records [address] [place] [address] Sumaya Mata [address] [place] [address] Social History Tobacco Use Types Packs/Day Years [...] on filedocumented in this encounter Care Teams Director Of Property Management Relationship Specialty Start Date End Date Cornelio Wallace MD PCP - General Internal Medicine 02/26/16 0 Yola Man MD PCP - General Internal Medicine 09/17/19 documented as of this encounter
--- OUTSIDE RECORDS SUMMARY | 2024-12-16 08:13 | XMS_ITS | Encounter Summary ---
Author Organization [facility] Address [address] [place] [address] Support Name Relationship Address Phone Daija Ferrari Emergency Contact [address] [place] [address] Care Team Providers Care Professional Application Designer Name Role Phone Cornelio Wallace MD Primary Care Provider Un available Yola Man MD Primary Care Provider Unavail able Encounter Details Date Type Department Care Team Description 03/07/2018 Brusher Warp Report Medical Records [address] [place] [address] Sumaya Mata [address] [place] [address] Social History Tobacco Use Types Packs/Day Years [...] on filedocumented in this encounter Care Teams Professional Application Designer Relationship Specialty Start Date End Date Cornelio Wallace MD PCP - General Internal Medicine 02/26/16 0 Yola Man MD PCP - General Internal Medicine 09/17/19 documented as of this encounter
--- OUTSIDE RECORDS SUMMARY | 2024-12-16 08:13 | XMS_ITS | Encounter Summary ---
Author Organization [facility] Address [address] [place] [address] Support Name Relationship Address Phone Daija Ferrari Emergency Contact [address] [place] [address] Care Team Providers Care Lining Machine Tender Name Role Phone Cornelio Wallace MD Primary Care Provider Un available Yola Man MD Primary Care Provider Unavail able Encounter Details Date Type Department Care Team Description 04/24/2018 Orders Only Medical Records [address] [place] [address] Cornelio Wallace MD Social History Tobacco Use [...] on filedocumented in this encounter Care Teams Lining Machine Tender Relationship Specialty Start Date End Date Cornelio Wallace MD PCP - General Internal Medicine 02/26/16 0 Yola Man MD PCP - General Internal Medicine 09/17/19 documented as of this encounter
--- OUTSIDE RECORDS SUMMARY | 2024-12-16 08:13 | XMS_ITS | Encounter Summary ---
Author Organization [facility] Address [address] [place] [address] Support Name Relationship Address Phone Daija Ferrari Emergency Contact [address] [place] [address] Care Team Providers Care Mobile Lounge Driver Or Operator Name Role Phone Cornelio Wallace MD Primary Care Provider Un available Yola Man MD Primary Care Provider Unavail able Encounter Details Date Type Department Care Team Description 01/04/2018 Highway Maintenance Crew Worker Report Medical Records [address] [place] [address] Dept., [facility] Occupational & Pt Social History Tobacco Use [...] on filedocumented in this encounter Care Teams Mobile Lounge Driver Or Operator Relationship Specialty Start Date End Date Cornelio Wallace MD PCP - General Internal Medicine 02/26/16 0 Yola Man MD PCP - General Internal Medicine 09/17/19 documented as of this encounter
--- OUTSIDE RECORDS SUMMARY | 2024-12-16 08:13 | XMS_ITS | Encounter Summary ---
Author Organization [facility] Address [address] [place] [address] Support Name Relationship Address Phone Daija Ferrari Emergency Contact [address] [place] [address] Care Team Providers Care Application Dba Name Role Phone Cornelio Wallace MD Primary Care Provider Un available Yola Man MD Primary Care Provider Unavail able Encounter Details Date Type Department Care Team Description 08/17/2018 Mushroom Spawn Maker Report Medical Records [address] [place] [address] Macy Traore MD Social History Tobacco Use [...] on filedocumented in this encounter Care Teams Application Dba Relationship Specialty Start Date End Date Cornelio Wallace MD PCP - General Internal Medicine 02/26/16 0 Yola Man MD PCP - General Internal Medicine 09/17/19 documented as of this encounter
--- OUTSIDE RECORDS SUMMARY | 2024-12-16 08:13 | XMS_ITS | Encounter Summary ---
Author Organization [facility] Address [address] [place] [address] Support Name Relationship Address Phone Daija Ferrari Emergency Contact [address] [place] [address] Care Team Providers Care Corporate Recruiter Name Role Phone Cornelio Wallace MD Primary Care Provider Un available Yola Man MD Primary Care Provider Unavail able Encounter Details Date Type Department Care Team Description 09/21/2016 Orders Only Adult Medicine [address] [address] Cornelio Wallace MD Social History Tobacco Use [...] on filedocumented in this encounter Care Teams Corporate Recruiter Relationship Specialty Start Date End Date Cornelio Wallace MD PCP - General Internal Medicine 02/26/16 0 Yola Man MD PCP - General Internal Medicine 09/17/19 documented as of this encounter
--- OUTSIDE RECORDS SUMMARY | 2024-12-16 08:13 | XMS_ITS | Encounter Summary ---
Author Organization [facility] Address [address] [place] [address] Support Name Relationship Address Phone Daija Ferrari Emergency Contact [address] [place] [address] Care Team Providers Care Special Needs Librarian Name Role Phone Yola Man MD Primary Care Provider Unavail able Encounter Details Date Type Department Care Team Description 09/30/2019 Metallurgical Engineer Report Medical Records [address] [place], [place] [id number] [place] [address] Social History Tobacco Use Types Packs/Day Years [...] on filedocumented in this encounter Care Teams Special Needs Librarian Relationship Specialty Start Date End Date Yola Man MD PCP - General Internal Medicine 09/17/19 documented as of this encounter
--- OUTSIDE RECORDS SUMMARY | 2024-12-16 08:13 | XMS_ITS | Encounter Summary ---
Author Organization [facility] Address [address] [place] [address] Support Name Relationship Address Phone Daija Ferrari Emergency Contact [address] [place] [address] Care Team Providers Care Executive Director Of Marketing Name Role Phone Cornelio Wallace MD Primary Care Provider Un available Yola Man MD Primary Care Provider Unavail able Encounter Details Date Type Department Care Team Description 09/26/2018 Rags Laborer Report Medical Records [address] [place] [address] Yvette Ahuja Social History Tobacco Use Types [...] on filedocumented in this encounter Care Teams Executive Director Of Marketing Relationship Specialty Start Date End Date Cornelio Wallace MD PCP - General Internal Medicine 02/26/16 0 Yola Man MD PCP - General Internal Medicine 09/17/19 documented as of this encounter
--- OUTSIDE RECORDS SUMMARY | 2024-12-16 08:13 | XMS_ITS | Encounter Summary ---
Author Organization [facility] Address [address] [place] [address] Support Name Relationship Address Phone Daija Ferrari Emergency Contact [address] [facility] [address] [place] [address] Care Team Providers Care Field Test Engineer Name Role Phone Cornelio Wallace MD Primary Care Provider Un available Yola Man MD Primary Care Provider Unavail able Reason for Visit * Reason Onset Date Comments Medication 05/01/2017 Encounter Details Date Type Department Care Team Description 05/01/2017 Telephone Adult Medicine [address] [address] Cornelio Wallace MD Medication Social History Tobacco [...] EDT Who is calling? A pharmacist: Pharmacy: [facility] Pharmacist Name: [facility] Name of the [...] on filedocumented in this encounter Care Teams Field Test Engineer Relationship Specialty Start Date End Date Cornelio Wallace MD PCP - General Internal Medicine 02/26/16 0 Yola Man MD PCP - General Internal Medicine 09/17/19 documented as of this encounter
--- OUTSIDE RECORDS SUMMARY | 2024-12-16 08:13 | XMS_ITS | Encounter Summary ---
Author Organization [facility] Address [address] [place] [address] Support Name Relationship Address Phone Daija Ferrari Emergency Contact [address] [place] [address] Care Team Providers Care Crusher Wet Ground Mica Name Role Phone Cornelio Wallace MD Primary Care Provider Un available Yola Man MD Primary Care Provider Unavail able Encounter Details Date Type Department Care Team Description 03/29/2018 Radio Board Operator Announcer Report Medical Records [address] [place] [address] Macy Traore MD Social History Tobacco Use [...] on filedocumented in this encounter Care Teams Crusher Wet Ground Mica Relationship Specialty Start Date End Date Cornelio Wallace MD PCP - General Internal Medicine 02/26/16 0 Yola Man MD PCP - General Internal Medicine 09/17/19 documented as of this encounter
--- OUTSIDE RECORDS SUMMARY | 2024-12-16 08:13 | XMS_ITS | Encounter Summary ---
Author Organization [facility] Address [address] [place] [address] Support Name Relationship Address Phone Daija Ferrari Emergency Contact [address] [place] [address] Care Team Providers Care Inspector Brake Lining Name Role Phone Cornelio Wallace MD Primary Care Provider Un available Yola Man MD Primary Care Provider Unavail able Encounter Details Date Type Department Care Team Description 12/28/2017 Hospital Medical Records [address] [place] [address] Ramy Ko MD [address] [place] [address] Social History Tobacco Use Types Packs/Day Years [...] on filedocumented in this encounter Care Teams Inspector Brake Lining Relationship Specialty Start Date End Date Cornelio Wallace MD PCP - General Internal Medicine 02/26/16 0 Yola Man MD PCP - General Internal Medicine 09/17/19 documented as of this encounter
--- OUTSIDE RECORDS SUMMARY | 2024-12-16 08:13 | XMS_ITS | Encounter Summary ---
Author Organization [facility] Address [address] [place] [address] Support Name Relationship Address Phone Daija Ferrari Emergency Contact [address] [place] [address] Care Team Providers Care Strawhat Inspector And Packer Name Role Phone Cornelio Wallace MD Primary Care Provider Un available Yola Man MD Primary Care Provider Unavail able Encounter Details Date Type Department Care Team Description 10/26/2018 Cartridge Maker Report Medical Records [address] [place] [address] Yvette Ahuja Social History Tobacco Use Types [...] on filedocumented in this encounter Care Teams Strawhat Inspector And Packer Relationship Specialty Start Date End Date Cornelio Wallace MD PCP - General Internal Medicine 02/26/16 0 Yola Man MD PCP - General Internal Medicine 09/17/19 documented as of this encounter
--- OUTSIDE RECORDS SUMMARY | 2024-12-16 08:14 | XMS_ITS | Encounter Summary ---
Author Organization [facility] Address [address] [place] [address] Support Name Relationship Address Phone Daija Ferrari Emergency Contact [address] [place] [address] Care Team Providers Care Consulting Application Engineer Name Role Phone Cornelio Wallace MD Primary Care Provider Un available Yola Man MD Primary Care Provider Unavail able Encounter Details Date Type Department Care Team Description 05/21/2018 Senior Project Accountant Report Medical Records [address] [place] [address] Yvette Ahuja Social History Tobacco Use Types [...] on filedocumented in this encounter Care Teams Consulting Application Engineer Relationship Specialty Start Date End Date Cornelio Wallace MD PCP - General Internal Medicine 02/26/16 0 Yola Man MD PCP - General Internal Medicine 09/17/19 documented as of this encounter
--- OUTSIDE RECORDS SUMMARY | 2024-12-16 08:14 | XMS_ITS | Encounter Summary ---
Author Organization [facility] Address [address] [place] [address] Support Name Relationship Address Phone Daija Ferrari Emergency Contact [address] [place] [address] Care Team Providers Care Refrigeration Brazer/Solderer Name Role Phone Cornelio Wallace MD Primary Care Provider Un available Yola Man MD Primary Care Provider Unavail able Encounter Details Date Type Department Care Team Description 05/01/2018 Comber Operator Report Medical Records [address] [place] [address] Sumaya Mata [address] [place] [address] Social History Tobacco Use Types Packs/Day Years [...] on filedocumented in this encounter Care Teams Refrigeration Brazer/Solderer Relationship Specialty Start Date End Date Cornelio Wallace MD PCP - General Internal Medicine 02/26/16 0 Yola Man MD PCP - General Internal Medicine 09/17/19 documented as of this encounter
--- OUTSIDE RECORDS SUMMARY | 2024-12-16 08:14 | XMS_ITS | Encounter Summary ---
Author Organization [facility] Address [address] [place] [address] Support Name Relationship Address Phone Daija Ferrari Emergency Contact [address] [place] [address] Care Team Providers Care Color Expert Name Role Phone Cornelio Wallace MD Primary Care Provider Un available Yola Man MD Primary Care Provider Unavail able Encounter Details Date Type Department Care Team Description 05/16/2018 Can Cutter Report Medical Records [address] [place] [address] Sumaya Mata [address] [place] [address] Social History Tobacco Use Types Packs/Day Years [...] on filedocumented in this encounter Care Teams Color Expert Relationship Specialty Start Date End Date Cornelio Wallace MD PCP - General Internal Medicine 02/26/16 0 Yola Man MD PCP - General Internal Medicine 09/17/19 documented as of this encounter
[2024-12-16 09:50] LABS: MANUAL DIFF FLAG NO
[2024-12-16 10:34] LABS: Basophils Percent Auto 0.6 % (0-2); Eosinophils Absolute Auto 0.2 X10*3/uL (0.0-0.4); Eosinophils Percent Auto 2.8 % (0-4); Hemoglobin 11.7 g/dl (14.0-18.0); Imm Gran Abs Auto 0.01 X10*3/uL (0.00-0.03); Imm Gran Pct Auto 0.2 % (0.0-0.4); Lymphocytes Absolute Auto 2.1 X10*3/uL (1.2-4.9); Lymphocytes Percent Auto 40.2 % (20-40); Mean Corpuscular HGB Conc 33.4 g/dl (31.0-36.0); Mean Corpuscular Hemoglobin 28.5 pg (27.0-33.0); Mean Corpuscular Volume 85.2 fL (80.0-98.0); Mean Platelet Volume 9.8 fL (9.4-12.4); Monocytes Absolute Auto 0.3 X10*3/uL (0.1-1.2); Monocytes Percent Auto 4.9 % (2-11); Neutrophils Absolute Auto 2.7 x10*3/uL (2.0-8.3); Neutrophils Percent Auto 51.3 % (45-73); Platelet Count 182 X10*3/uL (160-400); Red Blood Count 4.11 X10*6/uL (4.60-5.80); Red Cell Distribution Width 14.4 % (11.0-16.0); White Blood Count 5.3 X10*3/uL (4.8-10.8)
[2024-12-16 11:16] LABS: Appearance Urine Clear; Color Urine Yellow; Glucose Urine UA Negative (Negative); Leukocyte Esterase Urine Negative (Negative); Nitrite Urine Negative (Negative); PH 7.5 (5.0-9.0); UMIC TRIGGER UA YES; Urine Blood Negative (Negative); Urine Ketones Negative (Negative); Urine Protein 30 (1+) mg/dL (Neg-Trace)
[2024-12-16 11:20] LABS: Bacteria Urine None Seen (None Seen); Hyaline Casts Urine 0-2 /LPF (0-2); RBC Urine 0-2 /HPF (0-2); Squamous Epithelial Cell Urine 0-2 /HPF (0-2); WBC Urine 0-5 /HPF (0-5)
[2024-12-16 11:42] LABS: HBsAGNum1 0.36 S/CO (0.00-0.99); HIV AB/AG Nonreactive (Nonreactive); HIV Num 1 0.05 S/CO (0.00-0.99); Hepatitis B Surface Antigen Negative (Negative); ~Hepatitis B Surface Antibody NONREACTIVE (Nonreactive)
[2024-12-16 11:44] LABS: Syphilis Screen Nonreactive (Nonreactive)
[2024-12-16 12:55] LABS: Alanine Aminotransferase 11 U/L (0-40); Albumin Level 3.8 g/dL (3.5-5.0); Anion Gap 14 (12-20); Aspartate Amino Transferase 14 U/L (5-37); Bilirubin Total 0.5 mg/dL (0.0-1.0); Blood Urea Nitrogen 14 mg/dL (9-16); Calcium 8.9 mg/dL (8.4-10.2); Carbon Dioxide 27 mmol/L (22-29); Chloride 105 mmol/L (96-108); Cholesterol 154 mg/dL (<200); Estimated Glomerular Filt Rate > 60; Glucose Random 151 mg/dL (60-115); HDL Cholesterol 31 mg/dL (>40); LDL Cholesterol Calculated 104 mg/dL (<100); Potassium 3.8 mmol/L (3.3-5.1); Sodium 142 mmol/L (135-145); Total Protein 7.1 g/dL (6.5-8.0); Triglycerides 97 mg/dL (<150)
[2024-12-16 13:04] LABS: Alkaline Phosphatase 64 U/L (39-117)
[2024-12-16 13:18] LABS: CT PCR NOT DETECTED (Not Detect.); NG PCR NOT DETECTED (Not Detect.)
== END 2024-12-16 08:04 | disposition home or self-care (01) ==
LOC: HO.MRI 08:03
PROVIDERS: Absent Provider Internal Medicine Infectious Disease; PCP Internal Medicine; Visit Provider Orthopaedic Surgery
DX: M25.312 Other instability, left shoulder (principal); K22.10 Ulcer of esophagus without bleeding; Z20.2 Contact with and (suspected) exposure to infections with a predominantly sexual mode of transmission
CPT/HCPCS: 73221; 80053; 80061; 81001; 85025; 86706; 86780; 87340; 87389; 87491; 87591

== ENCOUNTER 2024-12-27 09:03 | Outpatient (AMB) | payer OTHER, SELFPAY ==
--- NOTE | 2024-12-27 09:06 | MHC.OFFVIS ---
Vital Signs 12/27/24 09:10 Weight 285 lb BP 130/80 Blood Pressure Location Rt brachial Position Sitting Pulse 61 Pulse Source Pulse Oximeter Pulse Oximetry (%) 96 Oxygen Delivery Method Room Air Intake Visit Reasons: T2DM Intake Note: Patient presents today for a follow-up on Type 2 Diabetes Mellitus: Last Diabetic Eye exam: 01/17/2024, [facility] Last Podiatry Visit: needs referral to a waste reclaimer Most Recent HgA1c: 7.6% Random Glucose: __179__ mg/dL, Today Reagent Tender Required: Yes Reagent Tender Services: Reagent Tender Present Reagent Tender Name: [email or web address] [id number] Information Interpreted: non-clinical & clinical Accompanied by: Self / Same As Patient Allergies aspirin [Aspirin] Allergy (Severe, Verified 12/04/24 10:11) RASH,THROAT CLOSES, Swollen throat Peanut Butter Allergy (Severe, Verified 12/04/24 10:11) Anaphylaxis dicyclomine [From BENTYL] Allergy (Intermediate, Verified 12/04/24 10:11) PALPITATIONS insulin lispro [Admelog SoloStar U-100 Insulin] Allergy (Intermediate, Verified 12/04/24 10:11) dizziness methylprednisolone [METHYLPREDNISOLONE] Allergy (Intermediate, Verified 12/04/24 10:11) SWELLING furosemide Adverse Reaction (Severe, Verified 12/04/24 10:11) Headache nuts Allergy (Severe, Uncoded 12/04/24 10:11) swelling testosterone Allergy (Intermediate, Uncoded 12/04/24 10:11) Rash jardiance Adverse Reaction (Mild, Uncoded 12/04/24 10:11) Drowsy [facility] Medical History Uncontrolled type 2 diabetes mellitus with hyperglycemia, with long-term current use of insulin Diabetes mellitus Type 2 diabetes mellitus with other diabetic kidney complication Loss of consciousness Chronic GERD Abdominal pain Epigastric pain Type 2 diabetes mellitus, with long-term current use of insulin Right leg pain Immunization due Obesity due to excess calories Diabetes type 2, uncontrolled Morbid obesity due to excess calories Asthma Microalbuminuria Left shoulder pain Lower back pain Diabetic polyneuropathy associated with type 2 diabetes mellitus Anemia ELO (obstructive sleep apnea) Diabetic nephropathy associated with type 2 diabetes mellitus Klinefelter syndrome Vitamin D deficiency Dyslipidemia 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 Mother Diabetes Osteoporosis Social History Household Members: None Housing: Apartment Alcohol intake: former Patient Tobacco Use Status: Former Tobacco user Tobacco use type: Cigarette e-Cigarette/Vaping Use: Never Used Second Hand Smoke Exposure: No service: No Current occupational status: disabled Cognitive needs: No Hearing needs: No Vision needs: Yes (glasses ) Physical Exam Vital Signs: Last Vital Signs Pulse 61 12/27/24 09:10 BP 130/80 12/27/24 09:10 Pulse Ox 96 12/27/24 09:10 Oxygen Delivery Method Room Air 12/27/24 09:10 Results AMB Hemoglobin A1c AMB Hemoglobin A1c 7.6 % Last Edit by MARTINA Cain on 12/27/24 09:35 Results Reviewed Results Reviewed: Laboratory Last Values Glucose (Clinic) 179 mg/dL (60-115) H 12/27/24 09:21 Hgb A1c (Clinic) 7.6 % (4.0-6.0) H 12/27/24 09:33 Assessment & Plan Assessment & Plan Orders: Orders AMB Hemoglobin A1c Today E11.65 - Type 2 diabetes mellitus with hyperglycemia, Z13.9 - Encounter for screening, unspecified Coding
[2024-12-27 09:10] VITALS: BP 130/80; PULSE 61; O2SAT 96
[2024-12-27 09:26] LABS: Glucose, Whole Blood 179 mg/dL (60-115)
--- OUTSIDE RECORDS SUMMARY | 2024-12-27 09:29 | XMS_ITS | Encounter Summary ---
Author Organization [facility] Address [address] [place] [address] Support Name Relationship Address Phone Daija Ferrari Emergency Contact [address] [place] [address] Care Team Providers Care Hydraulic Auto Jack Mechanic Name Role Phone Cornelio Wallace MD Primary Care Provider Un available Yola Man MD Primary Care Provider Unavail able Encounter Details Date Type Department Care Team Description 09/30/2016 Hot Roll Inspector Report Medical Records [address] [place] [address] Norberto Dixon Social History Tobacco Use Types [...] on filedocumented in this encounter Care Teams Hydraulic Auto Jack Mechanic Relationship Specialty Start Date End Date Cornelio Wallace MD PCP - General Internal Medicine 02/26/16 0 Yola Man MD PCP - General Internal Medicine 09/17/19 documented as of this encounter
--- OUTSIDE RECORDS SUMMARY | 2024-12-27 09:29 | XMS_ITS | Clinical Summary ---
Author Organization [facility] Address [address] [place] [address] Care Team Providers Care Power Electronics Research Engineer Name Role Phone Yola Man MD Primary Care Provider [phone] Surgical History Surgery Date Site/Laterality Comments FOOT SURGERY PROCEDURE: HISTORICAL FOOT SURGERY; COMMENT: 2 toes amputated for tumor. CHOLECYSTECTOMY PROCEDURE: HISTORICAL CHOLECYSTECTOMY OTHER SURGICAL HISTORY PROCEDURE: ---- OTHER ----; COMMENT: gastric band/removed COLONOSCOPY 12/28/2017 PROCEDURE: HISTORICAL COLONOSCOPY; COMMENT: Diminutive polyps ? 2 , these were lymphoid aggregates and not precancerous polyps. UPPER GASTROINTESTINAL ENDOSCOPY 12/28/2017 PROCEDURE: [place] UPPER GI ENDOSCOPY PERFORMED; COMMENT: Dr. Ko, [facility]: Visually normal, dilation with 60 Fr Savary dilator performed. Medical History Medical History Date Comments DM (diabetes mellitus), type 2, uncontrolled 05/17/2016 DX:DM (diabetes mellitus), t ype 2, uncontrolled DM (diabetes mellitus), type 2 with neurological complications ([facility] V24, [facility] V28) 05/17/2016 DX:DM (diabetes mellitus), t ype 2 with neurological complications (HCC) H/O amputation of lesser toe , right ([facility] V24) 11/22/2017 DX:H/O amputation of lesser toe, right ([facility]); COMMENT: 4th and 5th toes in 2000, removal of tumor Osteopenia 07/04/2018 DX:Osteopenia Klinefelter syndrome 07/04/2018 DX:Klinefel ter syndrome Hypogonadotropic hypogonadis m ([facility] V24) 07/04/2018 DX:Hypogonadotropic hypogona dism (HCC) Family History Relation Name Status Comments [...] - 2023-2 5 season) 2024 Influenza Vaccine (Season Ended) 2025 DTaP,Tdap,and Td Vaccines (2 - Td or [...] age to complete this topic Meningococcal B Vaccine Aged Out No l onger eligible based on patient's age to complete this topic RSV Immunization Patients Un keerthi 20 months Aged Out No longer eligible b ased on patient's age to complete this topic Varicella Vaccines Aged Out No longer eligible based on patient's age to complete this topic Care Teams Power Electronics Research Engineer Relationship Specialty Start Date End Date Yola Man MD PCP - General Internal Medicine 09/17/19
--- OUTSIDE RECORDS SUMMARY | 2024-12-27 09:29 | XMS_ITS | Encounter Summary ---
Author Organization [facility] Address [address] [place] [address] Support Name Relationship Address Phone Daija Ferrari Emergency Contact [address] [place] [address] Care Team Providers Care Facility Worker Name Role Phone Cornelio Wallace MD Primary Care Provider Un available Yola Man MD Primary Care Provider Unavail able Encounter Details Date Type Department Care Team Description 11/14/2016 Person Investigator Report Medical Records [address] [place] [address] Debi Mcgrath [address] [place] [address] Social History Tobacco Use Types Packs/Day Years [...] on filedocumented in this encounter Care Teams Facility Worker Relationship Specialty Start Date End Date Cornelio Wallace MD PCP - General Internal Medicine 02/26/16 0 Yola Man MD PCP - General Internal Medicine 09/17/19 documented as of this encounter
--- OUTSIDE RECORDS SUMMARY | 2024-12-27 09:29 | XMS_ITS | Encounter Summary ---
Author Organization [facility] Address [address] [place] [address] Support Name Relationship Address Phone Daija Ferrari Emergency Contact [address] [place] [address] Care Team Providers Care Purchasing Assistant Name Role Phone Cornelio Wallace MD Primary Care Provider Un available Yola Man MD Primary Care Provider Unavail able Encounter Details Date Type Department Care Team Description 08/29/2016 Hoof And Shoe Inspector Report Medical Records [address] [place] [address] Debi Mcgrath [address] [place] [address] Social History Tobacco Use Types Packs/Day Years [...] on filedocumented in this encounter Care Teams Purchasing Assistant Relationship Specialty Start Date End Date Cornelio Wallace MD PCP - General Internal Medicine 02/26/16 0 Yola Man MD PCP - General Internal Medicine 09/17/19 documented as of this encounter
--- OUTSIDE RECORDS SUMMARY | 2024-12-27 09:29 | XMS_ITS | Encounter Summary ---
Author Organization [facility] Address [address] [place] [address] Support Name Relationship Address Phone Daija Ferrari Emergency Contact [address] [place] [address] Care Team Providers Care Licensed Customs Broker Name Role Phone Yola Man MD Primary Care Provider Unavail able Encounter Details Date Type Department Care Team Description 11/12/2020 Old Medical Records Medical Records [address] [place] [address] Abstract, Provider Social History Tobacco Use Types [...] on filedocumented in this encounter Care Teams Licensed Customs Broker Relationship Specialty Start Date End Date Yola Man MD PCP - General Internal Medicine 09/17/19 documented as of this encounter
--- OUTSIDE RECORDS SUMMARY | 2024-12-27 09:29 | XMS_ITS | Encounter Summary ---
Author Organization [facility] Address [address] [place] [address] Support Name Relationship Address Phone Daija Ferrari Emergency Contact [address] [place] [address] Care Team Providers Care Digital Account Coordinator Name Role Phone Cornelio Wallace MD Primary Care Provider Un available Yola Man MD Primary Care Provider Unavail able Reason for Visit * Reason Onset Date Comments REFERRAL 09/12/2017 Encounter Details Date Type Department Care Team Description 09/12/2017 Telephone Podiatry - [address] [id number] [place] [address] Eleanor Yao DPM REFERRAL Social History Tobacco [...] on filedocumented in this encounter Care Teams Digital Account Coordinator Relationship Specialty Start Date End Date Cornelio Wallace MD PCP - General Internal Medicine 02/26/1609/16/ 0 Yola Man MD PCP - General Internal Medicine 09/17/19 documented as of this encounter
--- OUTSIDE RECORDS SUMMARY | 2024-12-27 09:29 | XMS_ITS | Encounter Summary ---
Author Organization [facility] Address [address] [place] [address] Support Name Relationship Address Phone Daija Ferrari Emergency Contact [address] [facility] [address] [place] [address] Care Team Providers Care Director Medical Writing Name Role Phone Yola Man MD Primary Care Provider Unavail able Encounter Details Date Type Department Care Team Description 09/30/2019 Bench Worker Helper Report Medical Records [address] [place], [place] [id number] [place] [address] Social History Tobacco Use Types Packs/Day Years [...] filedocumented in this encounter Care Teams Director Medical Writing Relationship Specialty Start Date End Date Yola Man MD PCP - General Internal Medicine 09/17/19 documented as of this encounter
--- OUTSIDE RECORDS SUMMARY | 2024-12-27 09:29 | XMS_ITS | Clinical Summary ---
Author Organization [facility] Address [address] [place] [address] Support Name Relationship Address Phone Daija Ferrari Emergency Contact [address] [place] [address] Care Team Providers Care Baseboard Heating Installer Name Role Phone Yola Man MD Primary [...] Date Pulmonary nodule 09/19/2019 Overview: Follows with [facility] pulmonary Dr. Harrington Type 2 diabetes with nephropathy 019 Microalbuminuria 09/06/2019 Venous insufficiency of both lower extre mities 03/27/2019 Osteopenia 07/04/2018 Klinefelter syndrome 07/04/2018 Hypogonadotropic hypogonadism 07/04/2018 H/O amputation of lesser toe, right 11/09 Overview: 4th and 5th toes in 2000, removal of tumor Essential hypertension 06/09/2016 Gastroesophageal reflux disease without esophagitis 06/09/2016 Mixed hyperlipidemia 06/09/2016 Sleep apnea 06/09/2016 Overview: [facility] Polysomnogram treatment study. Date 06/23/2019. Wt 336#; [...] HEPATITIS C SCREENING Completed 07/17/2017 Care Teams Baseboard Heating Installer Relationship Specialty Start Date End Date Yola Man MD PCP - General Internal Medicine 1/7/20
--- OUTSIDE RECORDS SUMMARY | 2024-12-27 09:30 | XMS_ITS | Encounter Summary ---
Author Organization [facility] Address [address] [place] [address] Support Name Relationship Address Phone Daija Ferrari Emergency Contact [address] [place] [address] Care Team Providers Care Duct Layer Helper Name Role Phone Cornelio Wallace MD Primary Care Provider Un available Yola Man MD Primary Care Provider Unavail able Encounter Details Date Type Department Care Team Description 10/26/2018 Pe Electrical Engineer Report Medical Records [address] [place] [address] Yvette Ahuja Social History Tobacco Use Types [...] on filedocumented in this encounter Care Teams Duct Layer Helper Relationship Specialty Start Date End Date Cornelio Wallace MD PCP - General Internal Medicine 02/26/16 0 Yola Man MD PCP - General Internal Medicine 09/17/19 documented as of this encounter
--- OUTSIDE RECORDS SUMMARY | 2024-12-27 09:30 | XMS_ITS | Encounter Summary ---
Author Organization [facility] Address [address] [place] [address] Support Name Relationship Address Phone Daija Ferrari Emergency Contact [address] [place] [address] Care Team Providers Care Paintings Restorer Name Role Phone Yola Man MD Primary Care Provider Unavail able Encounter Details Date Type Department Care Team Description 11/21/2019 Fish Rod Maker Report Medical Records [address] [place] [address] Daron Harrington MD Social History Tobacco Use [...] on filedocumented in this encounter Care Teams Paintings Restorer Relationship Specialty Start Date End Date Yola Man MD PCP - General Internal Medicine 09/17/19 documented as of this encounter
--- OUTSIDE RECORDS SUMMARY | 2024-12-27 09:30 | XMS_ITS | Encounter Summary ---
Author Organization [facility] Address [address] [place] [address] Support Name Relationship Address Phone Daija Ferrari Emergency Contact [address] [place] [address] Care Team Providers Care Coding Director Name Role Phone Cornelio Wallace MD Primary Care Provider Un available Yola Man MD Primary Care Provider Unavail able Encounter Details Date Type Department Care Team Description 01/10/2018 Commercial Tire Service Technician Report Medical Records [address] [place] [address] Sumaya Mata [address] [place] [address] Social History Tobacco Use Types Packs/Day Years [...] on filedocumented in this encounter Care Teams Coding Director Relationship Specialty Start Date End Date Cornelio Wallace MD PCP - General Internal Medicine 02/26/16 0 Yola Man MD PCP - General Internal Medicine 09/17/19 documented as of this encounter
--- OUTSIDE RECORDS SUMMARY | 2024-12-27 09:30 | XMS_ITS | Encounter Summary ---
Author Organization [facility] Address [address] [place] [address] Support Name Relationship Address Phone Daija Ferrari Emergency Contact [address] [place] [address] Care Team Providers Care Ad Operations Specialist Name Role Phone Cornelio Wallace MD Primary Care Provider Un available Yola Man MD Primary Care Provider Unavail able Encounter Details Date Type Department Care Team Description 09/26/2018 Chalk Molding Machine Operator Report Medical Records [address] [place] [address] Yvette Ahuja Social History Tobacco Use Types [...] on filedocumented in this encounter Care Teams Ad Operations Specialist Relationship Specialty Start Date End Date Cornelio Wallace MD PCP - General Internal Medicine 02/26/16 0 Yola Man MD PCP - General Internal Medicine 09/17/19 documented as of this encounter
--- OUTSIDE RECORDS SUMMARY | 2024-12-27 09:30 | XMS_ITS | Encounter Summary ---
Author Organization [facility] Address [address] [place] [address] Support Name Relationship Address Phone Daija Ferrari Emergency Contact [address] [facility] [address] [place] [address] Care Team Providers Care Tandem Mill Operator Name Role Phone Cornelio Wallace MD Primary Care Provider Un available Yola Man MD Primary Care Provider Unavail able Reason for Visit * Reason Onset Date Comments Medication 05/01/2017 Encounter Details Date Type Department Care Team Description 05/01/2017 Telephone Adult Medicine [address] [address] Cornelio Wallace MD Medication Social History Tobacco [...] on filedocumented in this encounter Care Teams Tandem Mill Operator Relationship Specialty Start Date End Date Cornelio Wallace MD PCP - General Internal Medicine 02/26/16 0 Yola Man MD PCP - General Internal Medicine 09/17/19 documented as of this encounter
--- OUTSIDE RECORDS SUMMARY | 2024-12-27 09:30 | XMS_ITS | Encounter Summary ---
Author Organization [facility] Address [address] [place] [address] Support Name Relationship Address Phone Daija Ferrair Emergency Contact [address] [facility] [address] [place] [address] Care Team Providers Care Tank Builder And Erector Name Role Phone Cornelio Wallace MD Primary Care Provider Un available Yola Man MD Primary Care Provider Unavail able Reason for Referral * Non GISELL (Routine) - Authorized/Booked Specialty Diagnoses / Procedures Referred By Contac t Referred To Contact Physiatry Procedures REFERRAL TO PHYSIATRY Cornelio Wallace MD [address] [place] [address] Physi/Industry [address] [place] [address] Referral ID Status Reason Start Date Expiration Date V isits Requested Visits Authorized [id number] Authorized/B ooked 05/22/2018 05/22/2019 1 1 Encounter Details Date Type Department Care Team Description 05/22/2018 Orders Only Adult Medicine [address] [address] Cornelio Wallace MD Social History Tobacco Use [...] on filedocumented in this encounter Care Teams Tank Builder And Erector Relationship Specialty Start Date End Date Cornelio Wallace MD PCP - General Internal Medicine 6/17/16 1/6/2 0 Yola Man MD PCP - General Internal Medicine 09/17/19 documented as of this encounter
--- OUTSIDE RECORDS SUMMARY | 2024-12-27 09:30 | XMS_ITS | Encounter Summary ---
Author Organization [facility] Address [address] [place] [address] Support Name Relationship Address Phone Daija Ferrari Emergency Contact [address] [place] [address] Care Team Providers Care Test Eng Name Role Phone Cornelio Wallace MD Primary Care Provider Un available Yola Man MD Primary Care Provider Unavail able Encounter Details Date Type Department Care Team Description 04/10/2017 Suppository Molding Machine Operator Report Medical Records [address] [place] [address] Sumaya Mata [address] [place] [address] Social History Tobacco Use Types Packs/Day Years [...] on filedocumented in this encounter Care Teams Test Eng Relationship Specialty Start Date End Date Cornelio Wallace MD PCP - General Internal Medicine 02/26/16 0 Yola Man MD PCP - General Internal Medicine 09/17/19 documented as of this encounter
--- OUTSIDE RECORDS SUMMARY | 2024-12-27 09:30 | XMS_ITS | Encounter Summary ---
Author Organization [facility] Address [address] [place] [address] Support Name Relationship Address Phone Daija Ferrari Emergency Contact [address] [place] [address] Care Team Providers Care Receptionist Nurse Name Role Phone Cornelio Wallace MD Primary Care Provider Un available Yola Man MD Primary Care Provider Unavail able Encounter Details Date Type Department Care Team Description 08/13/2018 Deicer Repairer Electric Report Medical Records [address] [place] [address] Abstract, Provider Social History Tobacco Use Types [...] on filedocumented in this encounter Care Teams Receptionist Nurse Relationship Specialty Start Date End Date Cornelio Wallace MD PCP - General Internal Medicine 02/26/16 0 Yola Man MD PCP - General Internal Medicine 09/17/19 documented as of this encounter
--- OUTSIDE RECORDS SUMMARY | 2024-12-27 09:30 | XMS_ITS | Encounter Summary ---
Author Organization [facility] Address [address] [place] [address] Support Name Relationship Address Phone Daija Ferrari Emergency Contact [address] [place] [address] Care Team Providers Care Welding Systems And Equipment Repairer Name Role Phone Cornelio Wallace MD Primary Care Provider Un available Yola Man MD Primary Care Provider Unavail able Encounter Details Date Type Department Care Team Description 01/04/2018 Clinical Quality Assurance Specialist Report Medical Records [address] [place] [address] Dept., [facility] Occupational & Pt Social History Tobacco Use [...] on filedocumented in this encounter Care Teams Welding Systems And Equipment Repairer Relationship Specialty Start Date End Date Cornelio Wallace MD PCP - General Internal Medicine 02/26/16 0 Yola Man MD PCP - General Internal Medicine 09/17/19 documented as of this encounter
--- OUTSIDE RECORDS SUMMARY | 2024-12-27 09:30 | XMS_ITS | Encounter Summary ---
Author Organization [facility] Address [address] [place] [address] Support Name Relationship Address Phone Daija Ferrari Emergency Contact [address] [place] [address] Care Team Providers Care Fondant Puff Maker Name Role Phone Cornelio Wallace MD Primary Care Provider Un available Yola Man MD Primary Care Provider Unavail able Encounter Details Date Type Department Care Team Description 05/16/2018 Senior Maintenance Mechanic Report Medical Records [address] [place] [address] Sumaya Mata [address] [place] [address] Social History Tobacco Use Types Packs/Day Years [...] on filedocumented in this encounter Care Teams Fondant Puff Maker Relationship Specialty Start Date End Date Cornelio Wallace MD PCP - General Internal Medicine 02/26/16 0 Yola Man MD PCP - General Internal Medicine 09/17/19 documented as of this encounter
--- OUTSIDE RECORDS SUMMARY | 2024-12-27 09:30 | XMS_ITS | Encounter Summary ---
Author Organization [facility] Address [address] [place] [address] Support Name Relationship Address Phone Daija Ferrari Emergency Contact [address] [place] [address] Care Team Providers Care Oracle E Business Developer Name Role Phone Cornelio Wallace MD Primary Care Provider Un available Yola Man MD Primary Care Provider Unavail able Encounter Details Date Type Department Care Team Description 07/23/2018 Scuba Instructor Report Medical Records [address] [place] [address] Sumaya Mata [address] [place] [address] Social History Tobacco Use Types Packs/Day Years [...] on filedocumented in this encounter Care Teams Oracle E Business Developer Relationship Specialty Start Date End Date Cornelio Wallace MD PCP - General Internal Medicine 02/26/16 0 Yola Man MD PCP - General Internal Medicine 09/17/19 documented as of this encounter
--- OUTSIDE RECORDS SUMMARY | 2024-12-27 09:30 | XMS_ITS | Encounter Summary ---
Author Organization [facility] Address [address] [place] [address] Support Name Relationship Address Phone Daija Ferrari Emergency Contact [address] [place] [address] Care Team Providers Care Review Trainer Name Role Phone Cornelio Wallace MD Primary Care Provider Un available Yola Man MD Primary Care Provider Unavail able Encounter Details Date Type Department Care Team Description 12/28/2017 Hospital Medical Records [address] [place] [address] Ramy Ko MD [address] [place] [address] Social History Tobacco Use Types Packs/Day Years [...] on filedocumented in this encounter Care Teams Review Trainer Relationship Specialty Start Date End Date Cornelio Wallace MD PCP - General Internal Medicine 02/26/16 0 Yola Man MD PCP - General Internal Medicine 09/17/19 documented as of this encounter
== END 2024-12-27 09:38 | disposition home or self-care (01) ==
LOC: HO.ENCR 09:04
PROVIDERS: PCP Internal Medicine; Visit Provider Nurse Practitioner Adult Health
DX: Z13.9 Encounter for screening, unspecified (principal); E11.65 Type 2 diabetes mellitus with hyperglycemia

== ENCOUNTER → 2024-12-27 09:03 | Outpatient (BNVA) | payer OTHER, SELFPAY | PROVIDERS: PCP Internal Medicine; Visit Provider Nurse Practitioner Adult Health | DX: E11.65 Type 2 diabetes mellitus with hyperglycemia (principal); E11.21 Type 2 diabetes mellitus with diabetic nephropathy; E11.40 Type 2 diabetes mellitus with diabetic neuropathy, unspecified; E29.1 Testicular hypofunction | CPT/HCPCS: 82947; 83036; 99212 ==

== ENCOUNTER 2025-01-08 22:10 | Emergency (ER) | payer OTHER, SELFPAY ==
--- NOTE | 2025-01-08 | ECG_ITS ---
Test Reason : LT ARM NUMBNESS Blood Pressure : */* mmHG Vent. Rate : 62 BPM Atrial Rate : 62 BPM P-R Int : 198 ms QRS Dur : 162 ms QT Int : 470 ms P-R-T Axes : 51 -26 -2 degrees QTcB Int : 477 ms Normal sinus rhythm Right bundle branch block Minimal voltage criteria for LVH, may be normal variant ( R in aVL ) Abnormal ECG When compared with ECG of 01-Nov-2024 10:06, T wave inversion now evident in Anterior leads Referred By: Generic ED Physician Electronically Signed By: Anton Arndt
[2025-01-08 22:21] VITALS: BP 160/64; BP 206/86; PULSE 57; PULSE 70; RESP 20; TEMP 37.1; O2SAT 100; O2SAT 99; BMI 46.8
[2025-01-08 22:37] LABS: MANUAL DIFF FLAG NO
[2025-01-08 22:39] LABS: Basophils Percent Auto 0.2 % (0-2); Eosinophils Absolute Auto 0.1 X10*3/uL (0.0-0.4); Eosinophils Percent Auto 1.9 % (0-4); Hemoglobin 11.1 g/dl (14.0-18.0); Imm Gran Abs Auto 0.01 X10*3/uL (0.00-0.03); Imm Gran Pct Auto 0.2 % (0.0-0.4); Lymphocytes Absolute Auto 2.1 X10*3/uL (1.2-4.9); Lymphocytes Percent Auto 36.3 % (20-40); Mean Corpuscular HGB Conc 33.6 g/dl (31.0-36.0); Mean Corpuscular Hemoglobin 28.1 pg (27.0-33.0); Mean Corpuscular Volume 83.5 fL (80.0-98.0); Mean Platelet Volume 9.4 fL (9.4-12.4); Monocytes Absolute Auto 0.3 X10*3/uL (0.1-1.2); Monocytes Percent Auto 5.3 % (2-11); Neutrophils Absolute Auto 3.3 x10*3/uL (2.0-8.3); Neutrophils Percent Auto 56.1 % (45-73); Platelet Count 155 X10*3/uL (160-400); Red Blood Count 3.95 X10*6/uL (4.60-5.80); Red Cell Distribution Width 14.5 % (11.0-16.0); White Blood Count 5.9 X10*3/uL (4.8-10.8)
--- OUTSIDE RECORDS SUMMARY | 2025-01-08 22:46 | XMS_ITS | Encounter Summary ---
Author Organization [facility] Address [address] [place] [address] Support Name Relationship Address Phone Daija Ferrari Emergency Contact [address] [place] [address] Care Team Providers Care Prepper Name Role Phone Cornelio Wallace MD Primary Care Provider Un available Yola Man MD Primary Care Provider Unavail able Encounter Details Date Type Department Care Team Description 09/21/2016 Orders Only Adult Medicine [address] [address] Cornelio Wallace MD Social History Tobacco Use [...] on filedocumented in this encounter Care Teams Prepper Relationship Specialty Start Date End Date Cornelio Wallace MD PCP - General Internal Medicine 02/26/16 0 Yola Man MD PCP - General Internal Medicine 09/17/19 documented as of this encounter
--- OUTSIDE RECORDS SUMMARY | 2025-01-08 22:46 | XMS_ITS | Encounter Summary ---
Author Organization [facility] Address [address] [place] [address] Support Name Relationship Address Phone Daija Ferrari Emergency Contact [address] [place] [address] Care Team Providers Care On Air Director Name Role Phone Yola Man MD Primary Care Provider Unavail able Encounter Details Date Type Department Care Team Description 11/21/2019 Dispatcher Chief Oil Report Medical Records [address] [place] [address] Daron Harrington MD Social History Tobacco Use [...] on filedocumented in this encounter Care Teams On Air Director Relationship Specialty Start Date End Date Yola Man MD PCP - General Internal Medicine 09/17/19 documented as of this encounter
--- OUTSIDE RECORDS SUMMARY | 2025-01-08 22:46 | XMS_ITS | Encounter Summary ---
Author Organization [facility] Address [address] [place] [address] Support Name Relationship Address Phone Daija Ferrari Emergency Contact [address] [place] [address] Care Team Providers Care Automatic Lathe Tender Name Role Phone Cornelio Wallace MD Primary Care Provider Un available Yola Man MD Primary Care Provider Unavail able Encounter Details Date Type Department Care Team Description 11/14/2016 Radiologic Technology Instructor Report Medical Records [address] [place] [address] Debi Mcgrath [address] [place] [address] Social History Tobacco Use Types Packs/Day Years [...] on filedocumented in this encounter Care Teams Automatic Lathe Tender Relationship Specialty Start Date End Date Cornelio Wallace MD PCP - General Internal Medicine 02/26/16 0 Yola Man MD PCP - General Internal Medicine 09/17/19 documented as of this encounter
--- OUTSIDE RECORDS SUMMARY | 2025-01-08 22:46 | XMS_ITS | Clinical Summary ---
Author Organization [facility] Address [address] [place] [address] Care Team Providers Care Brand Sales Manager Name Role Phone Yola Man MD Primary Care Provider +[phone]- [phone] Surgical History Surgery Date Site/Laterality Comments FOOT SURGERY PROCEDURE: HISTORICAL FOOT SURGERY; COMMENT: 2 toes amputated for tumor. CHOLECYSTECTOMY PROCEDURE: HISTORICAL CHOLECYSTECTOMY OTHER SURGICAL HISTORY PROCEDURE: ---- OTHER ----; COMMENT: gastric band/removed COLONOSCOPY 12/28/2017 PROCEDURE: HISTORICAL COLONOSCOPY; COMMENT: Diminutive polyps ? 2 , these were lymphoid aggregates and not precancerous polyps. UPPER GASTROINTESTINAL ENDOSCOPY 12/28/2017 PROCEDURE: NE UPPER GI ENDOSCOPY PERFORMED; COMMENT: Dr. Ko, [facility]: Visually normal, dilation with 60 Fr Savary dilator performed. Medical History Medical History Date Comments DM (diabetes mellitus), type 2, uncontrolled 05/17/2016 DX:DM (diabetes mellitus), t ype 2, uncontrolled DM (diabetes mellitus), type 2 with neurological complications ([facility] V24, [facility] V28) 05/17/2016 DX:DM (diabetes mellitus), t ype 2 with neurological complications (HCC) H/O amputation of lesser toe , right ([facility] V24) 11/22/2017 DX:H/O amputation of lesser toe, right ([facility]); COMMENT: 4th and 5th toes in 2000, removal of tumor Osteopenia 07/04/2018 DX:Osteopenia Klinefelter syndrome 07/04/2018 DX:Klinefel ter syndrome Hypogonadotropic hypogonadis m ([facility] V24) 07/04/2018 DX:Hypogonadotropic hypogona dism (HCC) Family [...] age to complete this topic Care Teams Brand Sales Manager Relationship Specialty Start Date End Date Yola Man MD PCP - General Internal Medicine 09/17/19
--- OUTSIDE RECORDS SUMMARY | 2025-01-08 22:46 | XMS_ITS | Encounter Summary ---
Author Organization [facility] Address [address] [place] [address] Support Name Relationship Address Phone Daija Ferrari Emergency Contact [address] [place] [address] Care Team Providers Care Healthcare Advisory Services Manager Name Role Phone Cornelio Wallace MD Primary Care Provider Un available Yola Man MD Primary Care Provider Unavail able Encounter Details Date Type Department Care Team Description 11/15/2016 Orders Only Adult Medicine [address] [address] Cornelio Wallace MD Social History Tobacco Use [...] on filedocumented in this encounter Care Teams Healthcare Advisory Services Manager Relationship Specialty Start Date End Date Cornelio Wallace MD PCP - General Internal Medicine 02/26/16 0 Yola Man MD PCP - General Internal Medicine 09/17/19 documented as of this encounter
--- OUTSIDE RECORDS SUMMARY | 2025-01-08 22:46 | XMS_ITS | Clinical Summary ---
Author Organization [facility] Address [address] [place] [address] Support Name Relationship Address Phone Daija Ferrari Emergency Contact [address] [place] [address] Care Team Providers Care Senior Adults Director Name Role Phone Yola Man MD [...] Date Pulmonary nodule 09/19/2019 Overview: Follows with [facility] pulmonary Dr. Harrington Type 2 diabetes with nephropathy 019 Microalbuminuria 09/06/2019 Venous insufficiency of both lower extre mities 03/27/2019 Osteopenia 07/04/2018 Klinefelter syndrome 07/04/2018 Hypogonadotropic hypogonadism 07/04/2018 H/O amputation of lesser toe, right 11/09 Overview: 4th and 5th toes in 2000, removal of tumor Essential hypertension 06/09/2016 Gastroesophageal reflux disease without esophagitis 06/09/2016 Mixed hyperlipidemia 06/09/2016 Sleep apnea 06/09/2016 Overview: [facility] Polysomnogram treatment study. Date 06/23/2019. [...] HEPATITIS C SCREENING Completed 07/17/2017 Care Teams Senior Adults Director Relationship Specialty Start Date End Date Yola Man MD PCP - General Internal Medicine 1/7/20
--- OUTSIDE RECORDS SUMMARY | 2025-01-08 22:46 | XMS_ITS | Encounter Summary ---
Author Organization [facility] Address [address] [place] [address] Support Name Relationship Address Phone Daija Ferrari Emergency Contact [address] [facility] [address] [place] [address] Care Team Providers Care Insole Beveler Name Role Phone Cornelio Wallace MD Primary Care Provider Un available Yola Man MD Primary Care Provider Unavail able Reason for Visit * Reason Onset Date Comments Medication 05/01/2017 Encounter Details Date Type Department Care Team Description 05/01/2017 Telephone Adult Medicine [address] [address] Cornelio Wallace MD Medication Social History Tobacco [...] on filedocumented in this encounter Care Teams Insole Beveler Relationship Specialty Start Date End Date Cornelio Wallace MD PCP - General Internal Medicine 02/26/16 0 Yola Man MD PCP - General Internal Medicine 09/17/19 documented as of this encounter
--- OUTSIDE RECORDS SUMMARY | 2025-01-08 22:46 | XMS_ITS | Encounter Summary ---
Author Organization [facility] Address [address] [place] [address] Support Name Relationship Address Phone Daija Ferrari Emergency Contact [address] [place] [address] Care Team Providers Care Machine Hostler Name Role Phone Cornelio Wallace MD Primary Care Provider Un available Yola Man MD Primary Care Provider Unavail able Encounter Details Date Type Department Care Team Description 09/26/2018 Door To Door Salesperson Report Medical Records [address] [place] [address] Yvette Ahuja Social History Tobacco Use Types [...] on filedocumented in this encounter Care Teams Machine Hostler Relationship Specialty Start Date End Date Cornelio Wallace MD PCP - General Internal Medicine 02/26/16 0 Yola Man MD PCP - General Internal Medicine 09/17/19 documented as of this encounter
--- OUTSIDE RECORDS SUMMARY | 2025-01-08 22:46 | XMS_ITS | Encounter Summary ---
Author Organization [facility] Address [address] [place] [address] Support Name Relationship Address Phone Daija Ferrari Emergency Contact [address] [place] [address] Care Team Providers Care Lathmaker Name Role Phone Cornelio Wallace MD Primary Care Provider Un available Yola Man MD Primary Care Provider Unavail able Encounter Details Date Type Department Care Team Description 07/23/2018 Supervisor Veneer Report Medical Records [address] [place] [address] Sumaya Mata [address] [place] [address] Social History Tobacco Use Types Packs/Day Years [...] on filedocumented in this encounter Care Teams Lathmaker Relationship Specialty Start Date End Date Cornelio Wallace MD PCP - General Internal Medicine 02/26/16 0 Yola Man MD PCP - General Internal Medicine 09/17/19 documented as of this encounter
--- OUTSIDE RECORDS SUMMARY | 2025-01-08 22:46 | XMS_ITS | Encounter Summary ---
Author Organization [facility] Address [address] [place] [address] Support Name Relationship Address Phone Daija Ferrari Emergency Contact [address] [place] [address] Care Team Providers Care Ux Consultant Name Role Phone Cornelio Wallace MD Primary Care Provider Un available Yola Man MD Primary Care Provider Unavail able Encounter Details Date Type Department Care Team Description 05/21/2018 Brewing Technician Report Medical Records [address] [place] [address] Yvette Ahuja Social History Tobacco Use Types [...] on filedocumented in this encounter Care Teams Ux Consultant Relationship Specialty Start Date End Date Cornelio Wallace MD PCP - General Internal Medicine 02/26/16 0 Yola Man MD PCP - General Internal Medicine 09/17/19 documented as of this encounter
--- OUTSIDE RECORDS SUMMARY | 2025-01-08 22:46 | XMS_ITS | Encounter Summary ---
Author Organization [facility] Address [address] [place] [address] Support Name Relationship Address Phone Daija Ferrari Emergency Contact [address] [place] [address] Care Team Providers Care [facility] Name Role Phone Yola Man MD Primary Care Provider Unavail able Encounter Details Date Type Department Care Team Description 11/12/2020 Old Medical Records Medical Records [address] [place] [address] Abstract, Provider Social History Tobacco Use Types [...] on filedocumented in this encounter Care Teams [facility] Relationship Specialty Start Date End Date Yola Man MD PCP - General Internal Medicine 09/17/19 documented as of this encounter
--- OUTSIDE RECORDS SUMMARY | 2025-01-08 22:46 | XMS_ITS | Encounter Summary ---
Author Organization [facility] Address [address] [place] [address] Support Name Relationship Address Phone Daija Ferrari Emergency Contact [address] [place] [address] Care Team Providers Care Nut Roaster Name Role Phone Cornelio Wallace MD Primary Care Provider Un available Yola Man MD Primary Care Provider Unavail able Encounter Details Date Type Department Care Team Description 08/29/2016 Hotel Front Desk Clerk Report Medical Records [address] [place] [address] Debi Mcgrath [address] [place] [address] Social History Tobacco Use Types Packs/Day Years [...] on filedocumented in this encounter Care Teams Nut Roaster Relationship Specialty Start Date End Date Cornelio Wallace MD PCP - General Internal Medicine 02/26/16 0 Yola Man MD PCP - General Internal Medicine 09/17/19 documented as of this encounter
--- OUTSIDE RECORDS SUMMARY | 2025-01-08 22:46 | XMS_ITS | Encounter Summary ---
Author Organization [facility] Address [address] [place] [address] Support Name Relationship Address Phone Daija Ferrari Emergency Contact [address] [place] [address] Care Team Providers Care Genetic Physician Name Role Phone Cornelio Wallace MD Primary Care Provider Un available Yola Man MD Primary Care Provider Unavail able Encounter Details Date Type Department Care Team Description 01/15/2018 Sales Consulting Director Report Medical Records [address] [place] [address] Sumaya Mata [address] [place] [address] Social History Tobacco Use Types Packs/Day Years [...] on filedocumented in this encounter Care Teams Genetic Physician Relationship Specialty Start Date End Date Cornelio Wallace MD PCP - General Internal Medicine 02/26/16 0 Yola Man MD PCP - General Internal Medicine 09/17/19 documented as of this encounter
--- OUTSIDE RECORDS SUMMARY | 2025-01-08 22:46 | XMS_ITS | Encounter Summary ---
Author Organization [facility] Address [address] [place] [address] Support Name Relationship Address Phone Daija Ferrari Emergency Contact [address] [place] [address] Care Team Providers Care Furniture Mechanic Name Role Phone Yola Man MD Primary Care Provider Unavail able Encounter Details Date Type Department Care Team Description 12/17/2019 Retort Fireman Report Medical Records [address] [place], [place] [id number] [place] [address] Social History Tobacco Use Types Packs/Day Years [...] on filedocumented in this encounter Care Teams Furniture Mechanic Relationship Specialty Start Date End Date Yola Man MD PCP - General Internal Medicine 09/17/19 documented as of this encounter
--- OUTSIDE RECORDS SUMMARY | 2025-01-08 22:46 | XMS_ITS | Encounter Summary ---
Author Organization [facility] Address [address] [place] [address] Support Name Relationship Address Phone Daija Ferrari Emergency Contact [address] [place] [address] Care Team Providers Care Computer Designer Name Role Phone Cornelio Wallace MD Primary Care Provider Un available Yola Man MD Primary Care Provider Unavail able Encounter Details Date Type Department Care Team Description 12/28/2017 Hospital Medical Records [address] [place] [address] Ramy Ko MD [address] [place] [address] Social History Tobacco Use Types Packs/Day Years [...] on filedocumented in this encounter Care Teams Computer Designer Relationship Specialty Start Date End Date Cornelio Wallace MD PCP - General Internal Medicine 02/26/16 0 Yola Man MD PCP - General Internal Medicine 09/17/19 documented as of this encounter
--- OUTSIDE RECORDS SUMMARY | 2025-01-08 22:46 | XMS_ITS | Encounter Summary ---
Author Organization [facility] Address [address] [place] [address] Support Name Relationship Address Phone Daija Ferrari Emergency Contact [address] [place] [address] Care Team Providers Care Computer Mechanic Name Role Phone Cornelio Wallace MD Primary Care Provider Un available Yola Man MD Primary Care Provider Unavail able Encounter Details Date Type Department Care Team Description 08/16/2019 Bean Dumper Report Medical Records [address] [place] [address] Yvette Ahuja Social History Tobacco Use Types [...] filedocumented in this encounter Care Teams Computer Mechanic Relationship Specialty Start Date End Date Cornelio Wallace MD PCP - General Internal Medicine 02/26/16 0 Yola Man MD PCP - General Internal Medicine 09/17/19 documented as of this encounter
--- OUTSIDE RECORDS SUMMARY | 2025-01-08 22:46 | XMS_ITS | Encounter Summary ---
Author Organization [facility] Address [address] [place] [address] Support Name Relationship Address Phone Daija Ferrari Emergency Contact [address] [place] [address] Care Team Providers Care Burial Vault Maker Name Role Phone Cornelio Wallace MD Primary Care Provider Un available Yola Man MD Primary Care Provider Unavail able Encounter Details Date Type Department Care Team Description 01/10/2018 Systems Project Manager Report Medical Records [address] [place] [address] Sumaya Mata [address] [place] [address] Social History Tobacco Use Types Packs/Day Years [...] on filedocumented in this encounter Care Teams Burial Vault Maker Relationship Specialty Start Date End Date Cornelio Wallace MD PCP - General Internal Medicine 02/26/16 0 Yola Man MD PCP - General Internal Medicine 09/17/19 documented as of this encounter
--- OUTSIDE RECORDS SUMMARY | 2025-01-08 22:46 | XMS_ITS | Encounter Summary ---
Author Organization [facility] Address [address] [place] [address] Support Name Relationship Address Phone Daija Ferrari Emergency Contact [address] [place] [address] Care Team Providers Care Skate Maker Name Role Phone Cornelio Wallace MD Primary Care Provider Un available Yola Man MD Primary Care Provider Unavail able Encounter Details Date Type Department Care Team Description 01/03/2018 Otr Hazmat Company Driver Report Medical Records [address] [place] [address] Smuaya Mata [address] [place] [address] Social History Tobacco Use Types Packs/Day Years [...] on filedocumented in this encounter Care Teams Skate Maker Relationship Specialty Start Date End Date Cornelio Wallace MD PCP - General Internal Medicine 02/26/16 0 Yola Man MD PCP - General Internal Medicine 09/17/19 documented as of this encounter
--- OUTSIDE RECORDS SUMMARY | 2025-01-08 22:46 | XMS_ITS | Encounter Summary ---
Author Organization [facility] Address [address] [place] [address] Support Name Relationship Address Phone Daija Ferrari Emergency Contact [address] [facility] [address] [place] [address] Care Team Providers Care Admin Secretary Name Role Phone Cornelio Wallace MD Primary Care Provider Un available Yola Man MD Primary Care Provider Unavail able Reason for Referral * Non GISELL (Routine) - Authorized/Booked Specialty Diagnoses / Procedures Referred By Contac t Referred To Contact Physiatry Procedures REFERRAL TO PHYSIATRY Cornelio Wallace MD [address] [place] [address] Physi/[place] [address] [place] [id number] Referral ID Status Reason Start Date Expiration Date V isits Requested Visits Authorized [id number] Authorized/B ooked 05/22/2018 05/22/2019 1 1 Encounter Details Date Type Department Care Team Description 05/22/2018 Orders Only Adult Medicine [address] [address] Cornelio Wallace MD Social History Tobacco Use [...] on filedocumented in this encounter Care Teams Admin Secretary Relationship Specialty Start Date End Date Cornelio Wallace MD PCP - General Internal Medicine 6/17/16 1/6/2 0 Yola Man MD PCP - General Internal Medicine 09/17/19 documented as of this encounter
--- OUTSIDE RECORDS SUMMARY | 2025-01-08 22:46 | XMS_ITS | Encounter Summary ---
Author Organization [facility] Address [address] [place] [address] Support Name Relationship Address Phone Daija Ferrari Emergency Contact [address] [place] [address] Care Team Providers Care Sr. Director Name Role Phone Cornelio Wallace MD Primary Care Provider Un available Yola Man MD Primary Care Provider Unavail able Encounter Details Date Type Department Care Team Description 11/28/2018 Practice Coordinator Report Medical Records [address] [place] [address] Abstract, Provider Social History Tobacco Use Types [...] on filedocumented in this encounter Care Teams Sr. Director Relationship Specialty Start Date End Date Cornelio Wallace MD PCP - General Internal Medicine 02/26/16 0 Yola Man MD PCP - General Internal Medicine 09/17/19 documented as of this encounter
--- OUTSIDE RECORDS SUMMARY | 2025-01-08 22:46 | XMS_ITS | Encounter Summary ---
Author Organization [facility] Address [address] [place] [address] Support Name Relationship Address Phone Daija Ferrari Emergency Contact [address] [place] [address] Care Team Providers Care Construction Supervisor Name Role Phone Cornelio Wallace MD Primary Care Provider Un available Yola Man MD Primary Care Provider Unavail able Reason for Visit * Reason Comments E-prescribe Rx Request Encounter Details Date Type Department Care Team Description 06/17/2018 Refill Adult Medicine [address] [address] Cornelio Wallace MD E-prescribe Rx Request Social History Tobacco Use Types Packs/Day Years Used Date Smoking Tobacco: Former Smokeless Tobacco: Never Comments:.25 ppd for 7 years Alcohol Use Standard Drinks/Week Comments No 0 (1 standard drink = 0.6 oz pur e alcohol) Sex Assigned at Date Recorded Not on file documented as of this encounter Miscellaneous Notes * Telephone Encounter - Delicia Cornelius PA-C - 06/18/2018 3:33 PM EDT Ok to fill. Laila Marks * Telephone Encounter - Nasima Diaz M.A. - 06/18/2018 2:22 PM EDT HCTZ refused Changed to lisinopril-hctz on 03/30/18 Lab Results Component Value Date NA 141 11/22/2017 K 3.7 11/22/2017 CO2 29.4 11/22/2017 CL 95 11/22/2017 BUN 18 11/22/2017 CREAT 0.8 11/22/2017 GLU 237 11/22/2017 CA 9.8 11/22/2017 GFR > 60 11/22/2017 * Telephone Encounter - Rebeka Sebastianzaheer - 06/18/2018 10:06 AM EDT Patient would like script to be: E-PRESCRIBED/FAXED TO PHARMACY WHEN WAS THE PATIENT'S LAST APPOINTMENT IN ADULT MEDICINE? [id number] WHEN WAS THE LAST TIME THE PATIENT SAW THEIR PCP? Same as above Does patient have an upcoming appointment? Yes [id number] (THE MEDICATION REQUESTED IS ON THE MED LIST ABOVE) All of the medications requested were on the CURRENT MEDS list Did you check the Pharmacy information above?: YES Patient wants: 90 -day supply Is this a mail order prescription request ? NO If the refill is from a FAXED refill request what is the RX # listed on the fax? Patients current insurance carrier is: Payor: [employer] [facility] / Plan: [facility] / Product Type: MEDICAID RISK documented in this encounter Plan of Treatment Not on file documented as of this encounter Visit Diagnoses Not on filedocumented in this encounter Care Teams Construction Supervisor Relationship Specialty Start Date End Date Cornelio Wallace MD PCP - General Internal Medicine 02/26/16 0 Yola Man MD PCP - General Internal Medicine 09/17/19 documented as of this encounter
[2025-01-08 22:52] LABS: Alanine Aminotransferase 15 U/L (0-40); Albumin Level 3.7 g/dL (3.5-5.0); Alkaline Phosphatase 66 U/L (39-117); Anion Gap 12 (12-20); Aspartate Amino Transferase 18 U/L (5-37); Bilirubin Total 0.4 mg/dL (0.0-1.0); Blood Urea Nitrogen 19 mg/dL (9-16); Carbon Dioxide 30 mmol/L (22-29); Chloride 103 mmol/L (96-108); Creatinine Clr Calc Pharmacy 105.1; Estimated Glomerular Filt Rate > 60; Glucose Random 282 mg/dL (60-115); Potassium 3.4 mmol/L (3.3-5.1); Sodium 142 mmol/L (135-145); Total Protein 6.9 g/dL (6.5-8.0)
[2025-01-08 22:59] LABS: Troponin-I High Sensitivity < 2.7 ng/L (<3.5-35.0)
[2025-01-08 23:53] VITALS: BP 182/92; PULSE 58; RESP 14; TEMP 36.5; O2SAT 100
--- NOTE | 2025-01-09 01:36 | PC.NURSE ---
Addendum entered by Dianne Baez 01/09/25 01:39: Pt ambulated independently with steady gait. Original Note: Pt upset about not seeing a provider since coming in, requesting discharge paperwork. IV taken out per request. Pt LWBS.
== END 2025-01-09 01:39 | disposition left against medical advice (07) ==
PROVIDERS: Emergency Provider Emergency Medicine; PCP Internal Medicine
DX: M54.2 Cervicalgia (principal); M25.512 Pain in left shoulder; R20.0 Anesthesia of skin; I45.10 Unspecified right bundle-branch block
CPT/HCPCS: 36415; 80053; 84484; 85025; 93005; 99281; 99284

== ENCOUNTER → 2025-01-08 22:24 | Outpatient (BNV) | payer OTHER, SELFPAY | PROVIDERS: Emergency Provider Emergency Medicine; PCP Internal Medicine; Visit Provider Internal Medicine Cardiovascular Disease | DX: I45.10 Unspecified right bundle-branch block (principal); R94.31 Abnormal electrocardiogram [ECG] [EKG] | CPT/HCPCS: 93010 ==

== ENCOUNTER 2025-01-10 09:55 | Outpatient (REF) | payer OTHER, SELFPAY ==
--- NOTE | ~2025-01-10 | MM_ITS ---
EXAMINATION: DXA BONE DENSITY AXIAL HISTORY: M85.89 - Other specified disorders of bone density and structure, multiple... TECHNIQUE: [employer] Dual energy absorptiometry (DEXA) of the lumbar spine, total left hip, and femoral neck was performed. COMPARISON: Comparison is made with the prior examination dated 05/06/2020. FINDINGS: The bone mineral density of the lumbar spine is 1.130 with a T-score of -0.7, and a Z-score of -1.1. This is indicative of normal bone mineral density. This represents a BMD change of 3.8% compared to the prior exam. This is statistically significant. The bone mineral density of the left total hip is 0.961 with a T-score of -1.0, and a Z-score of -1.0. This is indicative of normal bone mineral density. This represents a BMD change of -3.2% compared to the prior exam. This is not statistically significant. The bone mineral density of the left femoral neck is 0.896 with a T-score of -1.3, and a Z-score of -1.0. This is indicative of osteopenia. This represents a BMD change of 7.7% compared to the prior exam. FRACTURE RISK: The FRAX index suggests a ten year probability of major osteoporotic fracture of 2.8%, and of hip fracture 0.3%. MM/XR DEXA axial skeleton IMPRESSION: Based on bone mineral density, and according to World Health Organization (WHO) criteria, the diagnosis is consistent with osteopenia. All bone density values are in grams per centimeter squared (g/cm2). Statistically, 68% of repeat scans fall within 1 SD (+/- 0.010 g/cm2 for AP spine L1-L4) and 1 SD (+/- 0.012 g/cm2 for femur total) FRAX is a trademark of the [employer], a World Health Organization (WHO) Collaborating Center. Electronically signed by: Dwight Monge MD 01/10/2025 11:32 AM EDT
--- OUTSIDE RECORDS SUMMARY | 2025-01-10 10:49 | XMS_ITS | Clinical Summary ---
Author Organization [facility] Address [address] [place] [address] Care Team Providers Care Financial Services Intern Name Role Phone Yola Man MD Primary Care Provider +[phone]- [phone] Surgical History Surgery Date Site/Laterality Comments FOOT SURGERY PROCEDURE: HISTORICAL FOOT SURGERY; COMMENT: 2 toes amputated for tumor. CHOLECYSTECTOMY PROCEDURE: HISTORICAL CHOLECYSTECTOMY OTHER SURGICAL HISTORY PROCEDURE: ---- OTHER ----; COMMENT: gastric band/removed COLONOSCOPY 12/28/2017 PROCEDURE: HISTORICAL COLONOSCOPY; COMMENT: Diminutive polyps ? 2 , these were lymphoid aggregates and not precancerous polyps. UPPER GASTROINTESTINAL ENDOSCOPY 12/28/2017 PROCEDURE: CT UPPER GI ENDOSCOPY PERFORMED; COMMENT: Dr. Ko, [facility]: Visually normal, dilation with 60 Fr Savary dilator performed. Medical History Medical History Date Comments DM (diabetes mellitus), type 2, uncontrolled 05/17/2016 DX:DM (diabetes mellitus), t ype 2, uncontrolled DM (diabetes mellitus), type 2 with neurological complications ([facility] V24, [facility] V28) 05/17/2016 DX:DM (diabetes mellitus), t ype 2 with neurological complications (HCC) H/O amputation of lesser toe , right ([facility] V24) 11/22/2017 DX:H/O amputation of lesser toe, right ([facility]); COMMENT: 4th and 5th toes in 2000, removal of tumor Osteopenia 07/04/2018 DX:Osteopenia Klinefelter syndrome 07/04/2018 DX:Klinefel ter syndrome Hypogonadotropic hypogonadis m ([facility] V24) 07/04/2018 DX:Hypogonadotropic hypogona [...] age to complete this topic Care Teams Financial Services Intern Relationship Specialty Start Date End Date Yola Man MD PCP - General Internal Medicine 09/17/19
== END 2025-01-10 09:56 | disposition home or self-care (01) ==
LOC: HO.MAMMO 09:55
PROVIDERS: PCP Internal Medicine; Visit Provider Nurse Practitioner Adult Health
DX: Z13.820 Encounter for screening for osteoporosis (principal); M85.89 Other specified disorders of bone density and structure, multiple sites; E29.1 Testicular hypofunction
CPT/HCPCS: 77080

== ENCOUNTER → 2025-01-10 09:57 | Outpatient (BNV) | payer OTHER, SELFPAY | PROVIDERS: PCP Internal Medicine; Visit Provider Radiology Diagnostic Radiology | DX: M85.89 Other specified disorders of bone density and structure, multiple sites (principal) | CPT/HCPCS: 77080 ==

== ENCOUNTER 2025-01-29 08:57 | Outpatient (AMB) | payer OTHER, SELFPAY ==
--- NOTE | 2025-01-29 07:23 | A.OFFVIS_ITS ---
Vital Signs 01/29/25 09:07 Height 5 ft 8 in Weight 291 lb 0.163 oz BMI 44.2 BP 160/90 H Blood Pressure Location Rt brachial Position Sitting Pulse 64 Pulse Source Pulse Oximeter Pulse Oximetry (%) 96 Oxygen Delivery Method Room Air Intake Visit Reasons: T2DM Intake Note: Patient presents today for a follow-up on Type 2 Diabetes Mellitus: Last Diabetic Eye exam: 01/17/2024, [facility] Last Podiatry Visit: needs referral to a asset protection agent Most Recent HgA1c: 7.6%, 12/27/2024 Random Glucose: 153 mg/dL, Today Meatcutter Required: Yes Meatcutter Language: Adult Family Home Program Manager Services: Meatcutter [facility] Accompanied by: Self / Same As Patient Allergies aspirin [Aspirin] Allergy (Severe, Verified 01/29/25 09:08) RASH,THROAT CLOSES, Swollen throat Peanut Butter Allergy (Severe, Verified 01/29/25 09:08) Anaphylaxis dicyclomine [From BENTYL] Allergy (Intermediate, Verified 01/29/25 09:08) PALPITATIONS insulin lispro [Admelog SoloStar U-100 Insulin] Allergy (Intermediate, Verified 01/29/25 09:08) dizziness methylprednisolone [METHYLPREDNISOLONE] Allergy (Intermediate, Verified 01/29/25 09:08) SWELLING furosemide Adverse Reaction (Severe, Verified 01/29/25 09:08) Headache nuts Allergy (Severe, Uncoded 01/29/25 09:08) swelling testosterone Allergy (Intermediate, Uncoded 01/29/25 09:08) Rash jardiance Adverse Reaction (Mild, Uncoded 01/29/25 09:08) Drowsy HPI Comments Details: Patient is 59-year-old male with DM type 2 diagnosed in 2012 who presents for management of diabetes. Patient was last seen 06/28/24. 12/27/24 7.6% 08/26/25 7.1%. 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 Jardiance had side effects Trulicity not at goal Diabetes medications: Tresiba 16 units Mounjaro 5mg weekly (was not able to get from pharmacy) Meter download shows an average of 148 tests once daily varying test time Has neuropathy. Symptoms reported: occasional tingling, Denies numbness, cramping in lower extremities. He does not see a asset protection agent. He has prior amputation of 4th/5th toe and lateral aspect of foot secondary to cancer, Has Nephropathy:on bianca-I 05/2024 eGFR >60 microalbumin 787 Exercise: has indoor bicycle/foot pedals and does 15 minutes 2-3 times a day. Walks throughout the day in short intervals Chemical Preparer - CDE education: saw gauge operator in the past Ophthalmology evaluation: He will schedule He has a history of Klinefelter and previously had been on testosterone many years ago. He was evaluated by Endocrine at his initial visit which is not available in EMR (e clinical works no access to labs). Patient did confirm the diagnosis was made by at [facility] and declined going back on testosterone at subsequent visits. despite osteopenia. He has declined testosterone injections at his last few visits. Date of Service: 01/10/25 EXAMINATION: DXA BONE DENSITY AXIAL HISTORY: M85.89 - Other specified disorders of bone density and structure, multiple... TECHNIQUE: [employer] Escapes Dual energy absorptiometry (DEXA) of the lumbar spine, total left hip, and femoral neck was performed. COMPARISON: Comparison is made with the prior examination dated 05/06/2020. FINDINGS: The bone mineral density of the lumbar spine is 1.130 with a T-score of -0.7, and a Z-score of -1.1. This is indicative of normal bone mineral density. This represents a BMD change of 3.8% compared to the prior exam. This is statistically significant. The bone mineral density of the left total hip is 0.961 with a T-score of -1.0, and a Z-score of -1.0. This is indicative of normal bone mineral density. This represents a BMD change of -3.2% compared to the prior exam. This is not statistically significant. The bone mineral density of the left femoral neck is 0.896 with a T-score of -1.3, and a Z-score of -1.0. This is indicative of osteopenia. This represents a BMD change of 7.7% compared to the prior exam. FRACTURE RISK: The FRAX index suggests a ten year probability of major osteoporotic fracture of 2.8%, and of hip fracture 0.3%. DEXA scan 01/19/2018 AP SPINE L1-L4: BMD 1.045 g/cm2, Z-score -2.0, T-score -1.5, osteopenia. LEFT FEMUR, NECK: BMD 0.816 g/cm2, Z-score -1.8, T-score -2.0, osteopenia. LEFT FEMUR, TOTAL: BMD 0.962 g/cm2, Z-score -1.1, T-score -1.0, normal Drinks one glass of milk daily. [facility] Medical History Uncontrolled type 2 diabetes mellitus with hyperglycemia, with long-term current use of insulin Diabetes mellitus Type 2 diabetes mellitus with other diabetic kidney complication Loss of consciousness Chronic GERD Abdominal pain Epigastric pain Type 2 diabetes mellitus, with long-term current use of insulin Right leg pain Immunization due Obesity due to excess calories Diabetes type 2, uncontrolled Morbid obesity due to excess calories Asthma Microalbuminuria Left shoulder pain Lower back pain Diabetic polyneuropathy associated with type 2 diabetes mellitus Anemia ELO (obstructive sleep apnea) Diabetic nephropathy associated with type 2 diabetes mellitus Klinefelter syndrome Vitamin D deficiency Dyslipidemia Hypertension FCI (current) use of insulin Osteopenia Hypogonadism male Surgical History Hx of esophagogastroduodenoscopy Hx of colonoscopy History of removal of laparoscopic gastric banding device Hx of laparoscopic gastric banding Hx of foot surgery Hx of cholecystectomy Family History Father No problems noted. Mother Diabetes Osteoporosis Social History Household Members: None Housing: Apartment Alcohol intake: former Patient Tobacco Use Status: Former Tobacco user Tobacco use type: Cigarette e-Cigarette/Vaping Use: Never Used Second Hand Smoke Exposure: No service: No Current occupational status: disabled Cognitive needs: No Hearing needs: No Vision needs: Yes (glasses ) Physical Exam Vital Signs: Last Vital Signs Pulse 64 01/29/25 09:07 BP 160/90 H 01/29/25 09:07 Pulse Ox 96 01/29/25 09:07 Oxygen Delivery Method Room Air 01/29/25 09:07 BMI result Body Mass Index 44.2 Const Other: No acute distress Neck exam reveals nl size thyroid about 15 gms. No thyroid nodules palpable. Heart S1 S2, Reg R/R. No M/R G. Skin exam reveals absence of vitiligo or acanthosis nigricans. Results Reviewed Results Reviewed: Laboratory Last Values Glucose (Clinic) 153 mg/dL (60-115) H 01/29/25 09:12 Assessment & Plan Assessment & Plan (1) Diabetes mellitus: Code(s): E11.9 - Type 2 diabetes mellitus without complications Category: Medical Qualifiers: Diabetes mellitus type: type 2 Diabetes mellitus longshore equipment operator insulin use: without longshore equipment operator use Diabetes mellitus complication status: with hyperglycemia Qualified Code(s): E11.65 - Type 2 diabetes mellitus with hyperglycemia Plan: Type 2 diabetes in a 60-year-old obese male with hypogonadism, neuropathy and microalbuminuria on BIANCA inhibitor with the an A1c of 7.6% We will attempt to get Ozempic approved the lower his A1c. Was not at target on Trulicity. He checks his sugars only sporadically and would benefit from a continuous glucose sensor. I have written a prescription for both freestyle 3+ and long with a reader. (2) Hypertension: Code(s): I10 - Essential (primary) hypertension Category: Medical Qualifiers: Hypertension type: essential hypertension Qualified Code(s): I10 - Essential (primary) hypertension Plan: not at target bp Precription sent in the fall for HCTZ which the patient did not get I will contact pharmacy on this (3) Hypogonadism male: Code(s): E29.1 - Testicular hypofunction Category: Medical Plan: He has declined testosterone treatment. (4) Osteopenia: Code(s): M85.80 - Other specified disorders of bone density and structure, unspecified site Category: Medical Qualifiers: Osteopenia location: multiple sites Qualified Code(s): M85.89 - Other specified disorders of bone density and structure, multiple sites Plan: Recent DEXA shows some improvement but this may be artificial secondary to his body size and differences in technique. Had work up several years ago with former provider. WIll order labs to complete work up and make recommendations on calcium/vitamin d once labs done Orders: Orders Protein Electrophoresis, Serum Today M85.89 - Other specified disorders of bone density and structure, multiple sites Basic Metabolic Panel Today I10 - Essential (primary) hypertension Phosphorus Today M85.89 - Other specified disorders of bone density and structure, multiple sites Vitamin D 25-OH Total Today E55.9 - Vitamin D deficiency, unspecified Alkaline Phosphatase Bone Today M85.89 - Other specified disorders of bone density and structure, multiple sites Medications: New semaglutide (Ozempic) for 4 weeks 0.25 mg (0.368 mL) subcut QWEEK 28 days 1.5 mL 2RF Refilled blood-glucose,canceling and cutting control clerk,cont (FreeStyle Asa 3 Winn) Use daily As directed to monitor blood glucose 1 ea 0RF E11.65 - Type 2 diabetes mellitus with hyperglycemia, Z79.4 - FCI (current) use of insulin hydrochlorothiazide 12.5 mg PO DAILY 30 days 30 caps 6RF I10 - Essential (primary) hypertension Discontinued blood-glucose sensor (FreeStyle Asa 3 Sensor device) Discontinued Reason: Doctor's Order Apply every 14 days As directed to monitor blood glucose 2 ea 11RF E11.9 - Type 2 diabetes mellitus without complications, Z79.4 - tank terminal gauger (current) use of insulin On Hold tirzepatide (Mounjaro) Hold Comment: Doctor's Order 5 mg subcut QWEEK 4 weeks 4 mL 6RF Coding Level of Care Code Est Pt Level 5 (41137) Complex EM visit Add On G2211 Diagnoses Type 2 diabetes mellitus with hyperglycemia, without long-term current use of insulin E11.65 Diabetes mellitus type: type 2 Diabetes mellitus halfway insulin use: without longshore equipment operator use Diabetes mellitus complication status: with hyperglycemia Essential hypertension I10 Hypertension type: essential hypertension Hypogonadism male E29.1 Osteopenia of multiple sites M85.89 Osteopenia location: multiple sites
[2025-01-29 09:07] VITALS: BP 160/90; PULSE 64; O2SAT 96; BMI 44.2
[2025-01-29 09:15] LABS: Glucose, Whole Blood 153 mg/dL (60-115)
--- OUTSIDE RECORDS SUMMARY | 2025-01-29 10:15 | XMS_ITS | Clinical Summary ---
Author Organization [email or web address] [facility] Address [address] [place] [address] Care Team Providers Care Client Services Analyst Name Role Phone Yola Man MD [...] precancerous polyps. UPPER GASTROINTESTINAL ENDOSCOPY 12/28/2017 PROCEDURE: [place] UPPER GI ENDOSCOPY PERFORMED; COMMENT: Dr. Ko, [facility]: Visually normal, dilation with 60 Fr Savary dilator performed. Medical History Medical History Date Comments DM (diabetes mellitus), type 2, uncontrolled 05/17/2016 DX:DM (diabetes mellitus), t ype 2, uncontrolled DM (diabetes mellitus), type 2 with neurological complications ([facility] V24, [facility] V28) 05/17/2016 DX:DM (diabetes mellitus), t ype 2 with neurological complications (HCC) H/O amputation of lesser toe , right ([facility] V24) 11/22/2017 DX:H/O amputation of lesser toe, right ([facility]); COMMENT: 4th and 5th toes in 2000, removal of tumor Osteopenia 07/04/2018 DX:Osteopenia Klinefelter syndrome 07/04/2018 DX:Klinefel ter syndrome Hypogonadotropic hypogonadis m ([facility] V24) 07/04/2018 DX:Hypogonadotropic hypogona dism (HCC) Family [...] age to complete this topic Care Teams Client Services Analyst Relationship Specialty Start Date End Date Yola Man MD PCP - General Internal Medicine 09/17/19
== END 2025-01-29 09:49 | disposition home or self-care (01) ==
LOC: HO.ENCR 08:57
PROVIDERS: PCP Internal Medicine; Visit Provider Nurse Practitioner Adult Health
DX: E11.65 Type 2 diabetes mellitus with hyperglycemia (principal); I10 Essential (primary) hypertension; E29.1 Testicular hypofunction; M85.89 Other specified disorders of bone density and structure, multiple sites
CPT/HCPCS: 99214; G2211

== ENCOUNTER → 2025-01-29 08:57 | Outpatient (BNVA) | payer OTHER, SELFPAY | PROVIDERS: PCP Internal Medicine; Visit Provider Nurse Practitioner Adult Health | DX: E11.65 Type 2 diabetes mellitus with hyperglycemia (principal); I10 Essential (primary) hypertension; E29.1 Testicular hypofunction; M85.89 Other specified disorders of bone density and structure, multiple sites | CPT/HCPCS: 82947; 99212 ==

== ENCOUNTER 2025-02-10 13:59 | Outpatient (AMB) | payer OTHER, SELFPAY ==
--- NOTE | 2025-02-10 14:07 | MHC.OFFVIS ---
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//tachycardia Intake Note: SANITARY ENGINEER//Tachycardia- Lead Java Software Engineer Required: Yes Lead Java Software Engineer Language: Police Sergeant Precinct Name: [email or web address] Accompanied by: Self / Same As Patient Allergies aspirin [Aspirin] Allergy (Severe, Verified 01/29/25 09:08) RASH,THROAT CLOSES, Swollen throat Peanut Butter Allergy (Severe, Verified 01/29/25 09:08) Anaphylaxis dicyclomine [From BENTYL] Allergy (Intermediate, Verified 01/29/25 09:08) PALPITATIONS insulin lispro [Admelog SoloStar U-100 Insulin] Allergy (Intermediate, Verified 01/29/25 09:08) dizziness methylprednisolone [METHYLPREDNISOLONE] Allergy (Intermediate, Verified 01/29/25 09:08) SWELLING furosemide Adverse Reaction (Severe, Verified 01/29/25 09:08) Headache nuts Allergy (Severe, Uncoded 01/29/25 09:08) swelling testosterone Allergy (Intermediate, Uncoded 01/29/25 09:08) Rash jardiance Adverse Reaction (Mild, Uncoded 01/29/25 09:08) Drowsy Medication List - Last Reconciled 02/10/25 by Anton Arndt MD [emergency urine bag As directed] acetaminophen (Tylenol Extra Strength) 1,000 mg (2 x 500 mg) PO Q6H PRN albuterol sulfate 90 mcg/actuation 2 puffs inhalation Q4-6H PRN NS amlodipine 5 mg PO DAILY 90 days blood pressure monitor (Blood Pressure Kit) As directed blood sugar diagnostic (FreeStyle Lite Strips) Use daily As directed to check blood glucose blood-glucose meter (FreeStyle Lite Meter kit) Use daily As directed to check blood sugars blood-glucose,franchise specialist,cont (FreeStyle Asa 3 Sycamore) Use daily As directed to monitor blood glucose cetirizine (All Day Allergy (cetirizine)) 10 mg PO DAILY PRN 7 days diclofenac sodium 1% (Arthritis Pain (diclofenac)) 2 grams topical QID PRN fluticasone furoate-vilanterol 200-25 mcg/dose (Breo Ellipta) 1 inh inhalation DAILY glucose (Dex4 Glucose) 16 grams (4 x 4 gram) PO Q15M PRN hydrochlorothiazide 12.5 mg PO DAILY 30 days ibuprofen 400 mg PO TID PRN insulin degludec (Tresiba FlexTouch U-200 insulin) 16 units (0.08 mL) subcut DAILY 30 days lancets (FreeStyle Lancets) use daily as directed to check blood glucose lidocaine 5% 1 patch topical DAILY omeprazole 40 mg PO DAILY pen needle, diabetic (BD Sonja 2nd Gen Pen Needle) As directed once daily semaglutide (Ozempic) 0.25 mg (0.368 mL) subcut QWEEK 28 days Shower Chair As directed [Skin Tac Wipes 1 unit topical .use as directed 90 days NS] walker As directed HPI Comments Details: 60-year-old male with hypogonadism secondary to Klinefelter syndrome, obesity, sleep apnea, hypertension, diabetes and hyperlipidemia who is presenting with palpitations. He was seen in 2021 for loss of consciousness. At that time clinical story appeared to be related to seizures and he was referred for further assessment. He has not been seen by us since then. He has not returned him because he has been getting palpitations off and on. He is saying that palpitations can last for many minutes and happen once every 2 weeks. No dizziness or syncope. No chest discomfort. He had a Holter monitor done in October 2024 which showed no significant arrhythmia and 2 episodes of Mobitz type 1 second-degree AV block and occasional premature ventricular complexes were noted. He is saying that the sticker used for the Holter monitor was to sticky and lead to skin peeling and open wound once the remove the Holter. He is denying any shortness of breath or chest discomfort. He has chronic right bundle-branch block. [facility] Medical History Uncontrolled type 2 diabetes mellitus with hyperglycemia, with long-term current use of insulin Diabetes mellitus Type 2 diabetes mellitus with other diabetic kidney complication Loss of consciousness Chronic GERD Abdominal pain Epigastric pain Type 2 diabetes mellitus, with long-term current use of insulin Right leg pain Immunization due Obesity due to excess calories Diabetes type 2, uncontrolled Morbid obesity due to excess calories Asthma Microalbuminuria Left shoulder pain Lower back pain Diabetic polyneuropathy associated with type 2 diabetes mellitus Anemia ELO (obstructive sleep apnea) Diabetic nephropathy associated with type 2 diabetes mellitus Klinefelter syndrome Vitamin D deficiency Dyslipidemia Hypertension 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 Mother Diabetes Osteoporosis Heart murmur Social History Household Members: None Housing: Apartment Alcohol intake: former Patient Tobacco Use Status: Former Tobacco user Tobacco use type: Cigarette e-Cigarette/Vaping Use: Never Used Second Hand Smoke Exposure: No service: No Current occupational status: disabled Cognitive needs: No Hearing needs: No Vision needs: Yes (glasses ) Review of Systems Const Denies chills, Denies fatigue, Denies fever(s), Denies frequent falls, Denies weakness, Denies weight gain and Denies weight loss ENT Denies dizziness Card Denies chest pain, Denies leg edema, Denies lightheadedness, Denies palpitations, Denies dyspnea, Denies dyspnea on exertion and Denies orthopnea Resp Denies cough, Denies dyspnea and Denies dyspnea on exertion GI Denies bloating and Denies change in bowel habits Musc Denies muscle weakness, Denies numbness and Denies tingling Neuro Denies dizziness, Denies frequent falls, Denies numbness, Denies tingling and Denies weakness Endo Denies fatigue and Denies palpitations Physical Exam Vital Signs: Last Vital Signs Pulse 63 02/10/25 14:11 BP 142/80 H 02/10/25 14:11 BMI result Body Mass Index 43.9 GENERAL APPEARANCE: in no acute distress, pleasant. Obese. NECK: no carotid bruit, no jugular venous distention. SKIN: no suspicious lesions, warm and dry. HEART: no murmurs, regular rate and rhythm. LUNGS: clear to auscultation bilaterally. ABDOMEN: soft, nontender. EXTREMITIES: no edema. PERIPHERAL PULSES: equal. NEUROLOGIC: No gross deficits, AAO X 3 Office Procedures EKG Details: Sinus rhythm 63 beats per minute, left axis deviation, right bundle-branch block with QRS duration 162 milliseconds, can not rule atrial infarct, QTC 466 milliseconds. [id number], Complete Assessment & Plan Assessment & Plan (1) Palpitations: Code(s): R00.2 - Palpitations Category: Medical Plan 60-year-old gentleman with hypogonadism secondary to Klinefelter syndrome, morbid obesity, hypertension, diabetes and hyperlipidemia who is presenting for palpitations. EKGs showing right bundle-branch block which is chronic. He had 24 hour Holter monitor which did not show any significant arrhythmia. We discussed about doing 30 day monitor because his symptoms are quite infrequent and 24 hour monitoring may miss his episodes. He had some reaction from the adhesive material use for Holter. I have advised him that once he comes for 30 day monitor if the adhesive/stickers are similar then he should not get it because he may get skin feeling again. I have given options of buying a Sribu device or a watch but he is unable to afford them currently. He will see us back in few months after 30 day monitor. Thank you for allowing me to participate in the care of your patient. Please feel free to contact me if you have any questions. Coding Level of Care Code New Pt Level 4 (83656) Diagnoses Palpitations R00.2 CPT Codes EKG - CPT: 80807-[id number], Complete ([id number])
[2025-02-10 14:11] VITALS: BP 142/80; PULSE 63; BMI 43.9
--- OUTSIDE RECORDS SUMMARY | 2025-02-10 15:15 | XMS_ITS | Clinical Summary ---
Author Organization [employer] [facility] Address [address] [place] [address] Care Team Providers Care Lathe Set Up Operator Name Role Phone Yola Man MD Primary Care Provider [phone] Surgical History Surgery Date Site/Laterality Comments FOOT SURGERY PROCEDURE: HISTORICAL FOOT SURGERY; COMMENT: 2 toes amputated for tumor. CHOLECYSTECTOMY PROCEDURE: HISTORICAL CHOLECYSTECTOMY OTHER SURGICAL HISTORY PROCEDURE: ---- OTHER ----; COMMENT: gastric band/removed COLONOSCOPY 12/28/2017 PROCEDURE: HISTORICAL COLONOSCOPY; COMMENT: Diminutive polyps ? 2 , these were lymphoid aggregates and not precancerous polyps. UPPER GASTROINTESTINAL ENDOSCOPY 12/28/2017 PROCEDURE: [place] UPPER GI ENDOSCOPY PERFORMED; COMMENT: Dr. Ko, [facility]: Visually normal, dilation with 60 Fr Savary dilator performed. Medical History Medical History Date Comments DM (diabetes mellitus), type 2, uncontrolled 05/17/2016 DX:DM (diabetes mellitus), t ype 2, uncontrolled DM (diabetes mellitus), type 2 with neurological complications ([facility] V24, [facility] V28) 05/17/2016 DX:DM (diabetes mellitus), t ype 2 with neurological complications (HCC) H/O amputation of lesser toe , right ([facility] V24) 11/22/2017 DX:H/O amputation of lesser toe, right ([facility]); COMMENT: 4th and 5th toes in 2000, removal of tumor Osteopenia 07/04/2018 DX:Osteopenia Klinefelter syndrome 07/04/2018 DX:Klinefel ter syndrome Hypogonadotropic hypogonadis m ([facility] V24) 07/04/2018 DX:Hypogonadotropic hypogona dism (HCC) Family [...] (2 - Td or Tdap) 07/17/2027 07/17/2017 RSV Immunization Adult Patie nts (1 - 1-dose 75+ series) 2041 Pneumococcal Vaccine: Pediat rics (0 to 5 [...] age to complete this topic Care Teams Lathe Set Up Operator Relationship Specialty Start Date End Date Yola Man MD PCP - General Internal Medicine 09/17/19
== END 2025-02-10 14:40 | disposition home or self-care (01) ==
LOC: HO.HCS 13:59
PROVIDERS: PCP Internal Medicine; Visit Provider Internal Medicine Cardiovascular Disease
DX: R00.2 Palpitations (principal)
CPT/HCPCS: 93010; 99214

== ENCOUNTER → 2025-02-10 13:59 | Outpatient (BNVA) | payer OTHER, SELFPAY | PROVIDERS: PCP Internal Medicine; Visit Provider Internal Medicine Cardiovascular Disease | DX: R00.2 Palpitations (principal); E66.9 Obesity, unspecified; I10 Essential (primary) hypertension; E11.9 Type 2 diabetes mellitus without complications; E78.5 Hyperlipidemia, unspecified; Z68.41 Body mass index [BMI] 40.0-44.9, adult | CPT/HCPCS: 93005; 99212 ==

== ENCOUNTER 2025-03-26 12:00 | Outpatient (REF) | payer OTHER, SELFPAY ==
[2025-03-26 12:15] LABS: MANUAL DIFF FLAG NO
[2025-03-26 12:33] LABS: Hematocrit 36.9 % (42.0-52.0); Hemoglobin 12.2 g/dl (14.0-18.0); Imm Gran Abs Auto 0.01 X10*3/uL (0.00-0.03); Imm Gran Pct Auto 0.2 % (0.0-0.4); Lymphocytes Absolute Auto 2.5 X10*3/uL (1.2-4.9); Mean Corpuscular HGB Conc 33.1 g/dl (31.0-36.0); Mean Corpuscular Hemoglobin 28.0 pg (27.0-33.0); Mean Corpuscular Volume 84.8 fL (80.0-98.0); NRBC Abs Auto 0.000 X10*3/uL (0.0-0.012); NRBC Pct Auto 0.0 /100WBC (0.0-0.2); Platelet Count 177 X10*3/uL (160-400); Red Blood Count 4.35 X10*6/uL (4.60-5.80); White Blood Count 6.4 X10*3/uL (4.8-10.8)
[2025-03-26 13:02] LABS: Alanine Aminotransferase 16 U/L (0-40); Albumin Level 4.2 g/dL (3.5-5.0); Alkaline Phosphatase 73 U/L (39-117); Anion Gap 11 (12-20); Aspartate Amino Transferase 18 U/L (5-37); Blood Urea Nitrogen 13 mg/dL (9-16); Calcium 9.0 mg/dL (8.4-10.2); Carbon Dioxide 30 mmol/L (22-29); Chloride 103 mmol/L (96-108); Estimated Glomerular Filt Rate > 60; Potassium 3.7 mmol/L (3.3-5.1); Sodium 140 mmol/L (135-145); Total Protein 7.4 g/dL (6.5-8.0)
--- OUTSIDE RECORDS SUMMARY | 2025-03-26 13:06 | XMS_ITS | Encounter Summary ---
Author Organization [facility] Address [address] [place] [address] Support Name Relationship Address Phone Daija Ferrari Emergency Contact [address] [place] [address] Care Team Providers Care Cattle Trader Name Role Phone Cornelio Wallace MD Primary Care Provider Un available Yola Man MD Primary Care Provider Unavail able Encounter Details Date Type Department Care Team Description 08/16/2019 Circulating Nurse Report Medical Records [address] [place] [address] Yvette Ahuja Social History Tobacco Use Types [...] on filedocumented in this encounter Care Teams Cattle Trader Relationship Specialty Start Date End Date Cornelio Wallace MD PCP - General Internal Medicine 02/26/16 0 Yola Man MD PCP - General Internal Medicine 09/17/19 documented as of this encounter
--- OUTSIDE RECORDS SUMMARY | 2025-03-26 13:06 | XMS_ITS | Patient Health Record ---
Author Organization [facility] Address [address] [place] [address] Care Team Providers Care Business Management Intern Name Role Phone Consuelo Coles Primary Care Provider Unavailab Dwight Zepeda Unavailable [phone] Tia Valle Unavailable Unavailable Allergies Allergen (clinical drug ingredient) Drug/Non Drug Allergy documented on EMR Reaction Allergy Type Onset Date Status aspirin aspirin (uncoded) rash Allergy Ac tive Reason For Referral No Information Medications Medication SIG (Take, Route, Fr equency, Duration) Notes Start Date End Date Status Lisinopril Active Zantac 150 MG 1 tablet Orally Q [place] for 30 day(s) Active Insulin Aspart Activ e Plavix Active Simvastatin Active Problems Problem Type SNOMED Code ICD Code Onset Dates Problem Status W/U Status Risk Notes Problem Epigastric pain (72585387) Abdominal pain, epigastric (789.06) Active confirmed Problem Anemia (576363924) Anemia (285.9) Active confirmed Problem Liver function tests abnormal (929160430) Liver function study, abnormal (794.8) Active confirmed Problem Fatty liver (540482592) Fatty liver (571.8) Active confirmed Plan Of Treatment Pending Test Test Name Order Date IRON + IBC (FE) 09/13/2011 FERRITIN 09/13/2011 VITAMIN B12 AND FOLATE 09/13/2011 CBC w DIFF 09/13/2011 HEPATITIS B PROFILE 06/04/2013 HEPATITIS C ANTIBODY 06/04/2013 Insurance Providers Payer Name Payer Address Payer Phone Subscriber Number Group Number Insured Name Patient Relationship to Insured Coverage Start Date Coverage End Date [facility] [address] [address] [place], [place] [id number] SHAYY ARIAS Self - patient is the insured Medical (General) History Medical History History ICD Code Afib HTN IDDM Hyperlipidemia Denies NM, stroke, lung disease, kidney disease Anemia--01/2013 Hgb 12.5 MCV 86, Iron 64, Ferritin 161--w/u in 2011 with a Hgb 13.0, normal B12/Folate, and normal Ferritin also fatty liver--workup for live r disease was completely negative including viral serologies, iron studies, autoimmune studies, and alpha-1 antitrypsin level--a liver ultrasound was consistent with a fatty liver as well Surgical History Surgery Date(Month/Year) Right 4th and 5th toes removed for canc er Gastric Lap band-placed in 2010 and philip pedro in 2012 Appy cholecystectomy
--- OUTSIDE RECORDS SUMMARY | 2025-03-26 13:06 | XMS_ITS | Clinical Summary ---
Author Organization [employer] [email or web address]) [facility] Address [address] [place] [address] Care Team Providers Care Sales Operations Lead Name Role Phone Yola Man MD Primary Care Provider [phone] Surgical History Surgery Date Site/Laterality Comments FOOT SURGERY PROCEDURE: HISTORICAL FOOT SURGERY; COMMENT: 2 toes amputated for tumor. CHOLECYSTECTOMY PROCEDURE: HISTORICAL CHOLECYSTECTOMY OTHER SURGICAL HISTORY PROCEDURE: ---- OTHER ----; COMMENT: gastric band/removed COLONOSCOPY 12/28/2017 PROCEDURE: HISTORICAL COLONOSCOPY; COMMENT: Diminutive polyps 2, these were lymphoid aggregates and not precancerous polyps. UPPER GASTROINTESTINAL ENDOSCOPY 12/28/2017 PROCEDURE: [place] UPPER GI ENDOSCOPY PERFORMED; COMMENT: Dr. Ko, [facility]: Visually normal, dilation with 60 Fr Savary dilator performed. Medical History Medical History Date Comments DM (diabetes mellitus), type 2, uncontrolled 05/17/2016 DX:DM (diabetes mellitus), t ype 2, uncontrolled DM (diabetes mellitus), type 2 with neurological complications ([facility]/HCC V24, [facility]/HCC V28) 05/17/2016 DX:DM (diabetes mellitus), t ype 2 with neurological complications (HCC) H/O amputation of lesser toe , right ([facility] V24) 11/22/2017 DX:H/O amputation of lesser toe, right ([facility]); COMMENT: 4th and 5th toes in 2000, removal of tumor Osteopenia 07/04/2018 DX:Osteopenia Klinefelter syndrome 07/04/2018 DX:Klinefel ter syndrome Hypogonadotropic hypogonadis m ([facility] V24) 07/04/2018 DX:Hypogonadotropic hypogona dism (HCC) [...] 2023-2 5 season) 2024 Influenza Vaccine (#1) 2025 DTaP,Tdap,and Td Vaccines (2 - Td or Tdap) 07/17/2027 07/17/2017 RSV Immunization Adult Patie nts (1 - 1-dose 75+ series) 2041 HIB Vaccines Aged Out No longer eligi [...] age to complete this topic Care Teams Sales Operations Lead Relationship Specialty Start Date End Date Yola Man MD PCP - General Internal Medicine 09/17/19
== END 2025-03-26 12:01 | disposition home or self-care (01) ==
LOC: HO.LAB 12:00
PROVIDERS: Absent Provider Nurse Practitioner Adult Health; PCP Internal Medicine; Visit Provider Internal Medicine Infectious Disease
DX: K22.10 Ulcer of esophagus without bleeding (principal)
CPT/HCPCS: 36415; 80053; 85025

== ENCOUNTER 2025-05-09 10:57 | Outpatient (AMB) | payer OTHER, SELFPAY ==
[2025-05-09 11:01] VITALS: BP 162/90; PULSE 67; RESP 18; TEMP 36.2; O2SAT 97; BMI 42.6
--- NOTE | 2025-05-09 11:01 | A.OFFPC_ITS ---
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 Name: Yasir/Devika Accompanied by: Self / Same As Patient Allergies aspirin (Aspirin) Allergy (Severe, Verified 05/09/25 11:23) RASH,THROAT CLOSES, Swollen throat Peanut Butter Allergy (Severe, Verified 05/09/25 11:23) Anaphylaxis dicyclomine (From BENTYL) Allergy (Intermediate, Verified 05/09/25 11:23) PALPITATIONS insulin lispro (Admelog SoloStar U-100 Insulin) Allergy (Intermediate, Verified 05/09/25 11:23) dizziness methylprednisolone (METHYLPREDNISOLONE) Allergy (Intermediate, Verified 05/09/25 11:23) SWELLING furosemide Adverse Reaction (Severe, Verified 05/09/25 11:23) Headache semaglutide Adverse Reaction (Verified 05/09/25 11:23) Rash nuts Allergy (Severe, Uncoded 05/09/25 11:23) swelling testosterone Allergy (Intermediate, Uncoded 05/09/25 11:23) Rash jardiance Adverse Reaction (Mild, Uncoded 05/09/25 11:23) Drowsy Medication List - Last Reconciled 05/09/25 by BEE TangC [emergency urine bag As directed] acetaminophen (Tylenol Extra Strength) 1,000 mg (2 x 500 mg) PO Q6H PRN albuterol sulfate 90 mcg/actuation 2 puffs inhalation Q4-6H PRN NS amlodipine 5 mg PO DAILY 90 days blood pressure monitor (Blood Pressure Kit) As directed blood sugar diagnostic (FreeStyle Lite Strips) Use daily As directed to check blood glucose blood-glucose meter (FreeStyle Lite Meter kit) Use daily As directed to check blood sugars blood-glucose,snake charmer,cont (FreeStyle Asa 3 [place]) Use daily As directed to monitor blood glucose cetirizine (All Day Allergy (cetirizine)) 10 mg PO DAILY PRN 7 days diclofenac sodium 1% (Arthritis Pain (diclofenac)) 2 grams topical QID PRN fluticasone furoate-vilanterol 200-25 mcg/dose (Breo Ellipta) 1 inh inhalation DAILY FreeStyle Asa 3 Plus Sensor (blood-glucose sensor) As directed every 14 days NS glucose (Dex4 Glucose) 16 grams (4 x 4 gram) PO Q15M PRN hydrochlorothiazide 12.5 mg PO DAILY 30 days ibuprofen 400 mg PO TID PRN insulin degludec (Tresiba FlexTouch U-200 insulin) 16 units (0.08 mL) subcut DAILY 30 days lancets (FreeStyle Lancets) use daily as directed to check blood glucose lidocaine 5% 1 patch topical DAILY omeprazole 40 mg PO DAILY Ozempic (semaglutide) 0.25 mg (0.368 mL) subcut QWEEK 28 days NS pen needle, diabetic (BD Sonja 2nd Gen Pen Needle) As directed once daily [pull-up diapers As directed] Shower Chair As directed [Skin Tac Wipes 1 unit topical .use as directed 90 days NS] underpads (Bed Underpads) Use 10 bed underpads once a day walker As directed Tobacco use date assessed: 05/09/25 Dental Screening Dental Screen Date: 05/09/25 Did you have a dental visit in the last 12 months?: Yes Did you have a dental problem in the last 6 months where you did not have access to dental care?: No Was dental information given to patient?: Patient has dentist HPI GISELL from [facility] HPI Details The patient is a 60-year-old male presenting to transition care from Dr. Dupree. He is here with multiple complaints including of possible nephrolithiasis, bilaterally, left shoulder pain, and diabetes management. The patient reports a history of nephrolithiasis, initially diagnosed a long time ago with small stones noted. Currently, he experiences significant pain localized mostly on the right side, though the left flank hurts as well. He denies hematuria, will send the patient to get an urinalysis. The patient describes left shoulder pain with an inability to lift the arm and a sensation of the arm going out of place. Swelling is noted in the left arm, swelling in the left great toe without pain, although the leg is not affected. The patient has a history of diabetes mellitus with a recent A1c of 9%, indicating poor glycemic control. He is currently on insulin and recently started Ozempic, which he tolerates well without gastrointestinal side effects. Unclear compliance to due mixed answers on if he is taking ozempic, he is on a low dose of ozempic, will defer to endocrine. He reports episodes of syncope, with the most recent lasting from 7:00 a.m. to noon, and associated dizziness prior to the event. No blood sugar levels were checked during these episodes. He reports felt dizzy but did not check his blood sugar The patient describes a cerebral cramping sensation in the occipital region, feeling as if his head is opening on the inside, often triggered by sudden movements. This sensation results in temporary immobility. He also reports post-surgical pain in the right foot following cancer surgery, which limits his ability to walk long distances and is asking for a motorized wheelchair for long distance. Reports painful lumps behind posterior knees. The patient is requesting a shower chair. Discussed with the patient that it looks like Dr. Dupree already ordered this in the past. Per patient, the company did not want to deliver the shower chair to him and he did not have any ride to pick it up. Patient reports pain in his epigastric area after eating. Reports that he does have a history of ulcers and heartburn. [facility] Medical History Uncontrolled type 2 diabetes mellitus with hyperglycemia, with long-term current use of insulin Diabetes mellitus Type 2 diabetes mellitus with other diabetic kidney complication Loss of consciousness Chronic GERD Abdominal pain Epigastric pain Type 2 diabetes mellitus, with long-term current use of insulin Right leg pain Immunization due Obesity due to excess calories Diabetes type 2, uncontrolled Morbid obesity due to excess calories Asthma Microalbuminuria Left shoulder pain Lower back pain Diabetic polyneuropathy associated with type 2 diabetes mellitus Anemia ELO (obstructive sleep apnea) Diabetic nephropathy associated with type 2 diabetes mellitus Klinefelter syndrome Vitamin D deficiency Dyslipidemia Hypertension USP (current) use of insulin Osteopenia Hypogonadism male Surgical History Hx of esophagogastroduodenoscopy Hx of colonoscopy History of removal of laparoscopic gastric banding device Hx of laparoscopic gastric banding Hx of foot surgery Hx of cholecystectomy Family History Father No problems noted. Mother Diabetes Osteoporosis Heart murmur Social History Household Members: None Housing: Apartment Alcohol intake: former Patient Tobacco Use Status: Former Tobacco user Tobacco use type: Cigarette e-Cigarette/Vaping Use: Never Used Second Hand Smoke Exposure: No service: No Current occupational status: disabled Cognitive needs: No Hearing needs: No Vision needs: Yes (glasses ) Questionnaire PHQ-9 Over the last 2 weeks, how often have you been bothered by any of the following problems? 1. Little interest or pleasure in doing things: not at all 2. Feeling down, depressed, or hopeless: not at all 3. Trouble falling or staying asleep, or sleeping too much: not at all 4. Feeling tired or having little energy: not at all 5. Poor appetite or overeating: not at all 6. Feeling bad about yourself - or that you are a failure or have let yourself or your family down: not at all 7. Trouble concentrating on things, such as reading the newspaper or watching television: not at all 8. Moving or speaking so slowly that other people could have noticed. Or the opposite - being so fidgety or restless that you have been moving around a lot more than usual: not at all 9. Thoughts that you would be better off or of hurting yourself in some way: not at all Total score: 0 Depression Screening Interpretation: Negative Depression Screening Done: Yes Source: Developed by Drs. Dwight Amaya, Rosaline Armando, Mat Calderon and colleagues, with an educational anamaria from [employer]. Thrive Questionnaire Date Thrive assessed: 05/09/25 I am a: Patient What is your living situation today?: I have a steady place to live Within the past 12 months, did the food you bought not last and you didn't have the money to get more?: Never true Within the past 12 months, did you worry whether your food would run out before you got money to buy more?: Never true Do you have trouble paying for medicines?: No Do you have trouble getting transportation to medical appointments?: No Do you have trouble paying your heating and electricity bill?: No Do you have trouble taking care of your child, family member or friend?: No Do you have trouble with day-to-day activities such as bathing, preparing meals, shopping, managing finances, etc.?: No Are you currently unemployed and looking for a job?: No Are you interested in more education?: No Please select the resources that you would like help with: None Currently or been in a relationship where the following occur: No concerns reported THRIVE Score: 0 AUDIT C Alcohol Use Questionnaire (AUDIT-C) 1. How often do you have a drink containing alcohol?: Never Total Score: 0 Score Reviewed/Action Taken: No KRISTOFER-7 AMB Questionnaire KRISTOFER-7 Date KRISTOFER - 7 assessed: 05/09/25 Feeling nervous, anxious, or on edge: 0 = Not at all Not being able to stop or control worryin = Not at all Worrying too much about different things: 0 = Not at all Trouble relaxin = Not at all Being so restless that it is hard to sit still: 0 = Not at all Becoming easily annoyed or irritable: 0 = Not at all Feeling afraid as if something awful might happen: 0 = Not at all Total KRISTOFER-7 score (0-4 normal; 5-9 mild; 10-14 moderate; 15-21 severe): 0 Source: Developed by Drs. Dwight Amaya, Rosaline Armando, Mat Calderon and colleagues, with an educational anamaria from [employer]. Review of Systems Const Reports headache(s) (on and off-feels like the back of his head is opening up) Eyes Denies loss of vision ENT Denies vertigo, Reports dizziness (on and off), Reports headache(s) (on and off- feels like the back of his head is opening up) and Denies sore throat Card Denies chest pain, Denies leg edema and Denies lightheadedness Resp Denies cough, Denies hemoptysis and Denies wheezing GI Reports abdominal pain (associated with eating), Denies melena, Denies constipation, Denies diarrhea and Denies vomiting Denies dysuria, Denies urinary frequency and Denies urinary urgency Musc Reports arthralgias (Left shoulder), Denies joint swelling, Denies numbness, Denies tingling and Reports other (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) Neuro Denies Abnormal speech present, Denies behavioral changes, Denies vertigo, Reports dizziness (on and off), Reports headache(s) (on and off-feels like the back of his head is opening up), Denies loss of vision, Denies memory loss, Denies numbness and Denies tingling Psych Denies anxiety, Denies behavioral changes, Denies depression, Denies memory loss and Denies panic attacks Danny/Lymph Denies easy bleeding and Denies easy bruising Aller/Immun Denies wheezing Physical exam (Primary Care) Vital Signs: Last Vital Signs Temp 97.1 F 05/09/25 11:01 Pulse 67 05/09/25 11:01 Resp 18 05/09/25 11:01 BP 162/90 H 05/09/25 11:01 Pulse Ox 97 05/09/25 11:01 Oxygen Delivery Method Room Air 05/09/25 11:01 BMI result Body Mass Index 42.6 Tobacco/Smoking Status: Tobacco use Status Tobacco use date assessed 05/09/25 05/09/25 11:12 Patient Tobacco Use Status Former Tobacco user 05/09/25 11:12 Tobacco use type Cigarette 05/09/25 11:12 e-Cigarette/Vaping Use Never Used 05/09/25 11:12 PHQ-9: PHQ-9 Score PHQ-9: Total score 0 05/10/25 15:12 Depression Screening Interpretation: Negative Thrive Assessment: Date of Thrive Assessment Date Thrive assessed 05/09/25 05/09/25 11:12 Currently or been in a relationship where the following occur: No concerns reported Const General: healthy appearing, no acute distress, alert and awake Nutritional Appearance: well nourished Orientation/consciousness: oriented to person, oriented to place and oriented to time [facility] Ears: TM's normal bilaterally General nose exam: Normal nasal mucous membranes and turbinates present Eyes Conjunctivae: conjunctivae normal Sclerae: sclerae normal Pupils: Equal, round and reactive pupils present Neck Neck: Yes no lymphadenopathy and Yes no JVD Thyroid: Thyroid normal Carotids: no bruits Resp Effort & Inspection: normal respiratory effort and not tachypneic Auscultation: no crackles, no rales, no rhonchi and no wheezes Cardio Rate: regular rate Rhythm: regular rhythm Heart sounds: no murmurs and normal S1 and S2 GI Palpation (GI): Soft to palpation, Tenderness to palpation present (GI) in the epigastrum, no hepatomegaly and no splenomegaly Auscultation: normal bowel sounds Skin General skin exam: no rashes or lesions noted and dry skin Neuro General: oriented to person, oriented to place and oriented to time Cranial nerves: Yes Equal, round and reactive pupils present Speech: No Abnormal speech present Gait exam (Neuro): Normal gait present Motor exam (neuro): no tremor noted Extrem Right upper extremity: full ROM Left upper extremity: full ROM, shoulder/upper arm Details: tenderness Location: over the coracoid process and abnormal ROM (limited ROM) and elbow/forearm Details: swelling (left arm noticeable bigger than right, no discoloration or warmth) Right lower extremity: full ROM, knee (tender lump behind knee) and foot (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); no edema Left lower extremity: full ROM and knee (tender lump behind knee); no edema Psych Mental Status: mental status grossly normal Speech and movement: Normal speech and movement present Affect: normal affect Attitude: cooperative Thought process: Normal thought process present Results AMB Hemoglobin A1c AMB Hemoglobin A1c 9.0 % Last Edit by Kandice Gustafson CMA on 05/09/25 11:31 Results Reviewed Results Reviewed: Laboratory Last Values Hgb A1c (Clinic) 9.0 % (4.0-6.0) H 05/09/25 11:24 Coding Level of Care Code Est Pt Level 4 (62001) Diagnoses Essential hypertension I10 Klinefelter syndrome Q98.4 Type 2 diabetes mellitus with hyperglycemia, without long-term current use of insulin E11.65 Diabetes mellitus type: type 2 Diabetes mellitus [facility] insulin use: without terminal makeup operator use Diabetes mellitus complication status: with hyperglycemia Morbid obesity with BMI of 40.0-44.9, adult E66.01; Z68.41 Vitamin D deficiency E55.9 Chronic GERD K21.9 Epigastric pain R10.13 Bilateral flank pain R10.9 Left shoulder pain, unspecified chronicity M25.512 Chronicity: unspecified Mild persistent asthma without complication J45.30 Asthma severity: mild Asthma persistence: persistent Asthma complication type: uncomplicated Syncope, unspecified syncope type R55 Syncope type: unspecified Right foot pain M79.671 Posterior right knee pain M25.561 Posterior left knee pain M25.562 Time Spent (min) 46 Assessment & Plan Assessment & Plan (1) Essential hypertension: Code(s): I10 - Essential (primary) hypertension Category: Medical Plan: Patient blood pressure was 162/90 in office. Apparently the patient forgets Blood pressure medications on and off. Reinforced low-salt diet. Encouraged compliance of amlodipine 5 mg daily, hydrochlorothiazide 12.5 mg daily (2) Klinefelter syndrome: Code(s): Q98.4 - Klinefelter syndrome, unspecified Category: Medical Plan: The patient used to be on testosterone therapy but has stopped this treatment. Follow up with Endocrinology as scheduled (3) Diabetes mellitus: Code(s): E11.9 - Type 2 diabetes mellitus without complications Category: Medical Qualifiers: Diabetes mellitus type: type 2 Diabetes mellitus [facility] insulin use: without terminal makeup operator use Diabetes mellitus complication status: with hyperglycemia Qualified Code(s): E11.65 - Type 2 diabetes mellitus with hyperglycemia Plan: A1c in office is 9% increased from previous A1c of 7.6%. The patient reports compliance with a diabetic medications. He has a an upcoming appointment with endocrinology, we will defer to them. Reinforced low sugar/carbohydrate diet. (4) Morbid obesity with BMI of 40.0-44.9, adult: Code(s): E66.01 - Morbid (severe) obesity due to excess calories; Z68.41 - Body mass index [BMI] 40.0-44.9, adult Category: Medical Plan: Discussed lifestyle modifications including dietary changes and physical activity (5) Vitamin D deficiency: Code(s): E55.9 - Vitamin D deficiency, unspecified Category: Medical Plan: Encouraged vitamin-D supplements OTC (6) Chronic GERD: Code(s): K21.9 - Gastro-esophageal reflux disease without esophagitis Category: Medical Plan: Epigastric tenderness on exam. The patient isn't taking his medication before eating. Continue omeprazole 40 mg daily at least 30 minutes before eating or drinking anything other than water. (7) Epigastric pain: Code(s): R10.13 - Epigastric pain Category: Medical Plan: Patient had an EGD and colonoscopy on 02/23/2023. It showed an upper esophageal sphincter dilation. We will refer the patient back to GI. (8) Bilateral flank pain: Code(s): R10.9 - Unspecified abdominal pain Category: Medical Plan: Reports that he has a history of kidney stones. Complaining of bilateral flank pain. Bilateral renal ultrasound ordered along with a urinalysis. (9) Left shoulder pain: Code(s): M25.512 - Pain in left shoulder Category: Medical Qualifiers: Chronicity: unspecified Qualified Code(s): M25.512 - Pain in left shoulder Plan: Patient is already seen orthopedics for this. An MRI was ordered. Encouraged the patient to follow up with Orthopedics. (10) Asthma: Code(s): J45.909 - Unspecified asthma, uncomplicated Category: Medical Qualifiers: Asthma severity: mild Asthma persistence: persistent Asthma complication type: uncomplicated Qualified Code(s): J45.30 - Mild persistent asthma, uncomplicated Plan: Denies shortness of breath. Continue albuterol sulfate 90 mcg/actuation 2 puffs inhalation q.4-6 hours p.r.n., Breo Ellipta 1inh daily. Follow up with pulmonology as scheduled. (11) Syncope: Code(s): R55 - Syncope and collapse Category: Medical Qualifiers: Syncope type: unspecified Qualified Code(s): R55 - Syncope and collapse Plan: Patient reports transient episodes of feeling as if he is going to pass out. Reports episodes of passing out while sitting and waking up few hours later. Encouraged the patient to check his blood sugar each time this happens.The patient had a 28 days cardiac monitoring at [facility] in April 2022 without any issues. Routine EEG in August of 2022 within normal limits. We will refer the patient back to Neurology. 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 Reports pain with walking long distance and requesting a power chair. The patient is also requesting a shower chair. (13) Posterior right knee pain: Code(s): M25.561 - Pain in right knee Category: Medical Plan: Tender lump behind knee. Ultrasound ordered to further evaluate (14) Posterior left knee pain: Code(s): M25.562 - Pain in left knee Category: Medical Plan: Similarly, tender lump behind knee, ultrasound ordered to further evaluate Orders: Orders AMB Hemoglobin A1c 05/09/25 Z13.9 - Encounter for screening, unspecified UA CC w/rflx Micro + Cult 3 Months D64.9 - Anemia, unspecified, E11.65 - Type 2 diabetes mellitus with hyperglycemia, E55.9 - Vitamin D deficiency, unspecified, E66.01 - Morbid (severe) obesity due to excess calories, E78.5 - Hyperlipidemia, unspecified, I10 - Essential (primary) hypertension, I51.89 - Other ill-defined heart diseases, K21.9 - Gastro-esophageal reflux disease without esophagitis, R80.9 - Proteinuria, unspecified, T78.40XA - Allergy, unspecified, initial encounter, Z68.41 - Body mass index [BMI] 40.0-44.9, adult Complete Blood Count Auto Diff 3 Months D64.9 - Anemia, unspecified, E11.65 - Type 2 diabetes mellitus with hyperglycemia, E55.9 - Vitamin D deficiency, unspecified, E66.01 - Morbid (severe) obesity due to excess calories, E78.5 - Hyperlipidemia, unspecified, I10 - Essential (primary) hypertension, I51.89 - Other ill-defined heart diseases, K21.9 - Gastro-esophageal reflux disease without esophagitis, R80.9 - Proteinuria, unspecified, T78.40XA - Allergy, unspecified, initial encounter, Z68.41 - Body mass index [BMI] 40.0-44.9, adult Comprehensive [place]. Panel Fast 3 Months D64.9 - Anemia, unspecified, E11.65 - Type 2 diabetes mellitus with hyperglycemia, E55.9 - Vitamin D deficiency, unspecified, E66.01 - Morbid (severe) obesity due to excess calories, E78.5 - Hyperlipidemia, unspecified, I10 - Essential (primary) hypertension, I51.89 - Other ill-defined heart diseases, K21.9 - Gastro-esophageal reflux disease without esophagitis, R80.9 - Proteinuria, unspecified, T78.40XA - Allergy, unspecified, initial encounter, Z68.41 - Body mass index [BMI] 40.0-44.9, adult Lipid Panel 3 Months D64.9 - Anemia, unspecified, E11.65 - Type 2 diabetes m ellitus with hyperglycemia, E55.9 - Vitamin D deficiency, unspecified, E66.01 - Morbid (severe) obesity due to excess calories, E78.5 - Hyperlipidemia, unspecified, I10 - Essential (primary) hypertension, I51.89 - Other ill-defined heart diseases, K21.9 - Gastro-esophageal reflux disease without esophagitis, R80.9 - Proteinuria, unspecified, T78.40XA - Allergy, unspecified, initial encounter, Z68.41 - Body mass index [BMI] 40.0-44.9, adult Vitamin D 25-OH Total 3 Months D64.9 - Anemia, unspecified, E11.65 - Type 2 diabetes mellitus with hyperglycemia, E55.9 - Vitamin D deficiency, unspecified, E66.01 - Morbid (severe) obesity due to excess calories, E78.5 - Hyperlipidemia, unspecified, I10 - Essential (primary) hypertension, I51.89 - Other ill-defined heart diseases, K21.9 - Gastro-esophageal reflux disease without esophagitis, R80.9 - Proteinuria, unspecified, T78.40XA - Allergy, unspecified, initial encounter, Z68.41 - Body mass index [BMI] 40.0-44.9, adult US renal BI Today R10.9 - Unspecified abdominal pain US Extremity Nonvas Limited LT Today M25.562 - Pain in left knee US Extremity Nonvas Limited RT Today M25.561 - Pain in right knee UA CC w/rflx Micro + Cult Today R10.9 - Unspecified abdominal pain Referrals Neurology Referral R55 - Syncope and collapse Gastroenterology Referral K21.9 - Gastro-esophageal reflux disease without esophagitis, R10.13 - Epigastric pain Medications: New [shower chair] As directed-patient unable to stand of extending periods. 1 ea 0RF M79.671 - Pain in right foot, Z98.890 - Other specified postprocedural states [Power chair] As directed for long distance. 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 1 ea 0RF M79.671 - Pain in right foot, Z98.890 - Other specified postprocedural states Discontinued ibuprofen Discontinued Reason: Doctor's Order 400 mg PO TID PRN 30 tabs 0RF fever or pain
--- OUTSIDE RECORDS SUMMARY | 2025-05-09 11:37 | XMS_ITS | Encounter Summary ---
Author Organization [facility] Address [address] [place] [address] Support Name Relationship Address Phone Daija Ferrari Emergency Contact [address] [place] [address] Care Team Providers Care Pie Topper Name Role Phone Yola Man MD Primary Care Provider Unavail able Encounter Details Date Type Department Care Team Description 11/12/2020 Old Medical Records Medical Records [address] [place] [address] Abstract, Provider Social History Tobacco Use Types [...] on filedocumented in this encounter Care Teams Pie Topper Relationship Specialty Start Date End Date Yola Man MD PCP - General Internal Medicine 09/17/19 documented as of this encounter
--- OUTSIDE RECORDS SUMMARY | 2025-05-09 11:37 | XMS_ITS | Encounter Summary ---
Author Organization [facility] Address [address] [place] [address] Support Name Relationship Address Phone Daija Ferrari Emergency Contact [address] [place] [address] Care Team Providers Care Watch Commander Name Role Phone Yola Man MD Primary Care Provider Unavail able Encounter Details Date Type Department Care Team Description 12/31/2019 Director Private Report Medical Records [address] [place] [address] Daron Harrington MD Social History Tobacco Use [...] filedocumented in this encounter Care Teams Watch Commander Relationship Specialty Start Date End Date Yola Man MD PCP - General Internal Medicine 09/17/19 documented as of this encounter
--- OUTSIDE RECORDS SUMMARY | 2025-05-09 11:37 | XMS_ITS | Encounter Summary ---
Author Organization [facility] Address [address] [place] [address] Support Name Relationship Address Phone Daija Ferrari Emergency Contact [address] [place] [address] Care Team Providers Care Central Sterile Supply Technician Name Role Phone Yola Man MD Primary Care Provider Unavail able Encounter Details Date Type Department Care Team Description 10/29/2020 Old Medical Records Medical Records [address] [place] [address] Abstract, Provider Social History Tobacco Use Types [...] on filedocumented in this encounter Care Teams Central Sterile Supply Technician Relationship Specialty Start Date End Date Yola Man MD PCP - General Internal Medicine 09/17/19 documented as of this encounter
--- OUTSIDE RECORDS SUMMARY | 2025-05-09 11:37 | XMS_ITS | Encounter Summary ---
Author Organization [facility] Address [address] [place] [address] Support Name Relationship Address Phone Daija Ferrari Emergency Contact [address] [place] [address] Care Team Providers Care Cash Register Servicer Name Role Phone Cornelio Wallace MD Primary Care Provider Un available Yola Man MD Primary Care Provider Unavail able Encounter Details Date Type Department Care Team Description 10/13/2016 Appeals Reviewer Veteran Report Medical Records [address] [place] [address] Debi Mcgrath [address] [place] [address] Social History Tobacco Use Types Packs/Day Years [...] on filedocumented in this encounter Care Teams Cash Register Servicer Relationship Specialty Start Date End Date Cornelio Wallace MD PCP - General Internal Medicine 02/26/16 0 Yola Man MD PCP - General Internal Medicine 09/17/19 documented as of this encounter
--- OUTSIDE RECORDS SUMMARY | 2025-05-09 11:37 | XMS_ITS | Encounter Summary ---
Author Organization [facility] Address [address] [place] [address] Support Name Relationship Address Phone Daija Ferrari Emergency Contact [address] [place] [address] Care Team Providers Care Data Entry Email Processor Name Role Phone Cornelio Wallace MD Primary Care Provider Un available Yola Man MD Primary Care Provider Unavail able Encounter Details Date Type Department Care Team Description 08/16/2019 Men'S Locker Room Attendant Report Medical Records [address] [place] [address] Yvette Ahuja Social History Tobacco Use Types [...] on filedocumented in this encounter Care Teams Data Entry Email Processor Relationship Specialty Start Date End Date Cornelio Wallace MD PCP - General Internal Medicine 02/26/16 0 Yola Man MD PCP - General Internal Medicine 09/17/19 documented as of this encounter
--- OUTSIDE RECORDS SUMMARY | 2025-05-09 11:37 | XMS_ITS | Encounter Summary ---
Author Organization [facility] Address [address] [place] [address] Support Name Relationship Address Phone Daija Ferrari Emergency Contact [address] [place] [address] Care Team Providers Care Supreme Court Justice Name Role Phone Cornelio Wallace MD Primary Care Provider Un available Yola Man MD Primary Care Provider Unavail able Encounter Details Date Type Department Care Team Description 09/30/2016 Marketing Support Assistant Report Medical Records [address] [place] [address] Norberto Dixon Social History Tobacco Use Types [...] on filedocumented in this encounter Care Teams Supreme Court Justice Relationship Specialty Start Date End Date Cornelio Wallace MD PCP - General Internal Medicine 02/26/16 0 Yola Man MD PCP - General Internal Medicine 09/17/19 documented as of this encounter
--- OUTSIDE RECORDS SUMMARY | 2025-05-09 11:37 | XMS_ITS | Encounter Summary ---
Author Organization [facility] Address [address] [place] [address] Support Name Relationship Address Phone Daija Ferrari Emergency Contact [address] [facility] [address] [place] [address] Care Team Providers Care Automated Equipment Engineer Technician Name Role Phone Yola Man MD Primary Care Provider Unavail able Encounter Details Date Type Department Care Team Description 09/30/2019 Buhr Dresser Report Medical Records [address] [place], [place] [id number] [place] [address] Social History Tobacco Use Types Packs/Day Years [...] on filedocumented in this encounter Care Teams Automated Equipment Engineer Technician Relationship Specialty Start Date End Date Yola Man MD PCP - General Internal Medicine 09/17/19 documented as of this encounter
--- OUTSIDE RECORDS SUMMARY | 2025-05-09 11:37 | XMS_ITS | Encounter Summary ---
Author Organization [facility] Address [address] [place] [address] Support Name Relationship Address Phone Daija Ferrari Emergency Contact [address] [place] [address] Care Team Providers Care Family Medicine Chair Name Role Phone Cornelio Wallace MD Primary Care Provider Un available Yola Man MD Primary Care Provider Unavail able Reason for Visit * Reason Onset Date Comments REFERRAL 09/12/2017 Encounter Details Date Type Department Care Team Description 09/12/2017 Telephone Podiatry - [place] [id number] [place] [address] Eleanor Yao DPM REFERRAL Social History Tobacco [...] filedocumented in this encounter Care Teams Family Medicine Chair Relationship Specialty Start Date End Date Cornelio Wallace MD PCP - General Internal Medicine 02/26/1609/16/ 0 Yola Man MD PCP - General Internal Medicine 09/17/19 documented as of this encounter
--- OUTSIDE RECORDS SUMMARY | 2025-05-09 11:37 | XMS_ITS | Encounter Summary ---
Author Organization [facility] Address [address] [place] [address] Support Name Relationship Address Phone Daija Ferrari Emergency Contact [address] [facility] [address] [place] [address] Care Team Providers Care Grease Rack Worker Name Role Phone Yola Man MD Primary Care Provider Unavail able Encounter Details Date Type Department Care Team Description 12/17/2019 Machine Skiver Report Medical Records [address] [place], [place] [id number] [place] [address] Social History Tobacco Use Types Packs/Day Years [...] on filedocumented in this encounter Care Teams Grease Rack Worker Relationship Specialty Start Date End Date Yola Man MD PCP - General Internal Medicine 09/17/19 documented as of this encounter
--- OUTSIDE RECORDS SUMMARY | 2025-05-09 11:37 | XMS_ITS | Encounter Summary ---
Author Organization [facility] Address [address] [place] [address] Support Name Relationship Address Phone Daija Ferrari Emergency Contact [address] [facility] [address] [place] [address] Care Team Providers Care Ophthalmology Technician Name Role Phone Yola Man MD Primary Care Provider Unavail able Encounter Details Date Type Department Care Team Description 03/25/2020 Settlement Processor Report Medical Records [address] [place] [address] Yvette Ahuja Social History Tobacco Use Types [...] on filedocumented in this encounter Care Teams Ophthalmology Technician Relationship Specialty Start Date End Date Yola Man MD PCP - General Internal Medicine 09/17/19 documented as of this encounter
--- OUTSIDE RECORDS SUMMARY | 2025-05-09 11:37 | XMS_ITS | Encounter Summary ---
Author Organization [facility] Address [address] [place] [address] Support Name Relationship Address Phone Daija Ferrari Emergency Contact [address] [facility] [address] [place] [address] Care Team Providers Care Ticketer Name Role Phone Cornelio Wallace MD Primary Care Provider Un available Yola Man MD Primary Care Provider Unavail able Reason for Visit * Reason Onset Date Comments Medication 05/01/2017 Encounter Details Date Type Department Care Team Description 05/01/2017 Telephone Adult Medicine [address] [address] Cornelio Wallace MD Medication Social History Tobacco [...] on filedocumented in this encounter Care Teams Ticketer Relationship Specialty Start Date End Date Cornelio Wallace MD PCP - General Internal Medicine 02/26/16 0 Yola Man MD PCP - General Internal Medicine 09/17/19 documented as of this encounter
--- OUTSIDE RECORDS SUMMARY | 2025-05-09 11:37 | XMS_ITS | Clinical Summary ---
Author Organization [facility] Address [address] [place] [address] Care Team Providers Care Senior Abap Developer Name Role Phone Yola Man MD Primary Care Provider [phone] Surgical History Surgery Date Site/Laterality Comments FOOT SURGERY PROCEDURE: HISTORICAL FOOT SURGERY; COMMENT: 2 toes amputated for tumor. CHOLECYSTECTOMY PROCEDURE: HISTORICAL CHOLECYSTECTOMY OTHER SURGICAL HISTORY PROCEDURE: ---- OTHER ----; COMMENT: gastric band/removed COLONOSCOPY 12/28/2017 PROCEDURE: HISTORICAL COLONOSCOPY; COMMENT: Diminutive polyps 2, these were lymphoid aggregates and not precancerous polyps. UPPER GASTROINTESTINAL ENDOSCOPY 12/28/2017 PROCEDURE: MD UPPER GI ENDOSCOPY PERFORMED; COMMENT: Dr. Ko, [facility]: Visually normal, dilation with 60 Fr Savary dilator performed. Medical History Medical History Date Comments DM (diabetes mellitus), type 2, uncontrolled 05/17/2016 DX:DM (diabetes mellitus), t ype 2, uncontrolled DM (diabetes mellitus), type 2 with neurological complications ([facility]/HCC V24, [facility]/HCC V28) 05/17/2016 DX:DM (diabetes mellitus), t ype 2 with neurological complications (HCC) H/O amputation of lesser toe , right ([facility] V24) 11/22/2017 DX:H/O amputation of lesser toe, right ([facility]); COMMENT: 4th and 5th toes in 2000, removal of tumor Osteopenia 07/04/2018 DX:Osteopenia Klinefelter syndrome 07/04/2018 DX:Klinefel ter syndrome Hypogonadotropic hypogonadis m ([facility] V24) 07/04/2018 DX:Hypogonadotropic hypogona dism (HCC) [...] Panel) 10/10/2023 Colorectal Cancer Screening: Colonoscopy 10/10/2023 Diabetes: Annual Urine Albumin-Creatinine Ratio (uACR) 10/10/2023 Diabetes: Blood Sugar Contro l Test (HGBA1C) 10/10/2023 HIV Screening 10/10/2023 Hepatitis C Screening 10/10/2023 Hypertension/CHF/CAD Annual BMP Blood Test 10/10/2023 Social Influencers of Health Screening 10/10/2023 COVID-19 Vaccine (1 - 2023-2 5 season) 2024 Depression Screening 09/11/2024 Influenza Vaccine (#1) 2025 DTaP,Tdap,and Td Vaccines [...] age to complete this topic Care Teams Senior Abap Developer Relationship Specialty Start Date End Date Yola Man MD PCP - General Internal Medicine 09/17/19
--- OUTSIDE RECORDS SUMMARY | 2025-05-09 11:37 | XMS_ITS | Encounter Summary ---
Author Organization [facility] Address [address] [place] [address] Support Name Relationship Address Phone Daija Ferrari Emergency Contact [address] [place] [address] Care Team Providers Care Fire Extinguisher Repairer Name Role Phone Cornelio Wallace MD Primary Care Provider Un available Yola Man MD Primary Care Provider Unavail able Encounter Details Date Type Department Care Team Description 04/10/2017 Conveyor Line Bakery Worker Report Medical Records [address] [place] [address] Sumaya Mata [address] [place] [address] Social History Tobacco Use Types Packs/Day Years [...] on filedocumented in this encounter Care Teams Fire Extinguisher Repairer Relationship Specialty Start Date End Date Cornelio Wallace MD PCP - General Internal Medicine 02/26/16 0 Yola Man MD PCP - General Internal Medicine 09/17/19 documented as of this encounter
--- OUTSIDE RECORDS SUMMARY | 2025-05-09 11:38 | XMS_ITS | Encounter Summary ---
Author Organization [facility] Address [address] [place] [address] Support Name Relationship Address Phone Daija Ferrari Emergency Contact [address] [place] [address] Care Team Providers Care Estimate Clerk Name Role Phone Cornelio Wallace MD Primary Care Provider Un available Yola Man MD Primary Care Provider Unavail able Encounter Details Date Type Department Care Team Description 04/24/2018 Orders Only Medical Records [address] [place] [address] Cornelio Wallace MD Social History Tobacco Use [...] on filedocumented in this encounter Care Teams Estimate Clerk Relationship Specialty Start Date End Date Cornelio Wallace MD PCP - General Internal Medicine 02/26/16 0 Yola Man MD PCP - General Internal Medicine 09/17/19 documented as of this encounter
--- OUTSIDE RECORDS SUMMARY | 2025-05-09 11:38 | XMS_ITS | Encounter Summary ---
Author Organization [facility] Address [address] [place] [address] Support Name Relationship Address Phone Daija Ferrari Emergency Contact [address] [place] [address] Care Team Providers Care Assembler Bonding Name Role Phone Cornelio Wallace MD Primary Care Provider Un available Yola Man MD Primary Care Provider Unavail able Encounter Details Date Type Department Care Team Description 05/01/2018 Quenching Machine Operator Report Medical Records [address] [place] [address] Sumaya Mata [address] [place] [address] Social History Tobacco Use Types Packs/Day Years [...] on filedocumented in this encounter Care Teams Assembler Bonding Relationship Specialty Start Date End Date Cornelio Wallace MD PCP - General Internal Medicine 02/26/16 0 Yola Man MD PCP - General Internal Medicine 09/17/19 documented as of this encounter
--- OUTSIDE RECORDS SUMMARY | 2025-05-09 11:38 | XMS_ITS | Encounter Summary ---
Author Organization [facility] Address [address] [place] [address] Support Name Relationship Address Phone Daija Ferrari Emergency Contact [address] [facility] [address] [place] [address] Care Team Providers Care Director Of Retention Name Role Phone Cornelio Wallace MD Primary Care Provider Un available Yola Man MD Primary Care Provider Unavail able Reason for Referral * Non GISELL (Routine) - Authorized/Booked Specialty Diagnoses / Procedures Referred By Contac t Referred To Contact Physiatry Procedures REFERRAL TO PHYSIATRY Cornelio Wallace MD [address] [place] [address] Physi/[facility] [address] [place] [address] Referral ID Status Reason Start Date Expiration Date V isits Requested Visits Authorized [id number] Authorized/B ooked 05/22/2018 05/22/2019 1 1 Encounter Details Date Type Department Care Team Description 05/22/2018 Orders Only Adult Medicine [address] [address] Cornelio Wallace MD Social History Tobacco Use [...] in this encounter Care Teams Director Of Retention Relationship Specialty Start Date End Date Cornelio Wallace MD PCP - General Internal Medicine 6/17/16 1/6/2 0 Yola Man MD PCP - General Internal Medicine 09/17/19 documented as of this encounter
--- OUTSIDE RECORDS SUMMARY | 2025-05-09 11:38 | XMS_ITS | Encounter Summary ---
Author Organization [facility] Address [address] [place] [address] Support Name Relationship Address Phone Daija Ferrari Emergency Contact [address] [place] [address] Care Team Providers Care Boiler Control Room Operator Name Role Phone Cornelio Wallace MD Primary Care Provider Un available Yola Man MD Primary Care Provider Unavail able Encounter Details Date Type Department Care Team Description 05/16/2018 Flow Nurse Report Medical Records [address] [place] [address] Sumaya Mata [address] [place] [address] Social History Tobacco Use Types Packs/Day Years [...] on filedocumented in this encounter Care Teams Boiler Control Room Operator Relationship Specialty Start Date End Date Cornelio Wallace MD PCP - General Internal Medicine 02/26/16 0 Yola Man MD PCP - General Internal Medicine 09/17/19 documented as of this encounter
--- OUTSIDE RECORDS SUMMARY | 2025-05-09 11:38 | XMS_ITS | Encounter Summary ---
Author Organization [facility] Address [address] [place] [address] Support Name Relationship Address Phone Daija Ferrari Emergency Contact [address] [place] [address] Care Team Providers Care Metal Expediter Name Role Phone Cornelio Wallace MD Primary Care Provider Un available Yola Man MD Primary Care Provider Unavail able Encounter Details Date Type Department Care Team Description 11/28/2018 Binding Cementer French Cord Report Medical Records [address] [place] [address] Abstract, Provider Social History Tobacco Use Types [...] on filedocumented in this encounter Care Teams Metal Expediter Relationship Specialty Start Date End Date Cornelio Wallace MD PCP - General Internal Medicine 02/26/16 0 Yola Man MD PCP - General Internal Medicine 09/17/19 documented as of this encounter
--- OUTSIDE RECORDS SUMMARY | 2025-05-09 11:38 | XMS_ITS | Encounter Summary ---
Author Organization [facility] Address [address] [place] [address] Support Name Relationship Address Phone Daija Ferrari Emergency Contact [address] [place] [address] Care Team Providers Care Paint Grinder Name Role Phone Cornelio Wallace MD Primary Care Provider Un available Yola Man MD Primary Care Provider Unavail able Encounter Details Date Type Department Care Team Description 01/04/2018 Dining Room Supervisor Report Medical Records [address] [place] [address] Dept., [facility] Occupational & Pt Social History Tobacco [...] on filedocumented in this encounter Care Teams Paint Grinder Relationship Specialty Start Date End Date Cornelio Wallace MD PCP - General Internal Medicine 02/26/16 0 Yola Man MD PCP - General Internal Medicine 09/17/19 documented as of this encounter
--- OUTSIDE RECORDS SUMMARY | 2025-05-09 11:38 | XMS_ITS | Patient Health Record ---
Author Organization [facility] Address [address] [place] [address] Care Team Providers Care Insurance Law Specialist Name Role Phone Consuelo Coles Primary Care Provider Unavailab Dwight Zepeda Unavailable [phone] Tia Valle Unavailable Unavailable Allergies Allergen (clinical [...] W/U Status Risk Notes Problem Epigastric pain (31332315) Abdominal pain, epigastric (789.06) Active confirmed Problem Anemia (125597149) Anemia (285.9) Active confirmed Problem Liver function tests abnormal (456412553) Liver function study, abnormal (794.8) Active confirmed Problem Fatty liver (591930042) Fatty liver (571.8) Active confirmed Plan Of Treatment Pending Test Test Name Order Date IRON + IBC (FE) 09/13/2011 FERRITIN 09/13/2011 VITAMIN B12 AND FOLATE 09/13/2011 CBC w DIFF 09/13/2011 HEPATITIS B PROFILE 06/04/2013 HEPATITIS C ANTIBODY 06/04/2013 Insurance Providers Payer Name Payer Address Payer Phone Subscriber Number Group Number Insured Name Patient Relationship to Insured Coverage Start Date Coverage End Date [facility] [address] [address] [place], [place] [id number] SHAYY ARIAS Self - patient is the insured Medical (General) History Medical History History ICD Code Afib HTN IDDM Hyperlipidemia Denies CA, stroke, lung disease, kidney disease Anemia--01/2013 Hgb [...]
--- OUTSIDE RECORDS SUMMARY | 2025-05-09 11:38 | XMS_ITS | Encounter Summary ---
Author Organization [facility] Address [address] [place] [address] Support Name Relationship Address Phone Daija Ferrari Emergency Contact [address] [place] [address] Care Team Providers Care Narcotics And Vice Detective Name Role Phone Cornelio Wallace MD Primary Care Provider Un available Yola Man MD Primary Care Provider Unavail able Encounter Details Date Type Department Care Team Description 08/17/2018 Pad Assembler Report Medical Records [address] [place] [address] Macy Traore MD Social History Tobacco Use [...] on filedocumented in this encounter Care Teams Narcotics And Vice Detective Relationship Specialty Start Date End Date Cornelio Wallace MD PCP - General Internal Medicine 02/26/16 0 Yola Man MD PCP - General Internal Medicine 09/17/19 documented as of this encounter
--- OUTSIDE RECORDS SUMMARY | 2025-05-09 11:38 | XMS_ITS | Encounter Summary ---
Author Organization [facility] Address [address] [place] [address] Support Name Relationship Address Phone Daija Ferrari Emergency Contact [address] [place] [address] Care Team Providers Care Classifier Operator Name Role Phone Cornelio Wallace MD Primary Care Provider Un available Yola Man MD Primary Care Provider Unavail able Encounter Details Date Type Department Care Team Description 08/13/2018 Journeyman Machinist Report Medical Records [address] [place] [address] Abstract, Provider Social History Tobacco Use Types [...] on filedocumented in this encounter Care Teams Classifier Operator Relationship Specialty Start Date End Date Cornelio Wallace MD PCP - General Internal Medicine 02/26/16 0 Yola Man MD PCP - General Internal Medicine 09/17/19 documented as of this encounter
--- OUTSIDE RECORDS SUMMARY | 2025-05-09 11:38 | XMS_ITS | Encounter Summary ---
Author Organization [facility] Address [address] [place] [address] Support Name Relationship Address Phone Daija Ferrari Emergency Contact [address] [place] [address] Care Team Providers Care Counselor Aid Name Role Phone Cornelio Wallace MD Primary Care Provider Un available Yola Man MD Primary Care Provider Unavail able Encounter Details Date Type Department Care Team Description 12/28/2017 Hospital Medical Records [address] [place] [address] Ramy Ko MD [address] [place] [address] Social History Tobacco Use Types Packs/Day Years [...] on filedocumented in this encounter Care Teams Counselor Aid Relationship Specialty Start Date End Date Cornelio Wallace MD PCP - General Internal Medicine 02/26/16 0 Yola Man MD PCP - General Internal Medicine 09/17/19 documented as of this encounter
== END 2025-05-09 12:13 | disposition home or self-care (01) ==
DX: I10 Essential (primary) hypertension (principal); E11.65 Type 2 diabetes mellitus with hyperglycemia; E66.01 Morbid (severe) obesity due to excess calories; Z68.41 Body mass index [BMI] 40.0-44.9, adult; Q98.4 Klinefelter syndrome, unspecified; E55.9 Vitamin D deficiency, unspecified; K21.9 Gastro-esophageal reflux disease without esophagitis; R10.13 Epigastric pain; R10.9 Unspecified abdominal pain; M25.512 Pain in left shoulder; J45.30 Mild persistent asthma, uncomplicated; R55 Syncope and collapse

== ENCOUNTER → 2025-05-09 10:57 | Outpatient (BNVA) | payer OTHER, SELFPAY | PROVIDERS: PCP Internal Medicine | DX: M25.512 Pain in left shoulder (principal); R55 Syncope and collapse; I10 Essential (primary) hypertension; Q98.4 Klinefelter syndrome, unspecified; E11.65 Type 2 diabetes mellitus with hyperglycemia; E66.01 Morbid (severe) obesity due to excess calories; E55.9 Vitamin D deficiency, unspecified; K21.9 Gastro-esophageal reflux disease without esophagitis; R10.13 Epigastric pain; R10.9 Unspecified abdominal pain; J45.30 Mild persistent asthma, uncomplicated; M79.671 Pain in right foot; M25.561 Pain in right knee; M25.562 Pain in left knee; Z68.41 Body mass index [BMI] 40.0-44.9, adult; Z98.890 Other specified postprocedural states; Z79.899 Other long term (current) drug therapy | CPT/HCPCS: 83036; 99212 ==

== ENCOUNTER 2025-05-23 09:06 | Outpatient (REF) | payer OTHER, SELFPAY ==
--- OUTSIDE RECORDS SUMMARY | 2025-05-23 09:59 | XMS_ITS | Patient Health Record ---
Author Organization [facility] Address [address] [place] [address] Care Team Providers Care Chute Worker Name Role Phone Consuelo Coles Primary Care Provider Unavailab Dwight Zepeda Unavailable [phone] Tia Valle Unavailable Unavailable Allergies Allergen (clinical [...] W/U Status Risk Notes Problem Epigastric pain (39869705) Abdominal pain, epigastric (789.06) Active confirmed Problem Anemia (538333353) Anemia (285.9) Active confirmed Problem Liver function tests abnormal (401288985) Liver function study, abnormal (794.8) Active confirmed Problem Fatty liver (057789571) Fatty liver (571.8) Active confirmed Plan Of Treatment Pending Test Test Name Order Date IRON + IBC (FE) 09/13/2011 FERRITIN 09/13/2011 VITAMIN B12 AND FOLATE 09/13/2011 CBC w DIFF 09/13/2011 HEPATITIS B PROFILE 06/04/2013 HEPATITIS C ANTIBODY 06/04/2013 Insurance Providers Payer Name Payer Address Payer Phone Subscriber Number Group Number Insured Name Patient Relationship to Insured Coverage Start Date Coverage End Date [facility] [address] [address] [place], [place] [id number] SHAYY ARIAS Self - patient is the insured Medical (General) History Medical History History ICD Code Afib HTN IDDM Hyperlipidemia Denies IA, stroke, lung disease, kidney disease Anemia--01/2013 Hgb [...]
--- OUTSIDE RECORDS SUMMARY | 2025-05-23 09:59 | XMS_ITS | Clinical Summary ---
Author Organization [facility] Address [address] [place] [address] Care Team Providers Care Motorized Squad Captain Name Role Phone Yola Man MD Primary Care Provider [phone] Surgical History Surgery Date Site/Laterality Comments FOOT SURGERY PROCEDURE: HISTORICAL FOOT SURGERY; COMMENT: 2 toes amputated for tumor. CHOLECYSTECTOMY PROCEDURE: HISTORICAL CHOLECYSTECTOMY OTHER SURGICAL HISTORY PROCEDURE: ---- OTHER ----; COMMENT: gastric band/removed COLONOSCOPY 12/28/2017 PROCEDURE: HISTORICAL COLONOSCOPY; COMMENT: Diminutive polyps 2, these were lymphoid aggregates and not precancerous polyps. UPPER GASTROINTESTINAL ENDOSCOPY 12/28/2017 PROCEDURE: [place] UPPER GI ENDOSCOPY PERFORMED; COMMENT: Dr. Ko, [facility]: Visually normal, dilation with 60 Fr Savary dilator performed. Medical History Medical History Date Comments DM (diabetes mellitus), type 2, uncontrolled 05/17/2016 DX:DM (diabetes mellitus), t ype 2, uncontrolled DM (diabetes mellitus), type 2 with neurological complications ([facility]/HCC V24, [facility]/HCC V28) 05/17/2016 DX:DM (diabetes mellitus), t ype 2 with neurological complications (HCC) H/O amputation of lesser toe , right ([facility] V24) 11/22/2017 DX:H/O amputation of lesser toe, right ([facility]); COMMENT: 4th and 5th toes in 2000, removal of tumor Osteopenia 07/04/2018 DX:Osteopenia Klinefelter syndrome 07/04/2018 DX:Klinefel ter syndrome Hypogonadotropic hypogonadis m ([facility] V24) 07/04/2018 DX:Hypogonadotropic hypogona [...] 10/10/2023 Social Influencers of Health Screening 10/10/2023 Depression Screening 09/11/2024 COVID-19 Vaccine (1 - 2023-2 5 season) 2025 Influenza Vaccine (#1) 2025 DTaP,Tdap,and Td Vaccines [...] age to complete this topic Care Teams Motorized Squad Captain Relationship Specialty Start Date End Date Yola Man MD PCP - General Internal Medicine 09/17/19
[2025-05-23 11:02] LABS: Appearance Urine Clear; Glucose Urine UA >=1000 mg/dL (Negative); PH 6.0 (5.0-9.0); Specific Gravity - Urine >= 1.030 (1.005-1.025); UMIC TRIGGER UACC YES
== END 2025-05-23 09:07 | disposition home or self-care (01) ==
LOC: HO.10HDLNP 09:06
DX: E11.65 Type 2 diabetes mellitus with hyperglycemia (principal); E78.5 Hyperlipidemia, unspecified; I10 Essential (primary) hypertension; Z79.4 Long term (current) use of insulin
CPT/HCPCS: 81001; 81003; 82947; 99212

== ENCOUNTER 2025-05-23 09:10 | Outpatient (AMB) | payer OTHER, SELFPAY ==
[2025-05-23 09:21] VITALS: BP 132/86; PULSE 71; O2SAT 97; BMI 44.1
--- NOTE | 2025-05-23 09:21 | A.OFFVIS_ITS ---
Vital Signs 05/23/25 09:21 Height 5 ft 8 in Weight 289 lb 14.526 oz BMI 44.1 BP 132/86 Blood Pressure Location Rt brachial Position Sitting Pulse 71 Pulse Source Pulse Oximeter Pulse Oximetry (%) 97 Oxygen Delivery Method Room Air Intake Visit Reasons: T2DM Intake Note: Patient present today for Type 2 Diabetes Mellitus Last Diabetic eye exam: Last exam was on 05/21/25 Last Podiatry Visit: Doesn't have one Random Glucose: 217 mg/dl HgA1C: 9.0% 05/09/25 Outpatient Physical Therapist Assistant Required: Yes Outpatient Physical Therapist Assistant Language: Compress Engineer Services: Outpatient Physical Therapist Assistant Present Outpatient Physical Therapist Assistant Name: Pedro [id number] Information Interpreted: non-clinical & clinical Accompanied by: Self / Same As Patient Allergies aspirin (Aspirin) Allergy (Severe, Verified 05/23/25 09:29) RASH,THROAT CLOSES, Swollen throat Peanut Butter Allergy (Severe, Verified 05/23/25 09:29) Anaphylaxis dicyclomine (From BENTYL) Allergy (Intermediate, Verified 05/23/25 09:29) PALPITATIONS insulin lispro (Admelog SoloStar U-100 Insulin) Allergy (Intermediate, Verified 05/23/25 09:29) dizziness methylprednisolone (METHYLPREDNISOLONE) Allergy (Intermediate, Verified 05/23/25 09:29) SWELLING furosemide Adverse Reaction (Severe, Verified 05/23/25 09:29) Headache semaglutide Adverse Reaction (Verified 05/23/25 09:29) Rash nuts Allergy (Severe, Uncoded 05/23/25 09:29) swelling testosterone Allergy (Intermediate, Uncoded 05/23/25 09:29) Rash jardiance Adverse Reaction (Mild, Uncoded 05/23/25 09:29) Drowsy Medication List - Last Reconciled 05/23/25 by Sudha Isaac PA-C [emergency urine bag As directed] acetaminophen (Tylenol Extra Strength) 1,000 mg (2 x 500 mg) PO Q6H PRN albuterol sulfate 90 mcg/actuation 2 puffs inhalation Q4-6H PRN NS amlodipine 5 mg PO DAILY 90 days blood pressure monitor (Blood Pressure Kit) As directed blood sugar diagnostic (FreeStyle Lite Strips) Use daily As directed to check blood glucose blood-glucose meter (FreeStyle Lite Meter kit) Use daily As directed to check blood sugars blood-glucose,hairspring staker,cont (FreeStyle Asa 3 [place]) Use daily As directed to monitor blood glucose cetirizine (All Day Allergy (cetirizine)) 10 mg PO DAILY PRN 7 days diclofenac sodium 1% (Arthritis Pain (diclofenac)) 2 grams topical QID PRN fluticasone furoate-vilanterol 200-25 mcg/dose (Breo Ellipta) 1 inh inhalation DAILY FreeStyle Asa 3 Plus Sensor (blood-glucose sensor) As directed every 14 days NS glucose (Dex4 Glucose) 16 grams (4 x 4 gram) PO Q15M PRN hydrochlorothiazide 12.5 mg PO DAILY 30 days insulin degludec (Tresiba FlexTouch U-200 insulin) 16 units (0.08 mL) subcut DAILY 30 days lancets (FreeStyle Lancets) use daily as directed to check blood glucose omeprazole 40 mg PO DAILY Ozempic (semaglutide) 0.25 mg (0.368 mL) subcut QWEEK 28 days NS pen needle, diabetic (BD Sonja 2nd Gen Pen Needle) As directed once daily [Power chair As directed for long distance. 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 He was previously following with Stacey Phone: historical interpreter Pedro. Endo: DM- Last a1c was 9. He was dx with diabetes in 2015. His chart says that he is currently on Ozempic 0.25 mg weekly and Tresiba 10 units daily. He states he is not very compliant with the tresiba. He is tolerating the ozempic without difficulty. He has no testing supplies and has not been monitoring his blood sugars. He has mild appetite suppression with the it has been significant. -he is not on metformin because it upsets his stomach and causes muscle aches. Recently did not tolerate Mounjaro as it was causing injection site rashes and discomfort. Trulicity caused upset stomach -he has had diabetic Education in the past and has met with a cemetery counselor but does not feel that he has a great understanding of diabetes. cgm- out of sensors and reader. He lost his reader. He also lost all of his testing supplies CV: bp today is 132/86. He is on lisinopril 40 mg, amlodipine 5 mg. Cholesterol controlled with atorvastatin 20 mg. [facility] Medical History (Updated 05/23/25 @ 09:24 by Sudha Isaac PA-C) Uncontrolled type 2 diabetes mellitus with hyperglycemia, with long-term current use of insulin Diabetes mellitus Type 2 diabetes mellitus with other diabetic kidney complication Loss of consciousness Chronic GERD Abdominal pain Epigastric pain Type 2 diabetes mellitus, with long-term current use of insulin Right leg pain Immunization due Obesity due to excess calories Diabetes type 2, uncontrolled Morbid obesity due to excess calories Asthma Microalbuminuria Left shoulder pain Lower back pain Diabetic polyneuropathy associated with type 2 diabetes mellitus Anemia ELO (obstructive sleep apnea) Diabetic nephropathy associated with type 2 diabetes mellitus Klinefelter syndrome Vitamin D deficiency Dyslipidemia Hypertension nursing home (current) use of insulin Osteopenia Hypogonadism male Surgical History (Updated 05/10/25 @ 17:01 by MOE Tang) Hx of esophagogastroduodenoscopy Hx of colonoscopy History of removal of laparoscopic gastric banding device Hx of laparoscopic gastric banding Hx of foot surgery Hx of cholecystectomy Family History Father No problems noted. Mother Diabetes Osteoporosis Heart murmur Social History Household Members: None Housing: Apartment Alcohol intake: former Patient Tobacco Use Status: Former Tobacco user Tobacco use type: Cigarette e-Cigarette/Vaping Use: Never Used Second Hand Smoke Exposure: No service: No Current occupational status: disabled Cognitive needs: No Hearing needs: No Vision needs: Yes (glasses ) Physical Exam Const Orientation/consciousness: patient oriented x3 Neck Neck: Yes no lymphadenopathy Thyroid: Thyroid normal Carotids: no bruits Resp Auscultation: clear to auscultation bilaterally Cardio Rate: regular rate Rhythm: regular rhythm Heart sounds: S1 normal heart sound present and S2 normal heart sound present Neuro General: patient oriented x3, gait normal and no focal motor deficits Results Reviewed Results Reviewed: Laboratory Tests 12/16/24 12/27/24 03/26/25 09:49 09:33 12:13 Sodium 140 Potassium 3.7 Chloride 103 Carbon Dioxide 30 H Anion Gap 11 L BUN 13 Creatinine 0.79 Estimated GFR > 60 Hgb A1c (Clinic) 7.6 H AST 18 ALT 16 Triglycerides 97 Cholesterol 154 LDL Cholesterol, Calc 104 H HDL Cholesterol 31 L 05/09/25 11:24 Sodium Potassium Chloride Carbon Dioxide Anion Gap BUN Creatinine Estimated GFR Hgb A1c (Clinic) 9.0 H AST ALT Triglycerides Cholesterol LDL Cholesterol, Calc HDL Cholesterol Assessment & Plan Assessment & Plan (1) Uncontrolled type 2 diabetes mellitus with hyperglycemia, with long-term current use of insulin: Code(s): E11.65 - Type 2 diabetes mellitus with hyperglycemia; Z79.4 - nursing home (current) use of insulin Category: Medical Plan: Increase Ozempic to 0.5 mg weekly Advised to start the Tresiba 10 units daily as directed Testing supplies ordered Reviewed signs and symptoms of hyper and hypoglycemia that would require emergent medical treatment. Reviewed rule of 15 Encouraged him to continue with diet and healthy lifestyle modifications. (2) Hypertension: Code(s): I10 - Essential (primary) hypertension Category: Medical Qualifiers: Hypertension type: essential hypertension Qualified Code(s): I10 - Essential (primary) hypertension Plan: WNL. Continue current regimen (3) Dyslipidemia: Code(s): E78.5 - Hyperlipidemia, unspecified Category: Medical Plan: Continue current regimen Plan Labs ordered. Short term follow up Orders: Orders Comprehensive Met. Panel Today E11.65 - Type 2 diabetes mellitus with hyperglycemia, E78.5 - Hyperlipidemia, unspecified, I10 - Essential (primary) hypertension, Z79.4 - superintendent terminal (current) use of insulin Microalbumin, Random (w Creat) Today E11.65 - Type 2 diabetes mellitus with hyperglycemia, E78.5 - Hyperlipidemia, unspecified, I10 - Essential (primary) hypertension, Z79.4 - nursing home (current) use of insulin Hemoglobin A1c Today E11.65 - Type 2 diabetes mellitus with hyperglycemia, E78.5 - Hyperlipidemia, unspecified, I10 - Essential (primary) hypertension, R73.01 - Impaired fasting glucose, Z79.4 - nursing home (current) use of insulin Medications: New semaglutide (Ozempic) 0.5 mg (0.736 mL) subcut QWEEK 3 mL 3RF blood-glucose sensor (FreeStyle Asa 3 Plus Sensor device) Use daily As directed to monitor glucose 2 ea 5RF E08.29 - Diabetes mellitus due to underlying condition with other diabetic kidney complication, R80.9 - Proteinuria, unspecified, Z79.4 - superintendent terminal (current) use of insulin Changed From insulin degludec (Tresiba FlexTouch U-200 insulin) 16 units (0.08 mL) subcut DAILY 30 days 3 mL 6RF To insulin degludec (Tresiba FlexTouch U-200 insulin) 10 units (0.05 mL) subcut DAILY 9 mL 2RF 30 days Refilled blood-glucose meter (FreeStyle Lite Meter kit) Use daily As directed to check blood sugars 1 ea 0RF E11.9 - Type 2 diabetes mellitus without complications, Z79.4 - superintendent terminal (current) use of insulin blood sugar diagnostic (FreeStyle Lite Strips) Use daily As directed to check blood glucose 100 ea 3RF E11.65 - Type 2 diabetes mellitus with hyperglycemia, Z79.4 - nursing home (current) use of insulin blood-glucose,hairspring staker,cont (FreeStyle Asa 3 [place]) Use daily As directed to monitor blood glucose 1 ea 0RF E11.65 - Type 2 diabetes mellitus with hyperglycemia, Z79.4 - superintendent terminal (current) use of insulin lancets (FreeStyle Lancets) use daily as directed to check blood glucose 100 ea 3RF E11.65 - Type 2 diabetes mellitus with hyperglycemia, Z79.4 - superintendent terminal (current) use of insulin Discontinued Ozempic (semaglutide) take 0.25mg for first two weeks then increase to 0.5mg Discontinued Reason: Doctor's Order 0.25 mg (0.368 mL) subcut QWEEK 28 days 3 mL 2RF NS Coding Level of Care Code Est Pt Level 4 (49342) Complex EM visit Add On G2211 Diagnoses Uncontrolled type 2 diabetes mellitus with hyperglycemia, with long-term current use of insulin E11.65; Z79.4 Essential hypertension I10 Hypertension type: essential hypertension Dyslipidemia E78.5
[2025-05-23 09:38] LABS: Glucose, Whole Blood 217 mg/dL (60-115)
== END 2025-05-23 09:48 | disposition home or self-care (01) ==
LOC: HO.ENCR 09:10
PROVIDERS: PCP Internal Medicine; Visit Provider Physician Assistant
DX: E11.65 Type 2 diabetes mellitus with hyperglycemia (principal); Z79.4 Long term (current) use of insulin; I10 Essential (primary) hypertension; E78.5 Hyperlipidemia, unspecified

== ENCOUNTER 2025-06-30 09:59 | Outpatient (AMB) | payer OTHER, SELFPAY ==
[2025-06-30 10:02] VITALS: BP 142/80; PULSE 72; BMI 44.0
--- NOTE | 2025-06-30 10:02 | MHC.OFFVIS ---
Vital Signs 06/30/25 10:02 Height 5 ft 8 in Weight 289 lb 3.944 oz BMI 44.0 BP 142/80 H Blood Pressure Location Rt brachial Position Sitting Pulse 72 Pulse Source Pulse Oximeter Intake Visit Reasons: 4 mth f/up-holter Materials Development Engineer Required: Yes Materials Development Engineer Language: Referral Clerk Name: fracisco Allergies aspirin (Aspirin) Allergy (Severe, Verified 06/30/25 10:04) RASH,THROAT CLOSES, Swollen throat Peanut Butter Allergy (Severe, Verified 06/30/25 10:04) Anaphylaxis dicyclomine (From BENTYL) Allergy (Intermediate, Verified 06/30/25 10:04) PALPITATIONS insulin lispro (Admelog SoloStar U-100 Insulin) Allergy (Intermediate, Verified 06/30/25 10:04) dizziness methylprednisolone (METHYLPREDNISOLONE) Allergy (Intermediate, Verified 06/30/25 10:04) SWELLING furosemide Adverse Reaction (Severe, Verified 06/30/25 10:04) Headache semaglutide Adverse Reaction (Verified 06/30/25 10:04) Rash nuts Allergy (Severe, Uncoded 06/30/25 10:04) swelling testosterone Allergy (Intermediate, Uncoded 06/30/25 10:04) Rash jardiance Adverse Reaction (Mild, Uncoded 06/30/25 10:04) Drowsy Medication List - Last Reconciled 06/30/25 by Rody Perales NP-C [emergency urine bag As directed] acetaminophen (Tylenol Extra Strength) 1,000 mg (2 x 500 mg) PO Q6H PRN amlodipine 5 mg PO DAILY 90 days blood pressure monitor (Blood Pressure Kit) As directed blood sugar diagnostic (FreeStyle Lite Strips) Use daily As directed to check blood glucose blood-glucose meter (FreeStyle Lite Meter kit) Use daily As directed to check blood sugars blood-glucose sensor (FreeStyle Asa 3 Plus Sensor device) Use daily As directed to monitor glucose blood-glucose,tab cutter,cont (FreeStyle Asa 3 [place]) Use daily As directed to monitor blood glucose cetirizine (All Day Allergy (cetirizine)) 10 mg PO DAILY PRN 7 days diclofenac sodium 1% (Arthritis Pain (diclofenac)) 2 grams topical QID PRN fluticasone furoate-vilanterol 200-25 mcg/dose (Breo Ellipta) 1 inh inhalation DAILY FreeStyle Asa 3 Plus Sensor (blood-glucose sensor) As directed every 14 days NS glucose (Dex4 Glucose) 16 grams (4 x 4 gram) PO Q15M PRN hydrochlorothiazide 12.5 mg PO DAILY 30 days insulin degludec (Tresiba FlexTouch U-200 insulin) 10 units (0.05 mL) subcut DAILY 30 days lancets (FreeStyle Lancets) use daily as directed to check blood glucose omeprazole 40 mg PO DAILY pen needle, diabetic (BD Sonja 2nd Gen Pen Needle) As directed once daily [Power chair As directed for long distance. 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 He previously worn a Holter monitor which showed sinus rhythm and 2 episodes of Mobitz 1. His last visit was in February 2025 and he now presents for follow-up. Today he reports he has been doing well since his last visit. He still feels rapid heart palpitations that can last up to 10 minutes at a time occurring approximately once a month. Beyond palpitations he denies other associated symptoms. He has not been getting any chest discomfort, shortness of breath, lightheadedness, leg edema. He walks routinely and states he tolerates it well. He does drink caffeinated beverages and we discussed reducing that amount. He is willing to try a cardiac event monitor. He previously had an issue with skin irritation following the Holter monitor. [facility] Medical History (Updated 05/23/25 @ 09:24 by Sudha Isaac PA-C) Uncontrolled type 2 diabetes mellitus with hyperglycemia, with long-term current use of insulin Diabetes mellitus Type 2 diabetes mellitus with other diabetic kidney complication Loss of consciousness Chronic GERD Abdominal pain Epigastric pain Type 2 diabetes mellitus, with long-term current use of insulin Right leg pain Immunization due Obesity due to excess calories Diabetes type 2, uncontrolled Morbid obesity due to excess calories Asthma Microalbuminuria Left shoulder pain Lower back pain Diabetic polyneuropathy associated with type 2 diabetes mellitus Anemia ELO (obstructive sleep apnea) Diabetic nephropathy associated with type 2 diabetes mellitus Klinefelter syndrome Vitamin D deficiency Dyslipidemia Hypertension alf (current) use of insulin Osteopenia Hypogonadism male Surgical History Hx of esophagogastroduodenoscopy Hx of colonoscopy History of removal of laparoscopic gastric banding device Hx of laparoscopic gastric banding Hx of foot surgery Hx of cholecystectomy Family History Father No problems noted. Mother Diabetes Osteoporosis Heart murmur Social History Household Members: None Housing: Apartment Alcohol intake: former Patient Tobacco Use Status: Former Tobacco user Tobacco use type: Cigarette e-Cigarette/Vaping Use: Never Used Second Hand Smoke Exposure: No service: No Current occupational status: disabled Cognitive needs: No Hearing needs: No Vision needs: Yes (glasses ) Review of Systems Const All systems reviewed & are unremarkable except as noted in HPI and below ENT Denies dizziness Card Denies chest pain, Denies chest pain at rest, Denies chest pain with activity, Reports rapid heart rate, Denies pedal edema, Denies edema, Denies leg edema, Denies lightheadedness, Denies palpitations, Denies dyspnea, Denies dyspnea on exertion and Denies orthopnea Resp Denies cough, Denies dyspnea and Denies dyspnea on exertion GI Denies hematochezia and Denies change in stool character Musc Denies abnormal gait, Denies limited range of motion, Denies muscle cramps, Denies muscle weakness, Denies numbness, Denies radiating pain into limb, Denies stiffness and Denies tingling Neuro Denies abnormal gait, Denies dizziness, Denies numbness and Denies tingling Endo Denies palpitations Physical Exam Vital Signs: Last Vital Signs Pulse 72 06/30/25 10:02 BP 142/80 H 06/30/25 10:02 BMI result Body Mass Index 44.0 Const General: cooperative, healthy appearing, comfortable and no acute distress Orientation/consciousness: patient oriented x3 Neck Neck: Yes normal visual inspection Resp Effort & Inspection: normal respiratory effort Auscultation: clear to auscultation bilaterally, no rales, no rhonchi and no wheezes Cardio Rate: regular rate Rhythm: regular rhythm Heart sounds: S1 normal heart sound present, S2 normal heart sound present, no gallops, no murmurs and no rubs Neuro General: patient oriented x3 Extrem General: Yes normal to inspection, No no pedal edema and No calf tenderness Psych Appearance: grossly normal Mental Status: mental status grossly normal Speech and movement: Normal speech and movement present Assessment & Plan Assessment & Plan (1) Palpitations: Code(s): R00.2 - Palpitations Category: Medical Plan: Reports of heart palpitations: Rapid heartbeats lasting up to 10 minutes. Last echocardiogram 12/25/2020 showed normal EF, moderate LVH, [id number] dilated left atrium. EKG done last visit showing normal sinus rhythm, right bundle branch block, LVH, rate 63. Holter monitor done 11/01/2024 for 1 day showed sinus rhythm with average heart rate 69, 2 episodes of Mobitz 1. He did not obtain a [employer] mobile device that was discussed last visit. We discussed cardiac event monitor and he is agreeable to try it. Requested use of leads that are for sensitive skin. It is possible that he is having extrasystoles versus atrial tach. We do need to evaluate for possible atrial fibrillation. Reviewed reduction in caffeine. Cardiology follow-up 3 months, sooner if needed. Plan I discussed with the patient the use of a cardiac event monitor to evaluate heart palpitations and the importance of reducing caffeine intake to manage symptoms. We agreed on a follow-up appointment in three months to review the monitor results and adjust the treatment plan accordingly. Orders: Orders ECG 30 day event monitor Today R00.2 - Palpitations Patient Instructions: - Wear the cardiac event monitor as instructed, allowing for breaks to prevent skin irritation. - Reduce caffeine intake to help manage palpitations. - Continue regular walking for exercise. - Attend follow-up appointment in three months. Patient was informed and verbally consented to the use of an ambient scribe for clinic note documentation during this visit. Visit time spent on chart review, interview, assessment, orders, documentation. Coding Level of Care Code Est Pt Level 3 (35962) Complex EM visit Add On G2211 Diagnoses Palpitations R00.2 Time Spent (min) 22
== END 2025-06-30 10:28 | disposition home or self-care (01) ==
LOC: HO.HCS 10:00
PROVIDERS: PCP Internal Medicine; Visit Provider Nurse Practitioner Family
DX: R00.2 Palpitations (principal)
CPT/HCPCS: 99213

== ENCOUNTER → 2025-06-30 09:59 | Outpatient (BNVA) | payer OTHER, SELFPAY | PROVIDERS: PCP Internal Medicine; Visit Provider Nurse Practitioner Family | DX: R00.2 Palpitations (principal); I10 Essential (primary) hypertension | CPT/HCPCS: 99212 ==

== ENCOUNTER 2025-07-25 11:00 | Outpatient (AMB) | payer OTHER, SELFPAY ==
--- NOTE | 2025-07-25 11:02 | A.OFFVIS_ITS ---
Vital Signs 07/25/25 11:04 Height 5 ft 8 in Weight 282 lb 3.067 oz BMI 42.9 BP 134/82 Blood Pressure Location Rt brachial Position Sitting Pulse 60 Pulse Source Pulse Oximeter Pulse Oximetry (%) 95 Oxygen Delivery Method Room Air Intake Visit Reasons: T2DM Intake Note: Patient present today for Type 2 Diabetes Mellitus Last Diabetic eye exam: Last exam was on 05/21/25 Last Podiatry Visit: Doesn't have one Most Recent HgA1C: 9.0%, 05/09/2025 Random Glucose: 160 mg/dL Clinical Psychiatrist Required: Yes Clinical Psychiatrist Language: Commercial Escrow Officer Services: Clinical Psychiatrist Present Clinical Psychiatrist Name: Tara #[id number] Information Interpreted: non-clinical & clinical Accompanied by: Self / Same As Patient Allergies aspirin (Aspirin) Allergy (Severe, Verified 06/30/25 10:04) RASH,THROAT CLOSES, Swollen throat Peanut Butter Allergy (Severe, Verified 06/30/25 10:04) Anaphylaxis dicyclomine (From BENTYL) Allergy (Intermediate, Verified 06/30/25 10:04) PALPITATIONS insulin lispro (Admelog SoloStar U-100 Insulin) Allergy (Intermediate, Verified 06/30/25 10:04) dizziness methylprednisolone (METHYLPREDNISOLONE) Allergy (Intermediate, Verified 06/30/25 10:04) SWELLING furosemide Adverse Reaction (Severe, Verified 06/30/25 10:04) Headache semaglutide Adverse Reaction (Verified 06/30/25 10:04) Rash nuts Allergy (Severe, Uncoded 06/30/25 10:04) swelling testosterone Allergy (Intermediate, Uncoded 06/30/25 10:04) Rash jardiance Adverse Reaction (Mild, Uncoded 06/30/25 10:04) Drowsy Medication List - Last Reconciled 07/25/25 by Sudha Isaac PA-C [emergency urine bag As directed] acetaminophen (Tylenol Extra Strength) 1,000 mg (2 x 500 mg) PO Q6H PRN amlodipine 5 mg PO DAILY 90 days blood pressure monitor (Blood Pressure Kit) As directed blood sugar diagnostic (FreeStyle Lite Strips) Use daily As directed to check blood glucose blood-glucose meter (FreeStyle Lite Meter kit) Use daily As directed to check blood sugars blood-glucose sensor (FreeStyle Asa 3 Plus Sensor device) Use daily As directed to monitor glucose blood-glucose,rotary drier feeder,cont (FreeStyle Asa 3 Romney) Use daily As directed to monitor blood glucose cetirizine (All Day Allergy (cetirizine)) 10 mg PO DAILY PRN 7 days diclofenac sodium 1% (Arthritis Pain (diclofenac)) 2 grams topical QID PRN dulaglutide (Trulicity) 0.75 mg (0.5 mL) subcut QWEEK fluticasone furoate-vilanterol 200-25 mcg/dose (Breo Ellipta) 1 inh inhalation DAILY FreeStyle Asa 3 Plus Sensor (blood-glucose sensor) As directed every 14 days NS glucose (Dex4 Glucose) 16 grams (4 x 4 gram) PO Q15M PRN hydrochlorothiazide 12.5 mg PO DAILY 30 days insulin degludec (Tresiba FlexTouch U-200 insulin) 30 units (0.15 mL) subcut DAILY 30 days lancets (FreeStyle Lancets) use daily as directed to check blood glucose omeprazole 40 mg PO DAILY pen needle, diabetic (BD Sonja 2nd Gen Pen Needle) As directed once daily [Power chair As directed for long distance. 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 Phone: molder Tara [phone]. Endo: DM- Last a1c was 9. He was dx with diabetes in 2014. His chart says that he is currently on Ozempic 0.5 mg weekly and Tresiba 10 units daily. He has been using tresiba 20 units BID. he discontinued Ozempic due to headaches. He has not been taking it for the last 2 weeks. He states he is overall fully compliant. -he is not on metformin because it upsets his stomach and causes muscle aches. Recently did not tolerate Mounjaro as it was causing injection site rashes and discomfort. Trulicity caused upset stomach -he has had diabetic Education in the past and has met with a clutch rebuilder but does not feel that he has a great understanding of diabetes. cgm- out of sensors and reader. He lost his reader. He also never picked up his testing supplies after last visit. CV: bp today is 134/82. He is on lisinopril 40 mg, amlodipine 5 mg. Cholesterol controlled with atorvastatin 20 mg. [facility] Medical History (Updated 05/23/25 @ 09:24 by Sudha Isaac PA-C) Uncontrolled type 2 diabetes mellitus with hyperglycemia, with long-term current use of insulin Diabetes mellitus Type 2 diabetes mellitus with other diabetic kidney complication Loss of consciousness Chronic GERD Abdominal pain Epigastric pain Type 2 diabetes mellitus, with long-term current use of insulin Right leg pain Immunization due Obesity due to excess calories Diabetes type 2, uncontrolled Morbid obesity due to excess calories Asthma Microalbuminuria Left shoulder pain Lower back pain Diabetic polyneuropathy associated with type 2 diabetes mellitus Anemia ELO (obstructive sleep apnea) Diabetic nephropathy associated with type 2 diabetes mellitus Klinefelter syndrome Vitamin D deficiency Dyslipidemia Hypertension 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 Mother Diabetes Osteoporosis Heart murmur Social History Household Members: None Housing: Apartment Alcohol intake: former Patient Tobacco Use Status: Former Tobacco user Tobacco use type: Cigarette e-Cigarette/Vaping Use: Never Used Second Hand Smoke Exposure: No service: No Current occupational status: disabled Cognitive needs: No Hearing needs: No Vision needs: Yes (glasses ) Physical Exam Vital Signs: Last Vital Signs Pulse 60 07/25/25 11:04 BP 134/82 07/25/25 11:04 Pulse Ox 95 07/25/25 11:04 Oxygen Delivery Method Room Air 07/25/25 11:04 BMI result Body Mass Index 42.9 Const Orientation/consciousness: patient oriented x3 HEENT Ears: hearing grossly normal bilaterally Neck Thyroid: Thyroid normal Lymphatic: no lymphadenopathy noted Resp Auscultation: clear to auscultation bilaterally Cardio Rate: regular rate Rhythm: regular rhythm Heart sounds: S1 normal heart sound present and S2 normal heart sound present Skin General skin exam: no rashes or lesions noted Neuro General: patient oriented x3, gait normal and no focal motor deficits Results Reviewed Results Reviewed: Laboratory Last Values Glucose (Clinic) 160 mg/dL (60-115) H 07/25/25 11:06 Laboratory Tests 12/16/24 03/26/25 05/09/25 09:49 12:13 11:24 Creatinine 0.79 Estimated GFR > 60 Glucose (Clinic) Hgb A1c (Clinic) 9.0 H AST 18 ALT 16 Alkaline Phosphatase 73 Triglycerides 97 Cholesterol 154 LDL Cholesterol, Calc 104 H HDL Cholesterol 31 L 05/23/25 09:33 Creatinine Estimated GFR Glucose (Clinic) 217 H Hgb A1c (Clinic) AST ALT Alkaline Phosphatase Triglycerides Cholesterol LDL Cholesterol, Calc HDL Cholesterol Assessment & Plan Assessment & Plan (1) Uncontrolled type 2 diabetes mellitus with hyperglycemia, with long-term current use of insulin: Code(s): E11.65 - Type 2 diabetes mellitus with hyperglycemia; Z79.4 - medical terminologist (current) use of insulin Category: Medical Plan: will start victoza Take Tresiba 30 units daily as directed We discussed importance of compliance. Discussed that he is putting himself at an increased risk of a heart attack, stroke, infection, complication, amputations etc.. Testing supplies reordered-- he will call me if he has any issues picking up testing supplies dexcom reader and sensor provided Phone number provided to call regarding new reader. If he is able to get a reader from [employer] he will let me know and return the Dexcom reader Reviewed signs and symptoms of hyper and hypoglycemia that would require emergent medical treatment. Reviewed rule of 15 Encouraged him to continue with diet and healthy lifestyle modifications. (2) Hypertension: Code(s): I10 - Essential (primary) hypertension Category: Medical Qualifiers: Hypertension type: essential hypertension Qualified Code(s): I10 - Essential (primary) hypertension Plan: WNL. Continue current regimen (3) Dyslipidemia: Code(s): E78.5 - Hyperlipidemia, unspecified Category: Medical Plan: Continue current regimen Plan Labs ordered. Short term follow up Medications: New liraglutide (Victoza 2-Pieter) 0.6 mg (0.1 mL) subcut DAILY 6 mL 2RF 30 days blood-glucose sensor (SimplyCast G7 Sensor device) Use daily As directed to monitor glucose. change q 10 days 9 ea 3RF E11.65 - Type 2 diabetes mellitus with hyperglycemia, Z79.4 - medical terminologist (current) use of insulin lancets (FreeStyle Lancets) use daily as directed to check blood glucose 100 ea 3RF Changed From insulin degludec (Tresiba FlexTouch U-200 insulin) 10 units (0.05 mL) subcut DAILY 30 days 9 mL 2RF To insulin degludec (Tresiba FlexTouch U-200 insulin) 30 units (0.15 mL) subcut DAILY 9 mL 2RF 30 days Refilled blood sugar diagnostic (FreeStyle Lite Strips) Use daily As directed to check blood glucose 100 ea 3RF E11.65 - Type 2 diabetes mellitus with hyperglycemia, Z79.4 - alf (current) use of insulin Discontinued semaglutide (Ozempic) Discontinued Reason: Duplicate 0.5 mg (0.736 mL) subcut QWEEK 3 mL 3RF Coding Level of Care Code Est Pt Level 4 (51221) Complex EM visit Add On G2211 Diagnoses Uncontrolled type 2 diabetes mellitus with hyperglycemia, with long-term current use of insulin E11.65; Z79.4 Essential hypertension I10 Hypertension type: essential hypertension Dyslipidemia E78.5
[2025-07-25 11:04] VITALS: BP 134/82; PULSE 60; O2SAT 95; BMI 42.9
[2025-07-25 11:13] LABS: Glucose, Whole Blood 160 mg/dL (60-115)
== END 2025-07-25 11:39 | disposition home or self-care (01) ==
LOC: HO.ENCR 11:00
PROVIDERS: Visit Provider Physician Assistant
DX: E11.65 Type 2 diabetes mellitus with hyperglycemia (principal); Z79.4 Long term (current) use of insulin; I10 Essential (primary) hypertension; E78.5 Hyperlipidemia, unspecified

== ENCOUNTER → 2025-07-25 11:00 | Outpatient (BNVA) | payer OTHER, SELFPAY | PROVIDERS: Visit Provider Physician Assistant | DX: E11.65 Type 2 diabetes mellitus with hyperglycemia (principal); I10 Essential (primary) hypertension; E78.5 Hyperlipidemia, unspecified; Z79.4 Long term (current) use of insulin; Z79.85 Long-term (current) use of injectable non-insulin antidiabetic drugs | CPT/HCPCS: 82947; 99212 ==

== ENCOUNTER 2025-07-25 11:40 | Outpatient (REF) | payer OTHER, SELFPAY ==
[2025-07-25 13:14] LABS: MANUAL DIFF FLAG NO
[2025-07-25 13:29] LABS: Hematocrit 38.4 % (42.0-52.0); Hemoglobin 12.6 g/dl (14.0-18.0); Imm Gran Abs Auto 0.01 X10*3/uL (0.00-0.03); Imm Gran Pct Auto 0.2 % (0.0-0.4); Lymphocytes Absolute Auto 2.3 X10*3/uL (1.2-4.9); Mean Corpuscular HGB Conc 32.8 g/dl (31.0-36.0); Mean Corpuscular Hemoglobin 28.3 pg (27.0-33.0); Mean Corpuscular Volume 86.1 fL (80.0-98.0); NRBC Abs Auto 0.000 X10*3/uL (0.0-0.012); NRBC Pct Auto 0.0 /100WBC (0.0-0.2); Platelet Count 183 X10*3/uL (160-400); Red Blood Count 4.46 X10*6/uL (4.60-5.80); White Blood Count 6.1 X10*3/uL (4.8-10.8)
[2025-07-25 14:05] LABS: Appearance Urine Clear; Glucose Urine UA Negative (Negative); PH 6.0 (5.0-9.0); Specific Gravity - Urine >= 1.030 (1.005-1.025); UMIC TRIGGER UACC YES
[2025-07-25 14:24] LABS: Alanine Aminotransferase 14 U/L (0-40); Albumin Level 4.1 g/dL (3.5-5.0); Alkaline Phosphatase 87 U/L (39-117); Anion Gap 10 (12-20); Aspartate Amino Transferase 16 U/L (5-37); Blood Urea Nitrogen 17 mg/dL (9-16); Calcium 9.3 mg/dL (8.4-10.2); Carbon Dioxide 30 mmol/L (22-29); Chloride 107 mmol/L (96-108); Cholesterol 176 mg/dL (<200); Estimated Glomerular Filt Rate > 60; HDL Cholesterol 35 mg/dL (>40); Potassium 3.7 mmol/L (3.3-5.1); Sodium 143 mmol/L (135-145); Total Protein 7.5 g/dL (6.5-8.0); Triglycerides 94 mg/dL (<150)
== END 2025-07-25 11:41 | disposition home or self-care (01) ==
LOC: HO.10HDL 11:40
DX: T78.40XA Allergy, unspecified, initial encounter (principal); I51.89 Other ill-defined heart diseases; I11.9 Hypertensive heart disease without heart failure; E78.5 Hyperlipidemia, unspecified; E11.65 Type 2 diabetes mellitus with hyperglycemia; E55.9 Vitamin D deficiency, unspecified; K21.9 Gastro-esophageal reflux disease without esophagitis; R80.9 Proteinuria, unspecified; D64.9 Anemia, unspecified; E66.01 Morbid (severe) obesity due to excess calories; Z68.41 Body mass index [BMI] 40.0-44.9, adult
CPT/HCPCS: 36415; 80053; 80061; 81001; 81003; 82306; 85025

== ENCOUNTER 2025-07-30 11:00 | Outpatient (AMB) | payer OTHER, SELFPAY ==
[2025-07-30 11:12] VITALS: BP 162/92; PULSE 72; O2SAT 94; BMI 43.0
--- NOTE | 2025-07-30 11:12 | A.OFFVIS_ITS ---
Vital Signs 07/30/25 11:12 Height 5 ft 8 in Weight 283 lb BMI 43.0 BP 162/92 H Blood Pressure Location Rt brachial Position Sitting Pulse 72 Pulse Source Pulse Oximeter Pulse Oximetry (%) 94 Oxygen Delivery Method Room Air Intake Visit Reasons: Asthma Furnace Mechanic Required: Yes Furnace Mechanic Name: Yeni Brunner Barbra Allergies aspirin (Aspirin) Allergy (Severe, Verified 07/30/25 11:18) RASH,THROAT CLOSES, Swollen throat Peanut Butter Allergy (Severe, Verified 07/30/25 11:18) Anaphylaxis dicyclomine (From BENTYL) Allergy (Intermediate, Verified 07/30/25 11:18) PALPITATIONS insulin lispro (Admelog SoloStar U-100 Insulin) Allergy (Intermediate, Verified 07/30/25 11:18) dizziness methylprednisolone (METHYLPREDNISOLONE) Allergy (Intermediate, Verified 07/30/25 11:18) SWELLING furosemide Adverse Reaction (Severe, Verified 07/30/25 11:18) Headache semaglutide Adverse Reaction (Verified 07/30/25 11:18) Rash nuts Allergy (Severe, Uncoded 06/30/25 10:04) swelling testosterone Allergy (Intermediate, Uncoded 06/30/25 10:04) Rash jardiance Adverse Reaction (Mild, Uncoded 06/30/25 10:04) Drowsy HPI HPI Asthma: Details: 60-year-old gentleman with underlying history of morbid obesity followed severe obstructive sleep apnea, mild asthma, and pulmonary nodules. His pulmonary nodules have been stable since 2011 on 09/2021 CT scan and do not require further imaging follow-up. He continues to follow-up with Cardiology for underlying lindsey stolic dysfunction. He has restarted using CPAP machine, though he has difficulty suggesting to the mask use. He continues to use nocturnal supplemental oxygen. His asthma symptoms are well controlled on current regimen of Breo and albuterol MDI. He denies recent exacerbations. [facility] Medical History (Updated 05/23/25 @ 09:24 by Sudha Isaac PA-C) Uncontrolled type 2 diabetes mellitus with hyperglycemia, with long-term current use of insulin Diabetes mellitus Type 2 diabetes mellitus with other diabetic kidney complication Loss of consciousness Chronic GERD Abdominal pain Epigastric pain Type 2 diabetes mellitus, with long-term current use of insulin Right leg pain Immunization due Obesity due to excess calories Diabetes type 2, uncontrolled Morbid obesity due to excess calories Asthma Microalbuminuria Left shoulder pain Lower back pain Diabetic polyneuropathy associated with type 2 diabetes mellitus Anemia ELO (obstructive sleep apnea) Diabetic nephropathy associated with type 2 diabetes mellitus Klinefelter syndrome Vitamin D deficiency Dyslipidemia Hypertension 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 Mother Diabetes Osteoporosis Heart murmur Social History Household Members: None Housing: Apartment Alcohol intake: former Patient Tobacco Use Status: Former Tobacco user Tobacco use type: Cigarette e-Cigarette/Vaping Use: Never Used Second Hand Smoke Exposure: No service: No Current occupational status: disabled Cognitive needs: No Hearing needs: No Vision needs: Yes (glasses ) Review of Systems Const Denies daytime sleepiness, Denies excessive sweating, Denies fatigue, Denies fever(s), Denies lethargy, Denies malaise, Denies night sweats, Denies snoring and Denies weight loss Eyes Denies blurry vision and Denies itchy eyes ENT Denies nasal congestion, Denies post nasal drip, Denies sinus pain, Denies sinus pressure and Denies other ( Thrush) Card Denies chest pain, Denies pedal edema, Denies dyspnea, Denies orthopnea and Denies paroxysmal nocturnal dyspnea Resp Denies cough, Denies hemoptysis, Denies excessive phlegm production, Denies dyspnea, Denies snoring and Denies wheezing GI Denies abdominal pain and Denies heartburn Musc Denies myalgias, Denies arthralgias and Denies joint swelling Skin/Breast Denies rash Neuro Denies memory loss and Denies seizure-like activity Psych Denies abnormal sleep pattern, Denies anxiety and Denies memory loss Endo Denies excessive sweating, Denies fatigue and Denies heat intolerance Danny/Lymph Denies easy bruising Aller/Immun Denies itchy eyes, Denies seasonal rhinorrhea and Denies wheezing Physical Exam Vital Signs: Last Vital Signs Pulse 72 07/30/25 11:12 BP 162/92 H 07/30/25 11:12 Pulse Ox 94 07/30/25 11:12 Oxygen Delivery Method Room Air 07/30/25 11:12 BMI result Body Mass Index 43.0 Const General: no acute distress and alert Nutritional Appearance: obese Orientation/consciousness: Other orientation findings ( oriented) HEENT Head: Yes atraumatic Eyes General: appearance normal, both eyes and all related structures Sclerae: sclerae normal EOM: EOMs intact bilaterally Neck Neck: Yes supple Lymphatic: no lymphadenopathy noted Resp Effort & Inspection: normal respiratory effort and no use of accessory muscles Auscultation: clear to auscultation bilaterally Cardio Rate: regular rate Rhythm: regular rhythm Heart sounds: no gallops, no murmurs and no rubs Skin General skin exam: other ( warm) Extrem General: No clubbing, No cyanosis and No edema Assessment & Plan Assessment & Plan (1) Asthma: Code(s): J45.909 - Unspecified asthma, uncomplicated Category: Medical Qualifiers: Asthma severity: mild Asthma persistence: persistent Asthma complication type: uncomplicated Qualified Code(s): J45.30 - Mild persistent asthma, uncomplicated Plan: Well controlled on current regimen of Breo and albuterol MDI. Continue current regimen. (2) On supplemental oxygen therapy: Code(s): Z99.81 - Dependence on supplemental oxygen Category: Medical Plan: Continue nocturnal supplemental oxygen. (3) ELO (obstructive sleep apnea): Code(s): G47.33 - Obstructive sleep apnea (adult) (pediatric) Category: Medical Plan: Still having difficulty suggesting to mask use. Nasal mask sample provided. Coding Level of Care Code Est Pt Level 4 (79005) Complex EM visit Add On G2211 Diagnoses Mild persistent asthma without complication J45.30 Asthma severity: mild Asthma persistence: persistent Asthma complication type: uncomplicated On supplemental oxygen therapy Z99.81 ELO (obstructive sleep apnea) G47.33
--- OUTSIDE RECORDS SUMMARY | 2025-07-30 21:44 | XMS_ITS | Patient Health Record ---
Author Organization [facility] Address [address] [place] [address] Care Team Providers Care Hydramatic Mechanic Name Role Phone Consuelo Coles Primary Care Provider Unavailab Dwight Zepeda Unavailable [phone] Tia Valle Unavailable Unavailable Allergies Allergen (clinical drug ingredient) Drug/Non Drug Allergy documented on EMR Reaction Allergy Type Onset Date Status aspirin aspirin (uncoded) rash Allergy Ac tive Reason For Referral No Information Medications Medication SIG (Take, Route, Fr equency, Duration) Notes Start Date End Date Status Lisinopril Active Zantac 150 MG Tablet 1 tablet Orally Q A fternoon; Duration: 30 day(s) Active Insulin Aspart Activ e Plavix Active Simvastatin Active Social History Social History Additional Details Category Social Info Options Details Miscellaneous: Marital status: Occupation: unemployed Section Notes: He does not smoke nor use an y sig. amounts of alcohol He does not smoke nor use an y sig. amounts of alcohol He does not smoke nor use an y sig. amounts of alcohol Problems Problem Type SNOMED Code ICD Code Onset Dates Problem Status W/U Status Risk Notes Problem Epigastric pain (94169506) Abdominal pain, epigastric (789.06) Active confirmed Problem Anemia (095263660) Anemia (285.9) Active confirmed Problem Liver function tests abnormal (265208503) Liver function study, abnormal (794.8) Active confirmed Problem Fatty liver (300060884) Fatty liver (571.8) Active confirmed Plan Of Treatment Pending Test Test Name Order Date IRON + IBC (FE) 09/13/2011 FERRITIN 09/13/2011 VITAMIN B12 AND FOLATE 09/13/2011 CBC w DIFF 09/13/2011 HEPATITIS B PROFILE 06/04/2013 HEPATITIS C ANTIBODY 06/04/2013 Insurance Providers Payer Name Payer Address Payer Phone Subscriber Number Group Number Insured Name Patient Relationship to Insured Coverage Start Date Coverage End Date [facility] [address] [address] [place], [place] [id number] SHAYY ARIAS Self - patient is the insured Medical (General) History Medical History History ICD Code Afib HTN IDDM Hyperlipidemia Denies ND, stroke, lung disease, kidney disease Anemia--01/2013 Hgb [...]
--- OUTSIDE RECORDS SUMMARY | 2025-07-30 21:44 | XMS_ITS | Clinical Summary ---
Author Organization [email or web address] [facility] Address [address] [place] [address] Care Team Providers Care Finger Buffs Assembler Name Role Phone Yola Man MD [...] UPPER GI ENDOSCOPY PERFORMED; COMMENT: Dr. Ko, [facility]: Visually normal, dilation with 60 Fr Savary dilator performed. Medical History Medical History Date Comments DM (diabetes mellitus), type 2, uncontrolled 05/17/2016 DX:DM (diabetes mellitus), t ype 2, uncontrolled DM (diabetes mellitus), type 2 with neurological complications ([facility] 05/17/2016 DX:DM (diabetes mellitus), t ype 2 with neurological complications (HCC) H/O amputation of lesser toe , right ([facility]) 11/22/2017 DX:H/O amputation of lesser toe, right ([facility]); COMMENT: 4th and 5th toes in 2000, removal of tumor Osteopenia 07/04/2018 DX:Osteopenia Klinefelter syndrome 07/04/2018 DX:Klinefel ter syndrome Hypogonadotropic hypogonadis m ([facility] V24) 07/04/2018 DX:Hypogonadotropic [...] Health Maintenance Due Date Last Done Comments Colorectal Cancer Screening: Colonoscopy 1966 Diabetes: Annual GFR (Glomer ular Filtration Rate) 1966 Diabetes: Annual Foot Exam 01/23/1976 Diabetes: Annual Retina Eye Exam 01/23/1976 Hepatitis B Vaccines (1 of 3 - 19+ 3-dose series) 1985 RSV Immunization Adult Patie nts (1 - Risk 50-74 years 1-dose series) 01/23/2016 Zoster Vaccines (1 of 2) 01/23/2016 Pneumococcal Vaccine: 50+ Ye ars (2 of 2 - PCV20 or PCV21) 09/30/2017 09/30/2016 Cholesterol Screening (Lipid Panel) 10/10/2023 Diabetes: Annual Urine Albumin-Creatinine Ratio (uACR) 10/10/2023 Diabetes: Blood Sugar Contro l Test (HGBA1C) 10/10/2023 HIV Screening 10/10/2023 Hepatitis C Screening 10/10/2023 Hypertension/CHF/CAD Annual BMP Blood Test 10/10/2023 Social Influencers of Health Screening 10/10/2023 Depression Screening 09/11/2024 COVID-19 Vaccine (1 - 2024-2 6 season) 2025 Influenza Vaccine (#1) 2025 DTaP,Tdap,and Td Vaccines (2 - Td or Tdap) 07/17/2027 07/17/2017 HIB Vaccines Aged Out No longer eligi [...] age to complete this topic Care Teams Finger Buffs Assembler Relationship Specialty Start Date End Date Yola Man MD PCP - General Internal Medicine 09/17/19
== END 2025-07-30 11:29 | disposition home or self-care (01) ==
LOC: HO.HPS 11:01
PROVIDERS: PCP Internal Medicine; Visit Provider Internal Medicine Pulmonary Disease
DX: J45.30 Mild persistent asthma, uncomplicated (principal); Z99.81 Dependence on supplemental oxygen; G47.33 Obstructive sleep apnea (adult) (pediatric)
CPT/HCPCS: 99214

== ENCOUNTER → 2025-07-30 11:00 | Outpatient (BNVA) | payer OTHER, SELFPAY | PROVIDERS: PCP Internal Medicine; Visit Provider Internal Medicine Pulmonary Disease | DX: J45.30 Mild persistent asthma, uncomplicated (principal); G47.33 Obstructive sleep apnea (adult) (pediatric); Z99.81 Dependence on supplemental oxygen | CPT/HCPCS: 99212 ==

== ENCOUNTER 2025-08-05 10:50 | Outpatient (AMB) | payer OTHER, SELFPAY ==
[2025-08-05 10:52] VITALS: BP 170/90; PULSE 64; TEMP 36.4; O2SAT 97; BMI 43.6
--- NOTE | 2025-08-05 10:52 | MHC.PC.OV ---
Vital Signs 08/05/25 10:52 Height 5 ft 8 in Weight 287 lb BMI 43.6 BP 170/90 H Blood Pressure Location Rt brachial Position Sitting Pulse 64 Pulse Source Pulse Oximeter Temp 97.6 F Temp Source Temporal Artery Scan Pulse Oximetry (%) 97 Oxygen Delivery Method Room Air Intake Visit Reasons: dm/htn/kidney stone Pyrometallurgical Engineer Required: No Accompanied by: Self / Same As Patient Allergies aspirin (Aspirin) Allergy (Severe, Verified 08/05/25 11:06) RASH,THROAT CLOSES, Swollen throat Peanut Butter Allergy (Severe, Verified 08/05/25 11:06) Anaphylaxis dicyclomine (From BENTYL) Allergy (Intermediate, Verified 08/05/25 11:06) PALPITATIONS insulin lispro (Admelog SoloStar U-100 Insulin) Allergy (Intermediate, Verified 08/05/25 11:06) dizziness methylprednisolone (METHYLPREDNISOLONE) Allergy (Intermediate, Verified 08/05/25 11:06) SWELLING furosemide Adverse Reaction (Severe, Verified 08/05/25 11:06) Headache semaglutide Adverse Reaction (Verified 08/05/25 11:06) Rash nuts Allergy (Severe, Uncoded 08/05/25 11:06) swelling testosterone Allergy (Intermediate, Uncoded 08/05/25 11:06) Rash jardiance Adverse Reaction (Mild, Uncoded 08/05/25 11:06) Drowsy Medication List - Last Reconciled 08/05/25 by SHEA Tang-C [emergency urine bag As directed] acetaminophen (Tylenol Extra Strength) 1,000 mg (2 x 500 mg) PO Q6H PRN amlodipine 5 mg PO DAILY 90 days blood pressure monitor (Blood Pressure Kit) As directed blood sugar diagnostic (FreeStyle Lite Strips) Use daily As directed to check blood glucose blood-glucose meter (FreeStyle Lite Meter kit) Use daily As directed to check blood sugars blood-glucose sensor (FreeStyle Asa 3 Plus Sensor device) Use daily As directed to monitor glucose blood-glucose sensor ([employer] G7 Sensor device) Use daily As directed to monitor glucose. 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 (FreeStyle Asa 3 [place]) Use daily As directed to monitor blood glucose cetirizine (All Day Allergy (cetirizine)) 10 mg PO DAILY PRN 7 days fluticasone furoate-vilanterol 200-25 mcg/dose (Breo Ellipta) 1 inh inhalation DAILY FreeStyle Asa 3 Plus Sensor (blood-glucose sensor) As directed every 14 days NS glucose (Dex4 Glucose) 16 grams (4 x 4 gram) PO Q15M PRN hydrochlorothiazide 12.5 mg PO DAILY 30 days insulin degludec (Tresiba FlexTouch U-200 insulin) 30 units (0.15 mL) subcut DAILY 30 days lancets (FreeStyle Lancets) use daily as directed to check blood glucose lancets (FreeStyle Lancets) use daily as directed to check blood glucose liraglutide (Victoza 2-Pieter) 0.6 mg (0.1 mL) subcut DAILY 30 days omeprazole 40 mg PO DAILY pen needle, diabetic (BD Sonja 2nd Gen Pen Needle) As directed once daily [Power chair As directed for long distance. 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.] [pull-up diapers As directed] Shower Chair As directed [shower chair As directed-patient unable to stand of extending periods.] [Skin Tac Wipes 1 unit topical .use as directed 90 days NS] underpads (Bed Underpads) Use 10 bed underpads once a day walker As directed Tobacco use date assessed: 08/05/25 Dental Screening Dental Screen Date: 08/05/25 Did you have a dental visit in the last 12 months?: Yes Did you have a dental problem in the last 6 months where you did not have access to dental care?: No HPI dm/htn/kidney stone HPI Details 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 Lot of pain in left shoulder Reports that Requesting someone was going that he had someone coming FOR hour and they stop because they cannto do anything in one hour Reports that he apply to [employer]reports that they came to his house once and denied him Reports that he reapplied and now they need to know what he has and one he needs more shopping, clean house, laundry, pharmacy to orange picking supervisor medication help him to go into the shower Reports that he passed out before , but he does not remember till he came to it a1c 8.5%, BILATERAl knees and left shoulder bilateral knee xray bp 166/94 right arm losartan 50 mg daily return in 4 weeks Reports that the he needs someone to come in and help him becuase of his pain and breathing problem. [facility] Medical History Uncontrolled type 2 diabetes mellitus with hyperglycemia, with long-term current use of insulin Diabetes mellitus Type 2 diabetes mellitus with other diabetic kidney complication Loss of consciousness Chronic GERD Abdominal pain Epigastric pain Type 2 diabetes mellitus, with long-term current use of insulin Right leg pain Immunization due Obesity due to excess calories Diabetes type 2, uncontrolled Morbid obesity due to excess calories Asthma Microalbuminuria Left shoulder pain Lower back pain Diabetic polyneuropathy associated with type 2 diabetes mellitus Anemia ELO (obstructive sleep apnea) Diabetic nephropathy associated with type 2 diabetes mellitus Klinefelter syndrome Vitamin D deficiency Dyslipidemia Hypertension prison (current) use of insulin Osteopenia Hypogonadism male Surgical History Hx of esophagogastroduodenoscopy Hx of colonoscopy History of removal of laparoscopic gastric banding device Hx of laparoscopic gastric banding Hx of foot surgery Hx of cholecystectomy Family History Father No problems noted. Mother Diabetes Osteoporosis Heart murmur Social History Household Members: None Housing: Apartment Alcohol intake: former Patient Tobacco Use Status: Former Tobacco user Tobacco use type: Cigarette e-Cigarette/Vaping Use: Never Used Second Hand Smoke Exposure: No service: No Current occupational status: disabled Cognitive needs: No Hearing needs: No Vision needs: Yes (glasses ) Questionnaire Thrive Questionnaire Date Thrive assessed: 05/09/25 KRISTOFER-7 AMB Questionnaire KRISTOFER-7 Date KRISTOFER - 7 assessed: 05/09/25 Source: Developed by Drs. Dwight Amaya, Rosaline Armando, Mat Calderon and colleagues, with an educational anamaria from [employer] Physical exam (Primary Care) Vital Signs: Last Vital Signs Temp 97.6 F 08/05/25 10:52 Pulse 64 08/05/25 10:52 BP 170/90 H 08/05/25 10:52 Pulse Ox 97 08/05/25 10:52 Oxygen Delivery Method Room Air 08/05/25 10:52 BMI result Body Mass Index 43.6 Tobacco/Smoking Status: Tobacco use Status Tobacco use date assessed 08/05/25 08/05/25 11:00 Patient Tobacco Use Status Former Tobacco user 08/05/25 11:00 Tobacco use type Cigarette 08/05/25 11:00 e-Cigarette/Vaping Use Never Used 08/05/25 11:00 Thrive Assessment: Date of Thrive Assessment Date Thrive assessed 05/09/25 08/05/25 11:00 Results AMB Hemoglobin A1c AMB Hemoglobin A1c 8.5 % Last Edit by MARTINA Clements on 08/05/25 13:49 Coding Assessment & Plan Assessment & Plan Orders: Orders Hemoglobin A1c 4 Months E11.65 - Type 2 diabetes mellitus with hyperglycemia, E66.01 - Morbid (severe) obesity due to excess calories, E78.5 - Hyperlipidemia, unspecified, I10 - Essential (primary) hypertension, I45.10 - Unspecified right bundle-branch block, Z68.41 - Body mass index [BMI] 40.0-44.9, adult, Z79.4 - prison (current) use of insulin Complete Blood Count Auto Diff 4 Months E11.65 - Type 2 diabetes mellitus with hyperglycemia, E66.01 - Morbid (severe) obesity due to excess calories, E78.5 - Hyperlipidemia, unspecified, I10 - Essential (primary) hypertension, I45.10 - Unspecified right bundle-branch block, Z68.41 - Body mass index [BMI] 40.0-44.9, adult, Z79.4 - prison (current) use of insulin Comprehensive [place]. Panel Fast 4 Months E11.65 - Type 2 diabetes mellitus with hyperglycemia, E66.01 - Morbid (severe) obesity due to excess calories, E78.5 - Hyperlipidemia, unspecified, I10 - Essential (primary) hypertension, I45.10 - Unspecified right bundle-branch block, Z68.41 - Body mass index [BMI] 40.0-44.9, adult, Z79.4 - supervisor intermediates (current) use of insulin AMB Hemoglobin A1c Today Z13.9 - Encounter for screening, unspecified Lipid Panel 4 Months E11.65 - Type 2 diabetes mellitus with hyperglycemia, E66.01 - Morbid (severe) obesity due to excess calories, E78.5 - Hyperlipidemia, unspecified, I10 - Essential (primary) hypertension, I45.10 - Unspecified right bundle-branch block, Z68.41 - Body mass index [BMI] 40.0-44.9, adult, Z79.4 - supervisor intermediates (current) use of insulin Vitamin D 25-OH Total 4 Months E11.65 - Type 2 diabetes mellitus with hyperglycemia, E66.01 - Morbid (severe) obesity due to excess calories, E78.5 - Hyperlipidemia, unspecified, I10 - Essential (primary) hypertension, I45.10 - Unspecified right bundle-branch block, Z68.41 - Body mass index [BMI] 40.0-44.9, adult, Z79.4 - supervisor intermediates (current) use of insulin XR Knee Ean 3V Today M25.561 - Pain in right knee, M25.562 - Pain in left knee Medications: New atorvastatin (Lipitor) 10 mg PO BEDTIME 90 tabs 3RF losartan 50 mg PO DAILY 30 tabs 3RF
--- OUTSIDE RECORDS SUMMARY | 2025-08-05 14:04 | XMS_ITS | Patient Health Record ---
Author Organization [facility] Address [address] [place] [address] Care Team Providers Care Steamfitter Supervisor Name Role Phone Consuelo Coles Primary Care Provider Unavailab Dwight Zepeda Unavailable [phone] Tia Valle Unavailable Unavailable Allergies Allergen (clinical [...] W/U Status Risk Notes Problem Epigastric pain (43182741) Abdominal pain, epigastric (789.06) Active confirmed Problem Anemia (879240417) Anemia (285.9) Active confirmed Problem Liver function tests abnormal (620362551) Liver function study, abnormal (794.8) Active confirmed Problem Fatty liver (157801204) Fatty liver (571.8) Active confirmed Plan Of Treatment Pending Test Test Name Order Date IRON + IBC (FE) 09/13/2011 FERRITIN 09/13/2011 VITAMIN B12 AND FOLATE 09/13/2011 CBC w DIFF 09/13/2011 HEPATITIS B PROFILE 06/04/2013 HEPATITIS C ANTIBODY 06/04/2013 Insurance Providers Payer Name Payer Address Payer Phone Subscriber Number Group Number Insured Name Patient Relationship to Insured Coverage Start Date Coverage End Date [facility] [address] [address] [place], [place] [id number] SHAYY ARIAS Self - patient is the insured Medical (General) History Medical History History ICD Code Afib HTN IDDM Hyperlipidemia Denies [place], stroke, lung disease, kidney disease Anemia--01/2013 Hgb [...]
--- OUTSIDE RECORDS SUMMARY | 2025-08-05 14:04 | XMS_ITS | Clinical Summary ---
Author Organization [email or web address] [facility] Address [address] [place] [address] Care Team Providers Care Manager Telemetry Name Role Phone Yola Man MD Primary Care Provider [phone] Surgical History Surgery Date Site/Laterality Comments FOOT SURGERY PROCEDURE: HISTORICAL FOOT SURGERY; COMMENT: 2 toes amputated for tumor. CHOLECYSTECTOMY PROCEDURE: HISTORICAL CHOLECYSTECTOMY OTHER SURGICAL HISTORY PROCEDURE: ---- OTHER ----; COMMENT: gastric band/removed COLONOSCOPY 12/28/2017 PROCEDURE: HISTORICAL COLONOSCOPY; COMMENT: Diminutive polyps 2, these were lymphoid aggregates and not precancerous polyps. UPPER GASTROINTESTINAL ENDOSCOPY 12/28/2017 PROCEDURE: [place] UPPER GI ENDOSCOPY PERFORMED; COMMENT: Dr. Ko, [facility]: Visually normal, dilation with 60 Fr Savary dilator performed. Medical History Medical History Date Comments DM (diabetes mellitus), type 2, uncontrolled 05/17/2016 DX:DM (diabetes mellitus), t ype 2, uncontrolled DM (diabetes mellitus), type 2 with neurological complications ([facility]/HCC V24, [facility]/HCC V28) 05/17/2016 DX:DM (diabetes mellitus), t ype 2 with neurological complications (HCC) H/O amputation of lesser toe , right ([facility] V24) 11/22/2017 DX:H/O amputation of lesser toe, right ([facility]); COMMENT: 4th and 5th toes in 2000, removal of tumor Osteopenia 07/04/2018 DX:Osteopenia Klinefelter syndrome 07/04/2018 DX:Klinefel ter syndrome Hypogonadotropic hypogonadis m ([facility] V24) 07/04/2018 DX:Hypogonadotropic hypogona dism (HCC) [...] age to complete this topic Care Teams Manager Telemetry Relationship Specialty Start Date End Date Yola Man MD PCP - General Internal Medicine 09/17/19
== END 2025-08-05 12:07 | disposition home or self-care (01) ==
LOC: HO.HMCH 10:50
DX: Z13.9 Encounter for screening, unspecified (principal)

== ENCOUNTER → 2025-08-05 10:50 | Outpatient (BNVA) | payer OTHER, SELFPAY | PROVIDERS: PCP Internal Medicine | DX: M25.312 Other instability, left shoulder (principal); M25.561 Pain in right knee; M25.562 Pain in left knee; I10 Essential (primary) hypertension; E78.5 Hyperlipidemia, unspecified; D64.9 Anemia, unspecified; E66.01 Morbid (severe) obesity due to excess calories; Z68.41 Body mass index [BMI] 40.0-44.9, adult; R55 Syncope and collapse; Z74.09 Other reduced mobility; Z78.9 Other specified health status; Z87.891 Personal history of nicotine dependence | CPT/HCPCS: 83036; 99212 ==

== ENCOUNTER 2025-08-25 07:58 | Outpatient (AMB) | payer OTHER, SELFPAY ==
--- OUTSIDE RECORDS SUMMARY | 2025-08-25 08:08 | XMS_ITS | Clinical Summary ---
Author Organization [employer] [facility] Address [address] [place] [address] Care Team Providers Care Clinic Administrator Name Role Phone Yola Man MD Primary Care Provider [phone] Surgical History Surgery Date Site/Laterality Comments FOOT [...] (diabetes mellitus), type 2 with neurological complications ([facility]/HCC V24, [facility]/HCC V28) 05/17/2016 DX:DM (diabetes mellitus), t ype 2 with neurological complications (HCC) H/O amputation of lesser toe , right ([facility] V24) 11/22/2017 DX:H/O amputation of lesser toe, right ([facility]); COMMENT: 4th and 5th toes in 2000, removal of tumor Osteopenia 07/04/2018 DX:Osteopenia Klinefelter syndrome 07/04/2018 DX:Klinefel ter syndrome Hypogonadotropic hypogonadis m ([facility] V24) 07/04/2018 DX:Hypogonadotropic hypogona dism [...] on file Sexual Orientation Not on file Plan of Treatment Health Maintenance Due Date [...] age to complete this topic Care Teams Clinic Administrator Relationship Specialty Start Date End Date Yola Man MD PCP - General Internal Medicine 09/17/19
[2025-08-25 08:09] VITALS: BP 164/86; PULSE 69; O2SAT 95; BMI 44.5
--- NOTE | 2025-08-25 08:09 | A.OFFVIS_ITS ---
Vital Signs 08/25/25 08:09 Height 5 ft 8 in Weight 292 lb 12.382 oz BMI 44.5 BP 164/86 H Blood Pressure Location Lt brachial Position Sitting Pulse 69 Pulse Source Pulse Oximeter Pulse Oximetry (%) 95 Oxygen Delivery Method Room Air Intake Visit Reasons: DM Intake Note: Patient present today for Type 2 Diabetes Mellitus Last Diabetic eye exam: Last eye exam was on 05/21/25 at [facility] 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 [employer]: Associate Professor Of Management Present Associate Professor Of Management Name: Sumaya Magana [id number] Information Interpreted: non-clinical & clinical Accompanied by: Self / Same As Patient Allergies aspirin (Aspirin) Allergy (Severe, Verified 08/25/25 08:14) RASH,THROAT CLOSES, Swollen throat Peanut Butter Allergy (Severe, Verified 08/25/25 08:14) Anaphylaxis dicyclomine (From BENTYL) Allergy (Intermediate, Verified 08/25/25 08:14) PALPITATIONS insulin lispro (Admelog SoloStar U-100 Insulin) Allergy (Intermediate, Verified 08/25/25 08:14) dizziness methylprednisolone (METHYLPREDNISOLONE) Allergy (Intermediate, Verified 08/25/25 08:14) SWELLING furosemide Adverse Reaction (Severe, Verified 08/25/25 08:14) Headache semaglutide Adverse Reaction (Verified 08/25/25 08:14) Rash nuts Allergy (Severe, Uncoded 08/25/25 08:14) swelling testosterone Allergy (Intermediate, Uncoded 08/25/25 08:14) Rash jardiance Adverse Reaction (Mild, Uncoded 08/25/25 08:14) Drowsy Medication List - Last Reconciled 08/25/25 by Sudha Isaac PA-C [emergency urine bag As directed] acetaminophen (Tylenol Extra Strength) 1,000 mg (2 x 500 mg) PO Q6H PRN amlodipine 5 mg PO DAILY 90 days atorvastatin (Lipitor) 10 mg PO BEDTIME blood pressure monitor (Blood Pressure Kit) As directed blood sugar diagnostic (FreeStyle Lite Strips) Use daily As directed to check blood glucose blood-glucose meter (FreeStyle Lite Meter kit) Use daily As directed to check blood sugars blood-glucose sensor (Dexcom G7 Sensor device) Use daily As directed to monitor glucose. 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-glucose sensor (FreeStyle Asa 3 Plus Sensor device) Use daily As directed to monitor glucose blood-glucose,clean up worker,cont (FreeStyle Asa 3 [place]) Use daily As directed to monitor blood glucose cetirizine (All Day Allergy (cetirizine)) 10 mg PO DAILY PRN 7 days fluticasone furoate-vilanterol 200-25 mcg/dose (Breo Ellipta) 1 inh inhalation DAILY FreeStyle Asa 3 Plus Sensor (blood-glucose sensor) As directed every 14 days NS glucose (Dex4 Glucose) 16 grams (4 x 4 gram) PO Q15M PRN hydrochlorothiazide 12.5 mg PO DAILY 30 days insulin degludec (Tresiba FlexTouch U-200 insulin) 30 units (0.15 mL) subcut DAILY 30 days lancets (FreeStyle Lancets) use daily as directed to check blood glucose lancets (FreeStyle Lancets) use daily as directed to check blood glucose liraglutide (Victoza 2-Pieter) 0.6 mg (0.1 mL) subcut DAILY 30 days losartan 50 mg PO DAILY omeprazole 40 mg PO DAILY pen needle, diabetic (BD Sonja 2nd Gen Pen Needle) As directed once daily [Power chair As directed for long distance. 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 Phone: joint maker machine Sumaya Magana [id number] Endo: DM- Last a1c was 8.5. He was dx with diabetes in 2014. His chart says that he is currently on Tresiba 30 units daily. He has not started the victoza yet. He plans to start victoza today. He states the pharmacy had to order it and he waited to pick it up. -he is not on metformin because it upsets his stomach and causes muscle aches. Recently did not tolerate Mounjaro as it was causing injection site rashes and discomfort. Trulicity caused upset stomach. Ozempic caused headaches. Jardiance caused drowsiness. -he has had diabetic Education in the past and has met with a road inspector but does not feel that he has a great understanding of diabetes. cgm- He also never picked up his testing supplies after last visit. Very hypergylcemic 9%, hyperglycemic 40%, in range 51%, hypoglycemic 0%. -he was given a reader at the last visit and never picked up one sent to pharmacy -he never picked up the back up testing supplies CV: bp today is 164/86. He is on losartan 50 mg, amlodipine 5 mg, and hctz 12.5 mg daily. He has not taken his medications yet. Cholesterol controlled with atorvastatin 10 mg. [facility] Medical History Uncontrolled type 2 diabetes mellitus with hyperglycemia, with long-term current use of insulin Diabetes mellitus Type 2 diabetes mellitus with other diabetic kidney complication Loss of consciousness Chronic GERD Abdominal pain Epigastric pain Type 2 diabetes mellitus, with long-term current use of insulin Right leg pain Immunization due Obesity due to excess calories Diabetes type 2, uncontrolled Morbid obesity due to excess calories Asthma Microalbuminuria Left shoulder pain Lower back pain Diabetic polyneuropathy associated with type 2 diabetes mellitus Anemia ELO (obstructive sleep apnea) Diabetic nephropathy associated with type 2 diabetes mellitus Klinefelter syndrome Vitamin D deficiency Dyslipidemia Hypertension 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 Mother Diabetes Osteoporosis Heart murmur Social History Household Members: None Housing: Apartment Alcohol intake: former Patient Tobacco Use Status: Former Tobacco user Tobacco use type: Cigarette e-Cigarette/Vaping Use: Never Used Second Hand Smoke Exposure: No service: No Current occupational status: disabled Cognitive needs: No Hearing needs: No Vision needs: Yes (glasses ) Physical Exam Vital Signs: Last Vital Signs Pulse 69 08/25/25 08:09 BP 164/86 H 08/25/25 08:09 Pulse Ox 95 08/25/25 08:09 Oxygen Delivery Method Room Air 08/25/25 08:09 BMI result Body Mass Index 44.5 Const Orientation/consciousness: patient oriented x3 HEENT Ears: hearing grossly normal bilaterally Neck Thyroid: Thyroid normal Lymphatic: no lymphadenopathy noted Resp Auscultation: clear to auscultation bilaterally Cardio Rate: regular rate Rhythm: regular rhythm Heart sounds: S1 normal heart sound present and S2 normal heart sound present GI Inspection: Yes normal to inspection Palpation (GI): Soft to palpation and Other GI palpation findings present (nontender, no cva tenderness) Auscultation: normoactive bowel sounds Rectal Exam - Male: Yes deferred Skin General skin exam: no rashes or lesions noted Neuro General: patient oriented x3, gait normal and no focal motor deficits Results Reviewed Results Reviewed: Laboratory Last Values Glucose (Clinic) 139 mg/dL (60-115) H 08/25/25 08:16 Assessment & Plan Assessment & Plan (1) Uncontrolled type 2 diabetes mellitus with hyperglycemia, with long-term current use of insulin: Code(s): E11.65 - Type 2 diabetes mellitus with hyperglycemia; Z79.4 - artist model (current) use of insulin Category: Medical Plan: will start victoza increase Tresiba 34 units daily as directed We discussed importance of compliance. Discussed that he is putting himself at an increased risk of a heart attack, stroke, infection, complication, amputations etc.. Testing supplies reordered-- he will call me if he has any issues picking up testing supplies To more sensors were provided today. Advised that he will need to go to the pharmacy and cloth picker his sensors. Phone number provided to call regarding new reader. If he is able to get a reader from [facility] he will let me know and return the Dexcom reader Reviewed signs and symptoms of hyper and hypoglycemia that would require emergent medical treatment. Reviewed rule of 15 Encouraged him to continue with diet and healthy lifestyle modifications. (2) Hypertension: Code(s): I10 - Essential (primary) hypertension Category: Medical Qualifiers: Hypertension type: essential hypertension Qualified Code(s): I10 - Essential (primary) hypertension Plan: not taking medication as ordered advised to take meds today (3) Dyslipidemia: Code(s): E78.5 - Hyperlipidemia, unspecified Category: Medical Plan: Continue current regimen Plan Labs ordered. Short term follow up Medications: Changed From insulin degludec (Tresiba FlexTouch U-200 insulin) 30 units (0.15 mL) subcut DAILY 30 days 9 mL 2RF To insulin degludec (Tresiba FlexTouch U-200 insulin) 34 units (0.17 mL) subcut DAILY 5.1 mL 2RF 30 days Refilled blood-glucose sensor ([email or web address] G7 Sensor device) Use daily As directed to monitor glucose. change q 10 days 9 ea 3RF E11.65 - Type 2 diabetes mellitus with hyperglycemia, Z79.4 - skilled nursing (current) use of insulin blood sugar diagnostic (FreeStyle Lite Strips) Use daily As directed to check blood glucose 100 ea 3RF E11.65 - Type 2 diabetes mellitus with hyperglycemia, Z79.4 - artist model (current) use of insulin lancets (FreeStyle Lancets) use daily as directed to check blood glucose 100 ea 3RF Discontinued lancets (FreeStyle Lancets) Discontinued Reason: Doctor's Order use daily as directed to check blood glucose 100 ea 3RF E11.65 - Type 2 diabetes mellitus with hyperglycemia, Z79.4 - skilled nursing (current) use of insulin blood-glucose sensor (FreeStyle Asa 3 Plus Sensor device) Discontinued Reason: Doctor's Order Use daily As directed to monitor glucose 2 ea 5RF E08.29 - Diabetes mellitus due to underlying condition with other diabetic kidney complication, R80.9 - Proteinuria, unspecified, Z79.4 - skilled nursing (current) use of insulin Coding Level of Care Code Est Pt Level 4 (14069) Add On Problem Visit Only Diagnoses Uncontrolled type 2 diabetes mellitus with hyperglycemia, with long-term current use of insulin E11.65; Z79.4 Essential hypertension I10 Hypertension type: essential hypertension Dyslipidemia E78.5
--- OUTSIDE RECORDS SUMMARY | 2025-08-25 08:09 | XMS_ITS | Patient Health Record ---
Author Organization [facility] Address [address] [place] [address] Care Team Providers Care Dam Tender Assistant Name Role Phone Consuelo Coles Primary Care Provider Unavailab Dwight Zepeda Unavailable [phone] Tia Valle Unavailable Unavailable Allergies Allergen (clinical [...] W/U Status Risk Notes Problem Epigastric pain (93478352) Abdominal pain, epigastric (789.06) Active confirmed Problem Anemia (421192583) Anemia (285.9) Active confirmed Problem Liver function tests abnormal (707854063) Liver function study, abnormal (794.8) Active confirmed Problem Fatty liver (213281366) Fatty liver (571.8) Active confirmed Plan Of Treatment Pending Test Test Name Order Date IRON + IBC (FE) 09/13/2011 FERRITIN 09/13/2011 VITAMIN B12 AND FOLATE 09/13/2011 CBC w DIFF 09/13/2011 HEPATITIS B PROFILE 06/04/2013 HEPATITIS C ANTIBODY 06/04/2013 Insurance Providers Payer Name Payer Address Payer Phone Subscriber Number Group Number Insured Name Patient Relationship to Insured Coverage Start Date Coverage End Date [facility] [address] [address] [place], [place] [phone] [id number] SHAYY ARIAS Self - patient is the insured Medical (General) History Medical History History ICD Code Afib HTN IDDM Hyperlipidemia Denies [place], stroke, lung disease, kidney disease Anemia--01/2013 Hgb [...]
[2025-08-25 08:19] LABS: Glucose, Whole Blood 139 mg/dL (60-115)
== END 2025-08-25 09:14 | disposition home or self-care (01) ==
LOC: HO.ENCR 07:58
PROVIDERS: Visit Provider Physician Assistant
DX: E11.65 Type 2 diabetes mellitus with hyperglycemia (principal); Z79.4 Long term (current) use of insulin; I10 Essential (primary) hypertension; E78.5 Hyperlipidemia, unspecified

== ENCOUNTER → 2025-08-25 07:58 | Outpatient (BNVA) | payer OTHER, SELFPAY | PROVIDERS: Visit Provider Physician Assistant | DX: E11.65 Type 2 diabetes mellitus with hyperglycemia (principal); I10 Essential (primary) hypertension; E78.5 Hyperlipidemia, unspecified; Z79.4 Long term (current) use of insulin | CPT/HCPCS: 82947; 99212 ==